=== PATIENT | female | born 1980 | race Asian ===

== ENCOUNTER 2016-10-21 16:37 | Inpatient (IN) | payer OTHER ==
[~2016-10-21] VITALS: Ht 162.6 cm; Wt 50.0 kg
[2016-10-21] MEDS ORDERED: SOD CHLORIDE 0.9% 1,000 ML IV STA (17:06)
[2016-10-21] MEDS ORDERED: ONDANSETRON 4 MG INJ IV STA (17:06)
[2016-10-21] MEDS ORDERED: PIPER-TAZO 3.375 GM IV (PMX) 100 ML IVPB STA (17:06)
[2016-10-21] MEDS ORDERED: morphine 4 MG/ML VIAL IV STA (17:06)
--- NOTE | 2016-10-21 17:39 | RADRPT ---
PROCEDURE: XR Chest 1 View. CLINICAL INDICATION: Shortness of breath. TECHNIQUE: AP view of the chest was obtained. COMPARISON: None. FINDINGS: The cardiomediastinal silhouette is within normal limits. The lungs are hypoinflated. Minimal atele ctasis is seen at the left lung base. No consolidations are identified. No pneumothorax is seen. O sseous structures are intact. IMPRESSION: Minimal atelectasis at the left lung base. Hypoinflated lungs. RPTAT: AA .Frederic Jung MD, MD Date Time Electronically viewed and signed by .Frederic Jung MD, on 10/21/2016 17:39 .P/
[2016-10-21 17:54] LABS: ADD SCAN DIFF NO
[2016-10-21 17:56] LABS: BASOPHIL # 0.1 10^3/ul (0.0-0.1); BASOPHILS % 0.5 % (0.0-2.0); EOSINOPHILS % 0.2 % (0.0-7.0); HEMATOCRIT 44.8 % (37.0-47.0); HEMOGLOBIN 14.6 g/dl (12.0-16.0); LYMPHOCYTES # 1.5 10^3/ul (0.8-2.9); LYMPHOCYTES % 13.8 % (15.0-51.0); MEAN CORPUSCULAR HEMOGLOBIN 28.9 pg (29.0-33.0); MEAN CORPUSCULAR HGB CONC 32.6 g/dl (32.0-37.0); MEAN CORPUSCULAR VOLUME 88.7 fl (82.0-101.0); MEAN PLATELET VOLUME 12.2 fl (7.4-10.4); MONOCYTE # 0.6 10^3/ul (0.3-0.9); MONOCYTES % 5.6 % (0.0-11.0); NEUTROPHIL # 8.4 10^3/ul (1.6-7.5); NEUTROPHILS % 78.8 % (39.0-77.0); PLATELET COUNT 238 10^3/UL (140-415); RED BLOOD COUNT 5.05 10^6/ul (4.20-5.40); RED CELL DISTRIBUTION WIDTH 12.5 % (11.5-14.5); WHITE BLOOD COUNT 10.7 10^3/ul (4.8-10.8)
[2016-10-21 18:17] LABS: ALBUMIN 4.6 g/dl (3.3-4.9); CHLORIDE 101 mmol/L (97-110)
[2016-10-21 18:18] LABS: POTASSIUM 4.1 mmol/L (3.5-5.1); SODIUM 144 mmol/L (135-144)
[2016-10-21 18:20] LABS: ALBUMIN/GLOBULIN RATIO 0.95; ALKALINE PHOSPHATASE 128 IU/L (42-121); ANION GAP 19 (8-16); ASPARTATE AMINO TRANSFERASE 27 IU/L (15-46); BILIRUBIN,INDIRECT 0.2 mg/dl (0-1.1); BILIRUBIN,TOTAL 0.2 mg/dl (0.2-1.3); CARBON DIOXIDE 28 mmol/L (21-31); CREATININE 0.49 mg/dl (0.44-1.00); TOTAL PROTEIN 9.4 g/dl (6.1-8.1)
[2016-10-21 18:21] LABS: ALANINE AMINOTRANSFERASE 35 IU/L (13-69); BLOOD UREA NITROGEN 16 mg/dl (7-20); CALCIUM 10.1 mg/dl (8.4-10.2); GLUCOSE 111 mg/dl (70-220)
[2016-10-21 18:21] LABS: ADD UMIC YES; URINE BILIRUBIN (Dip) NEGATIVE (NEGATIVE); URINE BLOOD (Dip) TRACE (NEGATIVE); URINE COLOR LT. YELLOW (YELLOW); URINE GLUCOSE (Dip) NEGATIVE (NEGATIVE); URINE KETONES (Dip) NEGATIVE (NEGATIVE); URINE LEUKOCYTE ESTERASE (Dip) 3+ (NEGATIVE); URINE NITRITE (Dip) NEGATIVE (NEGATIVE); URINE TOTAL PROTEIN (Dip) NEGATIVE (NEGATIVE); URINE UROBILINOGEN (Dip) 0.2 E.U./dL (0.1-1.0)
[2016-10-21 18:34] LABS: BACTERIA,URINE MANY; SQUAMOUS EPITHELIAL CELL,UR MANY; URINE RBCS 0-2 /HPF (0)
[2016-10-21 18:34] LABS: TROPONIN-I < 0.012 ng/ml (0.00-0.12)
--- NOTE | 2016-10-21 19:54 | ERA ---
ER Documentation Chief Complaint Date/Time DATE: 10/21/16 TIME: 19:43 Chief Complaint SENT BY PMD FOR BACK NECROTIC PRESSURE ULCER,FOR SURGICAL EVAL. HPI 36-year-old woman with a history of hereditary spastic paraplegia presents with 1 month of increasing weakness and sacral decubitus ulcer which has become infected. Mother states prior to a month ago she never had skin ulcers or breakdown. She was referred here for surgical consultation and possible debridement. She has had intermittent tactile fevers at home, no weight loss, no vomiting or diarrhea, no complaints of chest pain or shortness of breath. ROS All systems reviewed and are negative except as per history of present illness. 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 No submandibular induration, and no pharyngeal erythema NEURO: Eyes open, pupils equal round reactive to light, patient is able to smile and react nonverbally she has bilateral upper extremity paraplegia and bilateral lower extremity spastic paralysis with diffuse muscular wasting, no facial asymmetry CARDIAC: Tachycardic and regular, no murmurs rubs or gallops LUNGS: Clear bilaterally no wheezing crackles or stridor ABDOMEN: Soft nontender, no guarding, no rigidity, no rebound, no psoas sign no obturator sign. Normoactive bowel sounds SKIN: Warm and dry to touch, positive deep boarding sacral decubitus ulceration with visible musculature and mild surrounding skin necrosis no active drainage EXTREMITIES: No clubbing cyanosis or edema, calves are bilaterally symmetrical, diffuse spastic musculature and muscular wasting, distal pulses equal bilateral PSYCH: Normal affect without agitation or irritability Result Diagram: 10/21/16 1740 10/21/16 1740 Results 24 hrs Laboratory Tests Test 10/21/16 17:40 10/21/16 18:04 White Blood Count 10.710^3/ul Red Blood Count 5.0510^6/ul Hemoglobin 14.6g/dl Hematocrit 44.8% Mean Corpuscular Volume 88.7fl Mean Corpuscular Hemoglobin 28.9pg Mean Corpuscular Hemoglobin Concent 32.6g/dl Red Cell Distribution Width 12.5% Platelet Count 22034^3/UL Mean Platelet Volume 12.2fl Neutrophils % 78.8% Lymphocytes % 13.8% Monocytes % 5.6% Eosinophils % 0.2% Basophils % 0.5% Nucleated Red Blood Cells % 0.0/100WBC Neutrophils # 8.410^3/ul Lymphocytes # 1.510^3/ul Monocytes # 0.610^3/ul Eosinophils # 0.010^3/ul Basophils # 0.110^3/ul Nucleated Red Blood Cells # 0.010^3/ul Sodium Level 144mmol/L Potassium Level 4.1mmol/L Chloride Level 101mmol/L Carbon Dioxide Level 28mmol/L Anion Gap 19 Blood Urea Nitrogen 16mg/dl Creatinine 0.49mg/dl Glucose Level 111mg/dl Calcium Level 10.1mg/dl Total Bilirubin 0.2mg/dl Direct Bilirubin 0.00mg/dl Indirect Bilirubin 0.2mg/dl Aspartate Amino Transf (AST/SGOT) 27IU/L Alanine Aminotransferase (ALT/SGPT) 35IU/L Alkaline Phosphatase 128IU/L Troponin I < 0.012ng/ml Total Protein 9.4g/dl Albumin 4.6g/dl Globulin 4.80g/dl Albumin/Globulin Ratio 0.95 Lipase 117U/L Urine Color LT. YELLOW Urine Clarity SLIGHTLY CLOUDY Urine pH 6.0 Urine Specific [place] 1.025 Urine Ketones NEGATIVE Urine Nitrite NEGATIVE Urine Bilirubin NEGATIVE Urine Urobilinogen 0.2 E.U./dL Urine Leukocyte Esterase 3+ Urine Microscopic RBC 0-2/HPF Urine Microscopic WBC >50/HPF Urine Squamous Epithelial Cells MANY Urine Bacteria MANY Urine Hemoglobin TRACE Urine Glucose NEGATIVE% Urine Total Protein NEGATIVE Current Medications Medications (Trade) Dose Ordered Sig/Satish Route PRN Reason Start Time Stop Time Status Last Admin Dose Admin Sodium Chloride (NS) 1,000 ml @ 1,000 mls/hr Q1H STAT IV 10/21/16 17:06 10/21/16 18:05 DC 10/21/16 17:48 Morphine Sulfate (morphine) 4 mg ONCE STAT IV 10/21/16 17:06 10/21/16 17:13 DC 10/21/16 17:49 Ondansetron HCl 4 mg 4 mg ONCE STAT IV 10/21/16 17:06 10/21/16 17:13 DC 10/21/16 17:48 Piperacillin Sod/ Tazobactam Sod (Zosyn 3.375gm/ 100 ml (Pmx)) 100 ml @ 200 mls/hr ONCE STAT IVPB 10/21/16 17:06 10/21/16 17:35 DC 10/21/16 17:48 Procedures/MDM IV line was established patient was placed on hoistman rhythm strip revealed a sinus tachycardia at 140 bpm with upright P and T waves. Patient was afebrile. Blood and urine cultures have been ordered results are pending I will follow-up. Wound cultures have also been ordered. I administered 2 L normal saline intravenously for dehydration and tachycardia. Patient also received Zosyn 3.375 g IV. Patient also received morphine 4 mg IV and Zofran 4 mg IV with good effect. CBC and electrolytes were within normal limits, liver function tests were normal , troponin was negative. Urine analysis was positive for infection. Chest X-ray 1V Interpreted by me: Soft Tissue: No acute abnormalities Bones: No acute abnormalities Mediastinum/Cardiac Silhouette/Lungs: No acute abnormalities Patient presented dehydrated with a new infected sacral decubitus ulceration and a urinary tract infection. She will be admitted to [facility] for continued medical management and possible surgical debridement. I do not suspect sepsis. Patient admitted to Dr. Gibbs Departure Diagnosis: Primary Impression: Hereditary spastic paraplegia Additional Impressions: Dehydration Sacral decubitus ulcer, stage IV UTI (urinary tract infection) Qualified Code: N30.00 - Acute cystitis without hematuria Condition: SAYRA Mitchell MD October 21, 2016 19:53
[2016-10-21] MEDS ORDERED: BACL10TA PO (20:29)
[2016-10-21] MEDS ORDERED: PROPRANOLOL 10 MG TAB PO STA (20:56)
[2016-10-21] MEDS ORDERED: SOD CHLORIDE 0.9% 1,000 ML IV ONE (21:00)
[2016-10-21 21:21] VITALS: TEMP 98.8
[2016-10-21] MEDS ORDERED: VANCOMYCIN IV PER PHARMACY XX SCH (22:00)
[2016-10-21] MEDS ORDERED: ACETAMINOPHEN 500 MG TAB PO PRN (22:00)
[2016-10-21 22:27] VITALS: PULSE 110
[2016-10-21 22:45] VITALS: Ht 162.6 cm; Wt 50.0 kg
[2016-10-21] MEDS: VANCOMYCIN 1 GM in NS 250 ML IVPB SCH (23:17)
[2016-10-21] MEDS: SOD CHLORIDE 0.9% 1,000 ML IV SCH (23:17)
[2016-10-22] VITALS (11 sets, daily range): BP systolic 115–152; BP diastolic 71–78; PULSE 101–120; RESP 16–19
[2016-10-22] MEDS ORDERED: PENDING SANTYL ORDER FOR WOUND CARE XX PRN (01:30)
--- NOTE | 2016-10-22 02:13 | HP ---
DATE OF ADMISSION: 10/21/2016 CHIEF COMPLAINT AND HISTORY OF PRESENT ILLNESS: The patient is a 36-year-old female with history of hereditary spastic paraplegia and has been bedridden for several years. The patient has had multiple neurological evaluations in the past including at [facility], Dr. Bartolo Gamez and Dr. Delores Mays , also had evaluation at at [facility] and with Dr. Avani Glaser at [facility]. The patient was sent from her [facility] due to large necrotic sacral pressure ulcer. The patient was seen in ER and was found to be afebrile. However, she had sinus tachycardia. Other labs are still pending. The patient did not have any fever upon initial evaluation in ER. The patient is awake, alert and has some difficulty in speaking, although she is able to communicate. The patient denies any pain. The patient has contractures in all extremities. The patient is being admitted for further evaluation and management. The patient denied any chest pain or shortness of breath. There is no abdominal pain, no reported vomiting, no reported bleeding from any site. Eaton catheter is in place and draining clear urine. There is no leg edema. No acute skin rash. The patient is quadriplegic with contractures. REVIEW OF SYSTEMS: The patient denied any cough or headache. The patient's symptom of weakness in all extremities started around age of 30. Prior to that , she used to go to school and got and had a child. PAST MEDICAL HISTORY: Depression. ALLERGIES: NONE. MEDICATION PRIOR TO ADMISSION: Unknown. SOCIAL HISTORY: No smoking, no alcohol. The patient is with 1 daughter and is currently residing with her adopted mother Lissy and is originally from [place]. FAMILY HISTORY: The patient has 4 siblings which include 3 brothers and 1 sister, of which 2 of brothers also have similar symptoms. PHYSICAL EXAMINATION: GENERAL: The patient is conscious, awake, alert, fairly oriented. VITAL SIGNS: Temperature 98.1, pulse 130, respirations 20, blood pressure 133/ 83, . HEENT: Atraumatic, normocephalic. Conjunctivae and lids normal. Oropharynx grossly negative. NECK: No mass. CHEST: Fairly clear. CARDIOVASCULAR: S1, S2 normal. Sinus tachycardia. ABDOMEN: Soft, nontender. EXTREMITIES: No edema. Contractures present. NEUROLOGIC: The patient is awake, alert, fairly oriented with weakness and contractures in all extremities. SKIN: Without acute rash. The patient does have sacral wound. Please see nursing note for further detail about the wound. The patient does have slight focal redness on the left foot, probably from a previous blister. IMPRESSION: 1. Sacral decubitus. 2. Hereditary spastic paraplegia. PLAN: The patient will be admitted on medical floor. The patient will have urine culture, blood culture and wound culture and has received a dose of Zosyn in ER which will be continued. The patient will have wound care consult. Will give IV fluid due to possible sesis as evident by sinus tachcardia. The patient's chemistry & lactic acid is still pending. I spoke with ER physician that patient may be okay for medical floor if there is no significant abnormality in her chemistry report. Wound care consult from Dr. Murphy & ID consult from Dr. Hampton group will be obtained. Further recommendations will depend upon patient's hospital course and recommendation from consultants. The patient's family is currently not with the patient. Will discuss with the family whenever they are available. Dictated By: ROBERTO CARLOS LORA/CHRISTIAN Conf#: [id number] DID#: [id number] MTDJesus
[2016-10-22] MEDS: PIPER-TAZO 3.375 GM IV (PMX) 100 ML IVPB SCH ×3 (02:28→18:07)
[2016-10-22 06:49] LABS: ADD SCAN DIFF NO
[2016-10-22 06:54] LABS: BASOPHIL # 0.1 10^3/ul (0.0-0.1); BASOPHILS % 0.5 % (0.0-2.0); EOSINOPHILS # 0.1 10^3/ul (0.0-0.5); EOSINOPHILS % 0.5 % (0.0-7.0); HEMATOCRIT 37.5 % (37.0-47.0); HEMOGLOBIN 12.2 g/dl (12.0-16.0); LYMPHOCYTES # 1.6 10^3/ul (0.8-2.9); LYMPHOCYTES % 14.5 % (15.0-51.0); MEAN CORPUSCULAR HEMOGLOBIN 29.2 pg (29.0-33.0); MEAN CORPUSCULAR HGB CONC 32.5 g/dl (32.0-37.0); MEAN CORPUSCULAR VOLUME 89.7 fl (82.0-101.0); MEAN PLATELET VOLUME 11.5 fl (7.4-10.4); MONOCYTE # 0.7 10^3/ul (0.3-0.9); MONOCYTES % 6.6 % (0.0-11.0); NEUTROPHIL # 8.4 10^3/ul (1.6-7.5); NEUTROPHILS % 76.8 % (39.0-77.0); PLATELET COUNT 253 10^3/UL (140-415); RED BLOOD COUNT 4.18 10^6/ul (4.20-5.40); RED CELL DISTRIBUTION WIDTH 12.6 % (11.5-14.5); WHITE BLOOD COUNT 10.9 10^3/ul (4.8-10.8)
[2016-10-22 07:28] LABS: POTASSIUM 3.8 mmol/L (3.5-5.1)
[2016-10-22 07:31] LABS: CALCIUM 8.4 mg/dl (8.4-10.2); CREATININE 0.45 mg/dl (0.44-1.00)
[2016-10-22] MEDS: SOD CHLORIDE 0.9% 1,000 ML IV SCH ×2 (08:00→14:03)
[2016-10-22] MEDS: ENOXAPARIN 30 MG/0.3 ML SYG SC SCH (09:00)
[2016-10-22] MEDS: VANCOMYCIN 1 GM in NS 250 ML IVPB SCH ×2 (10:30→21:32)
[2016-10-22] MEDS ORDERED: TRAZ150T65 PO (14:00)
[2016-10-22] MEDS ORDERED: SERT-165 PO (14:00)
[2016-10-22] MEDS: SODIUM HYPOCHLORITE 0.125% 473 ML BTL IRR SCH ×2 (14:03→21:45)
--- NOTE | 2016-10-22 16:15 | PN ---
Date/Time of Note Date/Time of Note DATE: 10/22/16 TIME: 16:08 Assessment/Plan VTE Prophylaxis VTE Prophylaxis Intervention: SCD's Lines/Catheters IV Catheter Type (from Nrsg): Peripheral IV Urinary Cath still in place: Yes Reason Cath still needed: urinary retention Assessment/Plan Assessment/Plan Assessment and plan: - Sacral decubitus. Dr. Ware is asked to see patient in general surgery consultation. - Hereditary spastic paraplegia. - UTI per UA, continue broad-spectrum antibiotics, follow up on cultures. Dr. Memo garcía is asked to see patient in infection disease consultation. - Bilateral lateral foot blisters, will obtain wound care consult. - Depression, continue Zoloft Further recommendations based on clinical course. Plan of care discussed with Dr. Gibbs. Subjective 24 Hr Interval Summary Free Text/Dictation Patient is awake alert, denies any pain. Exam/Review of Systems Vital Signs Vitals Vital Signs Date Time Temp Pulse Resp B/P Pulse Ox O2 Delivery O2 Flow Rate FiO2 10/22/16 15:23 98.5 68 18 115/78 98 10/21/16 20:40 Room Air Intake and Output 10/21/16 10/21/16 10/22/16 15:00 23:00 07:00 Intake Total 750 ml Output Total 700 ml Balance 50 ml Exam Constitutional: alert, oriented Psych: no complaints Head: atraumatic, normocephalic Eyes: nl conjunctiva ENMT: nl external ears & nose Neck: non-tender, supple Respiratory: clear to auscultation, normal air movement Cardiovascular: nl pulses, regular rate and rhythm Gastrointestinal: non-tender, soft Genitourinary - Female: other (Eaton catheter) Musculoskeletal: muscle weakness, other (Contracted) Extremities: normal pulses Neurological: nl mental status Skin: other (Sacral decubitus, bilateral lateral foot blisters) Results Result Diagram: 10/22/16 0606 10/22/16 0606 Results 24 hrs Laboratory Tests Test 10/21/16 17:40 10/21/16 18:04 10/22/16 06:06 White Blood Count 10.7 10.9 H Red Blood Count 5.05 4.18 L Hemoglobin 14.6 12.2 Hematocrit 44.8 37.5 Mean Corpuscular Volume 88.7 89.7 Mean Corpuscular Hemoglobin 28.9 L 29.2 Mean Corpuscular Hemoglobin Concent 32.6 32.5 Red Cell Distribution Width 12.5 12.6 Platelet Count 238 253 Mean Platelet Volume 12.2 H 11.5 H Neutrophils % 78.8 H 76.8 Lymphocytes % 13.8 L 14.5 L Monocytes % 5.6 6.6 Eosinophils % 0.2 0.5 Basophils % 0.5 0.5 Nucleated Red Blood Cells % 0.0 0.0 Neutrophils # 8.4 H 8.4 H Lymphocytes # 1.5 1.6 Monocytes # 0.6 0.7 Eosinophils # 0.0 0.1 Basophils # 0.1 0.1 Nucleated Red Blood Cells # 0.0 0.0 Sodium Level 144 141 Potassium Level 4.1 3.8 Chloride Level 101 109 Carbon Dioxide Level 28 21 Anion Gap 19 H 15 Blood Urea Nitrogen 16 9 Creatinine 0.49 0.45 Glucose Level 111 98 Calcium Level 10.1 8.4 Total Bilirubin 0.2 Direct Bilirubin 0.00 Indirect Bilirubin 0.2 Aspartate Amino Transf (AST/SGOT) 27 Alanine Aminotransferase (ALT/SGPT) 35 Alkaline Phosphatase 128 H Troponin I < 0.012 Total Protein 9.4 H Albumin 4.6 Globulin 4.80 H Albumin/Globulin Ratio 0.95 Lipase 117 Urine Color LT. YELLOW Urine Clarity SLIGHTLY CLOUDY Urine pH 6.0 Urine Specific [place] 1.025 Urine Ketones NEGATIVE Urine Nitrite NEGATIVE Urine Bilirubin NEGATIVE Urine Urobilinogen 0.2 E.U./dL Urine Leukocyte Esterase 3+ H Urine Microscopic RBC 0-2 Urine Microscopic WBC >50 Urine Squamous Epithelial Cells MANY Urine Bacteria MANY Urine Hemoglobin TRACE Urine Glucose NEGATIVE Urine Total Protein NEGATIVE Lactic Acid Level 1.0 Thyroid Stimulating Hormone (TSH) 1.070 Medications Medications Current Medications Sodium Chloride 1,000 ml @ 100 mls/hr Q10H IV Last administered on 10/22/16 14:03; Admin Dose 100 MLS/HR; Start 10/21/16 at 22:00 Piperacillin Sod/ Tazobactam Sod (Zosyn 3.375gm/ 100 ml (Pmx)) 100 ml @ 25 mls/ hr TID@02,10,18 IVPB Last administered on 10/22/16 11:37; Admin Dose 25 MLS/HR ; Start 10/22/16 at 02:00 Acetaminophen (Tylenol Tab) 500 mg Q4H PRN PO PAIN AND OR ELEVATED TEMP; Start 10/21/16 at 22:00 Morphine Sulfate (morphine) 2 mg Q4H PRN IV PAIN LEVEL 4-7; Start 10/21/16 at 22:00 Enoxaparin Sodium (Lovenox) 30 mg DAILY SC Last administered on 10/22/16 09:00 ; Admin Dose 30 MG; Start 10/22/16 at 09:00 Ondansetron HCl 4 mg 4 mg Q4H PRN IV NAUSEA AND/OR VOMITING; Start 10/21/16 at 22:00 Vancomycin HCl (Vancocin) 250 ml @ 125 mls/hr Q12H IVPB Last administered on 10:30; Admin Dose 125 MLS/HR; Start 10/21/16 at 22:00 Miscellaneous Information (Pending Santyl Order For Wound Care) This patient webb... PRN PRN XX WOUND CARE; Start 10/22/16 at 01:30 Miscellaneous Information (*Rx Drug Level Order Reminder*) 1 ONCE ONCE XX ; Start 10/23/16 at 09:00; Stop 10/23/16 at 09:01 Sodium Hypochlorite (Dakin'S (1/4 Strength)) 1 applic BID IRR Last administered on 10/22/16 14:03; Admin Dose 1 APPLIC; Start 10/22/16 at 13:00 LEI YEBOAH October 22, 2016 16:15
[2016-10-22] MEDS ORDERED: BACLOFEN 10 MG TAB PO PRN (16:30)
--- NOTE | 2016-10-22 16:38 | QN ---
Documentation Comment ID consult requested by Chiqui Jay NP. Dr. Hampton to see pt shortly. BUFFY JAIME NP October 22, 2016 16:38
[2016-10-22] MEDS: traZODone 50 MG TAB PO SCH (21:33)
--- NOTE | 2016-10-22 22:05 | CONS ---
DATE OF ADMISSION: 10/21/2016 DATE OF CONSULTATION: 10/22/2016 TYPE OF CONSULTATION: Surgical. REQUESTING PHYSICIAN: Dr. Gibbs REASON FOR CONSULTATION: Evaluation of the sacrococcygeal pressure ulcer. Thank you, Dr. Gibbs, for consultation. HISTORY OF PRESENT ILLNESS: As understood, this is a 36-year-old female who has a history of hereditary spastic paraplegia and has been almost bedridden for 5 years. The patient has had multiple neurological evaluations in different places including [facility] and [facility] for finding out definitely what is wrong. Eventually so far, the diagnosis is some kind of degenerative disease, most probably hereditary degenerative spastic paraplegia. In any case , the patient was found in the clinic to have a necrotic sacrococcygeal wound so was sent here. The patient was seen in the emergency room yesterday on 10/21 and evaluated. The patient has denied any pain but has admitted to some kind of weakness and in the emergency room was evaluated with chest x-ray which was slight atelectasis, left lung base. The urinalysis was abnormal. Urine culture was sent which has grown so far lactobacillus more than 100,000 colonies. Leukocyte count was normal, but shift to the left was 80% neutrophils. The patient has been almost afebrile. REVIEW OF SYSTEMS: Apparently, the symptoms of the neurologic problems started at the age of 30. Prior to that, the patient had gone to school, college and , has got 1 child. PAST MEDICAL HISTORY: Depression. ALLERGIES: NOT KNOWN. MEDICATIONS: Please refer to reconciliation. SOCIAL HISTORY: No smoking, no alcohol. The patient is with 1 daughter and is currently residing with her biological mother and adopted mother. FAMILY HISTORY: The patient has 4 siblings which apparently include 3 brothers and 1 sister, which 2 of the brothers have got almost the same problems. PHYSICAL EXAMINATION: GENERAL: The patient is lying down on the bed. She has a kind of smile on her face. She has hirsutism. VITAL SIGNS: Temperature today maximum 99; heart rate maximum 112, regular; respirations 16; blood pressure recorded 127/75, lying down position; pulse oximetry is 97% room air. LABORATORY: As was mentioned, urine revealed leukocyte esterase 3+. WBCs more than 50 per high-power field. Many bacteria. Glucose and protein in urine negative. Chemistry: Sodium and potassium normal, BUN and creatinine normal. Alkaline phosphatase 128, slightly elevated. Total protein 9.4, sign of good nutrition. Albumin 4.6. Globulin slightly elevated, 4.80. Hematology: As was mentioned, WBC 10,900 with 76% neutrophils, hemoglobin 12.2, hematocrit 37.5. PHYSICAL EXAMINATION: GENERAL: The patient is conscious, awake and alert and fairly oriented. Slight difficulty in speaking. HEENT: Atraumatic, normocephalic. Conjunctivae and lids are normal. NECK: No mass, no thyroid enlargement. CHEST: Symmetrical expansion. Probably decreased breathing sound in the left base. CARDIOVASCULAR: S1, S2 normal. Sinus tachycardia. ABDOMEN: Flat but on the left side, especially left lower quadrant, is firm, evidence of presence of hard stool in the sigmoid colon. EXTREMITIES: No pitting edema. The upper extremities, there is flexion contracture at the elbows and at the wrists. She doesn't move them or she cannot move them. Lower extremities, there is spasticity of all the lower extremities. There is no flexion contracture at the knees or hips, but there is flexion contracture and equinus deformity of the feet. SKIN: Left and right lateral malleolus, there is a blister in heels that is probably unstageable or deep tissue injury. Turning the patient around, there is 4.5 x 3.5 x 3 cm deep skin loss and sacrococcygeal wound which lower edge is about 3 to 4 cm from inferior border of the anal verge. The granulation tissue is clean. I do see that much of necrotic tissue over there. This can be staged as stage IV pressure ulcer. NEUROLOGIC: As was mentioned, the patient is awake, alert, fairly oriented with weakness and contractures in all extremities. IMPRESSION: 1. Sacral decubitus ulcer, stage IV. 2. Probably hereditary degenerative spastic paraplegia (actually quadriplegia). 3. Urinary tract infection with lactobacillus more than 100,000 colonies. PLAN: The patient has been admitted for evaluation of the decubitus ulcer and also cause of weakness. Apparently patient has urinary tract infection which they are starting treating the patient with Zosyn, and an infectious disease consultation was requested. As far as the bedsores are concerned, the following suggestions are made: 1. Offloading the sacrococcygeal area by moving and turning the patient side-to -side every 2 hours. 2. Application of the wet-to-dry [place]in solution of 1/40% concentration b.i.d. ( q.12 hours). I will continue to follow the patient along with other colleagues. Dictated By: SCOOBY DRUMMOND/CHRISTIAN Conf#: [id number] DID#: [id number] MTDD
[2016-10-23] VITALS (12 sets, daily range): BP systolic 116–130; BP diastolic 53–78; PULSE 66–115; RESP 16–18
[2016-10-23] MEDS: PIPER-TAZO 3.375 GM IV (PMX) 100 ML IVPB SCH ×3 (01:14→18:14)
[2016-10-23] MEDS: SOD CHLORIDE 0.9% 1,000 ML IV SCH ×2 (05:48→14:00)
[2016-10-23] MEDS: SODIUM HYPOCHLORITE 0.125% 473 ML BTL IRR SCH ×3 (09:00→20:22)
[2016-10-23 09:21] LABS: ADD SCAN DIFF NO
[2016-10-23 09:23] LABS: BASOPHILS % 0.4 % (0.0-2.0); EOSINOPHILS # 0.1 10^3/ul (0.0-0.5); EOSINOPHILS % 1.2 % (0.0-7.0); HEMATOCRIT 36.6 % (37.0-47.0); HEMOGLOBIN 11.9 g/dl (12.0-16.0); LYMPHOCYTES # 1.4 10^3/ul (0.8-2.9); LYMPHOCYTES % 16.2 % (15.0-51.0); MEAN CORPUSCULAR HEMOGLOBIN 28.7 pg (29.0-33.0); MEAN CORPUSCULAR HGB CONC 32.5 g/dl (32.0-37.0); MEAN CORPUSCULAR VOLUME 88.2 fl (82.0-101.0); MEAN PLATELET VOLUME 10.9 fl (7.4-10.4); MONOCYTE # 0.6 10^3/ul (0.3-0.9); MONOCYTES % 6.4 % (0.0-11.0); NEUTROPHIL # 6.4 10^3/ul (1.6-7.5); NEUTROPHILS % 75.2 % (39.0-77.0); PLATELET COUNT 221 10^3/UL (140-415); RED BLOOD COUNT 4.15 10^6/ul (4.20-5.40); WHITE BLOOD COUNT 8.5 10^3/ul (4.8-10.8)
[2016-10-23 09:45] LABS: CALCIUM 8.8 mg/dl (8.4-10.2); CREATININE 0.51 mg/dl (0.44-1.00); POTASSIUM 3.2 mmol/L (3.5-5.1)
[2016-10-23] MEDS: VANCOMYCIN 1 GM in NS 250 ML IVPB SCH ×2 (09:57→20:22)
[2016-10-23] MEDS: SERTRALINE 100 MG TAB PO SCH (09:57)
[2016-10-23] MEDS: ENOXAPARIN 30 MG/0.3 ML SYG SC SCH (09:59)
--- NOTE | 2016-10-23 14:33 | PN ---
DATE: 10/23/2016 SUBJECTIVE: The patient has been admitted because of the sacrococcygeal necrotic wound and also cardioplegia and urinary tract infection. No new complaints. OBJECTIVE: VITAL SIGNS: Temperature 98.3, heart rate 101 to 97, respirations 18, blood pressure 126/78, saturation 96% on room air. ABDOMEN: Flat, as was mentioned before, left lower quadrant and left side which are most probably dense stool in the sigmoid colon and left colon, slightly tender. LABORATORIES: WBC 8500, hemoglobin 11.9. Neutrophils 75% normalized. Chemistry: Potassium 3.2, BUN 6, creatinine 0.51, sodium 141. I saw the patient's adopted mother today, and told me that the patient has not been eating that well recently, she cannot chew and she always gives her a clear liquid or full liquid diet, and she has a bowel movement every 6 or 5 days , sometimes they give her prune juice to have a bowel movement. ASSESSMENT AND PLAN: A 36-year-old female with a diagnosis of _hereditary degenerative spastic quadriplegia and is admitted because of the infected necrotic sacral coccygeal wound, and later on was found to have urinary tract infection. The patient is paraplegic. I examined her yesterday and today. It appears that there is a lot of stool in the colon, especially on the left side. Rectal examination reveals that ampulla of the rectum about 5 to 6 cm above the anal verge is full of pretty dense hard stool. PLAN: Will start the patient on mineral oil 30 mL 3 times a day to lubricate it and maybe we can have a good bowel movement later. We are going to give mineral oil or Fleets enema b.i.d. to help her move bowels. Also the patient should have full liquid diet because the patient has difficulty swallowing per the mother. Maybe we need to get a GI consultation, maybe there is need for placement of a PEG to facilitate feeding the patient. Dictated By: SCOOBY DRUMMOND/CHRISTIAN Conf#: [id number] DID#: [id number] MTDD
--- NOTE | 2016-10-23 15:43 | CONS ---
Date/Time of Note Date/Time of Note DATE: 10/23/16 TIME: 15:39 Assessment/Plan Assessment/Plan Chief Complaint/Hosp Course 1. UTI 2. Sepsis 3. Sacral decub infection 4. hereditary spastic paraplegia R: cont. 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 Sadly she has presented with sepsis from uti and sacral wound infection. Bcxs have returned pos for Staph. She is on Vanco/Zosyn. patient cannot provide detailed ros. No other pert. pos per nursing. Constitutional: improved, no complaints Psychological: no complaints Past Medical History as per hpi Social History Smoking Status: Never smoker Exam/Review of Systems Vital Signs Vitals Vital Signs Date Time Temp Pulse Resp B/P Pulse Ox O2 Delivery O2 Flow Rate FiO2 10/23/16 15:36 98.8 113 18 130/78 96 10/21/16 20:40 Room Air Intake and Output 10/22/16 10/22/16 10/23/16 15:00 23:00 07:00 Intake Total 250 ml 820 ml 1350 ml Output Total 1850 ml Balance 250 ml -1030 ml 1350 ml Exam Constitutional: alert, non-verbal Psych: confusion Head: atraumatic, normocephalic Eyes: EOMI, nl conjunctiva ENMT: nl external ears & nose, nl lips & teeth, nl nasal mucosa & septum Respiratory: clear to auscultation Cardiovascular: regular rate and rhythm Gastrointestinal: non-tender, soft Neurological: FELT CEMENTER II-XII intact, nl mental status, nl speech, nl strength Results Result Diagram: 10/23/1690410/23/16904 Results 24 hrs Laboratory Tests Test 10/23/16 09:05 White Blood Count 8.5 # Red Blood Count 4.15 L Hemoglobin 11.9 L Hematocrit 36.6 L Mean Corpuscular Volume 88.2 Mean Corpuscular Hemoglobin 28.7 L Mean Corpuscular Hemoglobin Concent 32.5 Red Cell Distribution Width 13.0 Platelet Count 221 Mean Platelet Volume 10.9 H Neutrophils % 75.2 Lymphocytes % 16.2 Monocytes % 6.4 Eosinophils % 1.2 Basophils % 0.4 Nucleated Red Blood Cells % 0.0 Neutrophils # 6.4 Lymphocytes # 1.4 Monocytes # 0.6 Eosinophils # 0.1 Basophils # 0.0 Nucleated Red Blood Cells # 0.0 Sodium Level 141 Potassium Level 3.2 L Chloride Level 111 H Carbon Dioxide Level 23 Anion Gap 10 # Blood Urea Nitrogen 6 L Creatinine 0.51 Glucose Level 119 Calcium Level 8.8 Vancomycin Level Trough 11.5 Medications Medications Current Medications Sodium Chloride 1,000 ml @ 100 mls/hr Q10H IV Last administered on 10/23/16 05:48; Admin Dose 100 MLS/HR; Start 10/21/16 at 22:00 Piperacillin Sod/ Tazobactam Sod (Zosyn 3.375gm/ 100 ml (Pmx)) 100 ml @ 25 mls/ hr TID@02,10,18 IVPB Last administered on 10/23/16 10:21; Admin Dose 25 MLS/HR ; Start 10/22/16 at 02:00 Acetaminophen (Tylenol Tab) 500 mg Q4H PRN PO PAIN AND OR ELEVATED TEMP; Start 10/21/16 at 22:00 Morphine Sulfate (morphine) 2 mg Q4H PRN IV PAIN LEVEL 4-7; Start 10/21/16 at 22:00 Enoxaparin Sodium (Lovenox) 30 mg DAILY SC Last administered on 10/23/16 09:59 ; Admin Dose 30 MG; Start 10/22/16 at 09:00 Ondansetron HCl 4 mg 4 mg Q4H PRN IV NAUSEA AND/OR VOMITING; Start 10/21/16 at 22:00 Vancomycin HCl (Vancocin) 250 ml @ 125 mls/hr Q12H IVPB Last administered on 09:57; Admin Dose 125 MLS/HR; Start 10/21/16 at 22:00 Miscellaneous Information (Pending Santyl Order For Wound Care) This patient webb... PRN PRN XX WOUND CARE; Start 10/22/16 at 01:30 Sodium Hypochlorite (Dakin'S (1/4 Strength)) 1 applic BID IRR Last administered on 10/23/16 15:22; Admin Dose 1 APPLIC; Start 10/22/16 at 13:00 Sertraline HCl (Zoloft) 100 mg DAILY PO Last administered on 10/23/16 09:57; Admin Dose 100 MG; Start 10/23/16 at 09:00 Trazodone HCl (Desyrel) 75 mg QHS PO Last administered on 10/22/16 21:33; Admin Dose 75 MG; Start 10/22/16 at 21:00 Baclofen (Lioresal) 10 mg TID PRN PO SPASM; Start 10/22/16 at 16:30 Mineral Oil (Mineral Oil) 30 ml TID PO ; Start 10/23/16 at 21:00 ROHAN CHENG MD October 23, 2016 15:43
--- NOTE | 2016-10-23 16:19 | RADRPT ---
PROCEDURE: XR Abdomen. CLINICAL INDICATION: Abdomen pain. TECHNIQUE: AP supine abdomen x-ray. COMPARISON: None. FINDINGS: There is gas in nondilated small bowel and colon. There is no evidence of obstruction. There is a Eaton catheter in the bladder. There are no abnormal calcifications overlying the urinary tracts. There is lumbar scoliosis convex right. The osseus structures are otherwise unremarkable. IMPRESSION: 1. No evidence of obstruction. 2. Eaton catheter in the bladder. 3. Lumbar scoliosis convex right. 4. Otherwise unremarkable study. RPTAT: QQ .Chidi Smith MD, MD Date Time Electronically viewed and signed by .Chidi Smith MD, on 10/23/2016 16:19 .R/
--- NOTE | 2016-10-23 16:58 | PN ---
Date/Time of Note Date/Time of Note DATE: 10/23/16 TIME: 16:51 Assessment/Plan VTE Prophylaxis VTE Prophylaxis Intervention: SCD's Lines/Catheters IV Catheter Type (from Nrs): Peripheral IV Urinary Cath still in place: Yes Reason Cath still needed: urinary retention Assessment/Plan Chief Complaint/Hosp Course Assessment and plan: - Sacral decubitus. Dr. Murphy is following patient in general surgery consultation. - Hereditary spastic paraplegia. - Gram-negative rods urinary tract infection, continue broad-spectrum antibiotics, follow up on cultures. Dr. Hampton group is asked to see patient in infection disease consultation. - Bilateral malleolus wound, continue current wound care - Depression, continue Zoloft - Possible dysphasia, swallow evaluation -Dietary consult Further recommendations based on clinical course. Plan of care discussed with Dr. Gibbs. Problems: Subjective 24 Hr Interval Summary Free Text/Dictation Patient is awake alert remains afebrile, pending dietary evaluation. Exam/Review of Systems Vital Signs Vitals Vital Signs Date Time Temp Pulse Resp B/P Pulse Ox O2 Delivery O2 Flow Rate FiO2 10/23/16 16:16 110 10/23/16 15:36 98.8 18 130/78 96 10/21/16 20:40 Room Air Intake and Output 10/22/16 10/22/16 10/23/16 15:00 23:00 07:00 Intake Total 250 ml 820 ml 1350 ml Output Total 1850 ml Balance 250 ml -1030 ml 1350 ml Exam Constitutional: alert, oriented Psych: no complaints Head: atraumatic, normocephalic Eyes: nl conjunctiva ENMT: nl external ears & nose Neck: non-tender, supple Respiratory: clear to auscultation, normal air movement Cardiovascular: nl pulses, regular rate and rhythm Gastrointestinal: non-tender, soft Genitourinary - Female: other (Eaton catheter) Musculoskeletal: muscle weakness, other (Contracted) Extremities: normal pulses Neurological: nl mental status Skin: other (Sacral decubitus, bilateral lateral foot blisters) Results Result Diagram: 10/23/1690410/23/16904 Results 24 hrs Laboratory Tests Test 10/23/16 09:05 White Blood Count 8.5 # Red Blood Count 4.15 L Hemoglobin 11.9 L Hematocrit 36.6 L Mean Corpuscular Volume 88.2 Mean Corpuscular Hemoglobin 28.7 L Mean Corpuscular Hemoglobin Concent 32.5 Red Cell Distribution Width 13.0 Platelet Count 221 Mean Platelet Volume 10.9 H Neutrophils % 75.2 Lymphocytes % 16.2 Monocytes % 6.4 Eosinophils % 1.2 Basophils % 0.4 Nucleated Red Blood Cells % 0.0 Neutrophils # 6.4 Lymphocytes # 1.4 Monocytes # 0.6 Eosinophils # 0.1 Basophils # 0.0 Nucleated Red Blood Cells # 0.0 Sodium Level 141 Potassium Level 3.2 L Chloride Level 111 H Carbon Dioxide Level 23 Anion Gap 10 # Blood Urea Nitrogen 6 L Creatinine 0.51 Glucose Level 119 Calcium Level 8.8 Vancomycin Level Trough 11.5 Medications Medications Current Medications Sodium Chloride 1,000 ml @ 100 mls/hr Q10H IV Last administered on 10/23/16 05:48; Admin Dose 100 MLS/HR; Start 10/21/16 at 22:00 Piperacillin Sod/ Tazobactam Sod (Zosyn 3.375gm/ 100 ml (Pmx)) 100 ml @ 25 mls/ hr TID@02,10,18 IVPB Last administered on 10/23/16 10:21; Admin Dose 25 MLS/HR ; Start 10/22/16 at 02:00 Acetaminophen (Tylenol Tab) 500 mg Q4H PRN PO PAIN AND OR ELEVATED TEMP; Start 10/21/16 at 22:00 Morphine Sulfate (morphine) 2 mg Q4H PRN IV PAIN LEVEL 4-7; Start 10/21/16 at 22:00 Enoxaparin Sodium (Lovenox) 30 mg DAILY SC Last administered on 10/23/16 09:59 ; Admin Dose 30 MG; Start 10/22/16 at 09:00 Ondansetron HCl 4 mg 4 mg Q4H PRN IV NAUSEA AND/OR VOMITING; Start 10/21/16 at 22:00 Vancomycin HCl (Vancocin) 250 ml @ 125 mls/hr Q12H IVPB Last administered on 09:57; Admin Dose 125 MLS/HR; Start 10/21/16 at 22:00 Miscellaneous Information (Pending Santyl Order For Wound Care) This patient webb... PRN PRN XX WOUND CARE; Start 10/22/16 at 01:30 Sodium Hypochlorite (Dakin'S ( Strength)) 1 applic BID IRR Last administered on 10/23/16 15:22; Admin Dose 1 APPLIC; Start 10/22/16 at 13:00 Sertraline HCl (Zoloft) 100 mg DAILY PO Last administered on 10/23/16 09:57; Admin Dose 100 MG; Start 10/23/16 at 09:00 Trazodone HCl (Desyrel) 75 mg QHS PO Last administered on 10/22/16 21:33; Admin Dose 75 MG; Start 10/22/16 at 21:00 Baclofen (Lioresal) 10 mg TID PRN PO SPASM; Start 10/22/16 at 16:30 Mineral Oil (Mineral Oil) 30 ml TID PO ; Start 10/23/16 at 21:00 LEI YEBOAH October 23, 2016 16:58
[2016-10-23] MEDS ORDERED: POTASSIUM CHLORIDE 20 MEQ in SOD CHLORIDE 0.9% 100 ML IVPB ONE (18:00)
[2016-10-23] MEDS: D5W-0.45 NACL + KCL 20 MEQ 1,000 ML IV SCH (18:14)
[2016-10-23] MEDS: traZODone 50 MG TAB PO SCH (20:22)
[2016-10-23] MEDS: MINERAL OIL 30ML CUP PO SCH (20:22)
[2016-10-24] VITALS (9 sets, daily range): BP systolic 107–123; BP diastolic 76–80; PULSE 90–108; RESP 16–20
[2016-10-24] MEDS: PIPER-TAZO 3.375 GM IV (PMX) 100 ML IVPB SCH ×3 (02:22→18:06)
[2016-10-24 07:08] LABS: ADD SCAN DIFF NO
[2016-10-24 07:16] LABS: BASOPHILS % 0.5 % (0.0-2.0); EOSINOPHILS # 0.2 10^3/ul (0.0-0.5); HEMATOCRIT 35.1 % (37.0-47.0); HEMOGLOBIN 11.5 g/dl (12.0-16.0); LYMPHOCYTES # 1.4 10^3/ul (0.8-2.9); LYMPHOCYTES % 16.5 % (15.0-51.0); MEAN CORPUSCULAR HGB CONC 32.8 g/dl (32.0-37.0); MEAN CORPUSCULAR VOLUME 88.6 fl (82.0-101.0); MONOCYTE # 0.9 10^3/ul (0.3-0.9); MONOCYTES % 10.3 % (0.0-11.0); NEUTROPHILS % 69.8 % (39.0-77.0); PLATELET COUNT 224 10^3/UL (140-415); RED BLOOD COUNT 3.96 10^6/ul (4.20-5.40); RED CELL DISTRIBUTION WIDTH 13.2 % (11.5-14.5); WHITE BLOOD COUNT 8.6 10^3/ul (4.8-10.8)
[2016-10-24] MEDS: D5W-0.45 NACL + KCL 20 MEQ 1,000 ML IV SCH ×3 (07:18→20:43)
[2016-10-24 07:43] LABS: CALCIUM 8.7 mg/dl (8.4-10.2); CREATININE 0.58 mg/dl (0.44-1.00); POTASSIUM 3.3 mmol/L (3.5-5.1)
[2016-10-24] MEDS: ENOXAPARIN 30 MG/0.3 ML SYG SC SCH (09:00)
[2016-10-24] MEDS: SODIUM HYPOCHLORITE 0.125% 473 ML BTL IRR SCH ×2 (09:00→20:44)
--- NOTE | 2016-10-24 09:35 | RADRPT ---
PROCEDURE: XR sacrum and coccyx CLINICAL INDICATION: evaluate for osteomyelitis TECHNIQUE: AP and lateral views of the sacrum and coccyx were performed. COMPARISON: Abdomen radiograph from earlier the same date. FINDINGS: There is normal sacral and coccygeal mineralization and alignment. No fracture or subluxation is see n. The sacroiliac joints appear normal. There is a moderate amount of stool in the rectosigmoid whic h limits detailed evaluation of the sacrum and coccyx on the AP view. There is a Eaton catheter in the urinary bladder.. IMPRESSION: 1. Unremarkable sacrum and coccyx. If there is strong clinical suspicion for osteomyelitis, MRI in would be a more sensitive means of evaluation. RPTAT: [facility] Physician Corey Date Time Electronically viewed and signed by Physician Corey on 10/24/2016 09:34 /
[2016-10-24] MEDS: MINERAL OIL 30ML CUP PO SCH ×3 (10:42→20:43)
[2016-10-24] MEDS: SERTRALINE 100 MG TAB PO SCH (10:43)
[2016-10-24] MEDS: VANCOMYCIN 1 GM in NS 250 ML IVPB SCH ×2 (10:52→20:43)
[2016-10-24] MEDS: morphine 2 MG INJ IV PRN (10:54)
[2016-10-24] MEDS ORDERED: POTASSIUM CHLORIDE (SR) 10 MEQ TAB PO ONE (12:30)
--- NOTE | 2016-10-24 13:21 | PN ---
Date/Time of Note Date/Time of Note DATE: 10/24/16 TIME: 13:18 Assessment/Plan VTE Prophylaxis VTE Prophylaxis Intervention: SCD's Lines/Catheters IV Catheter Type (from Nrsg): Peripheral IV Urinary Cath still in place: Yes Reason Cath still needed: urinary retention Assessment/Plan Assessment/Plan - Hypokalemia- replet K, am BMP - Sacral decubitus. Dr. Murphy is following patient in general surgery consultation. - Hereditary spastic paraplegia. - Gram-negative rods urinary tract infection, continue broad-spectrum antibiotics, follow up on cultures. Dr. Hampton group is asked to see patient in infection disease consultation. - Bilateral malleolus wound, continue current wound care - Depression, continue Zoloft - Possible dysphasia, swallow evaluation -Dietary consult Further recommendations based on clinical course. Plan of care discussed with Dr. Gibbs. Subjective 24 Hr Interval Summary Free Text/Dictation lying in bed, afebrile, seems comfortable, mother at bed side- all Qs ANSWERED.dw staff- no new issues reported. Subjective hx not possible: pt non-verbal Constitutional: requiring IVF, requiring O2 Exam/Review of Systems Vital Signs Vitals Vital Signs Date Time Temp Pulse Resp B/P Pulse Ox O2 Delivery O2 Flow Rate FiO2 10/24/16 12:04 94 10/24/16 11:20 98.5 17 119/79 95 10/21/16 20:40 Room Air Intake and Output 10/23/16 10/23/16 10/24/16 15:00 23:00 07:00 Intake Total 350 ml 1550 ml 1250 ml Output Total 1700 ml 1400 ml Balance 350 ml -150 ml -150 ml Exam Constitutional: alert, well developed Psych: nl mood/affect Eyes: nl sclera ENMT: nl external ears & nose Neck: non-tender Respiratory: diminished breath sounds Cardiovascular: nl pulses Gastrointestinal: non-tender, other (GT intact), soft Musculoskeletal: muscle weakness Neurological: confused Skin: other Results Result Diagram: 10/24/1615 10/24/1615 Results 24 hrs Laboratory Tests Test 10/23/16 15:50 10/24/16 06:15 Erythrocyte Sedimentation Rate 30 H HIV (1&2) Antibody NEGATIVE White Blood Count 8.6 Red Blood Count 3.96 L Hemoglobin 11.5 L Hematocrit 35.1 L Mean Corpuscular Volume 88.6 Mean Corpuscular Hemoglobin 29.0 Mean Corpuscular Hemoglobin Concent 32.8 Red Cell Distribution Width 13.2 Platelet Count 224 Mean Platelet Volume 11.0 H Neutrophils % 69.8 Lymphocytes % 16.5 Monocytes % 10.3 Eosinophils % 2.0 Basophils % 0.5 Nucleated Red Blood Cells % 0.0 Neutrophils # 6.0 Lymphocytes # 1.4 Monocytes # 0.9 Eosinophils # 0.2 Basophils # 0.0 Nucleated Red Blood Cells # 0.0 Sodium Level 142 Potassium Level 3.3 L Chloride Level 111 H Carbon Dioxide Level 25 Anion Gap 9 Blood Urea Nitrogen 4 L Creatinine 0.58 Glucose Level 119 Calcium Level 8.7 Medications Medications Current Medications Piperacillin Sod/ Tazobactam Sod (Zosyn 3.375gm/ 100 ml (Pmx)) 100 ml @ 25 mls/ hr TID@02,10,18 IVPB Last administered on 10/24/16 10:52; Admin Dose 25 MLS/HR ; Start 10/22/16 at 02:00 Acetaminophen (Tylenol Tab) 500 mg Q4H PRN PO PAIN AND OR ELEVATED TEMP; Start 10/21/16 at 22:00 Morphine Sulfate (morphine) 2 mg Q4H PRN IV PAIN LEVEL 4-7 Last administered on 10/24/16 10:54; Admin Dose 2 MG; Start 10/21/16 at 22:00 Enoxaparin Sodium (Lovenox) 30 mg DAILY SC Last administered on 10/24/16 09:00 ; Admin Dose 30 MG; Start 10/22/16 at 09:00 Ondansetron HCl 4 mg 4 mg Q4H PRN IV NAUSEA AND/OR VOMITING; Start 10/21/16 at 22:00 Vancomycin HCl (Vancocin) 250 ml @ 125 mls/hr Q12H IVPB Last administered on 10:52; Admin Dose 125 MLS/HR; Start 10/21/16 at 22:00 [facility] This patient webb... PRN PRN XX WOUND CARE; Start 10/22/16 at 01:30 Sodium Hypochlorite (Dakin'S (1/4 Strength)) 1 applic BID IRR Last administered on 10/24/16 09:00; Admin Dose 1 APPLIC; Start 10/22/16 at 13:00 Sertraline HCl (Zoloft) 100 mg DAILY PO Last administered on 10/24/16 10:43; Admin Dose 100 MG; Start 10/23/16 at 09:00 Trazodone HCl (Desyrel) 75 mg QHS PO Last administered on 10/23/16 20:22; Admin Dose 75 MG; Start 10/22/16 at 21:00 Baclofen (Lioresal) 10 mg TID PRN PO SPASM; Start 10/22/16 at 16:30 Mineral Oil 30 ml 30 ml TID PO Last administered on 10/24/16 10:42; Admin Dose 30 ML; Start 10/23/16 at 21:00 Potassium Chloride/Dextrose/ Sod Cl (D5-1/2ns + KCl 20 Meq) 1,000 ml @ 70 mls/ hr [id number] IV Last administered on 10/23/16 18:14; Admin Dose 70 MLS/HR; Start 10/23/16 at 17:00 CATALINA MCCORD October 24, 2016 13:21
--- NOTE | 2016-10-24 18:17 | CONS ---
Date/Time of Note Date/Time of Note DATE: 10/24/16 TIME: 18:16 Assessment/Plan Assessment/Plan Chief Complaint/Hosp Course 1. UTI 2. Sepsis 3. Sacral decub infection 4. hereditary spastic paraplegia R: cont. vanco/zosyn xray sacrum f/u cxs repeat bcxs esr procalc probiotics hiv screen consider checking HTLV if previous w/u did not include it (however it appears she has had exhaustive w/u previously) Problems: Consultation Date/Type/Reason Admit Date/Time October 21, 2016 at 18:19 Initial Consult Date 10/23/16 Reason for Consultation abx recs Exam/Review of Systems Vital Signs Vitals Vital Signs Date Time Temp Pulse Resp B/P Pulse Ox O2 Delivery O2 Flow Rate FiO2 10/24/16 12:04 94 10/24/16 11:20 98.5 17 119/79 95 10/21/16 20:40 Room Air Intake and Output 10/23/16 10/23/16 10/24/16 15:00 23:00 07:00 Intake Total 350 ml 1550 ml 1250 ml Output Total 1700 ml 1400 ml Balance 350 ml -150 ml -150 ml Exam Constitutional: alert, oriented, well developed Psych: nl mood/affect, no complaints Head: atraumatic, normocephalic Neck: non-tender, supple Respiratory: clear to auscultation, normal air movement Cardiovascular: nl pulses, regular rate and rhythm Gastrointestinal: nl liver, spleen, non-tender, soft Results Result Diagram: 10/24/16 0615 10/24/16 0615 Results 24 hrs Laboratory Tests Test 10/24/16 06:15 White Blood Count 8.6 Red Blood Count 3.96 L Hemoglobin 11.5 L Hematocrit 35.1 L Mean Corpuscular Volume 88.6 Mean Corpuscular Hemoglobin 29.0 Mean Corpuscular Hemoglobin Concent 32.8 Red Cell Distribution Width 13.2 Platelet Count 224 Mean Platelet Volume 11.0 H Neutrophils % 69.8 Lymphocytes % 16.5 Monocytes % 10.3 Eosinophils % 2.0 Basophils % 0.5 Nucleated Red Blood Cells % 0.0 Neutrophils # 6.0 Lymphocytes # 1.4 Monocytes # 0.9 Eosinophils # 0.2 Basophils # 0.0 Nucleated Red Blood Cells # 0.0 Sodium Level 142 Potassium Level 3.3 L Chloride Level 111 H Carbon Dioxide Level 25 Anion Gap 9 Blood Urea Nitrogen 4 L Creatinine 0.58 Glucose Level 119 Calcium Level 8.7 Medications Medications Current Medications Piperacillin Sod/ Tazobactam Sod (Zosyn 3.375gm/ 100 ml (Pmx)) 100 ml @ 25 mls/ hr TID@02,,18 IVPB Last administered on 10/24/16 18:06; Admin Dose 25 MLS/HR ; Start 10/22/16 at 02:00 Acetaminophen (Tylenol Tab) 500 mg Q4H PRN PO PAIN AND OR ELEVATED TEMP; Start 10/21/16 at 22:00 Morphine Sulfate (morphine) 2 mg Q4H PRN IV PAIN LEVEL 4-7 Last administered on 10/24/16 10:54; Admin Dose 2 MG; Start 10/21/16 at 22:00 Enoxaparin Sodium (Lovenox) 30 mg DAILY SC Last administered on 10/24/16 09:00 ; Admin Dose 30 MG; Start 10/22/16 at 09:00 Ondansetron HCl 4 mg 4 mg Q4H PRN IV NAUSEA AND/OR VOMITING; Start 10/21/16 at 22:00 Vancomycin HCl (Vancocin) 250 ml @ 125 mls/hr Q12H IVPB Last administered on 10:52; Admin Dose 125 MLS/HR; Start 10/21/16 at 22:00 Miscellaneous Information ([facility] This patient webb... PRN PRN XX WOUND CARE; Start 10/22/16 at 01:30 Sodium Hypochlorite (Dakin'S (1/4 Strength)) 1 applic BID IRR Last administered on 10/24/16 09:00; Admin Dose 1 APPLIC; Start 10/22/16 at 13:00 Sertraline HCl (Zoloft) 100 mg DAILY PO Last administered on 10/24/16 10:43; Admin Dose 100 MG; Start 10/23/16 at 09:00 Trazodone HCl (Desyrel) 75 mg QHS PO Last administered on 10/23/16 20:22; Admin Dose 75 MG; Start 10/22/16 at 21:00 Baclofen (Lioresal) 10 mg TID PRN PO SPASM; Start 5/16/17 at 16:30 Mineral Oil 30 ml 30 ml TID PO Last administered on 10/24/16t 10:42; Admin Dose 30 ML; Start 10/23/16 at 21:00 Potassium Chloride/Dextrose/ Sod Cl (D5-1/2ns + KCl 20 Meq) 1,000 ml @ 70 mls/ hr [id number] IV Last administered on 10/24/16t 16:15; Admin Dose 70 MLS/HR; Start 10/23/16 at 17:00 ROHAN CHENG MD October 24, 2016 18:17
[2016-10-24] MEDS: traZODone 50 MG TAB PO SCH (20:43)
[2016-10-25] MEDS: PIPER-TAZO 3.375 GM IV (PMX) 100 ML IVPB SCH ×3 (02:59→18:38)
--- NOTE | 2016-10-25 06:46 | PN ---
DATE: 10/24/2016 SUBJECTIVE: No new complaints. OBJECTIVE: VITAL SIGNS: Temperature 98.5, heart rate 97, respirations 17, blood pressure 119/79, saturation 95% on room air. ABDOMEN: Not distended, but firm on l.l.q., I believe this is stool accumulation over there. LABORATORY DATA: WBC 8600 with 69% neutrophils, hemoglobin 11.5, hematocrit 35.1. ESR is 36, slightly elevated. Chemistry: Sodium normal, potassium 3.2, slightly low. BUN and creatinine normal. KUB: No evidence of obstruction. Eaton catheter is in bladder. Lumbar scoliosis, convex right. Otherwise, unremarkable KUB. I see the patient myself right now. Unfortunately, the radiologist has not mentioned anything about the impacted stool in the whole pelvis, but I can see it right now here in the picture. The patient has not had any bowel movement yet. The nurse reported that the wound is clean red beefy and no necrotic tissue. ASSESSMENT AND PLAN: The patient with possible diagnosis of spastic hereditary paraplegia, has been admitted because of infected necrotic sacrococcygeal wound and was found to have urinary tract infection. She has severe constipation, one of the problems that should be resolved in this hospital while the patient is admitted. I am trying to solve it by giving the patient mineral oil, after 2 to 3 days then start giving her mineral oil enemas frequently. Also, the patient' per her mom does have difficulty swallowing solid food, so we have to evaluate this one, and if really the patient cannot eat enough to maintain good health and nutrition, the patient may benefit from placement of a G-tube for feeding purposes. I will ask the primary care physician to request a GI consultation in this regard. Dictated By: SCOOBY DRUMMOND/CHRISTIAN Conf#: [id number] DID#: [id number] LITTLE
[2016-10-25 06:54] VITALS: BP 116/70; RESP 18
[2016-10-25 07:12] LABS: ADD SCAN DIFF NO
[2016-10-25 07:19] LABS: BASOPHILS % 0.5 % (0.0-2.0); EOSINOPHILS # 0.3 10^3/ul (0.0-0.5); EOSINOPHILS % 3.4 % (0.0-7.0); HEMATOCRIT 35.7 % (37.0-47.0); HEMOGLOBIN 11.7 g/dl (12.0-16.0); LYMPHOCYTES # 1.5 10^3/ul (0.8-2.9); LYMPHOCYTES % 18.4 % (15.0-51.0); MEAN CORPUSCULAR HEMOGLOBIN 29.5 pg (29.0-33.0); MEAN CORPUSCULAR HGB CONC 32.8 g/dl (32.0-37.0); MEAN CORPUSCULAR VOLUME 89.9 fl (82.0-101.0); MEAN PLATELET VOLUME 11.4 fl (7.4-10.4); MONOCYTES % 12.4 % (0.0-11.0); NEUTROPHIL # 5.2 10^3/ul (1.6-7.5); NEUTROPHILS % 64.3 % (39.0-77.0); PLATELET COUNT 220 10^3/UL (140-415); RED BLOOD COUNT 3.97 10^6/ul (4.20-5.40); RED CELL DISTRIBUTION WIDTH 13.3 % (11.5-14.5)
[2016-10-25 07:37] VITALS: BP 116/70; RESP 18
[2016-10-25 07:44] LABS: CREATININE 0.61 mg/dl (0.44-1.00)
[2016-10-25 07:45] LABS: CALCIUM 8.9 mg/dl (8.4-10.2); POTASSIUM 3.4 mmol/L (3.5-5.1)
[2016-10-25] MEDS: VANCOMYCIN 1 GM in NS 250 ML IVPB SCH ×2 (09:10→22:34)
[2016-10-25] MEDS: SERTRALINE 100 MG TAB PO SCH (09:14)
[2016-10-25] MEDS: ASCORBIC ACID 500 MG TAB PO SCH (09:14)
[2016-10-25] MEDS: MINERAL OIL 30ML CUP PO SCH ×3 (09:15→21:37)
[2016-10-25] MEDS: ZINC SULFATE 220 MG CAP PO SCH (09:15)
[2016-10-25] MEDS: MULTIVITAMINS/MINERALS TAB PO SCH (09:15)
[2016-10-25] MEDS: ENOXAPARIN 30 MG/0.3 ML SYG SC SCH (09:18)
[2016-10-25] MEDS: SODIUM HYPOCHLORITE 0.125% 473 ML BTL IRR SCH ×2 (10:29→21:37)
[2016-10-25] MEDS ORDERED: MINERAL OIL 133 ML ENEMA PR ONE ×2 (11:30→20:00)
[2016-10-25] MEDS: D5W-0.45 NACL + KCL 20 MEQ 1,000 ML IV SCH (11:48)
--- NOTE | 2016-10-25 12:27 | PN ---
DATE: 10/25/2016 SUBJECTIVE: No new complaints. OBJECTIVE: VITAL SIGNS: Temperature 98, heart rate 80 and regular, respirations 18, blood pressure 106/70, sat uration 97% on room air. ABDOMEN: Soft, not distended but still hard stool is there. The patient has had actually a very sm all piece of stool today. SKIN: The sacrococcygeal wound is clean and granulating slowly. LABORATORY DATA: WBC 8000 with 64% neutrophils, differential is normal. Hemoglobin 11.7, hematocri t 35.7. Chemistry: Sodium normal, potassium 3.4, slightly low. BUN 5, creatinine 0.61. PLAN: 1. Continue care for the sacrococcygeal wound. 2. Continue antibiotic for urinary tract infection. 3. Give the patient Fleet mineral oil enema today, one today now and the other one at 8:00 p.m. Co ntinue mineral oil p.o. Dictated By: SCOOBY LAL MD PS/CHRISTIAN Conf#: [id number] DID#: [id number]
--- NOTE | 2016-10-25 17:20 | PN ---
Date/Time of Note Date/Time of Note DATE: 10/25/16 TIME: 17:15 Assessment/Plan VTE Prophylaxis VTE Prophylaxis Intervention: SCD's Lines/Catheters IV Catheter Type (from [facility]): Peripheral IV Urinary Cath still in place: Yes Reason Cath still needed: urinary retention Assessment/Plan Chief Complaint/Hosp Course Assessment and plan: - Sacral decubitus. Continue current wound care. Dr. Murphy is following patient in general surgery consultation. - Hereditary spastic paraplegia. Continue to assist patient with activities of daily living. - urinary tract infection, continue broad-spectrum antibiotics, follow up on cultures. Dr. Memo garcía is asked to see patient in infection disease consultation. - Bilateral malleolus wound, continue current wound care - Depression, continue Zoloft -Dysphagia continue dysphagia diet, nutritional supplements and vitamins. -Constipation, status post Fleet enema. -Continue qualified textured diet Further recommendations based on clinical course. Plan of care discussed with Dr. Gibbs. Problems: Subjective 24 Hr Interval Summary Free Text/Dictation Patient remains afebrile, tolerates current diet well. Exam/Review of Systems Vital Signs Vitals Vital Signs Date Time Temp Pulse Resp B/P Pulse Ox O2 Delivery O2 Flow Rate FiO2 10/25/16 07:37 98.0 80 18 116/70 97 10/21/16 20:40 Room Air Intake and Output 10/24/16 10/24/16 10/25/16 15:00 23:00 07:00 Intake Total 350 ml 1350 ml 1490 ml Output Total 1000 ml 1500 ml Balance 350 ml 350 ml -10 ml Exam Constitutional: alert, oriented Psych: no complaints Head: atraumatic, normocephalic Eyes: nl conjunctiva ENMT: nl external ears & nose Neck: non-tender, supple Respiratory: clear to auscultation, normal air movement Cardiovascular: nl pulses, regular rate and rhythm Gastrointestinal: non-tender, soft Genitourinary - Female: other (Eaton catheter) Musculoskeletal: muscle weakness, other (Contracted) Extremities: normal pulses Neurological: nl mental status Skin: other (Sacral decubitus, bilateral lateral foot blisters) Results Result Diagram: 10/25/16 0605 10/25/16 0605 Results 24 hrs Laboratory Tests Test 10/25/16 06:05 White Blood Count 8.0 Red Blood Count 3.97 L Hemoglobin 11.7 L Hematocrit 35.7 L Mean Corpuscular Volume 89.9 Mean Corpuscular Hemoglobin 29.5 Mean Corpuscular Hemoglobin Concent 32.8 Red Cell Distribution Width 13.3 Platelet Count 220 Mean Platelet Volume 11.4 H Neutrophils % 64.3 Lymphocytes % 18.4 Monocytes % 12.4 H Eosinophils % 3.4 Basophils % 0.5 Nucleated Red Blood Cells % 0.0 Neutrophils # 5.2 Lymphocytes # 1.5 Monocytes # 1.0 H Eosinophils # 0.3 Basophils # 0.0 Nucleated Red Blood Cells # 0.0 Sodium Level 143 Potassium Level 3.4 L Chloride Level 106 Carbon Dioxide Level 25 Anion Gap 15 Blood Urea Nitrogen 5 L Creatinine 0.61 Glucose Level 106 Calcium Level 8.9 Medications Medications Current Medications Piperacillin Sod/ Tazobactam Sod (Zosyn 3.375gm/ 100 ml (Pmx)) 100 ml @ 25 mls/ hr TID@02,10,18 IVPB Last administered on 10/25/16 11:42; Admin Dose 25 MLS/HR ; Start 10/22/16 at 02:00 Acetaminophen (Tylenol Tab) 500 mg Q4H PRN PO PAIN AND OR ELEVATED TEMP; Start 10/21/16 at 22:00 Morphine Sulfate (morphine) 2 mg Q4H PRN IV PAIN LEVEL 4-7 Last administered on 10/24/16 10:54; Admin Dose 2 MG; Start 10/21/16 at 22:00 Enoxaparin Sodium (Lovenox) 30 mg DAILY SC Last administered on 10/25/16 09:18 ; Admin Dose 30 MG; Start 10/22/16 at 09:00 Ondansetron HCl 4 mg 4 mg Q4H PRN IV NAUSEA AND/OR VOMITING; Start 10/21/16 at 22:00 Vancomycin HCl (Vancocin) 250 ml @ 125 mls/hr Q12H IVPB Last administered on 09:10; Admin Dose 125 MLS/HR; Start 10/21/16 at 22:00 Miscellaneous Information (Pending Santyl Order For Wound Care) This patient webb... PRN PRN XX WOUND CARE; Start 10/22/16 at 01:30 Sodium Hypochlorite (Dakin'S (1/4 Strength)) 1 applic BID IRR Last administered on 10/25/16 10:29; Admin Dose 1 APPLIC; Start 10/22/16 at 13:00 Sertraline HCl (Zoloft) 100 mg DAILY PO Last administered on 10/25/16 09:14; Admin Dose 100 MG; Start 10/23/16 at 09:00 Trazodone HCl (Desyrel) 75 mg QHS PO Last administered on 10/24/16 20:43; Admin Dose 75 MG; Start 10/22/16 at 21:00 Baclofen (Lioresal) 10 mg TID PRN PO SPASM; Start 10/22/16 at 16:30 Mineral Oil 30 ml 30 ml TID PO Last administered on 10/25/16 13:49; Admin Dose 30 ML; Start 10/23/16 at 21:00 Potassium Chloride/Dextrose/ Sod Cl (D5-1/2ns + KCl 20 Meq) 1,000 ml @ 70 mls/ hr [id number] IV Last administered on 10/25/16 11:48; Admin Dose 70 MLS/HR; Start 10/23/16 at 17:00 Multivitamins/ Minerals (Theragran-M) 1 tab DAILY PO Last administered on 09:15; Admin Dose 1 TAB; Start 10/25/16 at 09:00 Zinc Sulfate (Zinc Sulfate) 220 mg DAILY PO Last administered on 10/25/16 09: 15; Admin Dose 220 MG; Start 10/25/16 at 09:00 Ascorbic Acid (Vitamin C) 500 mg DAILY PO Last administered on 10/25/16 09:14 ; Admin Dose 500 MG; Start 10/25/16 at 09:00 Mineral Oil (Fleet Mineral Oil Enema) 133 ml ONCE ONCE [place] ; Start 10/25/16 at 20:00; Stop 10/25/16 at 20:01 Miscellaneous Information (*Rx Drug Level Order Reminder*) VANCO TROUGH @ 0, 900 ON... ONCE ONCE XX ; Start 10/26/16 at 09:00; Stop 10/26/16 at 09:01 LEI YEBOAH October 25, 2016 17:20
--- NOTE | 2016-10-25 18:32 | CONS ---
Date/Time of Note Date/Time of Note DATE: 10/25/16 TIME: 18:26 Assessment/Plan Assessment/Plan Chief Complaint/Hosp Course - Early sepsis due to sacral decub infection - mild leukocytosis and tachycardia resolving - Sacral decubitus ulcer with polymicrobial infection; wound cx grew E. Coli, Proteus, CoNS, and Leuconostoc; ESR 30 - UTI due to lactobacillus - Bacteremia due to CoNS - Hereditary spastic paraplegia - Depression - Constipation - Normocytic anemia - Hypokalemia Recommendations: - Continue vancomycin and pip/tazo (09/21/2016-) - x-ray sacrum reviewed with no e/o OM - probiotics (ordered) - consider checking HTLV if previous w/u did not include it (however it appears she has had exhaustive w/u previously) management d/w BRENDA Huerta and Dr. Hampton Problems: Consultation Date/Type/Reason Admit Date/Time October 21, 2016 at 18:19 Initial Consult Date 10/23/16 Type of Consultation: Infectious Disease 24 HR Interval Summary Free Text/Dictation Mineral oil enema given with small BM and repeat enema ordered by Dr. Murphy for tonight for impaction per nursing staff. Unable to perform ROS due to pt being nonverbal. ?nods no to pain. Subjective hx not possible: pt non-verbal Exam/Review of Systems Vital Signs Vitals Vital Signs Date Time Temp Pulse Resp B/P Pulse Ox O2 Delivery O2 Flow Rate FiO2 10/25/16 07:37 98.0 80 18 116/70 97 10/21/16 20:40 Room Air Intake and Output 10/24/16 10/24/16 10/25/16 15:00 23:00 07:00 Intake Total 350 ml 1350 ml 1490 ml Output Total 1000 ml 1500 ml Balance 350 ml 350 ml -10 ml Exam Constitutional: alert, frail Head: atraumatic, normocephalic Eyes: nl sclera Neck: other (unable to assess) Respiratory: clear to auscultation (anteriorly) Cardiovascular: nl pulses, regular rate and rhythm Gastrointestinal: bowel sounds (present), non-tender, soft Musculoskeletal: muscle weakness Extremities: other (contracted) Neurological: other (+ tracking, no commands) Skin: other (Wounds including sacral decub- see nurse notes and photos in chart for details) Results Result Diagram: 5/19/17 0605 5/19/17 0605 Results 24 hrs Laboratory Tests Test 10/25/16 06:05 White Blood Count 8.0 Red Blood Count 3.97 L Hemoglobin 11.7 L Hematocrit 35.7 L Mean Corpuscular Volume 89.9 Mean Corpuscular Hemoglobin 29.5 Mean Corpuscular Hemoglobin Concent 32.8 Red Cell Distribution Width 13.3 Platelet Count 220 Mean Platelet Volume 11.4 H Neutrophils % 64.3 Lymphocytes % 18.4 Monocytes % 12.4 H Eosinophils % 3.4 Basophils % 0.5 Nucleated Red Blood Cells % 0.0 Neutrophils # 5.2 Lymphocytes # 1.5 Monocytes # 1.0 H Eosinophils # 0.3 Basophils # 0.0 Nucleated Red Blood Cells # 0.0 Sodium Level 143 Potassium Level 3.4 L Chloride Level 106 Carbon Dioxide Level 25 Anion Gap 15 Blood Urea Nitrogen 5 L Creatinine 0.61 Glucose Level 106 Calcium Level 8.9 Medications Medications Current Medications Piperacillin Sod/ Tazobactam Sod (Zosyn 3.375gm/ 100 ml (Pmx)) 100 ml @ 25 mls/ hr TID@,18 IVPB Last administered on 10/25/16 11:42; Admin Dose 25 MLS/HR ; Start 10/22/16 at 02:00 Acetaminophen (Tylenol Tab) 500 mg Q4H PRN PO PAIN AND OR ELEVATED TEMP; Start 10/21/16 at 22:00 Morphine Sulfate (morphine) 2 mg Q4H PRN IV PAIN LEVEL 4-7 Last administered on 10/24/16 10:54; Admin Dose 2 MG; Start 10/21/16 at 22:00 Enoxaparin Sodium (Lovenox) 30 mg DAILY SC Last administered on 10/25/16 09:18 ; Admin Dose 30 MG; Start 10/22/16 at 09:00 Ondansetron HCl 4 mg 4 mg Q4H PRN IV NAUSEA AND/OR VOMITING; Start 10/21/16 at 22:00 Vancomycin HCl (Vancocin) 250 ml @ 125 mls/hr Q12H IVPB Last administered on 09:10; Admin Dose 125 MLS/HR; Start 10/21/16 at 22:00 Miscellaneous Information (Pending Santyl Order For Wound Care) This patient webb... PRN PRN XX WOUND CARE; Start 10/22/16 at 01:30 Sodium Hypochlorite (Dakin'S (1/4 Strength)) 1 applic BID IRR Last administered on 10/25/16 10:29; Admin Dose 1 APPLIC; Start 10/22/16 at 13:00 Sertraline HCl (Zoloft) 100 mg DAILY PO Last administered on 10/25/16 09:14; Admin Dose 100 MG; Start 10/23/16 at 09:00 Trazodone HCl (Desyrel) 75 mg QHS PO Last administered on 10/24/16 20:43; Admin Dose 75 MG; Start 10/22/16 at 21:00 Baclofen (Lioresal) 10 mg TID PRN PO SPASM; Start 10/22/16 at 16:30 Mineral Oil 30 ml 30 ml TID PO Last administered on 10/25/16 13:49; Admin Dose 30 ML; Start 10/23/16 at 21:00 Potassium Chloride/Dextrose/ Sod Cl (D5-1/2ns + KCl 20 Meq) 1,000 ml @ 70 mls/ hr [id number] IV Last administered on 10/25/16 11:48; Admin Dose 70 MLS/HR; Start 10/23/16 at 17:00 Multivitamins/ Minerals (Theragran-M) 1 tab DAILY PO Last administered on 09:15; Admin Dose 1 TAB; Start 10/25/16 at 09:00 Zinc Sulfate (Zinc Sulfate) 220 mg DAILY PO Last administered on 10/25/16 09: 15; Admin Dose 220 MG; Start 10/25/16 at 09:00 Ascorbic Acid (Vitamin C) 500 mg DAILY PO Last administered on 10/25/16 09:14 ; Admin Dose 500 MG; Start 10/25/16 at 09:00 Mineral Oil (Fleet Mineral Oil Enema) 133 ml ONCE ONCE [place] ; Start 10/25/16 at 20:00; Stop 10/25/16 at 20:01 Miscellaneous Information (*Rx Drug Level Order Reminder*) VANCO TROUGH @ 0, 900 ON... ONCE ONCE XX ; Start 10/26/16 at 09:00; Stop 10/26/16 at 09:01 Procedures Procedures X-ray sacrum/coccyx 10/23/16: Unremarkable sacrum and coccyx. If there is strong clinical suspicion for osteomyelitis, MRI in would be a more sensitive means of evaluation. BUFFY JAIME NP October 25, 2016 18:32
[2016-10-25 20:00] VITALS: BP 121/69; RESP 20
[2016-10-25] MEDS: traZODone 50 MG TAB PO SCH (21:37)
[2016-10-26] MEDS: D5W-0.45 NACL + KCL 20 MEQ 1,000 ML IV SCH ×2 (02:12→13:03)
[2016-10-26] MEDS: PIPER-TAZO 3.375 GM IV (PMX) 100 ML IVPB SCH ×3 (02:30→18:20)
[2016-10-26 07:54] VITALS: BP 109/71; RESP 18
[2016-10-26] MEDS: MULTIVITAMINS/MINERALS TAB PO SCH ×2 (09:00→11:24)
[2016-10-26] MEDS: ASCORBIC ACID 500 MG TAB PO SCH (09:36)
[2016-10-26] MEDS: ENOXAPARIN 30 MG/0.3 ML SYG SC SCH (09:37)
[2016-10-26] MEDS: SODIUM HYPOCHLORITE 0.125% 473 ML BTL IRR SCH ×2 (09:37→20:57)
[2016-10-26] MEDS: MINERAL OIL 30ML CUP PO SCH ×3 (09:37→20:55)
[2016-10-26] MEDS: LACTOBACILLUS RHAMNOSUS CAP PO SCH ×2 (09:37→20:57)
[2016-10-26] MEDS: ZINC SULFATE 220 MG CAP PO SCH (09:37)
[2016-10-26] MEDS: SERTRALINE 100 MG TAB PO SCH (09:37)
[2016-10-26 09:52] LABS: ADD SCAN DIFF NO
[2016-10-26 09:58] LABS: BASOPHILS % 0.4 % (0.0-2.0); EOSINOPHILS # 0.4 10^3/ul (0.0-0.5); EOSINOPHILS % 3.9 % (0.0-7.0); HEMATOCRIT 38.2 % (37.0-47.0); HEMOGLOBIN 12.2 g/dl (12.0-16.0); LYMPHOCYTES # 1.5 10^3/ul (0.8-2.9); LYMPHOCYTES % 15.3 % (15.0-51.0); MEAN CORPUSCULAR HEMOGLOBIN 28.9 pg (29.0-33.0); MEAN CORPUSCULAR HGB CONC 31.9 g/dl (32.0-37.0); MEAN CORPUSCULAR VOLUME 90.5 fl (82.0-101.0); MEAN PLATELET VOLUME 10.7 fl (7.4-10.4); NEUTROPHIL # 6.8 10^3/ul (1.6-7.5); NEUTROPHILS % 69.8 % (39.0-77.0); PLATELET COUNT 232 10^3/UL (140-415); RED BLOOD COUNT 4.22 10^6/ul (4.20-5.40); RED CELL DISTRIBUTION WIDTH 13.7 % (11.5-14.5); WHITE BLOOD COUNT 9.7 10^3/ul (4.8-10.8)
[2016-10-26 10:15] LABS: CALCIUM 9.2 mg/dl (8.4-10.2); CREATININE 0.67 mg/dl (0.44-1.00); POTASSIUM 3.8 mmol/L (3.5-5.1)
[2016-10-26] MEDS ORDERED: MINERAL OIL 133 ML ENEMA PR ONE ×2 (11:00→20:00)
--- NOTE | 2016-10-26 12:05 | PN ---
Date/Time of Note Date/Time of Note DATE: 10/26/16 TIME: 12:03 Assessment/Plan VTE Prophylaxis VTE Prophylaxis Intervention: other Lines/Catheters [facility] Peripheral IV Urinary Cath still in place: Yes Assessment/Plan Assessment/Plan - Sacral decubitus. Continue current wound care. Dr. Murphy is following patient in general surgery consultation. - Hereditary spastic paraplegia. Continue to assist patient with activities of daily living. - urinary tract infection, continue broad-spectrum antibiotics, follow up on cultures. Dr. Memo garcía is asked to see patient in infection disease consultation. - Bilateral malleolus wound, continue current wound care - Depression, continue Zoloft -Dysphagia continue dysphagia diet, nutritional supplements and vitamins. -Constipation, status post Fleet enema. -Continue qualified textured diet Further recommendations based on clinical course. Plan of care discussed with Dr. Gibbs. Subjective 24 Hr Interval Summary Free Text/Dictation Alert, awake, answers questions in yes and no, afebrile, tolerates G-tube feeding, dw staff no new issues reported overnight Constitutional: requiring IVF, requiring O2 Exam/Review of Systems Vital Signs Vitals Vital Signs Date Time Temp Pulse Resp B/P Pulse Ox O2 Delivery O2 Flow Rate FiO2 10/26/16 07:54 97.7 77 18 109/71 99 Intake and Output 10/25/16 10/25/16 10/26/16 15:00 23:00 07:00 Intake Total 390 ml 810 ml 850 ml Output Total 1450 ml 850 ml Balance 390 ml -640 ml 0 ml Exam Constitutional: alert Eyes: nl sclera ENMT: nl external ears & nose Respiratory: diminished breath sounds Cardiovascular: nl pulses Gastrointestinal: non-tender, soft Musculoskeletal: muscle weakness Extremities: normal pulses Neurological: confused Skin: other Results Result Diagram: 10/26/16 0940 10/26/16 0940 Results 24 hrs Laboratory Tests Test 10/26/16 09:40 White Blood Count 9.7 # Red Blood Count 4.22 Hemoglobin 12.2 Hematocrit 38.2 Mean Corpuscular Volume 90.5 Mean Corpuscular Hemoglobin 28.9 L Mean Corpuscular Hemoglobin Concent 31.9 L Red Cell Distribution Width 13.7 Platelet Count 232 Mean Platelet Volume 10.7 H Neutrophils % 69.8 Lymphocytes % 15.3 Monocytes % 10.0 Eosinophils % 3.9 Basophils % 0.4 Nucleated Red Blood Cells % 0.0 Neutrophils # 6.8 Lymphocytes # 1.5 Monocytes # 1.0 H Eosinophils # 0.4 Basophils # 0.0 Nucleated Red Blood Cells # 0.0 Sodium Level 143 Potassium Level 3.8 Chloride Level 109 Carbon Dioxide Level 28 Anion Gap 10 # Blood Urea Nitrogen 6 L Creatinine 0.67 Glucose Level 105 Calcium Level 9.2 Vancomycin Level Trough 18.5 Medications Medications Current Medications Piperacillin Sod/ Tazobactam Sod (Zosyn 3.375gm/ 100 ml (Pmx)) 100 ml @ 25 mls/ hr TID@02,,18 IVPB Last administered on 10/26/16 11:26; Admin Dose 25 MLS/HR ; Start 10/22/16 at 02:00 Acetaminophen (Tylenol Tab) 500 mg Q4H PRN PO PAIN AND OR ELEVATED TEMP; Start 10/21/16 at 22:00 Morphine Sulfate (morphine) 2 mg Q4H PRN IV PAIN LEVEL 4-7 Last administered on 10/24/16 10:54; Admin Dose 2 MG; Start 10/21/16 at 22:00 Enoxaparin Sodium (Lovenox) 30 mg DAILY SC Last administered on 10/26/16 09:37 ; Admin Dose 30 MG; Start 10/22/16 at 09:00 Ondansetron HCl (Zofran Inj) 4 mg Q4H PRN IV NAUSEA AND/OR VOMITING; Start at 22:00 [facility] This patient webb... PRN PRN XX WOUND CARE; Start 10/22/16 at 01:30 Sodium Hypochlorite (Dakin'S (1/4 Strength)) 1 applic BID IRR Last administered on 10/26/16 09:37; Admin Dose 1 APPLIC; Start 10/22/16 at 13:00 Sertraline HCl (Zoloft) 100 mg DAILY PO Last administered on 10/26/16 09:37; Admin Dose 100 MG; Start 10/23/16 at 09:00 Trazodone HCl (Desyrel) 75 mg QHS PO Last administered on 10/25/16 21:37; Admin Dose 75 MG; Start 10/22/16 at 21:00 Baclofen (Lioresal) 10 mg TID PRN PO SPASM; Start 10/22/16 at 16:30 Mineral Oil 30 ml 30 ml TID PO Last administered on 10/26/16 09:37; Admin Dose 30 ML; Start 10/23/16 at 21:00 Potassium Chloride/Dextrose/ Sod Cl (D5-1/2ns + KCl 20 Meq) 1,000 ml @ 70 mls/ hr [id number] IV Last administered on 10/25/16 11:48; Admin Dose 70 MLS/HR; Start 10/23/16 at 17:00 Multivitamins/ Minerals (Theragran-M) 1 tab DAILY PO Last administered on 11:24; Admin Dose 1 TAB; Start 10/25/16 at 09:00 Zinc Sulfate (Zinc Sulfate) 220 mg DAILY PO Last administered on 10/26/16 09: 37; Admin Dose 220 MG; Start 10/25/16 at 09:00 Ascorbic Acid (Vitamin C) 500 mg DAILY PO Last administered on 10/26/16 09:36 ; Admin Dose 500 MG; Start 10/25/16 at 09:00 Lactobacillus Acidophilus/ Rhamnosus 1 cap 1 cap BID PO Last administered on 09:37; Admin Dose 1 CAP; Start 10/26/16 at 09:00 Vancomycin HCl/ Sodium Chloride (Vancocin/NS) 150 ml @ 75 mls/hr Q12H IVPB ; Start 10/26/16 at 16:00 Mineral Oil (Fleet Mineral Oil Enema) 133 ml ONCE ONCE [place] ; Start 10/26/16 at 20:00; Stop 10/26/16 at 20:01 CATALINA MCCORD October 26, 2016 12:05
--- NOTE | 2016-10-26 12:19 | PN ---
DATE: 10/26/2016 SUBJECTIVE: Patient is here, admitted for care of the risks sacrococcygeal wound and also was found to have urinary tract infection. The patient is quadriplegic. The exact diagnosis is not clear at this time probably, but it has been mentioned to be hereditary spastic paraplegia. No new complain t, barely talks. OBJECTIVE: VITAL SIGNS: Temperature 97.7, heart rate is down to 77 and regular, respirations 18, blood pressur e 109/71, saturation 99% on room air. HEENT: WBC 9700, hemoglobin 12.2, hematocrit 38.2. Differential is 69.8% neutrophils. Chemistry: Sodium, potassium, BUN, creatinine within normal limits. ABDOMEN: Not distended, is softer. The patient has had 3 relatively big bowel movements, per nurse s. Sacrococcygeal wound is clean. PLAN: Continue use of mineral oil and mineral oil Fleet enemas to evacuate impacted stool from the rectosigmoid area. Continue monitoring nutrition. Continue antibiotic for urinary tract infection. Considering possibility of placement of diverting colostomy in this patient. Dictated By: SCOOBY DRUMMOND/CHRISTIAN Conf#: [id number] DID#: [id number]
[2016-10-26] MEDS: VANCOMYCIN 750 MG in SOD CHLORIDE 0.9% 150 ML IVPB SCH (16:46)
--- NOTE | 2016-10-26 17:27 | CONS ---
Date/Time of Note Date/Time of Note DATE: 10/26/16 TIME: 17:26 Assessment/Plan Assessment/Plan Chief Complaint/Hosp Course - Early sepsis due to sacral decub infection - mild leukocytosis and tachycardia resolving - Sacral decubitus ulcer with polymicrobial infection; wound cx grew E. Coli, Proteus, CoNS, and Leuconostoc; ESR 30 - UTI due to lactobacillus - Bacteremia due to CoNS - Hereditary spastic paraplegia - Depression - Constipation - Normocytic anemia - Hypokalemia Recommendations: - Continue vancomycin and pip/tazo (09/21/2016-)- to finish 14 days total - x-ray sacrum reviewed with no e/o OM - probiotics (ordered) - consider checking HTLV if previous w/u did not include it (however it appears she has had exhaustive w/u previously) Problems: Consultation Date/Type/Reason Admit Date/Time October 21, 2016 at 18:19 Initial Consult Date 10/23/16 Type of Consultation: Infectious Disease Exam/Review of Systems Vital Signs Vitals Vital Signs Date Time Temp Pulse Resp B/P Pulse Ox O2 Delivery O2 Flow Rate FiO2 10/26/16 07:54 97.7 77 18 109/71 99 Intake and Output 10/25/16 10/25/16 10/26/16 15:00 23:00 07:00 Intake Total 390 ml 810 ml 850 ml Output Total 1450 ml 850 ml Balance 390 ml -640 ml 0 ml Exam Constitutional: alert, oriented, well developed Psych: nl mood/affect, no complaints Head: atraumatic, normocephalic Eyes: EOMI, PERRL, nl conjunctiva, nl lids, nl sclera ENMT: nl external ears & nose, nl lips & teeth, nl nasal mucosa & septum Cardiovascular: nl pulses, regular rate and rhythm Additional Comments bandaged Results Result Diagram: 10/26/16 0940 10/26/16 0940 Results 24 hrs Laboratory Tests Test 10/26/16 09:40 White Blood Count 9.7 # Red Blood Count 4.22 Hemoglobin 12.2 Hematocrit 38.2 Mean Corpuscular Volume 90.5 Mean Corpuscular Hemoglobin 28.9 L Mean Corpuscular Hemoglobin Concent 31.9 L Red Cell Distribution Width 13.7 Platelet Count 232 Mean Platelet Volume 10.7 H Neutrophils % 69.8 Lymphocytes % 15.3 Monocytes % 10.0 Eosinophils % 3.9 Basophils % 0.4 Nucleated Red Blood Cells % 0.0 Neutrophils # 6.8 Lymphocytes # 1.5 Monocytes # 1.0 H Eosinophils # 0.4 Basophils # 0.0 Nucleated Red Blood Cells # 0.0 Sodium Level 143 Potassium Level 3.8 Chloride Level 109 Carbon Dioxide Level 28 Anion Gap 10 # Blood Urea Nitrogen 6 L Creatinine 0.67 Glucose Level 105 Calcium Level 9.2 Vancomycin Level Trough 18.5 Medications Medications Current Medications Piperacillin Sod/ Tazobactam Sod (Zosyn 3.375gm/ 100 ml (Pmx)) 100 ml @ 25 mls/ hr TID@02,10,18 IVPB Last administered on 10/26/16 11:26; Admin Dose 25 MLS/HR ; Start 10/22/16 at 02:00 Acetaminophen (Tylenol Tab) 500 mg Q4H PRN PO PAIN AND OR ELEVATED TEMP; Start 10/21/16 at 22:00 Morphine Sulfate (morphine) 2 mg Q4H PRN IV PAIN LEVEL 4-7 Last administered on 10/24/16 10:54; Admin Dose 2 MG; Start 10/21/16 at 22:00 Enoxaparin Sodium (Lovenox) 30 mg DAILY SC Last administered on 10/26/16 09:37 ; Admin Dose 30 MG; Start 10/22/16 at 09:00 Ondansetron HCl (Zofran Inj) 4 mg Q4H PRN IV NAUSEA AND/OR VOMITING; Start at 22:00 Miscellaneous Information (Pending [facility] Order For Wound Care) This patient webb... PRN PRN XX WOUND CARE; Start 10/22/16 at 01:30 Sodium Hypochlorite (Dakin'S (1/4 Strength)) 1 applic BID IRR Last administered on 10/26/16 09:37; Admin Dose 1 APPLIC; Start 10/22/16 at 13:00 Sertraline HCl (Zoloft) 100 mg DAILY PO Last administered on 10/26/16 09:37; Admin Dose 100 MG; Start 10/23/16 at 09:00 Trazodone HCl (Desyrel) 75 mg QHS PO Last administered on 10/25/16 21:37; Admin Dose 75 MG; Start 10/22/16 at 21:00 Baclofen (Lioresal) 10 mg TID PRN PO SPASM; Start 10/22/16 at 16:30 Mineral Oil 30 ml 30 ml TID PO Last administered on 10/26/16 13:07; Admin Dose 30 ML; Start 10/23/16 at 21:00 Potassium Chloride/Dextrose/ Sod Cl (D5-1/2ns + KCl 20 Meq) 1,000 ml @ 70 mls/ hr [id number] IV Last administered on 10/26/16 13:03; Admin Dose 70 MLS/HR; Start 10/23/16 at 17:00 Multivitamins/ Minerals (Theragran-M) 1 tab DAILY PO Last administered on 11:24; Admin Dose 1 TAB; Start 10/25/16 at 09:00 Zinc Sulfate (Zinc Sulfate) 220 mg DAILY PO Last administered on 10/26/16 09: 37; Admin Dose 220 MG; Start 10/25/16 at 09:00 Ascorbic Acid (Vitamin C) 500 mg DAILY PO Last administered on 10/26/16 09:36 ; Admin Dose 500 MG; Start 10/25/16 at 09:00 Lactobacillus Acidophilus/ Rhamnosus 1 cap 1 cap BID PO Last administered on 09:37; Admin Dose 1 CAP; Start 10/26/16 at 09:00 Vancomycin HCl/ Sodium Chloride (Vancocin/NS) 150 ml @ 75 mls/hr Q12H IVPB Last administered on 10/26/16 16:46; Admin Dose 75 MLS/HR; Start 10/26/16 at 16 :00 Mineral Oil (Fleet Mineral Oil Enema) 133 ml ONCE ONCE [place] ; Start 10/26/16 at 20:00; Stop 10/26/16 at 20:01 ROAHN CHENG MD October 26, 2016 17:27
[2016-10-26 20:00] VITALS: BP 127/64; RESP 16
[2016-10-26] MEDS: traZODone 50 MG TAB PO SCH (20:58)
[2016-10-27] MEDS: PIPER-TAZO 3.375 GM IV (PMX) 100 ML IVPB SCH ×3 (02:15→19:20)
[2016-10-27] MEDS: VANCOMYCIN 750 MG in SOD CHLORIDE 0.9% 150 ML IVPB SCH ×2 (04:40→16:56)
[2016-10-27 06:28] LABS: ADD SCAN DIFF NO
[2016-10-27 06:34] LABS: BASOPHIL # 0.1 10^3/ul (0.0-0.1); BASOPHILS % 0.6 % (0.0-2.0); EOSINOPHILS # 0.3 10^3/ul (0.0-0.5); EOSINOPHILS % 3.8 % (0.0-7.0); HEMATOCRIT 35.4 % (37.0-47.0); HEMOGLOBIN 11.4 g/dl (12.0-16.0); LYMPHOCYTES # 1.3 10^3/ul (0.8-2.9); LYMPHOCYTES % 14.2 % (15.0-51.0); MEAN CORPUSCULAR HEMOGLOBIN 29.4 pg (29.0-33.0); MEAN CORPUSCULAR HGB CONC 32.2 g/dl (32.0-37.0); MEAN CORPUSCULAR VOLUME 91.2 fl (82.0-101.0); MEAN PLATELET VOLUME 11.4 fl (7.4-10.4); MONOCYTES % 10.9 % (0.0-11.0); NEUTROPHIL # 6.2 10^3/ul (1.6-7.5); NEUTROPHILS % 69.7 % (39.0-77.0); PLATELET COUNT 220 10^3/UL (140-415); RED BLOOD COUNT 3.88 10^6/ul (4.20-5.40); RED CELL DISTRIBUTION WIDTH 13.7 % (11.5-14.5); WHITE BLOOD COUNT 8.9 10^3/ul (4.8-10.8)
[2016-10-27 06:46] LABS: CREATININE 0.65 mg/dl (0.44-1.00); POTASSIUM 3.8 mmol/L (3.5-5.1)
[2016-10-27] MEDS: D5W-0.45 NACL + KCL 20 MEQ 1,000 ML IV SCH ×2 (06:48→09:51)
[2016-10-27 06:49] LABS: CREATININE 0.7 mg/dl (0.44-1.00)
[2016-10-27 06:50] LABS: CALCIUM 8.9 mg/dl (8.4-10.2)
[2016-10-27 07:52] VITALS: BP_SYST 110; RESP 18
[2016-10-27] MEDS: LACTOBACILLUS RHAMNOSUS CAP PO SCH ×2 (09:51→21:45)
[2016-10-27] MEDS: ASCORBIC ACID 500 MG TAB PO SCH (09:51)
[2016-10-27] MEDS: MULTIVITAMINS/MINERALS TAB PO SCH (09:51)
[2016-10-27] MEDS: SERTRALINE 100 MG TAB PO SCH (09:51)
[2016-10-27] MEDS: ZINC SULFATE 220 MG CAP PO SCH (09:51)
[2016-10-27] MEDS: MINERAL OIL 30ML CUP PO SCH ×3 (09:51→21:46)
[2016-10-27] MEDS: ENOXAPARIN 30 MG/0.3 ML SYG SC SCH (11:06)
--- NOTE | 2016-10-27 13:22 | PN ---
Date/Time of Note Date/Time of Note DATE: 10/27/16 TIME: 13:04 Assessment/Plan VTE Prophylaxis VTE Prophylaxis Intervention: SCD's Lines/Catheters IV [facility]ter [facility] (from [facility]): Peripheral IV Urinary Cath still in place: Yes Assessment/Plan Assessment/Plan - Sacral decubitus. Continue current wound care. Dr. Murphy is following patient in general surgery consultation. - Hereditary spastic paraplegia. Continue to assist patient with activities of daily living. - urinary tract infection, continue broad-spectrum antibiotics, follow up on cultures. Dr. Memo garcía is asked to see patient in infection disease consultation. - Bilateral malleolus wound, continue current wound care - Depression, continue Zoloft -Dysphagia continue dysphagia diet, nutritional supplements and vitamins. -Constipation, status post Fleet enema. -Continue qualified textured diet Further recommendations based on clinical course. Plan of care discussed with Dr. Gibbs. Subjective 24 Hr Interval Summary Free Text/Dictation Alert, awake, afebrile, tolerates G-tube feeding, dw staff no new issues reported overnight Constitutional: requiring O2 Exam/Review of Systems Vital Signs Vitals Vital Signs Date Time Temp Pulse Resp B/P Pulse Ox O2 Delivery O2 Flow Rate FiO2 10/27/16 07:52 97.6 88 18 110/ 98 Intake and Output 10/26/16 10/26/16 10/27/16 15:00 23:00 07:00 Intake Total 1260 ml 1270 ml Output Total 1200 ml 1000 ml Balance 60 ml 270 ml Exam Constitutional: alert Eyes: nl sclera ENMT: nl external ears & nose Respiratory: diminished breath sounds Cardiovascular: nl pulses Gastrointestinal: non-tender, other, soft Extremities: normal pulses Neurological: confused Results Result Diagram: 10/27/16 0510/27/16518 Results 24 hrs Laboratory Tests Test 10/27/16 05:19 White Blood Count 8.9 Red Blood Count 3.88 L Hemoglobin 11.4 L Hematocrit 35.4 L Mean Corpuscular Volume 91.2 Mean Corpuscular Hemoglobin 29.4 Mean Corpuscular Hemoglobin Concent 32.2 Red Cell Distribution Width 13.7 Platelet Count 220 Mean Platelet Volume 11.4 H Neutrophils % 69.7 Lymphocytes % 14.2 L Monocytes % 10.9 Eosinophils % 3.8 Basophils % 0.6 Nucleated Red Blood Cells % 0.0 Neutrophils # 6.2 Lymphocytes # 1.3 Monocytes # 1.0 H Eosinophils # 0.3 Basophils # 0.1 Nucleated Red Blood Cells # 0.0 Sodium Level 144 Potassium Level 3.8 Chloride Level 105 Carbon Dioxide Level 26 Anion Gap 17 #H Blood Urea Nitrogen 7 Creatinine 0.70 Glucose Level 105 Calcium Level 8.9 Medications Medications Current Medications Piperacillin Sod/ Tazobactam Sod (Zosyn 3.375gm/ 100 ml (Pmx)) 100 ml @ 25 mls/ hr TID@18 IVPB Last administered on 10/27/16 09:53; Admin Dose 25 MLS/HR ; Start 10/22/16 at 02:00 Acetaminophen (Tylenol Tab) 500 mg Q4H PRN PO PAIN AND OR ELEVATED TEMP; Start 10/21/16 at 22:00 Morphine Sulfate (morphine) 2 mg Q4H PRN IV PAIN LEVEL 4-7 Last administered on 10/24/16 10:54; Admin Dose 2 MG; Start 10/21/16 at 22:00 Enoxaparin Sodium (Lovenox) 30 mg DAILY SC Last administered on 10/27/16 11:06 ; Admin Dose 30 MG; Start 10/22/16 at 09:00 Ondansetron HCl (Zofran Inj) 4 mg Q4H PRN IV NAUSEA AND/OR VOMITING; Start at 22:00 [facility] This patient webb... PRN PRN XX WOUND CARE; Start 10/22/16 at 01:30 Sodium Hypochlorite (Dakin'S (1/4 Strength)) 1 applic BID IRR Last administered on 10/26/16 20:57; Admin Dose 1 APPLIC; Start 10/22/16 at 13:00 Sertraline HCl (Zoloft) 100 mg DAILY PO Last administered on 10/27/16 09:51; Admin Dose 100 MG; Start 10/23/16 at 09:00 Trazodone HCl (Desyrel) 75 mg QHS PO Last administered on 10/26/16 20:58; Admin Dose 75 MG; Start 10/22/16 at 21:00 Baclofen (Lioresal) 10 mg TID PRN PO SPASM; Start 10/22/16 at 16:30 Mineral Oil 30 ml 30 ml TID PO Last administered on 10/27/16 09:51; Admin Dose 30 ML; Start 10/23/16 at 21:00 Potassium Chloride/Dextrose/ Sod Cl (D5-1/2ns + KCl 20 Meq) 1,000 ml @ 70 mls/ hr [id number] IV Last administered on 10/27/16 09:51; Admin Dose 70 MLS/HR; Start 10/23/16 at 17:00 Multivitamins/ Minerals (Theragran-M) 1 tab DAILY PO Last administered on 09:51; Admin Dose 1 TAB; Start 10/25/16 at 09:00 Zinc Sulfate (Zinc Sulfate) 220 mg DAILY PO Last administered on 10/27/16 09: 51; Admin Dose 220 MG; Start 10/25/16 at 09:00 Ascorbic Acid (Vitamin C) 500 mg DAILY PO Last administered on 10/27/16 09:51 ; Admin Dose 500 MG; Start 10/25/16 at 09:00 Lactobacillus Acidophilus/ Rhamnosus 1 cap 1 cap BID PO Last administered on 09:51; Admin Dose 1 CAP; Start 10/26/16 at 09:00 Vancomycin HCl/ Sodium Chloride (Vancocin/NS) 150 ml @ 75 mls/hr Q12H IVPB Last administered on 10/27/16 04:40; Admin Dose 75 MLS/HR; Start 10/26/16 at 16 :00 CATALINA MCCODR October 27, 2016 13:20
--- NOTE | 2016-10-27 13:50 | CONS ---
Date/Time of Note Date/Time of Note DATE: 10/27/16 TIME: 13:24 Consult Date/Type/Reason Admit Date/Time October 21, 2016 at 18:19 Initial Consult Date 10/23/16 Type of Consultation: Infectious Disease Subjective patient unable to make needs known but mother requesting physical & speech therapy - RN notified Objective Vital Signs Date Time Temp Pulse Resp B/P Pulse Ox O2 Delivery O2 Flow Rate FiO2 10/27/16 07:52 97.6 88 18 110/ 98 Intake and Output 10/26/16 10/26/16 10/27/16 15:00 23:00 07:00 Intake Total 1260 ml 1270 ml Output Total 1200 ml 1000 ml Balance 60 ml 270 ml Exam Constitutional: alert, frail, bedridden Head: atraumatic, normocephalic Eyes: nl sclera Respiratory: anterior clear to auscultation Cardiovascular: palpable pulses, regular rate and rhythm Gastrointestinal: soft, nontender, nondistended, audible bowel sounds Genitourinary: santa catheter in place Musculoskeletal: muscle weakness/paraplegic Extremities: contracted Skin: Wounds - see nurse notes and photos in chart for details Neurological: able to track, unable to follow commands Results/Medications Result Diagram: 10/27/1619 10/27/16 0519 Results 24 hrs Laboratory Tests Test 10/27/16 05:19 White Blood Count 8.9 Red Blood Count 3.88 L Hemoglobin 11.4 L Hematocrit 35.4 L Mean Corpuscular Volume 91.2 Mean Corpuscular Hemoglobin 29.4 Mean Corpuscular Hemoglobin Concent 32.2 Red Cell Distribution Width 13.7 Platelet Count 220 Mean Platelet Volume 11.4 H Neutrophils % 69.7 Lymphocytes % 14.2 L Monocytes % 10.9 Eosinophils % 3.8 Basophils % 0.6 Nucleated Red Blood Cells % 0.0 Neutrophils # 6.2 Lymphocytes # 1.3 Monocytes # 1.0 H Eosinophils # 0.3 Basophils # 0.1 Nucleated Red Blood Cells # 0.0 Sodium Level 144 Potassium Level 3.8 Chloride Level 105 Carbon Dioxide Level 26 Anion Gap 17 #H Blood Urea Nitrogen 7 Creatinine 0.70 Glucose Level 105 Calcium Level 8.9 Medications Current Medications Piperacillin Sod/ Tazobactam Sod (Zosyn 3.375gm/ 100 ml (Pmx)) 100 ml @ 25 mls/ hr TID@02,10,18 IVPB Last administered on 10/27/16 09:53; Admin Dose 25 MLS/HR ; Start 10/22/16 at 02:00 Acetaminophen (Tylenol Tab) 500 mg Q4H PRN PO PAIN AND OR ELEVATED TEMP; Start 10/21/16 at 22:00 Morphine Sulfate (morphine) 2 mg Q4H PRN IV PAIN LEVEL 4-7 Last administered on 10/24/16 10:54; Admin Dose 2 MG; Start 10/21/16 at 22:00 Enoxaparin Sodium (Lovenox) 30 mg DAILY SC Last administered on 10/27/16 11:06 ; Admin Dose 30 MG; Start 10/22/16 at 09:00 Ondansetron HCl (Zofran Inj) 4 mg Q4H PRN IV NAUSEA AND/OR VOMITING; Start at 22:00 [facility] This patient webb... PRN PRN XX WOUND CARE; Start 10/22/16 at 01:30 Sodium Hypochlorite (Dakin'S (1/4 Strength)) 1 applic BID IRR Last administered on 10/26/16 20:57; Admin Dose 1 APPLIC; Start 10/22/16 at 13:00 Sertraline HCl (Zoloft) 100 mg DAILY PO Last administered on 10/27/16 09:51; Admin Dose 100 MG; Start 10/23/16 at 09:00 Trazodone HCl (Desyrel) 75 mg QHS PO Last administered on 10/26/16 20:58; Admin Dose 75 MG; Start 10/22/16 at 21:00 Baclofen (Lioresal) 10 mg TID PRN PO SPASM; Start 10/22/16 at 16:30 Mineral Oil 30 ml 30 ml TID PO Last administered on 10/27/16 09:51; Admin Dose 30 ML; Start 10/23/16 at 21:00 Potassium Chloride/Dextrose/ Sod Cl (D5-1/2ns + KCl 20 Meq) 1,000 ml @ 70 mls/ hr [id number] IV Last administered on 10/27/16 09:51; Admin Dose 70 MLS/HR; Start 10/23/16 at 17:00 Multivitamins/ Minerals (Theragran-M) 1 tab DAILY PO Last administered on 09:51; Admin Dose 1 TAB; Start 10/25/16 at 09:00 Zinc Sulfate (Zinc Sulfate) 220 mg DAILY PO Last administered on 10/27/16 09: 51; Admin Dose 220 MG; Start 10/25/16 at 09:00 Ascorbic Acid (Vitamin C) 500 mg DAILY PO Last administered on 10/27/16 09:51 ; Admin Dose 500 MG; Start 10/25/16 at 09:00 Lactobacillus Acidophilus/ Rhamnosus 1 cap 1 cap BID PO Last administered on 09:51; Admin Dose 1 CAP; Start 10/26/16 at 09:00 Vancomycin HCl/ Sodium Chloride (Vancocin/NS) 150 ml @ 75 mls/hr Q12H IVPB Last administered on 10/27/16 04:40; Admin Dose 75 MLS/HR; Start 10/26/16 at 16 :00 Assessment/Plan Chief Complaint/Hosp Course Assessment/impression - Early sepsis due to sacral decub infection - mild leukocytosis and tachycardia resolving - Sacral decubitus ulcer with polymicrobial infection; wound cx grew E. Coli, Proteus, CoNS, and Leuconostoc; ESR 30 - UTI due to lactobacillus - Bacteremia due to CoNS - Hereditary spastic paraplegia - Depression - Sacral x-ray no e/o OM Recommendations: - Continue vancomycin and pip/tazo (09/21/2016-)- to finish 14 days total - Continue probiotics - consider checking HTLV if previous w/u did not include it (however it appears she has had exhaustive w/u previously) Case and management discussed with mother and DR. Hampton Problems: JOMAR GARNICA October 27, 2016 13:34
[2016-10-27] MEDS: SODIUM HYPOCHLORITE 0.125% 473 ML BTL IRR SCH ×2 (14:45→21:46)
--- NOTE | 2016-10-27 16:42 | PN ---
DATE: SUBJECTIVE: No complaint, actually there is not much communication. The patient speaks very little and very slowly. OBJECTIVE GENERAL: Patient is awake and alert. VITAL SIGNS: Temperature 97.6, heart rate 88, respirations 18, blood pressure 110/64, saturation 98 % on room air. LABORATORY DATA: Today, WBC 8900 with 69% segmented. Hemoglobin 11.4, hematocrit 35.4, platelet 22 0. Chemistry: Sodium, potassium, BUN, creatinine within normal limits. The patient has had 3 rosetta l movements yesterday. The amount has not been mentioned, only documented the numbers. ABDOMEN: Flat. It is softer than before, but still I can feel fullness in the left lower quadrant which is indicative of remaining stool in the rectosigmoid and descending colon. ASSESSMENT: A 36-year-old female with hereditary spastic paraplegia was admitted because of the sac rococcygeal infected necrotic decubitus ulcers and here was found to have also urinary tract infecti on and we found that she has severely impacted stool in the rectosigmoid and also in the descending colon. The patient was started on antibiotics for the urinary tract infection and also covering the sacroco ccygeal wound, and also local care of the sacrococcygeal wound with Dakin solution wet to dry q.12h. , and also mineral oil p.o. and mineral oil enemas to evacuate the colon from the impacted stool. W e have been partially successful so far for the stool, but there is a lot of stool that has to be ev acuated. PLAN: Since the patient's nutrition is not very good, she is not eating, she has swallowing problem s with solid food, we have to get a swallow evaluation and if indicated, patient should get a GI con sult for placement of the feeding tube and start tube feeding. Will continue antibiotics and contin ue treatment for the constipation. Dictated By: SCOOBY DRUMMOND/CHRISTIAN Conf#: [id number] DID#: [id number]
[2016-10-27 19:54] VITALS: BP 111/67; RESP 18
[2016-10-27] MEDS: traZODone 50 MG TAB PO SCH (21:46)
[2016-10-28] MEDS: PIPER-TAZO 3.375 GM IV (PMX) 100 ML IVPB SCH ×3 (01:46→17:32)
[2016-10-28] MEDS: D5W-0.45 NACL + KCL 20 MEQ 1,000 ML IV SCH ×2 (01:46→21:43)
[2016-10-28] MEDS: VANCOMYCIN 750 MG in SOD CHLORIDE 0.9% 150 ML IVPB SCH ×2 (04:02→15:15)
[2016-10-28 07:33] VITALS: BP 116/85; RESP 18
[2016-10-28] MEDS: LACTOBACILLUS RHAMNOSUS CAP PO SCH ×2 (08:59→21:00)
[2016-10-28] MEDS: MINERAL OIL 30ML CUP PO SCH ×3 (08:59→21:00)
[2016-10-28] MEDS: ASCORBIC ACID 500 MG TAB PO SCH (09:00)
[2016-10-28] MEDS: MULTIVITAMINS/MINERALS TAB PO SCH (09:00)
[2016-10-28] MEDS: SODIUM HYPOCHLORITE 0.125% 473 ML BTL IRR SCH ×2 (09:00→21:01)
[2016-10-28] MEDS: ZINC SULFATE 220 MG CAP PO SCH (09:00)
[2016-10-28] MEDS: SERTRALINE 100 MG TAB PO SCH (09:00)
[2016-10-28] MEDS: ENOXAPARIN 30 MG/0.3 ML SYG SC SCH (09:57)
[2016-10-28] MEDS ORDERED: MINERAL OIL 133 ML ENEMA PR ONE ×2 (14:00→21:00)
--- NOTE | 2016-10-28 14:47 | RADRPT ---
PROCEDURE: XR Abdomen. CLINICAL INDICATION: Abdominal pain. Assess for obstruction. TECHNIQUE: AP abdomen x-ray. COMPARISON: Report from [facility] 10/23/2016. FINDINGS: There is a large amount of fecal material in the rectal ampulla. There is a tubing artifact project ing across the pubic symphysis and super ramus of the right side of the pubis. Air is noted through out the colon and small bowel. IMPRESSION: 1. Reflex ileus. 2. Fecal impaction in the rectal ampulla with small amounts of fecal material in the distal sigmoid colon. No mechanical small-bowel obstruction is identified. RPTAT:AAJJ Physician Jose Date Time Electronically viewed and signed by David Beckham Physician on 10/28/2016 14:47 NEO/
--- NOTE | 2016-10-28 16:03 | CONS ---
Date/Time of Note Date/Time of Note DATE: 10/28/16 TIME: 16:03 Assessment/Plan Assessment/Plan Chief Complaint/Hosp Course - Early sepsis due to sacral decub infection - mild leukocytosis and tachycardia resolving - Sacral decubitus ulcer with polymicrobial infection; wound cx grew E. Coli, Proteus, CoNS, and Leuconostoc; ESR 30 - UTI due to lactobacillus - Bacteremia due to CoNS - Hereditary spastic paraplegia - Depression - Sacral x-ray no e/o OM Recommendations: - Continue vancomycin and pip/tazo (10/21/2016-)- to finish 14 days total - Continue probiotics Problems: Consultation Date/Type/Reason Admit Date/Time October 21, 2016 at 18:19 Initial Consult Date 10/23/16 Type of Consultation: Infectious Disease Exam/Review of Systems Vital Signs Vitals Vital Signs Date Time Temp Pulse Resp B/P Pulse Ox O2 Delivery O2 Flow Rate FiO2 10/28/16 07:33 98.9 76 18 116/85 98 Intake and Output 10/27/16 10/27/16 10/28/16 15:00 23:00 07:00 Intake Total 100 ml 1360 ml 1630 ml Output Total 1900 ml Balance 100 ml -540 ml 1630 ml Results Result Diagram: 10/27/16 0519 10/27/16 0519 Medications Medications Current Medications Piperacillin Sod/ Tazobactam Sod (Zosyn 3.375gm/ 100 ml (Pmx)) 100 ml @ 25 mls/ hr TID@02,10,18 IVPB Last administered on 10/28/16 08:59; Admin Dose 25 MLS/HR ; Start 10/22/16 at 02:00 Acetaminophen (Tylenol Tab) 500 mg Q4H PRN PO PAIN AND OR ELEVATED TEMP; Start 10/21/16 at 22:00 Morphine Sulfate (morphine) 2 mg Q4H PRN IV PAIN LEVEL 4-7 Last administered on 10/24/16 10:54; Admin Dose 2 MG; Start 10/21/16 at 22:00 Enoxaparin Sodium (Lovenox) 30 mg DAILY SC Last administered on 10/28/16 09:57 ; Admin Dose 30 MG; Start 10/22/16 at 09:00 Ondansetron HCl (Zofran Inj) 4 mg Q4H PRN IV NAUSEA AND/OR VOMITING; Start at 22:00 Miscellaneous Information (Pending [facility] Order For Wound Care) This patient webb... PRN PRN XX WOUND CARE; Start 10/22/16 at 01:30 Sodium Hypochlorite (Dakin'S (1/4 Strength)) 1 applic BID IRR Last administered on 10/28/16 09:00; Admin Dose 1 APPLIC; Start 10/22/16 at 13:00 Sertraline HCl (Zoloft) 100 mg DAILY PO Last administered on 10/28/16 09:00; Admin Dose 100 MG; Start 10/23/16 at 09:00 Trazodone HCl (Desyrel) 75 mg QHS PO Last administered on 10/27/16 21:46; Admin Dose 75 MG; Start 10/22/16 at 21:00 Baclofen (Lioresal) 10 mg TID PRN PO SPASM; Start 10/22/16 at 16:30 Mineral Oil 30 ml 30 ml TID PO Last administered on 10/28/16 12:58; Admin Dose 30 ML; Start 10/23/16 at 21:00 Potassium Chloride/Dextrose/ Sod Cl (D5-1/2ns + KCl 20 Meq) 1,000 ml @ 70 mls/ hr [id number] IV Last administered on 10/28/16 01:46; Admin Dose 70 MLS/HR; Start 10/23/16 at 17:00 Multivitamins/ Minerals (Theragran-M) 1 tab DAILY PO Last administered on 09:00; Admin Dose 1 TAB; Start 10/25/16 at 09:00 Zinc Sulfate (Zinc Sulfate) 220 mg DAILY PO Last administered on 10/28/16 09: 00; Admin Dose 220 MG; Start 10/25/16 at 09:00 Ascorbic Acid (Vitamin C) 500 mg DAILY PO Last administered on 10/28/16 09:00 ; Admin Dose 500 MG; Start 10/25/16 at 09:00 Lactobacillus Acidophilus/ Rhamnosus 1 cap 1 cap BID PO Last administered on 08:59; Admin Dose 1 CAP; Start 10/26/16 at 09:00 Vancomycin HCl/ Sodium Chloride (Vancocin/NS) 150 ml @ 75 mls/hr Q12H IVPB Last administered on 5/22/17at 15:15; Admin Dose 75 MLS/HR; Start 10/26/16 at 16 :00 Miscellaneous Information (*Rx Drug Level Order Reminder*) VANCOMYCIN TROUGH AT 0300 ONCE ONCE XX ; Start 10/29/16 at 03:00; Stop 10/29/16 at 03:01 ROHAN CHENG MD October 28, 2016 16:03
--- NOTE | 2016-10-28 16:38 | PN ---
DATE: 10/28/2016 SUBJECTIVE: No new complaints. OBJECTIVE: VITAL SIGNS: Temperature 98.9, pulse rate 76, respirations 18, blood pressure 106/85, saturation 98 % on room air. WBC was not done today. The patient had 2 bowel movements today around noon. Awaiting the dietitia n evaluation to see if the patient is taking enough calories per day. ABDOMEN: Soft. Sacrococcygeal wound is granulating gradually and slowly but is clean. ASSESSMENT AND PLAN: A 36 years old with a history spastic hemiplegia with sacrococcygeal necrotic wound which has been cleaned now and there much granulating. The patient also has severe constipa tion has been taking milk of magnesia and has passed several bowel movements. The movement is soft at this time. The patient is on IV antibiotics. PLAN: Continue current care as was discussed with the family, considering possibility of dilating c olostomy in this situation to help healing of the sacrococcygeal wound. Dictated By: SCOOBY DRUMMOND/CHRISTIAN Conf#: [id number] DID#: [id number]
[2016-10-28 19:34] VITALS: BP 115/70; RESP 20
--- NOTE | 2016-10-28 19:54 | PN ---
Date/Time of Note Date/Time of Note DATE: 10/28/16 TIME: 19:51 Assessment/Plan VTE Prophylaxis VTE Prophylaxis Intervention: SCD's Lines/Catheters IV Catheter Type (from Nrs): Peripheral IV Urinary Cath still in place: Yes Reason Cath still needed: urinary retention Assessment/Plan Chief Complaint/Hosp Course Assessment and plan: - Sacral decubitus. Continue current wound care. Dr. Murphy is following patient in general surgery consultation. - Hereditary spastic paraplegia. Continue to assist patient with activities of daily living. - Urinary tract infection. Dr. Memo garcía is following in infection disease consultation. Continue antibiotics per ID. - Bilateral malleolus wound, continue current wound care - Depression, continue Zoloft -Dysphagia continue dysphagia diet, nutritional supplements and vitamins. calorie count Further recommendations based on clinical course. Plan of care discussed with Dr. Gibbs. Problems: Subjective 24 Hr Interval Summary Free Text/Dictation Patient's remained afebrile, tolerates diet well, will order calorie count. Exam/Review of Systems Vital Signs Vitals Vital Signs Date Time Temp Pulse Resp B/P Pulse Ox O2 Delivery O2 Flow Rate FiO2 10/28/16 19:34 98.9 103 20 115/70 97 Intake and Output 10/27/16 10/27/16 10/28/16 15:00 23:00 07:00 Intake Total 100 ml 1360 ml 1630 ml Output Total 1900 ml Balance 100 ml -540 ml 1630 ml Exam Constitutional: alert, oriented Psych: no complaints Head: atraumatic, normocephalic Eyes: nl conjunctiva ENMT: nl external ears & nose Neck: non-tender, supple Respiratory: clear to auscultation, normal air movement Cardiovascular: nl pulses, regular rate and rhythm Gastrointestinal: non-tender, soft Genitourinary - Female: other (Eaton catheter) Musculoskeletal: muscle weakness, other (Contracted) Extremities: normal pulses Neurological: nl mental status Skin: other (Sacral decubitus, bilateral lateral foot blisters) Results Result Diagram: 10/27/1651810/27/16518 Medications Medications Current Medications Piperacillin Sod/ Tazobactam Sod (Zosyn 3.375gm/ 100 ml (Pmx)) 100 ml @ 25 mls/ hr TID@02,10,18 IVPB Last administered on 10/28/16t 17:32; Admin Dose 25 MLS/HR ; Start 10/22/16 at 02:00 Acetaminophen (Tylenol Tab) 500 mg Q4H PRN PO PAIN AND OR ELEVATED TEMP; Start 10/21/16 at 22:00 Morphine Sulfate (morphine) 2 mg Q4H PRN IV PAIN LEVEL 4-7 Last administered on 10/24/16 10:54; Admin Dose 2 MG; Start 10/21/16 at 22:00 Enoxaparin Sodium (Lovenox) 30 mg DAILY SC Last administered on 10/28/16 09:57 ; Admin Dose 30 MG; Start 10/22/16 at 09:00 Ondansetron HCl (Zofran Inj) 4 mg Q4H PRN IV NAUSEA AND/OR VOMITING; Start at 22:00 [facility]isc[facility] This patient webb... PRN PRN XX WOUND CARE; Start 10/22/16 at 01:30 Sodium Hypochlorite (Dakin'S (1/4 Strength)) 1 applic BID IRR Last administered on 10/28/16 09:00; Admin Dose 1 APPLIC; Start 10/22/16 at 13:00 Sertraline HCl (Zoloft) 100 mg DAILY PO Last administered on 10/28/16 09:00; Admin Dose 100 MG; Start 10/23/16 at 09:00 Trazodone HCl (Desyrel) 75 mg QHS PO Last administered on 10/27/16 21:46; Admin Dose 75 MG; Start 10/22/16 at 21:00 Baclofen (Lioresal) 10 mg TID PRN PO SPASM; Start 10/22/16 at 16:30 Mineral Oil 30 ml 30 ml TID PO Last administered on 10/28/16 12:58; Admin Dose 30 ML; Start 10/23/16 at 21:00 Potassium Chloride/Dextrose/ Sod Cl (D5-1/2ns + KCl 20 Meq) 1,000 ml @ 70 mls/ hr [id number] IV Last administered on 10/28/16 01:46; Admin Dose 70 MLS/HR; Start 10/23/16 at 17:00 Multivitamins/ Minerals (Theragran-M) 1 tab DAILY PO Last administered on 09:00; Admin Dose 1 TAB; Start 10/25/16 at 09:00 Zinc Sulfate (Zinc Sulfate) 220 mg DAILY PO Last administered on 10/28/16 09: 00; Admin Dose 220 MG; Start 10/25/16 at 09:00 Ascorbic Acid (Vitamin C) 500 mg DAILY PO Last administered on 10/28/16 09:00 ; Admin Dose 500 MG; Start 10/25/16 at 09:00 Lactobacillus Acidophilus/ Rhamnosus 1 cap 1 cap BID PO Last administered on 08:59; Admin Dose 1 CAP; Start 10/26/16 at 09:00 Vancomycin HCl/ Sodium Chloride (Vancocin/NS) 150 ml @ 75 mls/hr Q12H IVPB Last administered on 10/28/16 15:15; Admin Dose 75 MLS/HR; Start 10/26/16 at 16 :00 Miscellaneous Information (*Rx Drug Level Order Reminder*) VANCOMYCIN TROUGH AT 0300 ONCE ONCE XX ; Start 10/29/16 at 03:00; Stop 10/29/16 at 03:01 LEI YEBOAH October 28, 2016 19:54
[2016-10-28] MEDS: traZODone 50 MG TAB PO SCH (21:00)
[2016-10-29] MEDS: D5W-0.45 NACL + KCL 20 MEQ 1,000 ML IV SCH ×2 (01:42→16:23)
[2016-10-29] MEDS: PIPER-TAZO 3.375 GM IV (PMX) 100 ML IVPB SCH ×3 (02:32→18:27)
[2016-10-29 03:27] LABS: ADD SCAN DIFF NO
[2016-10-29 03:38] LABS: BASOPHIL # 0.1 10^3/ul (0.0-0.1); BASOPHILS % 0.7 % (0.0-2.0); EOSINOPHILS # 0.4 10^3/ul (0.0-0.5); EOSINOPHILS % 4.2 % (0.0-7.0); HEMATOCRIT 33.8 % (37.0-47.0); HEMOGLOBIN 10.9 g/dl (12.0-16.0); LYMPHOCYTES # 1.7 10^3/ul (0.8-2.9); LYMPHOCYTES % 18.7 % (15.0-51.0); MEAN CORPUSCULAR HEMOGLOBIN 29.2 pg (29.0-33.0); MEAN CORPUSCULAR HGB CONC 32.2 g/dl (32.0-37.0); MEAN CORPUSCULAR VOLUME 90.6 fl (82.0-101.0); MEAN PLATELET VOLUME 11.9 fl (7.4-10.4); MONOCYTES % 11.5 % (0.0-11.0); NEUTROPHIL # 5.8 10^3/ul (1.6-7.5); NEUTROPHILS % 63.8 % (39.0-77.0); PLATELET COUNT 176 10^3/UL (140-415); RED BLOOD COUNT 3.73 10^6/ul (4.20-5.40); RED CELL DISTRIBUTION WIDTH 13.3 % (11.5-14.5); WHITE BLOOD COUNT 9.1 10^3/ul (4.8-10.8)
[2016-10-29 03:57] LABS: POTASSIUM 4.1 mmol/L (3.5-5.1)
[2016-10-29 04:00] LABS: CREATININE 0.68 mg/dl (0.44-1.00); CREATININE 0.69 mg/dl (0.44-1.00)
[2016-10-29 04:01] LABS: CALCIUM 8.8 mg/dl (8.4-10.2)
[2016-10-29] MEDS: VANCOMYCIN 750 MG in SOD CHLORIDE 0.9% 150 ML IVPB SCH ×2 (04:41→16:25)
[2016-10-29 07:14] VITALS: BP 119/70; RESP 17
[2016-10-29] MEDS: ZINC SULFATE 220 MG CAP PO SCH (08:49)
[2016-10-29] MEDS: MULTIVITAMINS/MINERALS TAB PO SCH (08:49)
[2016-10-29] MEDS: LACTOBACILLUS RHAMNOSUS CAP PO SCH ×2 (08:50→20:51)
[2016-10-29] MEDS: SERTRALINE 100 MG TAB PO SCH (08:50)
[2016-10-29] MEDS: MINERAL OIL 30ML CUP PO SCH ×3 (08:50→20:51)
[2016-10-29] MEDS: ASCORBIC ACID 500 MG TAB PO SCH (08:50)
[2016-10-29] MEDS: ENOXAPARIN 30 MG/0.3 ML SYG SC SCH (08:53)
[2016-10-29] MEDS: SODIUM HYPOCHLORITE 0.125% 473 ML BTL IRR SCH ×2 (08:56→20:52)
--- NOTE | 2016-10-29 14:36 | CONS ---
Date/Time of Note Date/Time of Note DATE: 10/29/16 TIME: 14:34 Assessment/Plan Assessment/Plan Chief Complaint/Hosp Course - Early sepsis due to sacral decub infection - mild leukocytosis and tachycardia resolving - Sacral decubitus ulcer with polymicrobial infection; wound cx grew E. Coli, Proteus, CoNS, and Leuconostoc; ESR 30; Sacral x-ray no e/o OM - UTI due to lactobacillus - Bacteremia due to CoNS - Hereditary spastic paraplegia - Depression - Normocytic anemia Recommendations: - Continue vancomycin and pip/tazo (09/21/2016-10/05/2016) for 14 days total - Continue probiotics management d/w Pt's parents, RN Belen and Dr. Hampton Problems: Consultation Date/Type/Reason Admit Date/Time October 21, 2016 at 18:19 Initial Consult Date 10/23/16 Type of Consultation: Infectious Disease 24 HR Interval Summary Free Text/Dictation No new issues per d/w nursing staff and pt's parents at bedside. Unable to perform ROS due to pt's condition. Subjective hx not possible: pt non-verbal Exam/Review of Systems Vital Signs Vitals Vital Signs Date Time Temp Pulse Resp B/P Pulse Ox O2 Delivery O2 Flow Rate FiO2 10/29/16 07:14 98.4 85 17 119/70 97 Intake and Output 10/28/16 10/28/16 10/29/16 15:00 23:00 07:00 Intake Total 240 ml 1550 ml 1290 ml Output Total 1100 ml 1375 ml 1200 ml Balance -860 ml 175 ml 90 ml Exam Constitutional: alert, frail Head: atraumatic, normocephalic Eyes: nl sclera Neck: other (unable to assess) Respiratory: clear to auscultation (anteriorly) Cardiovascular: nl pulses, regular rate and rhythm Gastrointestinal: bowel sounds (present), non-tender, soft Musculoskeletal: muscle weakness Extremities: other (contracted) Neurological: other (+ tracking, occ fine tremors noted to LUE) Skin: other (Wounds including sacral decub- see nurse notes and photos in chart for details) Results Result Diagram: 10/29/16 0310 10/29/16 0310 Results 24 hrs Laboratory Tests Test 10/29/16 03:10 White Blood Count 9.1 Red Blood Count 3.73 L Hemoglobin 10.9 L Hematocrit 33.8 L Mean Corpuscular Volume 90.6 Mean Corpuscular Hemoglobin 29.2 Mean Corpuscular Hemoglobin Concent 32.2 Red Cell Distribution Width 13.3 Platelet Count 176 Mean Platelet Volume 11.9 H Neutrophils % 63.8 Lymphocytes % 18.7 Monocytes % 11.5 H Eosinophils % 4.2 Basophils % 0.7 Nucleated Red Blood Cells % 0.0 Neutrophils # 5.8 Lymphocytes # 1.7 Monocytes # 1.0 H Eosinophils # 0.4 Basophils # 0.1 Nucleated Red Blood Cells # 0.0 Sodium Level 141 Potassium Level 4.1 Chloride Level 105 Carbon Dioxide Level 27 Anion Gap 13 Blood Urea Nitrogen 8 Creatinine 0.68 Glucose Level 107 Calcium Level 8.8 Vancomycin Level Trough 16.3 Medications Medications Current Medications Piperacillin Sod/ Tazobactam Sod (Zosyn 3.375gm/ 100 ml (Pmx)) 100 ml @ 25 mls/ hr TID@02,10,18 IVPB Last administered on 10/29/16 11:38; Admin Dose 25 MLS/HR ; Start 10/22/16 at 02:00 Acetaminophen (Tylenol Tab) 500 mg Q4H PRN PO PAIN AND OR ELEVATED TEMP; Start 10/21/16 at 22:00 Morphine Sulfate (morphine) 2 mg Q4H PRN IV PAIN LEVEL 4-7 Last administered on 10/24/16 10:54; Admin Dose 2 MG; Start 10/21/16 at 22:00 Enoxaparin Sodium (Lovenox) 30 mg DAILY SC Last administered on 10/29/16 08:53 ; Admin Dose 30 MG; Start 10/22/16 at 09:00 Ondansetron HCl (Zofran Inj) 4 mg Q4H PRN IV NAUSEA AND/OR VOMITING; Start at 22:00 Miscellaneous Information (Pending Santyl Order For Wound Care) This patient webb... PRN PRN XX WOUND CARE; Start 10/22/16 at 01:30 Sodium Hypochlorite (Dakin'S (1/4 Strength)) 1 applic BID IRR Last administered on 10/29/16 08:56; Admin Dose 1 APPLIC; Start 10/22/16 at 13:00 Sertraline HCl (Zoloft) 100 mg DAILY PO Last administered on 10/29/16 08:50; Admin Dose 100 MG; Start 10/23/16 at 09:00 Trazodone HCl (Desyrel) 75 mg QHS PO Last administered on 10/28/16 21:00; Admin Dose 75 MG; Start 10/22/16 at 21:00 Baclofen (Lioresal) 10 mg TID PRN PO SPASM; Start 10/22/16 at 16:30 Mineral Oil 30 ml 30 ml TID PO Last administered on 10/29/16 13:00; Admin Dose 30 ML; Start 10/23/16 at 21:00 Potassium Chloride/Dextrose/ Sod Cl (D5-1/2ns + KCl 20 Meq) 1,000 ml @ 70 mls/ hr [id number] IV Last administered on 10/28/16 21:43; Admin Dose 70 MLS/HR; Start 10/23/16 at 17:00 Multivitamins/ Minerals (Theragran-M) 1 tab DAILY PO Last administered on 08:49; Admin Dose 1 TAB; Start 10/25/16 at 09:00 Zinc Sulfate (Zinc Sulfate) 220 mg DAILY PO Last administered on 10/29/16 08: 49; Admin Dose 220 MG; Start 10/25/16 at 09:00 Ascorbic Acid (Vitamin C) 500 mg DAILY PO Last administered on 10/29/16 08:50 ; Admin Dose 500 MG; Start 10/25/16 at 09:00 Lactobacillus Acidophilus/ Rhamnosus 1 cap 1 cap BID PO Last administered on 08:50; Admin Dose 1 CAP; Start 10/26/16 at 09:00 Vancomycin HCl/ Sodium Chloride (Vancocin/NS) 150 ml @ 75 mls/hr Q12H IVPB Last administered on 10/29/16 04:41; Admin Dose 75 MLS/HR; Start 10/26/16 at 16 :00 BUFFY JAIME NP October 29, 2016 14:36
[2016-10-29 19:19] VITALS: BP 117/73; RESP 20
--- NOTE | 2016-10-29 20:27 | PN ---
DATE: 10/29/2016 SUBJECTIVE: No new complaint. Nurses have reported the patient had a moderate amount of bowel movement today. OBJECTIVE: GENERAL: Alert, awake. VITAL SIGNS: Temperature 98.4, heart rate 85, respirations 17, blood pressure 119/72, saturation 97% on room air. LABORATORY: WBC 9100 with 63% segmented, hemoglobin 10.9, hematocrit 33.8. Chemistry: BUN, creatinine, sodium, potassium within normal limits. ABDOMEN: Soft. SKIN: Sacrococcygeal wound clean. Minimal necrotic tissues. ASSESSMENT AND PLAN: The patient with urinary tract infection and spastic paraplegia, has developed sacrococcygeal pressure ulcer as well and has developed severe fecal impaction. It was all around the colon. Now after 4 or 5 days of treatment and mineral oil and enemas, now it is only confined to the rectal ampulla, and the rest of the colon is clear from the stool. PLAN: Continue current care. The patient has had speech therapy evaluation for swallowing. They have recommended more liquid than pureed diet, and also nutritional assessment is in progress. Already they have said she is taking 40 % of the tray amount, but they have not mentioned how much calorie and protein she is taking and how much is in need. Will talk to them again. Dictated By: SCOOBY DRUMMOND/CHRISTIAN Conf#: [id number] DID#: [id number] MTDD
[2016-10-29] MEDS: FERROUS SULFATE (EC) 325 MG TAB PO SCH (20:51)
[2016-10-29] MEDS: traZODone 50 MG TAB PO SCH (20:51)
[2016-10-29] MEDS: MINERAL OIL 133 ML ENEMA PR SCH (20:51)
[2016-10-30] MEDS: PIPER-TAZO 3.375 GM IV (PMX) 100 ML IVPB SCH ×3 (01:32→18:50)
[2016-10-30] MEDS: VANCOMYCIN 750 MG in SOD CHLORIDE 0.9% 150 ML IVPB SCH ×2 (03:40→16:35)
[2016-10-30] MEDS: D5W-0.45 NACL + KCL 20 MEQ 1,000 ML IV SCH ×2 (05:23→15:25)
[2016-10-30] MEDS: SERTRALINE 100 MG TAB PO SCH (08:25)
[2016-10-30] MEDS: MULTIVITAMINS/MINERALS TAB PO SCH (08:25)
[2016-10-30] MEDS: LACTOBACILLUS RHAMNOSUS CAP PO SCH ×2 (08:25→20:18)
[2016-10-30] MEDS: FERROUS SULFATE (EC) 325 MG TAB PO SCH ×2 (08:25→20:18)
[2016-10-30] MEDS: ZINC SULFATE 220 MG CAP PO SCH (08:25)
[2016-10-30] MEDS: MINERAL OIL 30ML CUP PO SCH ×3 (08:25→20:17)
[2016-10-30] MEDS: ASCORBIC ACID 500 MG TAB PO SCH (08:25)
[2016-10-30] MEDS: ENOXAPARIN 30 MG/0.3 ML SYG SC SCH (08:30)
[2016-10-30 08:35] VITALS: BP 106/73; RESP 16
[2016-10-30] MEDS: MINERAL OIL 133 ML ENEMA PR SCH ×2 (09:28→20:17)
[2016-10-30] MEDS: SODIUM HYPOCHLORITE 0.125% 473 ML BTL IRR SCH ×2 (09:28→20:17)
--- NOTE | 2016-10-30 16:27 | PN ---
Date/Time of Note Date/Time of Note DATE: 10/30/16 TIME: 16:18 Assessment/Plan VTE Prophylaxis VTE Prophylaxis Intervention: SCD's Lines/Catheters IV [facility] (from [facility]): Peripheral IV Urinary Cath still in place: Yes Reason Cath still needed: urinary retention Assessment/Plan Chief Complaint/Hosp Course Patient remains hemodynamically stable, tolerates current diet well, however has poor intake per nursing staff, calorie count is in progress. I spoke to patient's mother regarding G-tube placement, she is refusing G-tube placement at this time. Assessment and plan: - Sacral decubitus. Continue current wound care. Dr. Murphy is following patient in general surgery consultation. - Hereditary spastic paraplegia. Continue to assist patient with activities of daily living. - Urinary tract infection. Dr. Memo garcía is following in infection disease consultation. Continue antibiotics per ID. - Bilateral malleolus wound, continue current wound care. - Depression, continue Zoloft - Dysphagia, continue dysphagia diet, nutritional supplements and vitamins, continue calorie count. Further recommendations based on clinical course. Plan of care discussed with Dr. Gibbs. Problems: Exam/Review of Systems Vital Signs Vitals Vital Signs Date Time Temp Pulse Resp B/P Pulse Ox O2 Delivery O2 Flow Rate FiO2 10/30/16 08:35 98.8 82 16 106/73 98 Intake and Output 10/29/16 10/29/16 10/30/16 15:00 23:00 07:00 Intake Total 1190 ml 120 ml Output Total 1700 ml 1600 ml Balance -510 ml -1480 ml Exam Constitutional: alert, oriented Psych: no complaints Head: atraumatic, normocephalic Eyes: nl conjunctiva ENMT: nl external ears & nose Neck: non-tender, supple Respiratory: clear to auscultation, normal air movement Cardiovascular: nl pulses, regular rate and rhythm Gastrointestinal: non-tender, soft Genitourinary - Female: other (Eaton catheter) Musculoskeletal: muscle weakness, other (Contracted) Extremities: normal pulses Neurological: nl mental status Skin: other (Sacral decubitus, bilateral lateral foot wounds) Results Result Diagram: 10/29/16 0310 10/29/16 0310 Medications Medications Current Medications Piperacillin Sod/ Tazobactam Sod (Zosyn 3.375gm/ 100 ml (Pmx)) 100 ml @ 25 mls/ hr TID@02,18 IVPB Last administered on 10/30/16 09:28; Admin Dose 25 MLS/HR ; Start 10/22/16 at 02:00 Acetaminophen (Tylenol Tab) 500 mg Q4H PRN PO PAIN AND OR ELEVATED TEMP; Start 10/21/16 at 22:00 Morphine Sulfate (morphine) 2 mg Q4H PRN IV PAIN LEVEL 4-7 Last administered on 10/24/16 10:54; Admin Dose 2 MG; Start 10/21/16 at 22:00 Enoxaparin Sodium (Lovenox) 30 mg DAILY SC Last administered on 10/30/16 08:30 ; Admin Dose 30 MG; Start 10/22/16 at 09:00 Ondansetron HCl (Zofran Inj) 4 mg Q4H PRN IV NAUSEA AND/OR VOMITING; Start at 22:00 [facility] This patient webb... PRN PRN XX WOUND CARE; Start 10/22/16 at 01:30 Sodium Hypochlorite (Dakin'S (1/4 Strength)) 1 applic BID IRR Last administered on 10/30/16 09:28; Admin Dose 1 APPLIC; Start 10/22/16 at 13:00 Sertraline HCl (Zoloft) 100 mg DAILY PO Last administered on 10/30/16 08:25; Admin Dose 100 MG; Start 10/23/16 at 09:00 Trazodone HCl (Desyrel) 75 mg QHS PO Last administered on 10/29/16 20:51; Admin Dose 75 MG; Start 10/22/16 at 21:00 Baclofen (Lioresal) 10 mg TID PRN PO SPASM; Start 10/22/16 at 16:30 Mineral Oil 30 ml 30 ml TID PO Last administered on 10/30/16 14:50; Admin Dose 30 ML; Start 10/23/16 at 21:00 Potassium Chloride/Dextrose/ Sod Cl (D5-1/2ns + KCl 20 Meq) 1,000 ml @ 70 mls/ hr [id number] IV Last administered on 10/30/16 15:25; Admin Dose 70 MLS/HR; Start 10/23/16 at 17:00 Multivitamins/ Minerals (Theragran-M) 1 tab DAILY PO Last administered on 08:25; Admin Dose 1 TAB; Start 10/25/16 at 09:00 Zinc Sulfate (Zinc Sulfate) 220 mg DAILY PO Last administered on 10/30/16 08: 25; Admin Dose 220 MG; Start 10/25/16 at 09:00 Ascorbic Acid (Vitamin C) 500 mg DAILY PO Last administered on 10/30/16 08:25 ; Admin Dose 500 MG; Start 10/25/16 at 09:00 Lactobacillus Acidophilus/ Rhamnosus 1 cap 1 cap BID PO Last administered on 08:25; Admin Dose 1 CAP; Start 10/26/16 at 09:00 Vancomycin HCl/ Sodium Chloride (Vancocin/NS) 150 ml @ 75 mls/hr Q12H IVPB Last administered on 10/30/16 03:40; Admin Dose 75 MLS/HR; Start 10/26/16 at 16 :00 Mineral Oil (Fleet Mineral Oil Enema) 133 ml BID [place] Last administered on 09:28; Admin Dose 133 ML; Start 10/29/16 at 21:00 Ferrous Sulfate (Ferrous Sulfate (Ec)) 325 mg BID PO Last administered on 08:25; Admin Dose 325 MG; Start 10/29/16 at 21:00 Miscellaneous Information (*Rx Drug Level Order Reminder*) VANCOMYCIN TROUGH AT 1500 ONCE ONCE XX ; Start 10/31/16 at 15:00; Stop 10/31/16 at 15:01 LEI YEBOAH October 30, 2016 16:27
--- NOTE | 2016-10-30 16:48 | CONS ---
Date/Time of Note Date/Time of Note DATE: 10/30/16 TIME: 16:47 Assessment/Plan Assessment/Plan Chief Complaint/Hosp Course - Early sepsis due to sacral decub infection - mild leukocytosis and tachycardia resolving - Sacral decubitus ulcer with polymicrobial infection; wound cx grew E. Coli, Proteus, CoNS, and Leuconostoc; ESR 30; Sacral x-ray no e/o OM - UTI due to lactobacillus - Bacteremia due to CoNS - Hereditary spastic paraplegia - Depression - Normocytic anemia Recommendations: - Continue vancomycin and pip/tazo (09/21/2016-10/05/2016) for 14 days total - Continue probiotics Problems: Consultation Date/Type/Reason Admit Date/Time October 21, 2016 at 18:19 Initial Consult Date 10/23/16 Type of Consultation: Infectious Disease Exam/Review of Systems Vital Signs Vitals Vital Signs Date Time Temp Pulse Resp B/P Pulse Ox O2 Delivery O2 Flow Rate FiO2 10/30/16 08:35 98.8 82 16 106/73 98 Intake and Output 10/29/16 10/29/16 10/30/16 15:00 23:00 07:00 Intake Total 1190 ml 120 ml Output Total 1700 ml 1600 ml Balance -510 ml -1480 ml Results Result Diagram: 10/29/16 0310 10/29/16 0310 Medications Medications Current Medications Piperacillin Sod/ Tazobactam Sod (Zosyn 3.375gm/ 100 ml (Pmx)) 100 ml @ 25 mls/ hr TID@02,10,18 IVPB Last administered on 10/30/16 09:28; Admin Dose 25 MLS/HR ; Start 10/22/16 at 02:00 Acetaminophen (Tylenol Tab) 500 mg Q4H PRN PO PAIN AND OR ELEVATED TEMP; Start 10/21/16 at 22:00 Morphine Sulfate (morphine) 2 mg Q4H PRN IV PAIN LEVEL 4-7 Last administered on 10/24/16 10:54; Admin Dose 2 MG; Start 10/21/16 at 22:00 Enoxaparin Sodium (Lovenox) 30 mg DAILY SC Last administered on 10/30/16 08:30 ; Admin Dose 30 MG; Start 10/22/16 at 09:00 Ondansetron HCl (Zofran Inj) 4 mg Q4H PRN IV NAUSEA AND/OR VOMITING; Start at 22:00 Miscellaneous Information (Pending [facility] Order For Wound Care) This patient webb... PRN PRN XX WOUND CARE; Start 10/22/16 at 01:30 Sodium Hypochlorite (Dakin'S (1/4 Strength)) 1 applic BID IRR Last administered on 10/30/16 09:28; Admin Dose 1 APPLIC; Start 10/22/16 at 13:00 Sertraline HCl (Zoloft) 100 mg DAILY PO Last administered on 10/30/16 08:25; Admin Dose 100 MG; Start 10/23/16 at 09:00 Trazodone HCl (Desyrel) 75 mg QHS PO Last administered on 10/29/16 20:51; Admin Dose 75 MG; Start 10/22/16 at 21:00 Baclofen (Lioresal) 10 mg TID PRN PO SPASM; Start 10/22/16 at 16:30 Mineral Oil 30 ml 30 ml TID PO Last administered on 10/30/16 14:50; Admin Dose 30 ML; Start 10/23/16 at 21:00 Potassium Chloride/Dextrose/ Sod Cl (D5-1/2ns + KCl 20 Meq) 1,000 ml @ 70 mls/ hr [id number] IV Last administered on 10/30/16 15:25; Admin Dose 70 MLS/HR; Start 10/23/16 at 17:00 Multivitamins/ Minerals (Theragran-M) 1 tab DAILY PO Last administered on 08:25; Admin Dose 1 TAB; Start 10/25/16 at 09:00 Zinc Sulfate (Zinc Sulfate) 220 mg DAILY PO Last administered on 10/30/16 08: 25; Admin Dose 220 MG; Start 10/25/16 at 09:00 Ascorbic Acid (Vitamin C) 500 mg DAILY PO Last administered on 10/30/16 08:25 ; Admin Dose 500 MG; Start 10/25/16 at 09:00 Lactobacillus Acidophilus/ Rhamnosus 1 cap 1 cap BID PO Last administered on 08:25; Admin Dose 1 CAP; Start 10/26/16 at 09:00 Vancomycin HCl/ Sodium Chloride (Vancocin/NS) 150 ml @ 75 mls/hr Q12H IVPB Last administered on 10/30/16 16:35; Admin Dose 75 MLS/HR; Start 10/26/16 at 16 :00 Mineral Oil (Fleet Mineral Oil Enema) 133 ml BID [place] Last administered on 09:28; Admin Dose 133 ML; Start 10/29/16 at 21:00 Ferrous Sulfate (Ferrous Sulfate (Ec)) 325 mg BID PO Last administered on 08:25; Admin Dose 325 MG; Start 10/29/16 at 21:00 Miscellaneous Information (*Rx Drug Level Order Reminder*) VANCOMYCIN TROUGH AT 1500 ONCE ONCE XX ; Start 10/31/16 at 15:00; Stop 10/31/16 at 15:01 ROHAN CHENG MD October 30, 2016 16:48
[2016-10-30 19:25] VITALS: BP 121/72; RESP 18
[2016-10-30] MEDS: traZODone 50 MG TAB PO SCH (20:18)
[2016-10-31] MEDS: PIPER-TAZO 3.375 GM IV (PMX) 100 ML IVPB SCH ×3 (01:46→18:46)
[2016-10-31] MEDS: VANCOMYCIN 750 MG in SOD CHLORIDE 0.9% 150 ML IVPB SCH ×2 (04:32→16:11)
[2016-10-31 07:00] LABS: CALCIUM 9.4 mg/dl (8.4-10.2); CREATININE 0.72 mg/dl (0.44-1.00); POTASSIUM 3.8 mmol/L (3.5-5.1)
[2016-10-31 07:32] VITALS: BP 116/73; RESP 22
--- NOTE | 2016-10-31 07:44 | PN ---
DATE: 10/30/2016 SUBJECTIVE: No new events or complaints. OBJECTIVE: VITAL SIGNS: Temperature 98.8, pulse rate 82 regular, respirations 16, blood pressure ok_, saturation 98% on room air. LABORATORIES: No labs done today. The patient has had 3 bowel movements in the past 24 hours. PHYSICAL EXAMINATION: GENERAL: Alert,answers questions, but very low voice, answers questions. ABDOMEN: Slightly distended , otherwise is soft. EXTREMITIES: No edema. ASSESSMENT: This is a 36-year-old female who was admitted for management of sacrococcygeal wound as well as urinary tract infection. The patient has been seen by dietry and speech therapy._ RECOMMENDATIONS: To give a liquid diet. Patient is tolerating diet well. She is being fed with a spoon. It appears that the infected necrotic pressure ulcer is under control being managed with wet to dry Dakin's solution b.i.d. PLAN: Continue current care. Dictated By: SCOOBY DRUMMOND/CHRISTIAN Conf#: [id number] DID#: [id number] MTDJesus
[2016-10-31] MEDS: SERTRALINE 100 MG TAB PO SCH (09:58)
[2016-10-31] MEDS: FERROUS SULFATE (EC) 325 MG TAB PO SCH ×2 (09:58→22:03)
[2016-10-31] MEDS: LACTOBACILLUS RHAMNOSUS CAP PO SCH ×2 (09:58→22:03)
[2016-10-31] MEDS: ASCORBIC ACID 500 MG TAB PO SCH (09:58)
[2016-10-31] MEDS: MULTIVITAMINS/MINERALS TAB PO SCH (09:58)
[2016-10-31] MEDS: ZINC SULFATE 220 MG CAP PO SCH (09:58)
[2016-10-31] MEDS: SODIUM HYPOCHLORITE 0.125% 473 ML BTL IRR SCH (09:59)
[2016-10-31] MEDS: MINERAL OIL 30ML CUP PO SCH ×3 (09:59→22:04)
[2016-10-31] MEDS: ENOXAPARIN 30 MG/0.3 ML SYG SC SCH (10:48)
[2016-10-31] MEDS: D5W-0.45 NACL + KCL 20 MEQ 1,000 ML IV SCH ×2 (10:54→22:08)
[2016-10-31] MEDS: MINERAL OIL 133 ML ENEMA PR SCH (11:05)
--- NOTE | 2016-10-31 12:07 | PN ---
Date/Time of Note Date/Time of Note DATE: 10/31/16 TIME: 12:00 Assessment/Plan VTE Prophylaxis VTE Prophylaxis Intervention: SCD's Lines/Catheters IV Catheter Type (from [facility]): Peripheral IV Urinary Cath still in place: Yes Assessment/Plan Assessment/Plan - Sacral decubitus. Continue current wound care. Dr. Murphy is following patient in general surgery consultation. - Hereditary spastic paraplegia. Continue to assist patient with activities of daily living. - Urinary tract infection. Dr. Memo garcía is following in infection disease consultation. Continue antibiotics per ID. - Bilateral malleolus wound, continue current wound care. - Depression, continue Zoloft - Dysphagia, continue dysphagia diet, nutritional supplements and vitamins, continue calorie count. - aspiration precautions Further recommendations based on clinical course. Plan of care discussed with Dr. Gibbs. Subjective 24 Hr Interval Summary Free Text/Dictation nad, no s/s/ of aspiration noted, awake, smiles, responds to name , VSS, tolerates current diet well,, slow feeder- poor intake per nursing staff, calorie count is in progress. per staff- family is refusing G-tube placement at this time. Exam/Review of Systems Vital Signs Vitals Vital Signs Date Time Temp Pulse Resp B/P Pulse Ox O2 Delivery O2 Flow Rate FiO2 10/31/16 07:32 98.0 81 22 116/73 99 Intake and Output 10/30/16 10/30/16 10/31/16 14:59 22:59 06:59 Intake Total 100 ml 1570 ml 650 ml Output Total 1700 ml Balance 100 ml -130 ml 650 ml Exam Constitutional: alert Eyes: nl sclera Respiratory: diminished breath sounds, normal air movement Cardiovascular: nl pulses Gastrointestinal: non-tender, soft Musculoskeletal: muscle weakness Extremities: normal pulses Neurological: confused Skin: other Lymph: nontender Results Result Diagram: 10/29/16 0310 10/31/16 0545 Results 24 hrs Laboratory Tests Test 10/31/16 05:45 Sodium Level 142 Potassium Level 3.8 Chloride Level 108 Carbon Dioxide Level 28 Anion Gap 10 Blood Urea Nitrogen 7 Creatinine 0.72 Glucose Level 91 Calcium Level 9.4 Medications Medications Current Medications Piperacillin Sod/ Tazobactam Sod (Zosyn 3.375gm/ 100 ml (Pmx)) 100 ml @ 25 mls/ hr TID@02,10,18 IVPB Last administered on 10/31/16 11:05; Admin Dose 25 MLS/HR ; Start 10/22/16 at 02:00 Acetaminophen (Tylenol Tab) 500 mg Q4H PRN PO PAIN AND OR ELEVATED TEMP; Start 10/21/16 at 22:00 Morphine Sulfate (morphine) 2 mg Q4H PRN IV PAIN LEVEL 4-7 Last administered on 10/24/16 10:54; Admin Dose 2 MG; Start 10/21/16 at 22:00 Enoxaparin Sodium (Lovenox) 30 mg DAILY SC Last administered on 10/31/16 10:48 ; Admin Dose 30 MG; Start 10/22/16 at 09:00 Ondansetron HCl (Zofran Inj) 4 mg Q4H PRN IV NAUSEA AND/OR VOMITING; Start at 22:00 Miscellaneous Information (Pending [facility]yl Order For Wound Care) This patient webb... PRN PRN XX WOUND CARE; Start 10/22/16 at 01:30 Sodium Hypochlorite (Dakin'S (1/4 Strength)) 1 applic BID IRR Last administered on 10/31/16 09:59; Admin Dose 1 APPLIC; Start 10/22/16 at 13:00 Sertraline HCl (Zoloft) 100 mg DAILY PO Last administered on 10/31/16 09:58; Admin Dose 100 MG; Start 10/23/16 at 09:00 Trazodone HCl (Desyrel) 75 mg QHS PO Last administered on 10/30/16 20:18; Admin Dose 75 MG; Start 10/22/16 at 21:00 Baclofen (Lioresal) 10 mg TID PRN PO SPASM; Start 10/22/16 at 16:30 Mineral Oil 30 ml 30 ml TID PO Last administered on 10/31/16 09:59; Admin Dose 30 ML; Start 10/23/16 at 21:00 Potassium Chloride/Dextrose/ Sod Cl (D5-1/2ns + KCl 20 Meq) 1,000 ml @ 70 mls/ hr [id number] IV Last administered on 10/30/16 15:25; Admin Dose 70 MLS/HR; Start 10/23/16 at 17:00 Multivitamins/ Minerals (Theragran-M) 1 tab DAILY PO Last administered on 09:58; Admin Dose 1 TAB; Start 10/25/16 at 09:00 Zinc Sulfate (Zinc Sulfate) 220 mg DAILY PO Last administered on 10/31/16 09: 58; Admin Dose 220 MG; Start 10/25/16 at 09:00 Ascorbic Acid (Vitamin C) 500 mg DAILY PO Last administered on 10/31/16 09:58 ; Admin Dose 500 MG; Start 10/25/16 at 09:00 Lactobacillus Acidophilus/ Rhamnosus 1 cap 1 cap BID PO Last administered on 09:58; Admin Dose 1 CAP; Start 10/26/16 at 09:00 Vancomycin HCl/ Sodium Chloride (Vancocin/NS) 150 ml @ 75 mls/hr Q12H IVPB Last administered on 10/31/16 04:32; Admin Dose 75 MLS/HR; Start 10/26/16 at 16 :00 Mineral Oil (Fleet Mineral Oil Enema) 133 ml BID [place] Last administered on 11:05; Admin Dose 133 ML; Start 10/29/16 at 21:00 Ferrous Sulfate (Ferrous Sulfate (Ec)) 325 mg BID PO Last administered on 09:58; Admin Dose 325 MG; Start 10/29/16 at 21:00 Miscellaneous Information (*Rx Drug Level Order Reminder*) VANCOMYCIN TROUGH AT 1500 ONCE ONCE XX ; Start 10/31/16 at 15:00; Stop 10/31/16 at 15:01 CATALINA MCCORD October 31, 2016 12:07
--- NOTE | 2016-10-31 12:13 | CONS ---
Date/Time of Note Date/Time of Note DATE: 10/31/16 TIME: 12:12 Assessment/Plan Assessment/Plan Chief Complaint/Hosp Course - Early sepsis due to sacral decub infection - mild leukocytosis and tachycardia resolving - Sacral decubitus ulcer with polymicrobial infection; wound cx grew E. Coli, Proteus, CoNS, and Leuconostoc; ESR 30; Sacral x-ray no e/o OM - UTI due to lactobacillus - Bacteremia due to CoNS - Hereditary spastic paraplegia - Depression - Normocytic anemia - Dysphagia - Feeder with decreased appetite; calorie count in progress Recommendations: - Continue vancomycin and pip/tazo (09/21/2016-10/05/2016) for 14 days total - Continue probiotics Management d/w Pt's parents, BRENDA Huerta and Dr. Hampton Problems: Consultation Date/Type/Reason Admit Date/Time October 21, 2016 at 18:19 Initial Consult Date 10/23/16 Type of Consultation: Infectious Disease 24 HR Interval Summary Free Text/Dictation Pt with poor to fair appetite, feeder and needs a lot of encouragement to eat; Calorie count in progress; Family considering G-tube and SNF placement per d/w nursing staff. Unable to perform ROS due to pt's condition. Subjective hx not possible: pt non-verbal Exam/Review of Systems Vital Signs Vitals Vital Signs Date Time Temp Pulse Resp B/P Pulse Ox O2 Delivery O2 Flow Rate FiO2 10/31/16 07:32 98.0 81 22 116/73 99 Intake and Output 10/30/16 10/30/16 10/31/16 15:00 23:00 07:00 Intake Total 100 ml 1570 ml 650 ml Output Total 1700 ml Balance 100 ml -130 ml 650 ml Exam Constitutional: alert, frail, Mother is brushing pt's teeth. Head: atraumatic, normocephalic Eyes: nl sclera Neck: other (unable to assess) Respiratory: clear to auscultation (anteriorly) Cardiovascular: nl pulses, regular rate and rhythm Gastrointestinal: bowel sounds (present), non-tender, soft Musculoskeletal: muscle weakness Extremities: other (contracted) Neurological: other (+ tracking, occ fine tremors noted to LUE) Skin: other (Wounds including sacral decub- see nurse notes and photos in chart for details) Results Result Diagram: 10/29/16 0310 10/31/16 0545 Results 24 hrs Laboratory Tests Test 10/31/16 05:45 Sodium Level 142 Potassium Level 3.8 Chloride Level 108 Carbon Dioxide Level 28 Anion Gap 10 Blood Urea Nitrogen 7 Creatinine 0.72 Glucose Level 91 Calcium Level 9.4 Medications Medications Current Medications Piperacillin Sod/ Tazobactam Sod (Zosyn 3.375gm/ 100 ml (Pmx)) 100 ml @ 25 mls/ hr TID@02,10,18 IVPB Last administered on 10/31/16 11:05; Admin Dose 25 MLS/HR ; Start 10/22/16 at 02:00 Acetaminophen (Tylenol Tab) 500 mg Q4H PRN PO PAIN AND OR ELEVATED TEMP; Start 10/21/16 at 22:00 Morphine Sulfate (morphine) 2 mg Q4H PRN IV PAIN LEVEL 4-7 Last administered on 10/24/16 10:54; Admin Dose 2 MG; Start 10/21/16 at 22:00 Enoxaparin Sodium (Lovenox) 30 mg DAILY SC Last administered on 10/31/16 10:48 ; Admin Dose 30 MG; Start 10/22/16 at 09:00 Ondansetron HCl (Zofran Inj) 4 mg Q4H PRN IV NAUSEA AND/OR VOMITING; Start at 22:00 Miscellaneous Information [facility] This patient webb... PRN PRN XX WOUND CARE; Start 10/22/16 at 01:30 Sodium Hypochlorite (Dakin'S (1/4 Strength)) 1 applic BID IRR Last administered on 10/31/16 09:59; Admin Dose 1 APPLIC; Start 10/22/16 at 13:00 Sertraline HCl (Zoloft) 100 mg DAILY PO Last administered on 10/31/16 09:58; Admin Dose 100 MG; Start 10/23/16 at 09:00 Trazodone HCl (Desyrel) 75 mg QHS PO Last administered on 10/30/16 20:18; Admin Dose 75 MG; Start 10/22/16 at 21:00 Baclofen (Lioresal) 10 mg TID PRN PO SPASM; Start 10/22/16 at 16:30 Mineral Oil 30 ml 30 ml TID PO Last administered on 10/31/16 09:59; Admin Dose 30 ML; Start 10/23/16 at 21:00 Potassium Chloride/Dextrose/ Sod Cl (D5-1/2ns + KCl 20 Meq) 1,000 ml @ 70 mls/ hr [id number] IV Last administered on 10/30/16 15:25; Admin Dose 70 MLS/HR; Start 10/23/16 at 17:00 Multivitamins/ Minerals (Theragran-M) 1 tab DAILY PO Last administered on 09:58; Admin Dose 1 TAB; Start 10/25/16 at 09:00 Zinc Sulfate (Zinc Sulfate) 220 mg DAILY PO Last administered on 10/31/16 09: 58; Admin Dose 220 MG; Start 10/25/16 at 09:00 Ascorbic Acid (Vitamin C) 500 mg DAILY PO Last administered on 10/31/16 09:58 ; Admin Dose 500 MG; Start 10/25/16 at 09:00 Lactobacillus Acidophilus/ Rhamnosus 1 cap 1 cap BID PO Last administered on 09:58; Admin Dose 1 CAP; Start 10/26/16 at 09:00 Vancomycin HCl/ Sodium Chloride (Vancocin/NS) 150 ml @ 75 mls/hr Q12H IVPB Last administered on 10/31/16 04:32; Admin Dose 75 MLS/HR; Start 10/26/16 at 16 :00 Mineral Oil (Fleet Mineral Oil Enema) 133 ml BID [place] Last administered on 11:05; Admin Dose 133 ML; Start 10/29/16 at 21:00 Ferrous Sulfate (Ferrous Sulfate (Ec)) 325 mg BID PO Last administered on 09:58; Admin Dose 325 MG; Start 10/29/16 at 21:00 Miscellaneous Information (*Rx Drug Level Order Reminder*) VANCOMYCIN TROUGH AT 1500 ONCE ONCE XX ; Start 10/31/16 at 15:00; Stop 10/31/16 at 15:01 BUFFY JAIME NP October 31, 2016 12:13
--- NOTE | 2016-10-31 16:36 | PN ---
DATE: 10/31/2016 SUBJECTIVE: Apparently no complaint, though patient really does not talk, only smiles and appears t hat she understands our words. She tries to talk, but not comprehensive words. The eyes are open. OBJECTIVE: GENERAL: Awake and alert. VITAL SIGNS: Temperature 98, heart rate 81, respirations 22, blood pressure 116/73, saturation 99% on room air. HEART: Regular. ABDOMEN: Soft, bowel sounds present. Has had bowel movement. SKIN: The sacrococcygeal wound inspected. On the right side, it is very clean, beefy granulation t issue filling up. On the left side also most of the part it is beefy granulation tissue. A smaller rounder area which appears to be a little bit of necrotic tissue left, maybe 1 cm or 1.5 cm x 5 mm area. So decided that we will change the technique of managing the wound, in that sense every 12 ho urs, the first 12 hours we will put Santyl ointment and pack it and second 12 hours we will put Hydr ogel plus Dakin's solution wet-to-day. This was discussed with the nurse in full. LABORATORY DATA: No labs today except BUN, creatinine, sodium and potassium are normal. PLAN: Continue antibiotics for urinary tract infection per infectious disease. Continue wound lenny ssing changes b.i.d. as was mentioned above. Also remember that the family has rejected the idea of placing a G-tube or placing a colostomy for diversion of fecal stream at least at this time. Dictated By: SCOOBY DRUMMOND/CHRISTIAN Conf#: [id number] DID#: [id number]
[2016-10-31 20:16] VITALS: BP 120/73; RESP 16
[2016-10-31] MEDS: COLLAGENASE 30 GM TUBE TOP SCH (22:04)
[2016-10-31] MEDS: traZODone 50 MG TAB PO SCH (22:04)
[2016-11-01] MEDS: MINERAL OIL 133 ML ENEMA PR SCH ×3 (01:39→23:55)
[2016-11-01] MEDS: PIPER-TAZO 3.375 GM IV (PMX) 100 ML IVPB SCH ×3 (01:49→18:16)
[2016-11-01] MEDS: VANCOMYCIN 750 MG in SOD CHLORIDE 0.9% 150 ML IVPB SCH ×2 (04:39→15:48)
[2016-11-01 06:07] LABS: ADD SCAN DIFF NO
[2016-11-01 06:13] LABS: BASOPHIL # 0.1 10^3/ul (0.0-0.1); BASOPHILS % 0.9 % (0.0-2.0); EOSINOPHILS # 0.3 10^3/ul (0.0-0.5); EOSINOPHILS % 4.5 % (0.0-7.0); HEMOGLOBIN 11.2 g/dl (12.0-16.0); LYMPHOCYTES # 1.9 10^3/ul (0.8-2.9); LYMPHOCYTES % 26.2 % (15.0-51.0); MEAN CORPUSCULAR HEMOGLOBIN 29.1 pg (29.0-33.0); MEAN CORPUSCULAR VOLUME 90.9 fl (82.0-101.0); MEAN PLATELET VOLUME 11.5 fl (7.4-10.4); MONOCYTE # 0.9 10^3/ul (0.3-0.9); MONOCYTES % 11.5 % (0.0-11.0); NEUTROPHIL # 4.2 10^3/ul (1.6-7.5); PLATELET COUNT 236 10^3/UL (140-415); RED BLOOD COUNT 3.85 10^6/ul (4.20-5.40); RED CELL DISTRIBUTION WIDTH 13.1 % (11.5-14.5); WHITE BLOOD COUNT 7.4 10^3/ul (4.8-10.8)
[2016-11-01 06:31] LABS: CALCIUM 9.2 mg/dl (8.4-10.2); CREATININE 0.75 mg/dl (0.44-1.00); POTASSIUM 3.9 mmol/L (3.5-5.1)
[2016-11-01 07:25] VITALS: BP 105/67; RESP 16
[2016-11-01] MEDS: MULTIVITAMINS/MINERALS TAB PO SCH (09:45)
[2016-11-01] MEDS: FERROUS SULFATE (EC) 325 MG TAB PO SCH ×2 (09:45→21:49)
[2016-11-01] MEDS: ASCORBIC ACID 500 MG TAB PO SCH (09:45)
[2016-11-01] MEDS: ZINC SULFATE 220 MG CAP PO SCH (09:45)
[2016-11-01] MEDS: MINERAL OIL 30ML CUP PO SCH (09:45)
[2016-11-01] MEDS: SODIUM HYPOCHLORITE 0.125% 473 ML BTL IRR SCH (09:46)
[2016-11-01] MEDS: LACTOBACILLUS RHAMNOSUS CAP PO SCH ×2 (09:46→21:49)
[2016-11-01] MEDS: SERTRALINE 100 MG TAB PO SCH (09:46)
[2016-11-01] MEDS: COLLAGENASE 30 GM TUBE TOP SCH (09:48)
[2016-11-01] MEDS: ENOXAPARIN 30 MG/0.3 ML SYG SC SCH (10:05)
--- NOTE | 2016-11-01 13:19 | RADRPT ---
PROCEDURE: XR Abdomen. CLINICAL INDICATION: Fecal impaction, follow-up TECHNIQUE: Two AP views of the abdomen were obtained COMPARISON: X-ray abdomen dated 10/28/2016 FINDINGS: There is a nonobstructive bowel gas pattern. Large volume stool is again noted within the rectum wit h a diameter approximately 11 cm. Moderate volume stool is seen within the distal transverse and de scending colon. No abnormal soft tissue calcifications are seen. The visualized portions of the shannon ng bases are clear. The osseous structures are unremarkable. IMPRESSION: 1. Persistent large volume stool within the rectum with a diameter of approximate 11 cm. Overall, no significant interval change. 2. Moderate volume stool in the distal transverse and descending colon, increased when compared to the prior examination. RPTAT: HH .Bibi Hanna MD, Date Time Electronically viewed and signed by .Bibi Hanna MD, on 11/01/2016 13:19 .G/
--- NOTE | 2016-11-01 15:30 | PN ---
Date/Time of Note Date/Time of Note DATE: 11/01/16 TIME: 15:29 Assessment/Plan VTE Prophylaxis VTE Prophylaxis Intervention: SCD's Lines/Catheters [facility] Peripheral IV Urinary Cath still in place: Yes Reason Cath still needed: urinary retention Assessment/Plan Chief Complaint/Hosp Course Patient remains hemodynamically stable, no fevers. Assessment and plan: - Sacral decubitus. Continue current wound care. Dr. Murphy is following patient in general surgery consultation. - Hereditary spastic paraplegia. Continue to assist patient with activities of daily living. - Urinary tract infection. Dr. Memo garcía is following in infection disease consultation. Continue antibiotics per ID. - Bilateral malleolus wound, continue current wound care. - Depression, continue Zoloft - Dysphagia, continue dysphagia diet, nutritional supplements and vitamins, continue calorie count. Further recommendations based on clinical course. Plan of care discussed with Dr. Gibbs. Problems: Exam/Review of Systems Vital Signs Vitals Vital Signs Date Time Temp Pulse Resp B/P Pulse Ox O2 Delivery O2 Flow Rate FiO2 11/01/16 07:25 98.2 76 16 105/67 99 Intake and Output 10/31/16 10/31/16 11/01/16 14:59 22:59 06:59 Intake Total 650 ml 250 ml Output Total 1500 ml Balance 650 ml -1250 ml Exam Constitutional: alert, oriented Psych: no complaints Head: atraumatic, normocephalic Eyes: nl conjunctiva ENMT: nl external ears & nose Neck: non-tender, supple Respiratory: clear to auscultation, normal air movement Cardiovascular: nl pulses, regular rate and rhythm Gastrointestinal: non-tender, soft Genitourinary - Female: other (Eaton catheter) Musculoskeletal: muscle weakness, other (Contracted) Extremities: normal pulses Neurological: nl mental status Skin: other (Sacral decubitus, bilateral lateral foot wounds) Results Result Diagram: 11/01/16 0540 11/01/16 0540 Results 24 hrs Laboratory Tests Test 11/01/16 05:40 White Blood Count 7.4 Red Blood Count 3.85 L Hemoglobin 11.2 L Hematocrit 35.0 L Mean Corpuscular Volume 90.9 Mean Corpuscular Hemoglobin 29.1 Mean Corpuscular Hemoglobin Concent 32.0 Red Cell Distribution Width 13.1 Platelet Count 236 # Mean Platelet Volume 11.5 H Neutrophils % 56.0 Lymphocytes % 26.2 Monocytes % 11.5 H Eosinophils % 4.5 Basophils % 0.9 Nucleated Red Blood Cells % 0.0 Neutrophils # 4.2 Lymphocytes # 1.9 Monocytes # 0.9 Eosinophils # 0.3 Basophils # 0.1 Nucleated Red Blood Cells # 0.0 Sodium Level 141 Potassium Level 3.9 Chloride Level 109 Carbon Dioxide Level 25 Anion Gap 11 Blood Urea Nitrogen 8 Creatinine 0.75 Glucose Level 88 Calcium Level 9.2 Medications Medications Current Medications Piperacillin Sod/ Tazobactam Sod (Zosyn 3.375gm/ 100 ml (Pmx)) 100 ml @ 25 mls/ hr TID@,,18 IVPB Last administered on 11/01/16 09:55; Admin Dose 25 MLS/HR ; Start 10/22/16 at 02:00 Acetaminophen (Tylenol Tab) 500 mg Q4H PRN PO PAIN AND OR ELEVATED TEMP; Start 10/21/16 at 22:00 Morphine Sulfate (morphine) 2 mg Q4H PRN IV PAIN LEVEL 4-7 Last administered on 10/24/16 10:54; Admin Dose 2 MG; Start 10/21/16 at 22:00 Enoxaparin Sodium (Lovenox) 30 mg DAILY SC Last administered on 11/01/16 10:05 ; Admin Dose 30 MG; Start 10/22/16 at 09:00 Ondansetron HCl (Zofran Inj) 4 mg Q4H PRN IV NAUSEA AND/OR VOMITING; Start at 22:00 Miscellaneous Information (Pending [facility] Order For Wound Care) This patient webb... PRN PRN XX WOUND CARE; Start 10/22/16 at 01:30 Sertraline HCl (Zoloft) 100 mg DAILY PO Last administered on 11/01/16 09:46; Admin Dose 100 MG; Start 10/23/16 at 09:00 Trazodone HCl (Desyrel) 75 mg QHS PO Last administered on 10/31/16 22:04; Admin Dose 75 MG; Start 10/22/16 at 21:00 Baclofen 10 mg 10 mg TID PRN PO SPASM; Start 10/22/16 at 16:30 Potassium Chloride/Dextrose/ Sod Cl (D5-1/2ns + KCl 20 Meq) 1,000 ml @ 70 mls/ hr [id number] IV Last administered on 10/31/16 22:08; Admin Dose 70 MLS/HR; Start 10/23/16 at 17:00 Multivitamins/ Minerals (Theragran-M) 1 tab DAILY PO Last administered on 09:45; Admin Dose 1 TAB; Start 10/25/16 at 09:00 Zinc Sulfate (Zinc Sulfate) 220 mg DAILY PO Last administered on 11/01/16 09: 45; Admin Dose 220 MG; Start 10/25/16 at 09:00 Ascorbic Acid (Vitamin C) 500 mg DAILY PO Last administered on 11/01/16 09:45 ; Admin Dose 500 MG; Start 10/25/16 at 09:00 Lactobacillus Acidophilus/ Rhamnosus 1 cap 1 cap BID PO Last administered on 09:46; Admin Dose 1 CAP; Start 10/26/16 at 09:00 Vancomycin HCl/ Sodium Chloride (Vancocin/NS) 150 ml @ 75 mls/hr Q12H IVPB Last administered on 11/01/16 04:39; Admin Dose 75 MLS/HR; Start 10/26/16 at 16 :00 Mineral Oil (Fleet Mineral Oil Enema) 133 ml BID [place] Last administered on 11:05; Admin Dose 133 ML; Start 10/29/16 at 21:00 Ferrous Sulfate (Ferrous Sulfate (Ec)) 325 mg BID PO Last administered on 09:45; Admin Dose 325 MG; Start 10/29/16 at 21:00 Sodium Hypochlorite (Dakin'S (1/4 Strength)) 1 applic AM IRR Last administered on 11/01/16 09:46; Admin Dose 1 APPLIC; Start 11/01/16 at 09:00 Collagenase (Santyl) 1 applic DAILY TOP Last administered on 11/01/16 09:48; Admin Dose 1 APPLIC; Start 10/31/16 at 21:00 Mineral Oil (Mineral Oil) 30 ml DAILY PO ; Start 11/02/16 at 09:00 LEI YEBOAH November 01, 2016 15:30
[2016-11-01] MEDS: D5W-0.45 NACL + KCL 20 MEQ 1,000 ML IV SCH (15:49)
[2016-11-01 20:26] VITALS: BP 130/78; RESP 17
[2016-11-01] MEDS: traZODone 50 MG TAB PO SCH (21:49)
[2016-11-02] MEDS: PIPER-TAZO 3.375 GM IV (PMX) 100 ML IVPB SCH ×3 (02:39→18:21)
[2016-11-02] MEDS: SODIUM HYPOCHLORITE 0.125% 473 ML BTL IRR SCH ×2 (05:08→08:40)
[2016-11-02] MEDS: VANCOMYCIN 750 MG in SOD CHLORIDE 0.9% 150 ML IVPB SCH ×2 (05:12→15:54)
[2016-11-02] MEDS: D5W-0.45 NACL + KCL 20 MEQ 1,000 ML IV SCH ×2 (05:48→11:51)
[2016-11-02 06:35] LABS: ADD SCAN DIFF NO
[2016-11-02 06:44] LABS: BASOPHIL # 0.1 10^3/ul (0.0-0.1); BASOPHILS % 0.8 % (0.0-2.0); EOSINOPHILS # 0.3 10^3/ul (0.0-0.5); HEMATOCRIT 33.9 % (37.0-47.0); HEMOGLOBIN 10.7 g/dl (12.0-16.0); LYMPHOCYTES % 22.8 % (15.0-51.0); MEAN CORPUSCULAR HEMOGLOBIN 28.8 pg (29.0-33.0); MEAN CORPUSCULAR HGB CONC 31.6 g/dl (32.0-37.0); MEAN CORPUSCULAR VOLUME 91.4 fl (82.0-101.0); MEAN PLATELET VOLUME 11.6 fl (7.4-10.4); MONOCYTE # 0.9 10^3/ul (0.3-0.9); MONOCYTES % 10.2 % (0.0-11.0); NEUTROPHIL # 5.3 10^3/ul (1.6-7.5); NEUTROPHILS % 61.5 % (39.0-77.0); PLATELET COUNT 242 10^3/UL (140-415); RED BLOOD COUNT 3.71 10^6/ul (4.20-5.40); RED CELL DISTRIBUTION WIDTH 13.2 % (11.5-14.5); WHITE BLOOD COUNT 8.6 10^3/ul (4.8-10.8)
--- NOTE | 2016-11-02 07:01 | PN ---
DATE: 11/01/2016 SUBJECTIVE: No new events, no complaint, not real verbal communication. OBJECTIVE: GENERAL: The patient is lying down in the flat supine position. Eyes open, very difficult to establish meaningful communication. VITAL SIGNS: Temperature 98.2, heart rate 76 and maximum 105, respirations 17, blood pressure 130/78, saturation 97% on room air. ABDOMEN: Slightly distended. Bowel sounds present, no tenderness, no guarding. SKIN: Sacrococcygeal wound as yesterday, mostly is clean and beefy red granulation. LABORATORY DATA: WBC 7400, neutrophils 56%, hemoglobin 11.2, hematocrit 35. Chemistry: BUN, creatinine, sodium and potassium within normal limits. The KUB was repeated today to make sure of the clearance of the stool and the report states that impression: 1. Persistent large volume stool within the rectum diameter approximately 11 cm. Overall, no significant interval change. 2. Moderate volume stool in the distal transverse and descending colon, increased when compared to the prior examination. This was read today by Dr. Hanna. ASSESSMENT: The patient with sacrococcygeal wound, urinary tract infection, and paraplegia. Evidence of chronic constipation, severely, with a large amount of stool in the rectum, sigmoid and descending colon. PLAN: 1. The patient is receiving antibiotic per infectious disease for the control of the urinary tract infection. Sacrococcygeal wound is managed conservatively with application of wet-to-dry Dakin's solution every one 12 hours, and the other 12 hours with application of Santyl debridement cream. 2. I am trying to clean the colon, especially rectum from the large amount of stool by giving patient mineral oil p.o. and then giving a lot of enemas per rectum, but its effect is not that much. We will try more. Dictated By: SCOOBY LAL MD PS/CHRISTIAN Conf#: [id number] DID#: [id number] MTDD
[2016-11-02 07:12] LABS: POTASSIUM 4.1 mmol/L (3.5-5.1)
[2016-11-02 07:14] LABS: CREATININE 0.73 mg/dl (0.44-1.00)
[2016-11-02 07:15] LABS: CALCIUM 9.1 mg/dl (8.4-10.2)
[2016-11-02 07:19] VITALS: BP 111/75; RESP 18
[2016-11-02] MEDS: FERROUS SULFATE (EC) 325 MG TAB PO SCH ×2 (08:40→22:06)
[2016-11-02] MEDS: LACTOBACILLUS RHAMNOSUS CAP PO SCH ×2 (08:40→22:06)
[2016-11-02] MEDS: ASCORBIC ACID 500 MG TAB PO SCH (08:40)
[2016-11-02] MEDS: ZINC SULFATE 220 MG CAP PO SCH (08:40)
[2016-11-02] MEDS: MULTIVITAMINS/MINERALS TAB PO SCH (08:40)
[2016-11-02] MEDS: SERTRALINE 100 MG TAB PO SCH (08:40)
[2016-11-02] MEDS: MINERAL OIL 30ML CUP PO SCH (08:41)
[2016-11-02] MEDS: ENOXAPARIN 30 MG/0.3 ML SYG SC SCH (08:42)
[2016-11-02] MEDS: MINERAL OIL 133 ML ENEMA PR SCH ×3 (09:00→22:05)
[2016-11-02] MEDS: COLLAGENASE 30 GM TUBE TOP SCH (09:00)
--- NOTE | 2016-11-02 11:34 | CONS ---
Date/Time of Note Date/Time of Note DATE: 11/01/16 TIME: 11:33 Assessment/Plan Assessment/Plan Chief Complaint/Hosp Course - Early sepsis due to sacral decub infection - mild leukocytosis and tachycardia resolving - Sacral decubitus ulcer with polymicrobial infection; wound cx grew E. Coli, Proteus, CoNS, and Leuconostoc; ESR 30; Sacral x-ray no e/o OM - UTI due to lactobacillus - Bacteremia due to CoNS - Hereditary spastic paraplegia - Depression - Normocytic anemia Recommendations: - Continue vancomycin and pip/tazo (10/21/2016-) for 14 days total - Continue probiotics Problems: Consultation Date/Type/Reason Admit Date/Time October 21, 2016 at 18:19 Initial Consult Date 10/23/16 Type of Consultation: Infectious Disease Exam/Review of Systems Vital Signs Vitals Vital Signs Date Time Temp Pulse Resp B/P Pulse Ox O2 Delivery O2 Flow Rate FiO2 11/02/16 07:19 98.4 79 18 111/75 98 11/01/16 20:00 Room Air Intake and Output 11/01/16 11/01/16 11/02/16 15:00 23:00 07:00 Intake Total 730 ml 1530 ml 940 ml Output Total 1700 ml 1050 ml Balance 730 ml -170 ml -110 ml Exam Constitutional: alert, oriented, well developed Eyes: EOMI ENMT: nl external ears & nose, nl lips & teeth, nl nasal mucosa & septum Respiratory: clear to auscultation, normal air movement Cardiovascular: regular rate and rhythm Results Result Diagram: 11/02/16 0530 11/02/16 0530 Results 24 hrs Laboratory Tests Test 11/02/16 05:30 White Blood Count 8.6 Red Blood Count 3.71 L Hemoglobin 10.7 L Hematocrit 33.9 L Mean Corpuscular Volume 91.4 Mean Corpuscular Hemoglobin 28.8 L Mean Corpuscular Hemoglobin Concent 31.6 L Red Cell Distribution Width 13.2 Platelet Count 242 Mean Platelet Volume 11.6 H Neutrophils % 61.5 Lymphocytes % 22.8 Monocytes % 10.2 Eosinophils % 4.0 Basophils % 0.8 Nucleated Red Blood Cells % 0.0 Neutrophils # 5.3 Lymphocytes # 2.0 Monocytes # 0.9 Eosinophils # 0.3 Basophils # 0.1 Nucleated Red Blood Cells # 0.0 Sodium Level 143 Potassium Level 4.1 Chloride Level 105 Carbon Dioxide Level 27 Anion Gap 15 Blood Urea Nitrogen 7 Creatinine 0.73 Glucose Level 93 Calcium Level 9.1 Medications Medications Current Medications Piperacillin Sod/ Tazobactam Sod (Zosyn 3.375gm/ 100 ml (Pmx)) 100 ml @ 25 mls/ hr TID@02,10,18 IVPB Last administered on 11/02/16 09:06; Admin Dose 25 MLS/HR ; Start 10/22/16 at 02:00 Acetaminophen (Tylenol Tab) 500 mg Q4H PRN PO PAIN AND OR ELEVATED TEMP; Start 10/21/16 at 22:00 Morphine Sulfate (morphine) 2 mg Q4H PRN IV PAIN LEVEL 4-7 Last administered on 10/24/16 10:54; Admin Dose 2 MG; Start 10/21/16 at 22:00 Enoxaparin Sodium (Lovenox) 30 mg DAILY SC Last administered on 11/02/16 08:42 ; Admin Dose 30 MG; Start 10/22/16 at 09:00 Ondansetron HCl (Zofran Inj) 4 mg Q4H PRN IV NAUSEA AND/OR VOMITING; Start at 22:00 Miscellaneous Information (Pending [facility] Order For Wound Care) This patient webb... PRN PRN XX WOUND CARE; Start 10/22/16 at 01:30 Sertraline HCl (Zoloft) 100 mg DAILY PO Last administered on 11/02/16 08:40; Admin Dose 100 MG; Start 10/23/16 at 09:00 Trazodone HCl (Desyrel) 75 mg QHS PO Last administered on 11/01/16 21:49; Admin Dose 75 MG; Start 10/22/16 at 21:00 Baclofen 10 mg 10 mg TID PRN PO SPASM; Start 10/22/16 at 16:30 Potassium Chloride/Dextrose/ Sod Cl (D5-1/2ns + KCl 20 Meq) 1,000 ml @ 70 mls/ hr [id number] IV Last administered on 11/01/16 15:49; Admin Dose 70 MLS/HR; Start 10/23/16 at 17:00 Multivitamins/ Minerals (Theragran-M) 1 tab DAILY PO Last administered on 08:40; Admin Dose 1 TAB; Start 10/25/16 at 09:00 Zinc Sulfate (Zinc Sulfate) 220 mg DAILY PO Last administered on 11/02/16 08: 40; Admin Dose 220 MG; Start 10/25/16 at 09:00 Ascorbic Acid (Vitamin C) 500 mg DAILY PO Last administered on 11/02/16 08:40 ; Admin Dose 500 MG; Start 10/25/16 at 09:00 Lactobacillus Acidophilus/ Rhamnosus 1 cap 1 cap BID PO Last administered on 08:40; Admin Dose 1 CAP; Start 10/26/16 at 09:00 Vancomycin HCl/ Sodium Chloride (Vancocin/NS) 150 ml @ 75 mls/hr Q12H IVPB Last administered on 11/02/16 05:12; Admin Dose 75 MLS/HR; Start 10/26/16 at 16 :00 Mineral Oil (Fleet Mineral Oil Enema) 133 ml BID [place] Last administered on 23:55; Admin Dose 133 ML; Start 10/29/16 at 21:00 Ferrous Sulfate (Ferrous Sulfate (Ec)) 325 mg BID PO Last administered on 08:40; Admin Dose 325 MG; Start 10/29/16 at 21:00 Sodium Hypochlorite (Dakin'S (1/4 Strength)) 1 applic AM IRR Last administered on 11/02/16 08:40; Admin Dose 1 APPLIC; Start 11/01/16 at 09:00 Collagenase (Santyl) 1 applic DAILY TOP Last administered on 11/01/16 09:48; Admin Dose 1 APPLIC; Start 10/31/16 at 21:00 Mineral Oil (Mineral Oil) 30 ml DAILY PO Last administered on 11/02/16 08:41; Admin Dose 30 ML; Start 11/02/16 at 09:00 ROHAN CHENG MD November 02, 2016 11:34
--- NOTE | 2016-11-02 12:04 | PN ---
Date/Time of Note Date/Time of Note DATE: 11/02/16 TIME: 12:04 Assessment/Plan VTE Prophylaxis VTE Prophylaxis Intervention: other Lines/Catheters IV Catheter Type (from Nrs): Peripheral IV Urinary Cath still in place: Yes Reason Cath still needed: skin wounds contaminated by urine Assessment/Plan Chief Complaint/Hosp Course - Sacral decubitus. Continue current wound care. Dr. Murphy is following patient in general surgery consultation. - Hereditary spastic paraplegia. Continue to assist patient with activities of daily living. - Urinary tract infection. Dr. Memo garcía is following in infection disease consultation. Continue antibiotics per ID. - Bilateral malleolus wound, continue current wound care. - Depression, continue Zoloft - Dysphagia, continue dysphagia diet, nutritional supplements and vitamins, continue calorie count. Problems: Subjective 24 Hr Interval Summary Free Text/Dictation Patient is stable, has no complaints Exam/Review of Systems Vital Signs Vitals Vital Signs Date Time Temp Pulse Resp B/P Pulse Ox O2 Delivery O2 Flow Rate FiO2 11/02/16 07:19 98.4 79 18 111/75 98 11/01/16 20:00 Room Air Intake and Output 11/01/16 11/01/16 11/02/16 15:00 23:00 07:00 Intake Total 730 ml 1530 ml 940 ml Output Total 1700 ml 1050 ml Balance 730 ml -170 ml -110 ml Exam Constitutional: well developed Head: atraumatic, normocephalic Neck: supple Respiratory: clear to auscultation Cardiovascular: regular rate and rhythm Gastrointestinal: non-tender, soft Extremities: normal pulses Results Result Diagram: 11/02/16 0530 11/02/16 0530 Results 24 hrs Laboratory Tests Test 11/02/16 05:30 White Blood Count 8.6 Red Blood Count 3.71 L Hemoglobin 10.7 L Hematocrit 33.9 L Mean Corpuscular Volume 91.4 Mean Corpuscular Hemoglobin 28.8 L Mean Corpuscular Hemoglobin Concent 31.6 L Red Cell Distribution Width 13.2 Platelet Count 242 Mean Platelet Volume 11.6 H Neutrophils % 61.5 Lymphocytes % 22.8 Monocytes % 10.2 Eosinophils % 4.0 Basophils % 0.8 Nucleated Red Blood Cells % 0.0 Neutrophils # 5.3 Lymphocytes # 2.0 Monocytes # 0.9 Eosinophils # 0.3 Basophils # 0.1 Nucleated Red Blood Cells # 0.0 Sodium Level 143 Potassium Level 4.1 Chloride Level 105 Carbon Dioxide Level 27 Anion Gap 15 Blood Urea Nitrogen 7 Creatinine 0.73 Glucose Level 93 Calcium Level 9.1 Medications Medications Current Medications Piperacillin Sod/ Tazobactam Sod (Zosyn 3.375gm/ 100 ml (Pmx)) 100 ml @ 25 mls/ hr TID@02,10,18 IVPB Last administered on 11/02/16 09:06; Admin Dose 25 MLS/HR ; Start 10/22/16 at 02:00 Acetaminophen (Tylenol Tab) 500 mg Q4H PRN PO PAIN AND OR ELEVATED TEMP; Start 10/21/16 at 22:00 Morphine Sulfate (morphine) 2 mg Q4H PRN IV PAIN LEVEL 4-7 Last administered on 10/24/16 10:54; Admin Dose 2 MG; Start 10/21/16 at 22:00 Enoxaparin Sodium (Lovenox) 30 mg DAILY SC Last administered on 11/02/16 08:42 ; Admin Dose 30 MG; Start 10/22/16 at 09:00 Ondansetron HCl (Zofran Inj) 4 mg Q4H PRN IV NAUSEA AND/OR VOMITING; Start at 22:00 Miscellaneous Information (Pending [facility] Order For Wound Care) This patient webb... PRN PRN XX WOUND CARE; Start 10/22/16 at 01:30 Sertraline HCl (Zoloft) 100 mg DAILY PO Last administered on 11/02/16 08:40; Admin Dose 100 MG; Start 10/23/16 at 09:00 Trazodone HCl (Desyrel) 75 mg QHS PO Last administered on 11/01/16 21:49; Admin Dose 75 MG; Start 10/22/16 at 21:00 Baclofen 10 mg 10 mg TID PRN PO SPASM; Start 10/22/16 at 16:30 Potassium Chloride/Dextrose/ Sod Cl (D5-1/2ns + KCl 20 Meq) 1,000 ml @ 70 mls/ hr [id number] IV Last administered on 11/02/16 11:51; Admin Dose 70 MLS/HR; Start 10/23/16 at 17:00 Multivitamins/ Minerals (Theragran-M) 1 tab DAILY PO Last administered on 08:40; Admin Dose 1 TAB; Start 10/25/16 at 09:00 Zinc Sulfate (Zinc Sulfate) 220 mg DAILY PO Last administered on 11/02/16 08: 40; Admin Dose 220 MG; Start 10/25/16 at 09:00 Ascorbic Acid (Vitamin C) 500 mg DAILY PO Last administered on 11/02/16 08:40 ; Admin Dose 500 MG; Start 10/25/16 at 09:00 Lactobacillus Acidophilus/ Rhamnosus 1 cap 1 cap BID PO Last administered on 08:40; Admin Dose 1 CAP; Start 10/26/16 at 09:00 Vancomycin HCl/ Sodium Chloride (Vancocin/NS) 150 ml @ 75 mls/hr Q12H IVPB Last administered on 11/02/16 05:12; Admin Dose 75 MLS/HR; Start 10/26/16 at 16 :00 Mineral Oil (Fleet Mineral Oil Enema) 133 ml BID [place] Last administered on 23:55; Admin Dose 133 ML; Start 10/29/16 at 21:00 Ferrous Sulfate (Ferrous Sulfate (Ec)) 325 mg BID PO Last administered on 08:40; Admin Dose 325 MG; Start 10/29/16 at 21:00 Sodium Hypochlorite (Dakin'S (1/4 Strength)) 1 applic AM IRR Last administered on 11/02/16 08:40; Admin Dose 1 APPLIC; Start 11/01/16 at 09:00 Collagenase (Santyl) 1 applic DAILY TOP Last administered on 11/01/16 09:48; Admin Dose 1 APPLIC; Start 10/31/16 at 21:00 Mineral Oil (Mineral Oil) 30 ml DAILY PO Last administered on 11/02/16 08:41; Admin Dose 30 ML; Start 11/02/16 at 09:00 ALYSSA CENTENO November 02, 2016 12:04
--- NOTE | 2016-11-02 13:57 | CONS ---
Date/Time of Note Date/Time of Note DATE: 11/02/16 TIME: 13:49 Assessment/Plan Assessment/Plan Chief Complaint/Hosp Course - Early sepsis due to sacral decub infection - mild leukocytosis and tachycardia resolving - Sacral decubitus ulcer with polymicrobial infection; wound cx grew E. Coli, Proteus, CoNS, and Leuconostoc; ESR 30; Sacral x-ray no e/o OM - UTI due to lactobacillus - Bacteremia due to CoNS - Hereditary spastic paraplegia - Depression - Normocytic anemia - Dysphagia - Feeder with decreased appetite; calorie count completed with avg 961 kcal/day and 26g protein/day - family declines G tube - Impaction - on laxatives Recommendations: - Continue vancomycin and pip/tazo (09/21/2016-10/05/2016) for 14 days total - Continue probiotics Management d/w Pt's parents, BRENDA Mancia, and Dr. Hampton Problems: Consultation Date/Type/Reason Admit Date/Time October 21, 2016 at 18:19 Initial Consult Date 10/23/16 Type of Consultation: Infectious Disease 24 HR Interval Summary Free Text/Dictation Tolerating IV abx. Calorie count completed and G tube was offered but family declining. Pt is a slow eater and eats more when family is present. Pt on laxatives for impaction - Dr. Murphy following. Awaiting SNF placement per d/w nursing staff. Subjective hx not possible: pt non-verbal Exam/Review of Systems Vital Signs Vitals Vital Signs Date Time Temp Pulse Resp B/P Pulse Ox O2 Delivery O2 Flow Rate FiO2 11/02/16 07:19 98.4 79 18 111/75 98 11/01/16 20:00 Room Air Intake and Output 11/01/16 11/01/16 11/02/16 15:00 23:00 07:00 Intake Total 730 ml 1530 ml 940 ml Output Total 1700 ml 1050 ml Balance 730 ml -170 ml -110 ml Exam Constitutional: alert, frail, thin, in NAD, smiling Head: atraumatic, normocephalic Eyes: nl sclera Neck: other (unable to assess) Respiratory: clear to auscultation (anteriorly) Cardiovascular: nl pulses, regular rate and rhythm Gastrointestinal: bowel sounds (present), non-tender, soft Musculoskeletal: muscle weakness Extremities: other (contracted with fine tremors noted on fingers) Neurological: other (+ tracking); quadriplegic Skin: other (Wounds including sacral decub- see nurse notes and photos in chart for details) Results Result Diagram: 11/02/16 0530 11/02/16 0530 Results 24 hrs Laboratory Tests Test 11/02/16 05:30 White Blood Count 8.6 Red Blood Count 3.71 L Hemoglobin 10.7 L Hematocrit 33.9 L Mean Corpuscular Volume 91.4 Mean Corpuscular Hemoglobin 28.8 L Mean Corpuscular Hemoglobin Concent 31.6 L Red Cell Distribution Width 13.2 Platelet Count 242 Mean Platelet Volume 11.6 H Neutrophils % 61.5 Lymphocytes % 22.8 Monocytes % 10.2 Eosinophils % 4.0 Basophils % 0.8 Nucleated Red Blood Cells % 0.0 Neutrophils # 5.3 Lymphocytes # 2.0 Monocytes # 0.9 Eosinophils # 0.3 Basophils # 0.1 Nucleated Red Blood Cells # 0.0 Sodium Level 143 Potassium Level 4.1 Chloride Level 105 Carbon Dioxide Level 27 Anion Gap 15 Blood Urea Nitrogen 7 Creatinine 0.73 Glucose Level 93 Calcium Level 9.1 Medications Medications Current Medications Piperacillin Sod/ Tazobactam Sod (Zosyn 3.375gm/ 100 ml (Pmx)) 100 ml @ 25 mls/ hr TID@02,,18 IVPB Last administered on 11/02/16 09:06; Admin Dose 25 MLS/HR ; Start 10/22/16 at 02:00 Acetaminophen (Tylenol Tab) 500 mg Q4H PRN PO PAIN AND OR ELEVATED TEMP; Start 10/21/16 at 22:00 Morphine Sulfate (morphine) 2 mg Q4H PRN IV PAIN LEVEL 4-7 Last administered on 10/24/16 10:54; Admin Dose 2 MG; Start 10/21/16 at 22:00 Enoxaparin Sodium (Lovenox) 30 mg DAILY SC Last administered on 11/02/16 08:42 ; Admin Dose 30 MG; Start 10/22/16 at 09:00 Ondansetron HCl (Zofran Inj) 4 mg Q4H PRN IV NAUSEA AND/OR VOMITING; Start at 22:00 Miscellaneous Information (Pending Santyl Order For Wound Care) This patient webb... PRN PRN XX WOUND CARE; Start 10/22/16 at 01:30 Sertraline HCl (Zoloft) 100 mg DAILY PO Last administered on 11/02/16 08:40; Admin Dose 100 MG; Start 10/23/16 at 09:00 Trazodone HCl (Desyrel) 75 mg QHS PO Last administered on 11/01/16 21:49; Admin Dose 75 MG; Start 10/22/16 at 21:00 Baclofen 10 mg 10 mg TID PRN PO SPASM; Start 10/22/16 at 16:30 Potassium Chloride/Dextrose/ Sod Cl (D5-1/2ns + KCl 20 Meq) 1,000 ml @ 70 mls/ hr [id number] IV Last administered on 11/02/16 11:51; Admin Dose 70 MLS/HR; Start 10/23/16 at 17:00 Multivitamins/ Minerals (Theragran-M) 1 tab DAILY PO Last administered on 08:40; Admin Dose 1 TAB; Start 10/25/16 at 09:00 Zinc Sulfate (Zinc Sulfate) 220 mg DAILY PO Last administered on 11/02/16 08: 40; Admin Dose 220 MG; Start 10/25/16 at 09:00 Ascorbic Acid (Vitamin C) 500 mg DAILY PO Last administered on 11/02/16 08:40 ; Admin Dose 500 MG; Start 10/25/16 at 09:00 Lactobacillus Acidophilus/ Rhamnosus 1 cap 1 cap BID PO Last administered on 08:40; Admin Dose 1 CAP; Start 10/26/16 at 09:00 Vancomycin HCl/ Sodium Chloride (Vancocin/NS) 150 ml @ 75 mls/hr Q12H IVPB Last administered on 11/02/16 05:12; Admin Dose 75 MLS/HR; Start 10/26/16 at 16 :00 Mineral Oil (Fleet Mineral Oil Enema) 133 ml BID [place] Last administered on 23:55; Admin Dose 133 ML; Start 10/29/16 at 21:00 Ferrous Sulfate (Ferrous Sulfate (Ec)) 325 mg BID PO Last administered on 08:40; Admin Dose 325 MG; Start 10/29/16 at 21:00 Sodium Hypochlorite (Dakin'S (1/4 Strength)) 1 applic AM IRR Last administered on 11/02/16 08:40; Admin Dose 1 APPLIC; Start 11/01/16 at 09:00 Collagenase (Santyl) 1 applic DAILY TOP Last administered on 11/01/16 09:48; Admin Dose 1 APPLIC; Start 10/31/16 at 21:00 Mineral Oil (Mineral Oil) 30 ml DAILY PO Last administered on 11/02/16 08:41; Admin Dose 30 ML; Start 11/02/16 at 09:00 Polyethylene Glycol (Miralax) 17 gm DAILY PO ; Start 11/02/16 at 14:00; Stop 11/10/16 at 13:59 Docusate Sodium (Colace Liquid Cup) 300 mg DAILY PO ; Start 11/02/16 at 14:00 BUFFY JAIME NP November 02, 2016 13:57
--- NOTE | 2016-11-02 14:34 | PN ---
DATE: 11/02/2016 SUBJECTIVE: No new complaints. OBJECTIVE: GENERAL: Patient is lying down on the bed, , alert and awake, but difficult to communicate. VITAL SIGNS: Temperature 98.4, heart rate 79, respirations 18, blood pressure 111/75, saturation 98% on room air. LABORATORIES:: WBC 8600 with 61% segmented, hemoglobin 10.7, hematocrit 33.9. Chemistry: BUN, creatinine, sodium, potassium within normal limits. ABDOMEN: Mildly distended but soft. slightly firm down in the pelvis, probably retained stool per abdominal KUB. The KUB shows a lot of stool in the rectum. ASSESSMENT AND PLAN: A 36-year-old female with urinary tract infection and necrotic sacrococcygeal pressure ulcer was admitted for treatment of a pressure ulcer and also diagnosis is hereditary degenerative spastic paraplegia was found to on KUB to have severe fecal impaction. Patient is getting antibiotics for a urinary tract infection. The pressure ulcer has been taken care of and is healing gradually with good granulation tissue. The fecal impaction, has been trying to clear it with enemas, mineral oil and other laxatives, with some success. PLAN: 1. Continue with mineral oil p.o., continue mineral oil enema. Add MiraLax 17 grams p.o. in 120 mL of water every day for 7 days. Add Colace 300 mg per day and we will see how we can start cleaning the distal sigmoid colon and rectum from impacted stool. Dictated By: SCOOBY DRUMMOND/CHRISTIAN Conf#: [id number] DID#: [id number] MTDD
[2016-11-02] MEDS: DOCUSATE SODIUM 10 MG/ML (10ML CUP) PO SCH (15:54)
[2016-11-02] MEDS: POLYETHYLENE GLYCOL 17 GM PACKET PO SCH (15:54)
[2016-11-02 20:03] VITALS: BP 115/73; RESP 18
[2016-11-02] MEDS: traZODone 50 MG TAB PO SCH (22:06)
[2016-11-03] MEDS: PIPER-TAZO 3.375 GM IV (PMX) 100 ML IVPB SCH ×3 (02:37→18:09)
[2016-11-03] MEDS: D5W-0.45 NACL + KCL 20 MEQ 1,000 ML IV SCH ×4 (04:09→23:59)
[2016-11-03] MEDS: VANCOMYCIN 750 MG in SOD CHLORIDE 0.9% 150 ML IVPB SCH ×2 (04:09→15:56)
[2016-11-03] MEDS: COLLAGENASE 30 GM TUBE TOP SCH ×2 (05:15→09:00)
[2016-11-03] MEDS: SODIUM HYPOCHLORITE 0.125% 473 ML BTL IRR SCH ×2 (05:15→08:54)
[2016-11-03 07:25] VITALS: BP 101/60; RESP 18
[2016-11-03] MEDS: MINERAL OIL 133 ML ENEMA PR SCH ×2 (08:54→22:39)
[2016-11-03] MEDS: DOCUSATE SODIUM 10 MG/ML (10ML CUP) PO SCH (08:57)
[2016-11-03] MEDS: MINERAL OIL 30ML CUP PO SCH ×2 (08:57→21:57)
[2016-11-03] MEDS: FERROUS SULFATE (EC) 325 MG TAB PO SCH ×2 (08:58→21:56)
[2016-11-03] MEDS: ZINC SULFATE 220 MG CAP PO SCH (08:58)
[2016-11-03] MEDS: ASCORBIC ACID 500 MG TAB PO SCH (08:58)
[2016-11-03] MEDS: LACTOBACILLUS RHAMNOSUS CAP PO SCH ×2 (08:58→21:56)
[2016-11-03] MEDS: SERTRALINE 100 MG TAB PO SCH (08:58)
[2016-11-03] MEDS: POLYETHYLENE GLYCOL 17 GM PACKET PO SCH (08:58)
[2016-11-03] MEDS: MULTIVITAMINS/MINERALS TAB PO SCH (08:58)
[2016-11-03] MEDS: ENOXAPARIN 30 MG/0.3 ML SYG SC SCH (09:30)
--- NOTE | 2016-11-03 12:18 | PN ---
Date/Time of Note Date/Time of Note DATE: 11/03/16 TIME: 12:17 Assessment/Plan VTE Prophylaxis VTE Prophylaxis Intervention: other Lines/Catheters IV Catheter Type (from Nrsg): Peripheral IV Urinary Cath still in place: Yes Reason Cath still needed: skin wounds contaminated by urine Assessment/Plan Chief Complaint/Hosp Course - Sacral decubitus. Continue current wound care. Dr. Murphy is following patient in general surgery consultation. - Hereditary spastic paraplegia. Continue to assist patient with activities of daily living. - Urinary tract infection. Dr. Memo garcía is following in infection disease consultation. Continue antibiotics per ID. - Bilateral malleolus wound, continue current wound care. - Depression, continue Zoloft - Dysphagia, continue dysphagia diet, nutritional supplements and vitamins, continue calorie count. Problems: Subjective 24 Hr Interval Summary Free Text/Dictation Patient has no complaints Exam/Review of Systems Vital Signs Vitals Vital Signs Date Time Temp Pulse Resp B/P Pulse Ox O2 Delivery O2 Flow Rate FiO2 11/03/16 07:25 97.9 90 18 101/60 97 11/02/16 20:00 Room Air Intake and Output 11/02/16 11/02/16 11/03/16 15:00 23:00 07:00 Intake Total 250 ml 1490 ml 317 ml Output Total 2700 ml 800 ml Balance 250 ml -1210 ml -483 ml Exam Constitutional: well developed Head: atraumatic, normocephalic Neck: supple Respiratory: clear to auscultation Cardiovascular: regular rate and rhythm Gastrointestinal: non-tender, soft Extremities: normal pulses Results Result Diagram: 11/02/1630 11/02/16 0530 Medications Medications Current Medications Piperacillin Sod/ Tazobactam Sod (Zosyn 3.375gm/ 100 ml (Pmx)) 100 ml @ 25 mls/ hr TID@02,10,18 IVPB Last administered on 11/03/16 09:04; Admin Dose 25 MLS/HR ; Start 10/22/16 at 02:00 Acetaminophen (Tylenol Tab) 500 mg Q4H PRN PO PAIN AND OR ELEVATED TEMP; Start 10/21/16 at 22:00 Morphine Sulfate (morphine) 2 mg Q4H PRN IV PAIN LEVEL 4-7 Last administered on 10/24/16 10:54; Admin Dose 2 MG; Start 10/21/16 at 22:00 Enoxaparin Sodium (Lovenox) 30 mg DAILY SC Last administered on 11/03/16 09:30 ; Admin Dose 30 MG; Start 10/22/16 at 09:00 Ondansetron HCl (Zofran Inj) 4 mg Q4H PRN IV NAUSEA AND/OR VOMITING; Start at 22:00 Miscellaneous Information (Pending Santyl Order For Wound Care) This patient webb... PRN PRN XX WOUND CARE; Start 10/22/16 at 01:30 Sertraline HCl (Zoloft) 100 mg DAILY PO Last administered on 11/03/16 08:58; Admin Dose 100 MG; Start 10/23/16 at 09:00 Trazodone HCl (Desyrel) 75 mg QHS PO Last administered on 11/02/16 22:06; Admin Dose 75 MG; Start 10/22/16 at 21:00 Baclofen 10 mg 10 mg TID PRN PO SPASM; Start 10/22/16 at 16:30 Potassium Chloride/Dextrose/ Sod Cl (D5-1/2ns + KCl 20 Meq) 1,000 ml @ 70 mls/ hr [id number] IV Last administered on 11/03/16 04:09; Admin Dose 70 MLS/HR; Start 10/23/16 at 17:00 Multivitamins/ Minerals (Theragran-M) 1 tab DAILY PO Last administered on 08:58; Admin Dose 1 TAB; Start 10/25/16 at 09:00 Zinc Sulfate (Zinc Sulfate) 220 mg DAILY PO Last administered on 11/03/16 08: 58; Admin Dose 220 MG; Start 10/25/16 at 09:00 Ascorbic Acid (Vitamin C) 500 mg DAILY PO Last administered on 11/03/16 08:58 ; Admin Dose 500 MG; Start 10/25/16 at 09:00 Lactobacillus Acidophilus/ Rhamnosus 1 cap 1 cap BID PO Last administered on 08:58; Admin Dose 1 CAP; Start 10/26/16 at 09:00 Vancomycin HCl/ Sodium Chloride (Vancocin/NS) 150 ml @ 75 mls/hr Q12H IVPB Last administered on 11/03/16 04:09; Admin Dose 75 MLS/HR; Start 10/26/16 at 16 :00 Mineral Oil (Fleet Mineral Oil Enema) 133 ml BID [place] Last administered on 08:54; Admin Dose 133 ML; Start 10/29/16 at 21:00 Ferrous Sulfate (Ferrous Sulfate (Ec)) 325 mg BID PO Last administered on 08:58; Admin Dose 325 MG; Start 10/29/16 at 21:00 Sodium Hypochlorite (Dakin'S (1/4 Strength)) 1 applic AM IRR Last administered on 11/03/16 08:54; Admin Dose 1 APPLIC; Start 11/01/16 at 09:00 Collagenase (Santyl) 1 applic DAILY TOP Last administered on 11/03/16 05:15; Admin Dose 1 APPLIC; Start 10/31/16 at 21:00 Mineral Oil (Mineral Oil) 30 ml DAILY PO Last administered on 11/03/16 08:57; Admin Dose 30 ML; Start 11/02/16 at 09:00 Polyethylene Glycol (Miralax) 17 gm DAILY PO Last administered on 11/03/16 08: 58; Admin Dose 17 GM; Start 11/02/16 at 14:00; Stop 11/10/16 at 13:59 Docusate Sodium (Colace Liquid Cup) 300 mg DAILY PO Last administered on 08:57; Admin Dose 300 MG; Start 11/02/16 at 14:00 ALYSSA CENTENO November 03, 2016 12:18
--- NOTE | 2016-11-03 14:27 | PN ---
DATE: 11/03/2016 SUBJECTIVE: No new complaints. OBJECTIVE: VITAL SIGNS: Temperature 97.9, heart rate 90, respirations 18, blood pressure is 101/60, saturation 97% room air. LABORATORY DATA: No new lab data today. GENERAL: The patient has had 2 bowel movements, but per nurse it is liquidish, brown color, is not solid stool. IMAGING: On the KUB, we can see a lot of solid stool impacted inside the rectum which is per report. ABDOMEN: Abdomen is soft. Lower part below the umbilicus is firm possibly indicative of presence of the stool in colon or sigmoid colon. Sacrococcygeal wound is clean. Note area of slough which hopefully is going to be taken care of by chemical debridement with Santyl ointment. ASSESSMENT AND PLAN: 1. As far as the sacrococcygeal wound is concerned, continue treatment with Santyl and also with Dakin's solution. 2. In regards to the urinary tract infection, the patient is to continue to be on antibiotics per ID. 3. In regard to the fecal impaction and retained stool in the rectum and sigmoid colon, we are trying to use different modalities like mineral oil p.o., MiraLax p.o., stool softeners, capsule docusate sodium p.o., and also receiving enemas b.i.d., hoping that this can dislodge the stool from being impacted inside the rectum and can clear the colon and bowel from the stool. The patient also being moved from [id number] and to be repositioned every 2 hours to facilitate an enhancing wound healing. Dictated By: SCOOBY DRUMMOND/CHRISTIAN Conf#: [id number] DID#: [id number] MTDD
[2016-11-03 19:30] VITALS: BP 114/68; RESP 20
[2016-11-03] MEDS: traZODone 50 MG TAB PO SCH (21:56)
[2016-11-03] MEDS: METOCLOPRAMIDE 10 MG INJ IV SCH (21:56)
[2016-11-04] MEDS: PIPER-TAZO 3.375 GM IV (PMX) 100 ML IVPB SCH ×3 (01:47→19:00)
[2016-11-04] MEDS: morphine 2 MG INJ IV PRN (04:41)
[2016-11-04] MEDS: VANCOMYCIN 750 MG in SOD CHLORIDE 0.9% 150 ML IVPB SCH ×2 (04:46→16:33)
[2016-11-04] MEDS: COLLAGENASE 30 GM TUBE TOP SCH ×2 (05:13→09:00)
[2016-11-04] MEDS: SODIUM HYPOCHLORITE 0.125% 473 ML BTL IRR SCH ×2 (05:13→09:57)
[2016-11-04 05:54] LABS: ADD SCAN DIFF NO
[2016-11-04 06:06] LABS: BASOPHIL # 0.1 10^3/ul (0.0-0.1); BASOPHILS % 0.9 % (0.0-2.0); EOSINOPHILS # 0.3 10^3/ul (0.0-0.5); HEMATOCRIT 34.9 % (37.0-47.0); HEMOGLOBIN 11.1 g/dl (12.0-16.0); LYMPHOCYTES # 1.7 10^3/ul (0.8-2.9); LYMPHOCYTES % 22.2 % (15.0-51.0); MEAN CORPUSCULAR HEMOGLOBIN 28.8 pg (29.0-33.0); MEAN CORPUSCULAR HGB CONC 31.8 g/dl (32.0-37.0); MEAN CORPUSCULAR VOLUME 90.4 fl (82.0-101.0); MEAN PLATELET VOLUME 12.7 fl (7.4-10.4); MONOCYTE # 0.9 10^3/ul (0.3-0.9); MONOCYTES % 11.5 % (0.0-11.0); NEUTROPHIL # 4.6 10^3/ul (1.6-7.5); NEUTROPHILS % 60.6 % (39.0-77.0); RED BLOOD COUNT 3.86 10^6/ul (4.20-5.40); RED CELL DISTRIBUTION WIDTH 13.2 % (11.5-14.5); WHITE BLOOD COUNT 7.5 10^3/ul (4.8-10.8)
[2016-11-04 06:11] LABS: PLATELET COUNT 138 10^3/UL (140-415)
[2016-11-04 06:25] LABS: POTASSIUM 4.2 mmol/L (3.5-5.1)
[2016-11-04 06:28] LABS: CREATININE 0.77 mg/dl (0.44-1.00)
[2016-11-04 06:29] LABS: CALCIUM 9.2 mg/dl (8.4-10.2)
[2016-11-04 08:19] VITALS: BP 107/69; RESP 16
[2016-11-04] MEDS: LACTOBACILLUS RHAMNOSUS CAP PO SCH ×3 (09:00→21:02)
[2016-11-04] MEDS: DOCUSATE SODIUM 10 MG/ML (10ML CUP) PO SCH ×2 (09:00→09:55)
[2016-11-04] MEDS: METOCLOPRAMIDE 10 MG INJ IV SCH ×2 (09:55→21:02)
[2016-11-04] MEDS: POLYETHYLENE GLYCOL 17 GM PACKET PO SCH ×2 (09:55→09:59)
[2016-11-04] MEDS: ZINC SULFATE 220 MG CAP PO SCH ×2 (09:55→09:59)
[2016-11-04] MEDS: SERTRALINE 100 MG TAB PO SCH ×2 (09:55→09:59)
[2016-11-04] MEDS: MULTIVITAMINS/MINERALS TAB PO SCH ×2 (09:55→09:59)
[2016-11-04] MEDS: MINERAL OIL 30ML CUP PO SCH ×3 (09:55→21:02)
[2016-11-04] MEDS: FERROUS SULFATE (EC) 325 MG TAB PO SCH ×3 (09:55→21:02)
[2016-11-04] MEDS: ASCORBIC ACID 500 MG TAB PO SCH ×2 (09:55→09:59)
--- NOTE | 2016-11-04 10:00 | PN ---
Date/Time of Note Date/Time of Note DATE: 11/04/16 TIME: 09:59 Assessment/Plan VTE Prophylaxis VTE Prophylaxis Intervention: other Lines/Catheters IV Catheter Type (from Nrs): Peripheral IV Urinary Cath still in place: Yes Reason Cath still needed: skin wounds contaminated by urine Assessment/Plan Chief Complaint/Hosp Course - Sacral decubitus. Continue current wound care. Dr. Murphy is following patient in general surgery consultation. - Hereditary spastic paraplegia. Continue to assist patient with activities of daily living. - Urinary tract infection. Dr. Memo garcía is following in infection disease consultation. Continue antibiotics per ID. - Bilateral malleolus wound, continue current wound care. - Depression, continue Zoloft - Dysphagia, continue dysphagia diet, nutritional supplements and vitamins, continue calorie count. Problems: Subjective 24 Hr Interval Summary Free Text/Dictation Patient has no complaints Exam/Review of Systems Vital Signs Vitals Vital Signs Date Time Temp Pulse Resp B/P Pulse Ox O2 Delivery O2 Flow Rate FiO2 11/04/16 08:19 98.2 81 16 107/69 100 11/03/16 20:00 Room Air Intake and Output 11/03/16 11/03/16 11/04/16 15:00 23:00 07:00 Intake Total 235 ml 1908 ml 720 ml Output Total 3100 ml Balance 235 ml -1192 ml 720 ml Exam Constitutional: well developed Head: atraumatic, normocephalic Neck: supple Cardiovascular: regular rate and rhythm Gastrointestinal: non-tender, soft Extremities: normal pulses Results Result Diagram: 11/04/16 0540 11/04/16 0540 Results 24 hrs Laboratory Tests Test 11/04/16 05:40 White Blood Count 7.5 Red Blood Count 3.86 L Hemoglobin 11.1 L Hematocrit 34.9 L Mean Corpuscular Volume 90.4 Mean Corpuscular Hemoglobin 28.8 L Mean Corpuscular Hemoglobin Concent 31.8 L Red Cell Distribution Width 13.2 Platelet Count 138 #L Mean Platelet Volume 12.7 H Neutrophils % 60.6 Lymphocytes % 22.2 Monocytes % 11.5 H Eosinophils % 4.0 Basophils % 0.9 Nucleated Red Blood Cells % 0.0 Neutrophils # 4.6 Lymphocytes # 1.7 Monocytes # 0.9 Eosinophils # 0.3 Basophils # 0.1 Nucleated Red Blood Cells # 0.0 Sodium Level 143 Potassium Level 4.2 Chloride Level 111 H Carbon Dioxide Level 28 Anion Gap 8 Blood Urea Nitrogen 9 Creatinine 0.77 Glucose Level 93 Calcium Level 9.2 Medications Medications Current Medications Piperacillin Sod/ Tazobactam Sod (Zosyn 3.375gm/ 100 ml (Pmx)) 100 ml @ 25 mls/ hr TID@02,10,18 IVPB Last administered on 11/04/16 01:47; Admin Dose 25 MLS/HR ; Start 10/22/16 at 02:00 Acetaminophen (Tylenol Tab) 500 mg Q4H PRN PO PAIN AND OR ELEVATED TEMP; Start 10/21/16 at 22:00 Morphine Sulfate (morphine) 2 mg Q4H PRN IV PAIN LEVEL 4-7 Last administered on 11/04/16 04:41; Admin Dose 2 MG; Start 10/21/16 at 22:00 Enoxaparin Sodium (Lovenox) 30 mg DAILY SC Last administered on 11/03/16 09:30 ; Admin Dose 30 MG; Start 10/22/16 at 09:00 Ondansetron HCl (Zofran Inj) 4 mg Q4H PRN IV NAUSEA AND/OR VOMITING; Start at 22:00 Miscellaneous Information (Pending [facility] Order For Wound Care) This patient webb... PRN PRN XX WOUND CARE; Start 10/22/16 at 01:30 Sertraline HCl (Zoloft) 100 mg DAILY PO Last administered on 11/03/16 08:58; Admin Dose 100 MG; Start 10/23/16 at 09:00 Trazodone HCl (Desyrel) 75 mg QHS PO Last administered on 11/03/16 21:56; Admin Dose 75 MG; Start 10/22/16 at 21:00 Baclofen 10 mg 10 mg TID PRN PO SPASM; Start 10/22/16 at 16:30 Potassium Chloride/Dextrose/ Sod Cl (D5-1/2ns + KCl 20 Meq) 1,000 ml @ 70 mls/ hr [id number] IV Last administered on 11/03/16 22:39; Admin Dose 70 MLS/HR; Start 10/23/16 at 17:00 Multivitamins/ Minerals (Theragran-M) 1 tab DAILY PO Last administered on 08:58; Admin Dose 1 TAB; Start 10/25/16 at 09:00 Zinc Sulfate (Zinc Sulfate) 220 mg DAILY PO Last administered on 11/03/16 08: 58; Admin Dose 220 MG; Start 10/25/16 at 09:00 Ascorbic Acid (Vitamin C) 500 mg DAILY PO Last administered on 11/03/16 08:58 ; Admin Dose 500 MG; Start 10/25/16 at 09:00 Lactobacillus Acidophilus/ Rhamnosus 1 cap 1 cap BID PO Last administered on 21:56; Admin Dose 1 CAP; Start 10/26/16 at 09:00 Vancomycin HCl/ Sodium Chloride (Vancocin/NS) 150 ml @ 75 mls/hr Q12H IVPB Last administered on 11/04/16 04:46; Admin Dose 75 MLS/HR; Start 10/26/16 at 16 :00 Mineral Oil (Fleet Mineral Oil Enema) 133 ml BID [place] Last administered on 22:39; Admin Dose 133 ML; Start 10/29/16 at 21:00 Ferrous Sulfate (Ferrous Sulfate (Ec)) 325 mg BID PO Last administered on 21:56; Admin Dose 325 MG; Start 10/29/16 at 21:00 Sodium Hypochlorite (Dakin'S (1/4 Strength)) 1 applic AM IRR Last administered on 11/04/16 05:13; Admin Dose 1 APPLIC; Start 11/01/16 at 09:00 Collagenase (Santyl) 1 applic DAILY TOP Last administered on 11/04/16 05:13; Admin Dose 1 APPLIC; Start 10/31/16 at 21:00 Polyethylene Glycol (Miralax) 17 gm DAILY PO Last administered on 11/03/16 08: 58; Admin Dose 17 GM; Start 11/02/16 at 14:00; Stop 11/10/16 at 13:59 Docusate Sodium (Colace Liquid Cup) 300 mg DAILY PO Last administered on 08:57; Admin Dose 300 MG; Start 11/02/16 at 14:00 Mineral Oil (Mineral Oil) 30 ml BID PO Last administered on 11/03/16 21:57; Admin Dose 30 ML; Start 11/03/16 at 21:00 Metoclopramide HCl (Reglan) 10 mg BID IV Last administered on 11/03/16t 21:56; Admin Dose 10 MG; Start 11/03/16 at 21:00 ALYSSA CENTENO November 04, 2016 10:00
[2016-11-04] MEDS: ENOXAPARIN 30 MG/0.3 ML SYG SC SCH (10:35)
--- NOTE | 2016-11-04 11:08 | CONS ---
Date/Time of Note Date/Time of Note DATE: 11/03/16 TIME: 11:08 Assessment/Plan Assessment/Plan Chief Complaint/Hosp Course - Early sepsis due to sacral decub infection - mild leukocytosis and tachycardia resolving - Sacral decubitus ulcer with polymicrobial infection; wound cx grew E. Coli, Proteus, CoNS, and Leuconostoc; ESR 30; Sacral x-ray no e/o OM - UTI due to lactobacillus - Bacteremia due to CoNS - Hereditary spastic paraplegia - Depression - Normocytic anemia Recommendations: - Continue vancomycin and pip/tazo (10/21/2016-) for 14 days total - Continue probiotics Problems: Consultation Date/Type/Reason Admit Date/Time October 21, 2016 at 18:19 Initial Consult Date 10/23/16 Type of Consultation: Infectious Disease Exam/Review of Systems Vital Signs Vitals Vital Signs Date Time Temp Pulse Resp B/P Pulse Ox O2 Delivery O2 Flow Rate FiO2 11/04/16 08:19 98.2 81 16 107/69 100 11/03/16 20:00 Room Air Intake and Output 11/03/16 11/03/16 11/04/16 15:00 23:00 07:00 Intake Total 235 ml 1908 ml 720 ml Output Total 3100 ml Balance 235 ml -1192 ml 720 ml Exam Constitutional: alert, oriented, well developed Psych: nl mood/affect, no complaints Eyes: EOMI, PERRL, nl conjunctiva, nl lids, nl sclera Respiratory: clear to auscultation, normal air movement Cardiovascular: nl pulses, regular rate and rhythm Gastrointestinal: nl liver, spleen, non-tender, soft Results Result Diagram: 11/04/16 0540 11/04/16 0540 Results 24 hrs Laboratory Tests Test 11/04/16 05:40 White Blood Count 7.5 Red Blood Count 3.86 L Hemoglobin 11.1 L Hematocrit 34.9 L Mean Corpuscular Volume 90.4 Mean Corpuscular Hemoglobin 28.8 L Mean Corpuscular Hemoglobin Concent 31.8 L Red Cell Distribution Width 13.2 Platelet Count 138 #L Mean Platelet Volume 12.7 H Neutrophils % 60.6 Lymphocytes % 22.2 Monocytes % 11.5 H Eosinophils % 4.0 Basophils % 0.9 Nucleated Red Blood Cells % 0.0 Neutrophils # 4.6 Lymphocytes # 1.7 Monocytes # 0.9 Eosinophils # 0.3 Basophils # 0.1 Nucleated Red Blood Cells # 0.0 Sodium Level 143 Potassium Level 4.2 Chloride Level 111 H Carbon Dioxide Level 28 Anion Gap 8 Blood Urea Nitrogen 9 Creatinine 0.77 Glucose Level 93 Calcium Level 9.2 Medications Medications Current Medications Piperacillin Sod/ Tazobactam Sod (Zosyn 3.375gm/ 100 ml (Pmx)) 100 ml @ 25 mls/ hr TID@02,10,18 IVPB Last administered on 11/04/16 10:09; Admin Dose 25 MLS/HR ; Start 10/22/16 at 02:00 Acetaminophen (Tylenol Tab) 500 mg Q4H PRN PO PAIN AND OR ELEVATED TEMP; Start 10/21/16 at 22:00 Morphine Sulfate (morphine) 2 mg Q4H PRN IV PAIN LEVEL 4-7 Last administered on 11/04/16 04:41; Admin Dose 2 MG; Start 10/21/16 at 22:00 Enoxaparin Sodium (Lovenox) 30 mg DAILY SC Last administered on 11/04/16 10:35 ; Admin Dose 30 MG; Start 10/22/16 at 09:00 Ondansetron HCl (Zofran Inj) 4 mg Q4H PRN IV NAUSEA AND/OR VOMITING; Start at 22:00 Miscellaneous Information ([facility]) This patient webb... PRN PRN XX WOUND CARE; Start 10/22/16 at 01:30 Sertraline HCl (Zoloft) 100 mg DAILY PO Last administered on 11/03/16 08:58; Admin Dose 100 MG; Start 10/23/16 at 09:00 Trazodone HCl (Desyrel) 75 mg QHS PO Last administered on 11/03/16 21:56; Admin Dose 75 MG; Start 10/22/16 at 21:00 Baclofen 10 mg 10 mg TID PRN PO SPASM; Start 10/22/16 at 16:30 Potassium Chloride/Dextrose/ Sod Cl (D5-1/2ns + KCl 20 Meq) 1,000 ml @ 70 mls/ hr [id number] IV Last administered on 11/03/16 22:39; Admin Dose 70 MLS/HR; Start 10/23/16 at 17:00 Multivitamins/ Minerals (Theragran-M) 1 tab DAILY PO Last administered on 08:58; Admin Dose 1 TAB; Start 10/25/16 at 09:00 Zinc Sulfate (Zinc Sulfate) 220 mg DAILY PO Last administered on 11/03/16 08: 58; Admin Dose 220 MG; Start 10/25/16 at 09:00 Ascorbic Acid (Vitamin C) 500 mg DAILY PO Last administered on 11/03/16 08:58 ; Admin Dose 500 MG; Start 10/25/16 at 09:00 Lactobacillus Acidophilus/ Rhamnosus 1 cap 1 cap BID PO Last administered on 21:56; Admin Dose 1 CAP; Start 10/26/16 at 09:00 Vancomycin HCl/ Sodium Chloride (Vancocin/NS) 150 ml @ 75 mls/hr Q12H IVPB Last administered on 11/04/16 04:46; Admin Dose 75 MLS/HR; Start 10/26/16 at 16 :00 Mineral Oil (Fleet Mineral Oil Enema) 133 ml BID [place] Last administered on 22:39; Admin Dose 133 ML; Start 10/29/16 at 21:00 Ferrous Sulfate (Ferrous Sulfate (Ec)) 325 mg BID PO Last administered on 21:56; Admin Dose 325 MG; Start 10/29/16 at 21:00 Sodium Hypochlorite (Dakin'S (1/4 Strength)) 1 applic AM IRR Last administered on 11/04/16 09:57; Admin Dose 1 APPLIC; Start 11/01/16 at 09:00 Collagenase (Santyl) 1 applic DAILY TOP Last administered on 11/04/16 05:13; Admin Dose 1 APPLIC; Start 10/31/16 at 21:00 Polyethylene Glycol (Miralax) 17 gm DAILY PO Last administered on 11/03/16 08: 58; Admin Dose 17 GM; Start 11/02/16 at 14:00; Stop 11/10/16 at 13:59 Docusate Sodium (Colace Liquid Cup) 300 mg DAILY PO Last administered on 08:57; Admin Dose 300 MG; Start 11/02/16 at 14:00 Mineral Oil (Mineral Oil) 30 ml BID PO Last administered on 11/03/16 21:57; Admin Dose 30 ML; Start 11/03/16 at 21:00 Metoclopramide HCl (Reglan) 10 mg BID IV Last administered on 11/04/16 09:55; Admin Dose 10 MG; Start 11/03/16 at 21:00 ROHAN CHENG MD November 04, 2016 11:08
[2016-11-04] MEDS: D5W-0.45 NACL + KCL 20 MEQ 1,000 ML IV SCH (15:00)
--- NOTE | 2016-11-04 15:49 | CONS ---
Date/Time of Note Date/Time of Note DATE: 11/04/16 TIME: 15:29 Assessment/Plan Assessment/Plan Additional Assessment/Plan - Early sepsis due to sacral decub infection - mild leukocytosis and tachycardia resolving - Sacral decubitus ulcer with polymicrobial infection; wound cx grew E. Coli, Proteus, CoNS, and Leuconostoc; ESR 30; Sacral x-ray no e/o OM - UTI due to lactobacillus - Bacteremia due to CoNS - Hereditary spastic paraplegia - Depression - Normocytic anemia - Dysphagia - Feeder with decreased appetite; calorie count completed with avg 961 kcal/day and 26g protein/day - family declines G tube - Impaction - on laxatives Recommendations: - Continue vancomycin and pip/tazo (09/21/2016-10/05/2016) for 14 days total - Continue probiotics Management d/w RN, and Dr. Hampton Consultation Date/Type/Reason Admit Date/Time October 21, 2016 at 18:19 Initial Consult Date 10/23/16 Type of Consultation: Infectious Disease 24 HR Interval Summary Free Text/Dictation alert, eyes open, seems comfortable, afebrile, refuses neds at times. dw staff Tolerating IV abx. Calorie count completed and G tube was offered but family declining. Pt is a slow eater and eats more when family is present. Pt on laxatives for impaction - Dr. Murphy following. PENDING KUB today Awaiting SNF placement per d/w nursing staff. Exam/Review of Systems Vital Signs Vitals Vital Signs Date Time Temp Pulse Resp B/P Pulse Ox O2 Delivery O2 Flow Rate FiO2 11/04/16 08:19 98.2 81 16 107/69 100 11/03/16 20:00 Room Air Intake and Output 11/03/16 11/03/16 11/04/16 15:00 23:00 07:00 Intake Total 235 ml 1908 ml 720 ml Output Total 3100 ml Balance 235 ml -1192 ml 720 ml Exam Constitutional: alert, well developed Psych: no complaints Eyes: EOMI, nl sclera Respiratory: clear to auscultation, normal air movement Cardiovascular: nl pulses, regular rate and rhythm Gastrointestinal: non-tender, soft Musculoskeletal: muscle weakness Neurological: other Skin: other Lymph: nontender Results Result Diagram: 11/04/16 0540 11/04/16 0540 Results 24 hrs Laboratory Tests Test 11/04/16 05:40 White Blood Count 7.5 Red Blood Count 3.86 L Hemoglobin 11.1 L Hematocrit 34.9 L Mean Corpuscular Volume 90.4 Mean Corpuscular Hemoglobin 28.8 L Mean Corpuscular Hemoglobin Concent 31.8 L Red Cell Distribution Width 13.2 Platelet Count 138 #L Mean Platelet Volume 12.7 H Neutrophils % 60.6 Lymphocytes % 22.2 Monocytes % 11.5 H Eosinophils % 4.0 Basophils % 0.9 Nucleated Red Blood Cells % 0.0 Neutrophils # 4.6 Lymphocytes # 1.7 Monocytes # 0.9 Eosinophils # 0.3 Basophils # 0.1 Nucleated Red Blood Cells # 0.0 Sodium Level 143 Potassium Level 4.2 Chloride Level 111 H Carbon Dioxide Level 28 Anion Gap 8 Blood Urea Nitrogen 9 Creatinine 0.77 Glucose Level 93 Calcium Level 9.2 Medications Medications Current Medications Piperacillin Sod/ Tazobactam Sod (Zosyn 3.375gm/ 100 ml (Pmx)) 100 ml @ 25 mls/ hr TID@02,10,18 IVPB Last administered on 11/04/16 10:09; Admin Dose 25 MLS/HR ; Start 10/22/16 at 02:00; Stop 11/04/16 at 23:59 Acetaminophen (Tylenol Tab) 500 mg Q4H PRN PO PAIN AND OR ELEVATED TEMP; Start 10/21/16 at 22:00 Morphine Sulfate (morphine) 2 mg Q4H PRN IV PAIN LEVEL 4-7 Last administered on 11/04/16 04:41; Admin Dose 2 MG; Start 10/21/16 at 22:00 Enoxaparin Sodium (Lovenox) 30 mg DAILY SC Last administered on 11/04/16 10:35 ; Admin Dose 30 MG; Start 10/22/16 at 09:00 Ondansetron HCl (Zofran Inj) 4 mg Q4H PRN IV NAUSEA AND/OR VOMITING; Start at 22:00 Miscellaneous Information (Pending [facility] Order For Wound Care) This patient webb... PRN PRN XX WOUND CARE; Start 10/22/16 at 01:30 Sertraline HCl (Zoloft) 100 mg DAILY PO Last administered on 11/03/16 08:58; Admin Dose 100 MG; Start 10/23/16 at 09:00 Trazodone HCl (Desyrel) 75 mg QHS PO Last administered on 11/03/16 21:56; Admin Dose 75 MG; Start 10/22/16 at 21:00 Baclofen 10 mg 10 mg TID PRN PO SPASM; Start 10/22/16 at 16:30 Potassium Chloride/Dextrose/ Sod Cl (D5-1/2ns + KCl 20 Meq) 1,000 ml @ 70 mls/ hr [id number] IV Last administered on 11/03/16 22:39; Admin Dose 70 MLS/HR; Start 10/23/16 at 17:00 Multivitamins/ Minerals (Theragran-M) 1 tab DAILY PO Last administered on 08:58; Admin Dose 1 TAB; Start 10/25/16 at 09:00 Zinc Sulfate (Zinc Sulfate) 220 mg DAILY PO Last administered on 11/03/16 08: 58; Admin Dose 220 MG; Start 10/25/16 at 09:00 Ascorbic Acid (Vitamin C) 500 mg DAILY PO Last administered on 11/03/16 08:58 ; Admin Dose 500 MG; Start 10/25/16 at 09:00 Lactobacillus Acidophilus/ Rhamnosus 1 cap 1 cap BID PO Last administered on 21:56; Admin Dose 1 CAP; Start 10/26/16 at 09:00 Vancomycin HCl/ Sodium Chloride (Vancocin/NS) 150 ml @ 75 mls/hr Q12H IVPB Last administered on 11/04/16 04:46; Admin Dose 75 MLS/HR; Start 10/26/16 at 16 :00; Stop 11/04/16 at 23:00 Mineral Oil (Fleet Mineral Oil Enema) 133 ml BID OR Last administered on 22:39; Admin Dose 133 ML; Start 10/29/16 at 21:00 Ferrous Sulfate (Ferrous Sulfate (Ec)) 325 mg BID PO Last administered on 21:56; Admin Dose 325 MG; Start 10/29/16 at 21:00 Sodium Hypochlorite (Dakin'S (1/4 Strength)) 1 applic AM IRR Last administered on 11/04/16 09:57; Admin Dose 1 APPLIC; Start 11/01/16 at 09:00 Collagenase (Santyl) 1 applic DAILY TOP Last administered on 11/04/16 05:13; Admin Dose 1 APPLIC; Start 10/31/16 at 21:00 Polyethylene Glycol (Miralax) 17 gm DAILY PO Last administered on 11/03/16 08: 58; Admin Dose 17 GM; Start 11/02/16 at 14:00; Stop 11/10/16 at 13:59 Docusate Sodium (Colace Liquid Cup) 300 mg DAILY PO Last administered on 08:57; Admin Dose 300 MG; Start 11/02/16 at 14:00 Mineral Oil (Mineral Oil) 30 ml BID PO Last administered on 11/03/16 21:57; Admin Dose 30 ML; Start 11/03/16 at 21:00 Metoclopramide HCl (Reglan) 10 mg BID IV Last administered on 11/04/16 09:55; Admin Dose 10 MG; Start 11/03/16 at 21:00 CATALINA MCCORD November 04, 2016 15:39
[2016-11-04] MEDS: MINERAL OIL 133 ML ENEMA PR SCH ×2 (16:23→21:08)
--- NOTE | 2016-11-04 17:51 | PN ---
DATE: 11/04/2016 SUBJECTIVE: No new complaint. Minimal communications. The patient is awake and alert, but minimal response to questions and says simple answers. OBJECTIVE: VITAL SIGNS: 98.2, 81, 16, blood pressure 107/69, saturation 100% on room air. LABS: WBC with 60% neutrophils, hemoglobin 11.1, hematocrit 34.9 and stable, platelet count 1 38. Chemistry: Sodium, potassium normal. BUN and creatinine normal. According to the RN, the patient has had a big bowel movement today, but she is refusing taking the oral laxatives. Patient still is on vancomycin and Zosyn. PLAN: 1. Continue current care for urinary tract infection. 2. Continue local care of the sacrococcygeal wound. 3. Try to give oral laxatives and also Fleet enemas to clean and cleanse the whole colon and rectum from the impacted stool. Dictated By: SCOOBY DRUMMOND/CHRISTIAN Conf#: [id number] DID#: [id number]
[2016-11-04 20:51] VITALS: BP 119/72; RESP 16
[2016-11-04] MEDS: traZODone 50 MG TAB PO SCH (21:02)
[2016-11-05] MEDS: D5W-0.45 NACL + KCL 20 MEQ 1,000 ML IV SCH ×2 (05:17→14:27)
[2016-11-05 05:31] LABS: ADD SCAN DIFF NO
[2016-11-05 05:40] LABS: BASOPHIL # 0.1 10^3/ul (0.0-0.1); BASOPHILS % 1.1 % (0.0-2.0); EOSINOPHILS # 0.3 10^3/ul (0.0-0.5); EOSINOPHILS % 3.9 % (0.0-7.0); HEMATOCRIT 35.4 % (37.0-47.0); HEMOGLOBIN 11.3 g/dl (12.0-16.0); LYMPHOCYTES # 1.8 10^3/ul (0.8-2.9); LYMPHOCYTES % 22.4 % (15.0-51.0); MEAN CORPUSCULAR HEMOGLOBIN 29.2 pg (29.0-33.0); MEAN CORPUSCULAR HGB CONC 31.9 g/dl (32.0-37.0); MEAN CORPUSCULAR VOLUME 91.5 fl (82.0-101.0); MEAN PLATELET VOLUME 11.5 fl (7.4-10.4); MONOCYTE # 0.9 10^3/ul (0.3-0.9); MONOCYTES % 10.9 % (0.0-11.0); NEUTROPHILS % 60.6 % (39.0-77.0); PLATELET COUNT 252 10^3/UL (140-415); RED BLOOD COUNT 3.87 10^6/ul (4.20-5.40); RED CELL DISTRIBUTION WIDTH 13.2 % (11.5-14.5); WHITE BLOOD COUNT 8.2 10^3/ul (4.8-10.8)
[2016-11-05 05:54] LABS: POTASSIUM 3.9 mmol/L (3.5-5.1)
[2016-11-05 05:57] LABS: CREATININE 0.71 mg/dl (0.44-1.00)
[2016-11-05 05:58] LABS: CALCIUM 9.3 mg/dl (8.4-10.2)
[2016-11-05 07:50] VITALS: BP 104/63; RESP 16
--- NOTE | 2016-11-05 08:01 | RADRPT ---
PROCEDURE: XR Abdomen. CLINICAL INDICATION: fecal impaction TECHNIQUE: AP abdomen x-ray. COMPARISON: None. FINDINGS: There is a nonobstructive bowel gas pattern. Air is noted in the ascending, transverse, and descendi ng colon. There is a large amount of stool in the rectosigmoid colon which may be impacted. A catheter is noted overlying the low pelvic midline, possibly a Eaton catheter or rectal catheter. There are no abnormal calcifications overlying the urinary tracts. Osseous and soft tissue structures are unremarkable. IMPRESSION: Large amount of stool in the rectosigmoid colon which may be impacted. RPTAT: EE Physician Valdo Date Time Electronically viewed and signed by Physician Valdo on 11/05/2016 08:00 /
[2016-11-05] MEDS: SERTRALINE 100 MG TAB PO SCH (09:00)
[2016-11-05] MEDS: POLYETHYLENE GLYCOL 17 GM PACKET PO SCH (09:00)
[2016-11-05] MEDS: COLLAGENASE 30 GM TUBE TOP SCH ×2 (09:00→23:30)
[2016-11-05] MEDS: DOCUSATE SODIUM 10 MG/ML (10ML CUP) PO SCH (09:00)
[2016-11-05] MEDS: ASCORBIC ACID 500 MG TAB PO SCH (09:00)
[2016-11-05] MEDS: MINERAL OIL 30ML CUP PO SCH ×2 (09:00→20:27)
[2016-11-05] MEDS: ZINC SULFATE 220 MG CAP PO SCH (09:00)
[2016-11-05] MEDS: MULTIVITAMINS/MINERALS TAB PO SCH (09:00)
[2016-11-05] MEDS: FERROUS SULFATE (EC) 325 MG TAB PO SCH ×2 (09:00→20:27)
[2016-11-05] MEDS: LACTOBACILLUS RHAMNOSUS CAP PO SCH ×2 (09:00→20:27)
[2016-11-05] MEDS: METOCLOPRAMIDE 10 MG INJ IV SCH ×2 (09:39→20:26)
[2016-11-05] MEDS: ENOXAPARIN 30 MG/0.3 ML SYG SC SCH (09:46)
[2016-11-05] MEDS: SODIUM HYPOCHLORITE 0.125% 473 ML BTL IRR SCH (09:48)
[2016-11-05] MEDS: MINERAL OIL 133 ML ENEMA PR SCH ×3 (11:17→23:29)
--- NOTE | 2016-11-05 15:02 | CONS ---
Date/Time of Note Date/Time of Note DATE: 11/05/16 TIME: 15:00 Assessment/Plan Assessment/Plan Chief Complaint/Hosp Course - s/p early sepsis due to sacral decub infection - mild leukocytosis and tachycardia resolved - Sacral decubitus ulcer with polymicrobial infection; wound Cx grew E. Coli, Proteus, CoNS, and Leuconostoc; ESR 30; Sacral x-ray no e/o OM. Pt completed an empiric 2 week course of IV vanc and pip/tazo - UTI due to lactobacillus - Bacteremia due to CoNS - Hereditary spastic paraplegia - Depression - Normocytic anemia - Dysphagia - Feeder with decreased appetite; calorie count completed with avg 961 kcal/day and 26g protein/day - family declines G tube - stool impaction - on laxatives recommendations: - repeat pancultures if temp >100.4F - monitor Pt off systemic antibiotics (Pt completed 2 week course of vancomycin and pip/tazo on 11/04/2016) Problems: Consultation Date/Type/Reason Admit Date/Time October 21, 2016 at 18:19 Initial Consult Date 10/23/16 Type of Consultation: Infectious Disease 24 HR Interval Summary Subjective hx not possible: pt non-verbal Exam/Review of Systems Vital Signs Vitals Vital Signs Date Time Temp Pulse Resp B/P Pulse Ox O2 Delivery O2 Flow Rate FiO2 11/05/16 07:50 99.2 93 16 104/63 99 11/03/16 20:00 Room Air Intake and Output 11/04/16 11/04/16 11/05/16 15:00 23:00 07:00 Intake Total 100 ml 1180 ml 1010 ml Output Total 3600 ml 1200 ml Balance 100 ml -2420 ml -190 ml Exam Constitutional: non-verbal Psych: confusion Head: normocephalic Eyes: nl conjunctiva, nl lids ENMT: other (cannot open her mouth) Neck: other (cannot flex her neck due to her chronic condition) Respiratory: clear to auscultation, normal air movement Cardiovascular: nl pulses, regular rate and rhythm Gastrointestinal: non-tender, soft Genitourinary - Female: other (FC) Musculoskeletal: other (contractured, rigid) Neurological: other (cannot communicate even though she is awake) Skin: nl turgor, No rash or lesions Results Result Diagram: 11/05/16 0500 11/05/16 0500 Results 24 hrs Laboratory Tests Test 11/05/16 05:00 White Blood Count 8.2 Red Blood Count 3.87 L Hemoglobin 11.3 L Hematocrit 35.4 L Mean Corpuscular Volume 91.5 Mean Corpuscular Hemoglobin 29.2 Mean Corpuscular Hemoglobin Concent 31.9 L Red Cell Distribution Width 13.2 Platelet Count 252 # Mean Platelet Volume 11.5 H Neutrophils % 60.6 Lymphocytes % 22.4 Monocytes % 10.9 Eosinophils % 3.9 Basophils % 1.1 Nucleated Red Blood Cells % 0.0 Neutrophils # 5.0 Lymphocytes # 1.8 Monocytes # 0.9 Eosinophils # 0.3 Basophils # 0.1 Nucleated Red Blood Cells # 0.0 Sodium Level 144 Potassium Level 3.9 Chloride Level 109 Carbon Dioxide Level 26 Anion Gap 13 Blood Urea Nitrogen 11 Creatinine 0.71 Glucose Level 98 Calcium Level 9.3 Medications Medications Current Medications Acetaminophen (Tylenol Tab) 500 mg Q4H PRN PO PAIN AND OR ELEVATED TEMP; Start 10/21/16 at 22:00 Morphine Sulfate (morphine) 2 mg Q4H PRN IV PAIN LEVEL 4-7 Last administered on 11/04/16 04:41; Admin Dose 2 MG; Start 10/21/16 at 22:00 Enoxaparin Sodium (Lovenox) 30 mg DAILY SC Last administered on 11/05/16 09:46 ; Admin Dose 30 MG; Start 10/22/16 at 09:00 Ondansetron HCl (Zofran Inj) 4 mg Q4H PRN IV NAUSEA AND/OR VOMITING; Start at 22:00 Miscellaneous Information (Pending [facility] Order For Wound Care) This patient webb... PRN PRN XX WOUND CARE; Start 10/22/16 at 01:30 Sertraline HCl (Zoloft) 100 mg DAILY PO Last administered on 11/03/16 08:58; Admin Dose 100 MG; Start 10/23/16 at 09:00 Trazodone HCl (Desyrel) 75 mg QHS PO Last administered on 11/04/16 21:02; Admin Dose 75 MG; Start 10/22/16 at 21:00 Baclofen 10 mg 10 mg TID PRN PO SPASM; Start 10/22/16 at 16:30 Potassium Chloride/Dextrose/ Sod Cl (D5-1/2ns + KCl 20 Meq) 1,000 ml @ 70 mls/ hr [id number] IV Last administered on 11/05/16 14:27; Admin Dose 70 MLS/HR; Start 10/23/16 at 17:00 Multivitamins/ Minerals (Theragran-M) 1 tab DAILY PO Last administered on 08:58; Admin Dose 1 TAB; Start 10/25/16 at 09:00 Zinc Sulfate (Zinc Sulfate) 220 mg DAILY PO Last administered on 11/03/16 08: 58; Admin Dose 220 MG; Start 10/25/16 at 09:00 Ascorbic Acid (Vitamin C) 500 mg DAILY PO Last administered on 11/03/16 08:58 ; Admin Dose 500 MG; Start 10/25/16 at 09:00 Lactobacillus Acidophilus/ Rhamnosus (Culturelle) 1 cap BID PO Last administered on 11/04/16 21:02; Admin Dose 1 CAP; Start 10/26/16 at 09:00 Mineral Oil (Fleet Mineral Oil Enema) 133 ml BID [place] Last administered on 11:17; Admin Dose 133 ML; Start 10/29/16 at 21:00 Ferrous Sulfate (Ferrous Sulfate (Ec)) 325 mg BID PO Last administered on 21:02; Admin Dose 325 MG; Start 10/29/16 at 21:00 Sodium Hypochlorite (Dakin'S (1/4 Strength)) 1 applic AM IRR Last administered on 11/05/16 09:48; Admin Dose 1 APPLIC; Start 11/01/16 at 09:00 Collagenase (Santyl) 1 applic DAILY TOP Last administered on 11/04/16 05:13; Admin Dose 1 APPLIC; Start 10/31/16 at 21:00 Polyethylene Glycol (Miralax) 17 gm DAILY PO Last administered on 11/03/16 08: 58; Admin Dose 17 GM; Start 11/02/16 at 14:00; Stop 11/10/16 at 13:59 Docusate Sodium (Colace Liquid Cup) 300 mg DAILY PO Last administered on 08:57; Admin Dose 300 MG; Start 11/02/16 at 14:00 Mineral Oil (Mineral Oil) 30 ml BID PO Last administered on 11/04/16 21:02; Admin Dose 30 ML; Start 11/03/16 at 21:00 Metoclopramide HCl (Reglan) 10 mg BID IV Last administered on 11/05/16 09:39; Admin Dose 10 MG; Start 11/03/16 at 21:00 ELYSIA LAGUNAS M.D. November 05, 2016 15:02
--- NOTE | 2016-11-05 17:52 | PN ---
DATE: 11/05/2016 SUBJECTIVE: No complaint; actually is not verbal communication with the patient, although the patie nt's eyes are open and she tries to talk, but is not successful. OBJECTIVE: VITAL SIGNS: Temperature 99.2, heart rate 93 regular, respirations 16, blood pressure 104/63, satur ation 99% on room air. LABORATORIES: WBC 8200, hemoglobin 11.3, hematocrit 35.4. BUN, creatinine, sodium and potassium no rmal. On the computer chart, it has been charted that the patient has had 4 bowel movements in the past 24 hours. The consistency of the bowel movement is not clear, but the KUB taken today morning shows a little bit of improvement of the density of the impacted stool in the rectum and descending colon. The nurse, Ruth, states that the patient does not take mineral oil and a lot of liquids. She prev ented keeps her lips tight when they want to feed her. I have discussed with the family in [facility] that the patient may benefit as far as the secretion is concerned from placement of a PEG tube for purposes of feeding, that means feeding gastrostomy, but it appears that they are reluctant for that they have refused it so far. Antibiotic has been stopped by infectious disease because the pat ient has received it for almost 2 weeks. PLAN: Continue current care. Try to clean and clear the rectum from the impacted with stool by way of enemas and by giving p.o. laxatives. Dictated By: SCOOBY DRUMMOND/CHRISTIAN Conf#: [id number] DID#: [id number]
--- NOTE | 2016-11-05 19:45 | PN ---
Date/Time of Note Date/Time of Note DATE: 11/05/16 TIME: 19:43 Assessment/Plan VTE Prophylaxis VTE Prophylaxis Intervention: SCD's Lines/Catheters IV Catheter Type (from Nrs): Peripheral IV Central line still needed: Yes Urinary Cath still in place: Yes Reason Cath still needed: urinary retention Assessment/Plan Chief Complaint/Hosp Course Patient remains hemodynamically stable, no fevers. No BM. Assessment and plan: - Constipation, continue on bowel regimen. - Sacral decubitus. Continue current wound care. Dr. Murphy is following patient in general surgery consultation. - Hereditary spastic paraplegia. Continue to assist patient with activities of daily living. - Urinary tract infection. Dr. Memo garcía is following in infection disease consultation. Completed the course of antibiotics for UTI and wound infection. - Bilateral malleolus wound, continue current wound care. - Depression, continue Zoloft - Dysphagia, continue dysphagia diet, nutritional supplements and vitamins. Further recommendations based on clinical course. Plan of care discussed with Dr. Gibbs. Problems: Exam/Review of Systems Vital Signs Vitals Vital Signs Date Time Temp Pulse Resp B/P Pulse Ox O2 Delivery O2 Flow Rate FiO2 11/05/16 07:50 99.2 93 16 104/63 99 11/03/16 20:00 Room Air Intake and Output 11/04/16 11/04/16 11/05/16 15:00 23:00 07:00 Intake Total 100 ml 1180 ml 1010 ml Output Total 3600 ml 1200 ml Balance 100 ml -2420 ml -190 ml Exam Constitutional: alert, oriented Psych: no complaints Head: atraumatic, normocephalic Eyes: nl conjunctiva ENMT: nl external ears & nose Neck: non-tender, supple Respiratory: clear to auscultation, normal air movement Cardiovascular: nl pulses, regular rate and rhythm Gastrointestinal: non-tender, soft Genitourinary - Female: other (Eaton catheter) Musculoskeletal: muscle weakness, other (Contracted) Extremities: normal pulses Neurological: nl mental status Skin: other (Sacral decubitus, bilateral lateral foot wounds) Results Result Diagram: 11/05/16 0500 11/05/16 0500 Results 24 hrs Laboratory Tests Test 11/05/16 05:00 White Blood Count 8.2 Red Blood Count 3.87 L Hemoglobin 11.3 L Hematocrit 35.4 L Mean Corpuscular Volume 91.5 Mean Corpuscular Hemoglobin 29.2 Mean Corpuscular Hemoglobin Concent 31.9 L Red Cell Distribution Width 13.2 Platelet Count 252 # Mean Platelet Volume 11.5 H Neutrophils % 60.6 Lymphocytes % 22.4 Monocytes % 10.9 Eosinophils % 3.9 Basophils % 1.1 Nucleated Red Blood Cells % 0.0 Neutrophils # 5.0 Lymphocytes # 1.8 Monocytes # 0.9 Eosinophils # 0.3 Basophils # 0.1 Nucleated Red Blood Cells # 0.0 Sodium Level 144 Potassium Level 3.9 Chloride Level 109 Carbon Dioxide Level 26 Anion Gap 13 Blood Urea Nitrogen 11 Creatinine 0.71 Glucose Level 98 Calcium Level 9.3 Medications Medications Current Medications Acetaminophen (Tylenol Tab) 500 mg Q4H PRN PO PAIN AND OR ELEVATED TEMP; Start 10/21/16 at 22:00 Morphine Sulfate (morphine) 2 mg Q4H PRN IV PAIN LEVEL 4-7 Last administered on 11/04/16 04:41; Admin Dose 2 MG; Start 10/21/16 at 22:00 Enoxaparin Sodium (Lovenox) 30 mg DAILY SC Last administered on 11/05/16 09:46 ; Admin Dose 30 MG; Start 10/22/16 at 09:00 Ondansetron HCl (Zofran Inj) 4 mg Q4H PRN IV NAUSEA AND/OR VOMITING; Start at 22:00 Miscellaneous [facility] This patient webb... PRN PRN XX WOUND CARE; Start 10/22/16 at 01:30 Sertraline HCl (Zoloft) 100 mg DAILY PO Last administered on 11/03/16 08:58; Admin Dose 100 MG; Start 10/23/16 at 09:00 Trazodone HCl (Desyrel) 75 mg QHS PO Last administered on 11/04/16 21:02; Admin Dose 75 MG; Start 10/22/16 at 21:00 Baclofen 10 mg 10 mg TID PRN PO SPASM; Start 10/22/16 at 16:30 Potassium Chloride/Dextrose/ Sod Cl (D5-1/2ns + KCl 20 Meq) 1,000 ml @ 70 mls/ hr [id number] IV Last administered on 11/05/16 14:27; Admin Dose 70 MLS/HR; Start 10/23/16 at 17:00 Multivitamins/ Minerals (Theragran-M) 1 tab DAILY PO Last administered on 08:58; Admin Dose 1 TAB; Start 10/25/16 at 09:00 Zinc Sulfate (Zinc Sulfate) 220 mg DAILY PO Last administered on 11/03/16 08: 58; Admin Dose 220 MG; Start 10/25/16 at 09:00 Ascorbic Acid (Vitamin C) 500 mg DAILY PO Last administered on 11/03/16 08:58 ; Admin Dose 500 MG; Start 10/25/16 at 09:00 Lactobacillus Acidophilus/ Rhamnosus (Culturelle) 1 cap BID PO Last administered on 11/04/16 21:02; Admin Dose 1 CAP; Start 10/26/16 at 09:00 Mineral Oil (Fleet Mineral Oil Enema) 133 ml BID [place] Last administered on 11:17; Admin Dose 133 ML; Start 10/29/16 at 21:00 Ferrous Sulfate (Ferrous Sulfate (Ec)) 325 mg BID PO Last administered on 21:02; Admin Dose 325 MG; Start 10/29/16 at 21:00 Sodium Hypochlorite (Dakin'S (1/4 Strength)) 1 applic AM IRR Last administered on 11/05/16 09:48; Admin Dose 1 APPLIC; Start 11/01/16 at 09:00 Collagenase (Santyl) 1 applic DAILY TOP Last administered on 11/04/16 05:13; Admin Dose 1 APPLIC; Start 10/31/16 at 21:00 Polyethylene Glycol (Miralax) 17 gm DAILY PO Last administered on 11/03/16 08: 58; Admin Dose 17 GM; Start 11/02/16 at 14:00; Stop 11/10/16 at 13:59 Docusate Sodium (Colace Liquid Cup) 300 mg DAILY PO Last administered on 08:57; Admin Dose 300 MG; Start 11/02/16 at 14:00 Mineral Oil (Mineral Oil) 30 ml BID PO Last administered on 11/04/16 21:02; Admin Dose 30 ML; Start 11/03/16 at 21:00 Metoclopramide HCl (Reglan) 10 mg BID IV Last administered on 11/05/16 09:39; Admin Dose 10 MG; Start 11/03/16 at 21:00 LEI YEBOAH November 05, 2016 19:45
[2016-11-05 20:07] VITALS: BP 113/75; RESP 18
[2016-11-05] MEDS: traZODone 50 MG TAB PO SCH (20:27)
[2016-11-06] MEDS: COLLAGENASE 30 GM TUBE TOP SCH ×2 (02:38→08:47)
[2016-11-06] MEDS: SODIUM HYPOCHLORITE 0.125% 473 ML BTL IRR SCH ×2 (02:38→08:47)
[2016-11-06] MEDS: D5W-0.45 NACL + KCL 20 MEQ 1,000 ML IV SCH ×3 (04:36→18:21)
[2016-11-06 06:41] LABS: ADD SCAN DIFF NO
[2016-11-06 07:07] LABS: CALCIUM 9.8 mg/dl (8.4-10.2); CREATININE 0.7 mg/dl (0.44-1.00); POTASSIUM 4.3 mmol/L (3.5-5.1)
[2016-11-06 07:54] VITALS: BP 96/58; RESP 18
[2016-11-06] MEDS: ZINC SULFATE 220 MG CAP PO SCH (08:46)
[2016-11-06] MEDS: POLYETHYLENE GLYCOL 17 GM PACKET PO SCH (08:46)
[2016-11-06] MEDS: MINERAL OIL 30ML CUP PO SCH ×2 (08:46→22:12)
[2016-11-06] MEDS: METOCLOPRAMIDE 10 MG INJ IV SCH ×2 (08:46→22:12)
[2016-11-06] MEDS: DOCUSATE SODIUM 10 MG/ML (10ML CUP) PO SCH (08:46)
[2016-11-06] MEDS: SERTRALINE 100 MG TAB PO SCH (08:46)
[2016-11-06] MEDS: MULTIVITAMINS/MINERALS TAB PO SCH (08:46)
[2016-11-06] MEDS: LACTOBACILLUS RHAMNOSUS CAP PO SCH ×2 (08:46→22:12)
[2016-11-06] MEDS: FERROUS SULFATE (EC) 325 MG TAB PO SCH ×2 (08:46→22:12)
[2016-11-06] MEDS: ASCORBIC ACID 500 MG TAB PO SCH (08:46)
[2016-11-06] MEDS: traZODone 50 MG TAB PO SCH ×2 (08:47→22:12)
[2016-11-06] MEDS: ENOXAPARIN 30 MG/0.3 ML SYG SC SCH (09:00)
[2016-11-06] MEDS: MINERAL OIL 133 ML ENEMA PR SCH ×2 (09:54→22:17)
[2016-11-06 10:36] LABS: BASOPHIL # 0.1 10^3/ul (0.0-0.1); BASOPHILS % 1.1 % (0.0-2.0); EOSINOPHILS # 0.4 10^3/ul (0.0-0.5); EOSINOPHILS % 4.3 % (0.0-7.0); HEMATOCRIT 36.3 % (37.0-47.0); HEMOGLOBIN 11.5 g/dl (12.0-16.0); LYMPHOCYTES # 2.1 10^3/ul (0.8-2.9); LYMPHOCYTES % 22.3 % (15.0-51.0); MEAN CORPUSCULAR HEMOGLOBIN 29.3 pg (29.0-33.0); MEAN CORPUSCULAR HGB CONC 31.7 g/dl (32.0-37.0); MEAN CORPUSCULAR VOLUME 92.6 fl (82.0-101.0); MEAN PLATELET VOLUME 11.9 fl (7.4-10.4); MONOCYTES % 10.9 % (0.0-11.0); NEUTROPHIL # 5.6 10^3/ul (1.6-7.5); NEUTROPHILS % 60.1 % (39.0-77.0); PLATELET COUNT 283 10^3/UL (140-415); RED BLOOD COUNT 3.92 10^6/ul (4.20-5.40); RED CELL DISTRIBUTION WIDTH 13.2 % (11.5-14.5); WHITE BLOOD COUNT 9.3 10^3/ul (4.8-10.8)
--- NOTE | 2016-11-06 13:30 | PN ---
DATE: 11/06/2016 SUBJECTIVE: No new events. OBJECTIVE: VITAL SIGNS: Temperature 98, heart rate 74, respirations 18, blood pressure 96/ 58, saturation 97% on room air. ABDOMEN: Softer. Slightly distended. SKIN: Sacro coccygeal wound slightly better Still there is some slough. The wound is being treated with daily wet-to-dry Dakin's solution, and also Santyl ointment and offloading q.2-3 hours from [id number]. LABORATORY DATA: WBC 9300 with 60% segmented . BUN, creatinine, sodium, potassium within normal limits. The patient has not had any bowel movement today. PLAN: Continue current care. We are trying also to help the patient to have a bowel movement by po MiraLax, hope she may have a bowel movement by tonight or tomorrow. Dictated By: SCOOBY LAL MD PS/CHRISTIAN Conf#: [id number] DID#: [id number] MTDD
--- NOTE | 2016-11-06 16:17 | PN ---
Date/Time of Note Date/Time of Note DATE: 11/06/16 TIME: 16:14 Assessment/Plan VTE Prophylaxis VTE Prophylaxis Intervention: SCD's Lines/Catheters IV Catheter Type (from [facility]): Peripheral IV Urinary Cath still in place: Yes Reason Cath still needed: urinary retention Assessment/Plan Chief Complaint/Hosp Course No bowel movement yet, patient took all the PO laxatives according to RN. Pending family conference regarding plan of care. Assessment and plan: - Constipation, continue on bowel regimen. - Sacral decubitus. Continue current wound care. Dr. Murphy is following patient in general surgery consultation. - Hereditary spastic paraplegia. Continue to assist patient with activities of daily living. - Urinary tract infection. Dr. eMmo garcía is following in infection disease consultation. Completed the course of antibiotics for UTI and wound infection. - Bilateral malleolus wound, continue current wound care. - Depression, continue Zoloft - Dysphagia, continue dysphagia diet, nutritional supplements and vitamins. Further recommendations based on clinical course. Plan of care discussed with Dr. Gibbs. Problems: Exam/Review of Systems Vital Signs Vitals Vital Signs Date Time Temp Pulse Resp B/P Pulse Ox O2 Delivery O2 Flow Rate FiO2 11/06/16 07:54 98.1 74 18 96/58 97 11/03/16 20:00 Room Air Intake and Output 11/05/16 11/05/16 11/06/16 15:00 23:00 07:00 Intake Total 530 ml 450 ml 1100 ml Output Total 1500 ml Balance 530 ml -1050 ml 1100 ml Exam Constitutional: alert, oriented Head: atraumatic, normocephalic Neck: non-tender, supple Respiratory: clear to auscultation, normal air movement Cardiovascular: nl pulses Gastrointestinal: non-tender, soft Genitourinary - Female: other (Eaton catheter) Musculoskeletal: muscle weakness, other (Contracted) Extremities: normal pulses Neurological: nl mental status Skin: other (Sacral decubitus, bilateral lateral foot wounds) Results Result Diagram: 11/06/16 0530 11/06/16 0530 Results 24 hrs Laboratory Tests Test 11/06/16 05:30 White Blood Count 9.3 Red Blood Count 3.92 L Hemoglobin 11.5 L Hematocrit 36.3 L Mean Corpuscular Volume 92.6 Mean Corpuscular Hemoglobin 29.3 Mean Corpuscular Hemoglobin Concent 31.7 L Red Cell Distribution Width 13.2 Platelet Count 283 Mean Platelet Volume 11.9 H Neutrophils % 60.1 Lymphocytes % 22.3 Monocytes % 10.9 Eosinophils % 4.3 Basophils % 1.1 Nucleated Red Blood Cells % 0.0 Neutrophils # 5.6 Lymphocytes # 2.1 Monocytes # 1.0 H Eosinophils # 0.4 Basophils # 0.1 Nucleated Red Blood Cells # 0.0 Sodium Level 139 Potassium Level 4.3 Chloride Level 104 Carbon Dioxide Level 27 Anion Gap 12 Blood Urea Nitrogen 10 Creatinine 0.70 Glucose Level 91 Calcium Level 9.8 Medications Medications Current Medications Acetaminophen (Tylenol Tab) 500 mg Q4H PRN PO PAIN AND OR ELEVATED TEMP; Start 10/21/16 at 22:00 Morphine Sulfate (morphine) 2 mg Q4H PRN IV PAIN LEVEL 4-7 Last administered on 11/04/16 04:41; Admin Dose 2 MG; Start 10/21/16 at 22:00 Enoxaparin Sodium (Lovenox) 30 mg DAILY SC Last administered on 11/06/16 09:00 ; Admin Dose 30 MG; Start 10/22/16 at 09:00 Ondansetron HCl (Zofran Inj) 4 mg Q4H PRN IV NAUSEA AND/OR VOMITING; Start at 22:00 Miscellaneous Information (Pending [facility] Order For Wound Care) This patient webb... PRN PRN XX WOUND CARE; Start 10/22/16 at 01:30 Sertraline HCl (Zoloft) 100 mg DAILY PO Last administered on 11/06/16 08:46; Admin Dose 100 MG; Start 10/23/16 at 09:00 Trazodone HCl (Desyrel) 75 mg QHS PO Last administered on 11/06/16 08:47; Admin Dose 75 MG; Start 10/22/16 at 21:00 Baclofen 10 mg 10 mg TID PRN PO SPASM; Start 10/22/16 at 16:30 Potassium Chloride/Dextrose/ Sod Cl (D5-1/2ns + KCl 20 Meq) 1,000 ml @ 70 mls/ hr [id number] IV Last administered on 11/06/16 04:36; Admin Dose 70 MLS/HR; Start 10/23/16 at 17:00 Multivitamins/ Minerals (Theragran-M) 1 tab DAILY PO Last administered on 08:46; Admin Dose 1 TAB; Start 10/25/16 at 09:00 Zinc Sulfate (Zinc Sulfate) 220 mg DAILY PO Last administered on 11/06/16 08: 46; Admin Dose 220 MG; Start 10/25/16 at 09:00 Ascorbic Acid (Vitamin C) 500 mg DAILY PO Last administered on 11/06/16 08:46 ; Admin Dose 500 MG; Start 10/25/16 at 09:00 Lactobacillus Acidophilus/ Rhamnosus (Culturelle) 1 cap BID PO Last administered on 11/06/16 08:46; Admin Dose 1 CAP; Start 10/26/16 at 09:00 Mineral Oil (Fleet Mineral Oil Enema) 133 ml BID [place] Last administered on 09:54; Admin Dose 133 ML; Start 10/29/16 at 21:00 Ferrous Sulfate (Ferrous Sulfate (Ec)) 325 mg BID PO Last administered on 08:46; Admin Dose 325 MG; Start 10/29/16 at 21:00 Sodium Hypochlorite (Dakin'S (1/4 Strength)) 1 applic AM IRR Last administered on 11/06/16 08:47; Admin Dose 1 APPLIC; Start 11/01/16 at 09:00 Collagenase (Santyl) 1 applic DAILY TOP Last administered on 11/06/16 08:47; Admin Dose 1 APPLIC; Start 10/31/16 at 21:00 Polyethylene Glycol (Miralax) 17 gm DAILY PO Last administered on 11/06/16 08: 46; Admin Dose 17 GM; Start 11/02/16 at 14:00; Stop 11/10/16 at 13:59 Docusate Sodium (Colace Liquid Cup) 300 mg DAILY PO Last administered on 08:46; Admin Dose 300 MG; Start 11/02/16 at 14:00 Mineral Oil (Mineral Oil) 30 ml BID PO Last administered on 11/06/16 08:46; Admin Dose 30 ML; Start 11/03/16 at 21:00 Metoclopramide HCl (Reglan) 10 mg BID IV Last administered on 11/06/16 08:46; Admin Dose 10 MG; Start 11/03/16 at 21:00 LEI YEBOAH November 06, 2016 16:17
[2016-11-06 19:32] VITALS: BP 118/68; RESP 16
[2016-11-07] MEDS: D5W-0.45 NACL + KCL 20 MEQ 1,000 ML IV SCH ×3 (00:12→23:39)
[2016-11-07 05:39] LABS: ADD SCAN DIFF NO
[2016-11-07 05:47] LABS: BASOPHIL # 0.1 10^3/ul (0.0-0.1); BASOPHILS % 0.9 % (0.0-2.0); EOSINOPHILS # 0.3 10^3/ul (0.0-0.5); EOSINOPHILS % 3.9 % (0.0-7.0); HEMATOCRIT 33.8 % (37.0-47.0); HEMOGLOBIN 10.8 g/dl (12.0-16.0); LYMPHOCYTES # 1.9 10^3/ul (0.8-2.9); LYMPHOCYTES % 22.3 % (15.0-51.0); MEAN CORPUSCULAR VOLUME 90.6 fl (82.0-101.0); MEAN PLATELET VOLUME 11.3 fl (7.4-10.4); MONOCYTE # 0.9 10^3/ul (0.3-0.9); MONOCYTES % 10.1 % (0.0-11.0); NEUTROPHIL # 5.1 10^3/ul (1.6-7.5); PLATELET COUNT 270 10^3/UL (140-415); RED BLOOD COUNT 3.73 10^6/ul (4.20-5.40); RED CELL DISTRIBUTION WIDTH 13.1 % (11.5-14.5); WHITE BLOOD COUNT 8.4 10^3/ul (4.8-10.8)
[2016-11-07 06:08] LABS: CALCIUM 9.5 mg/dl (8.4-10.2); CREATININE 0.71 mg/dl (0.44-1.00); POTASSIUM 4.1 mmol/L (3.5-5.1)
[2016-11-07] MEDS: SODIUM HYPOCHLORITE 0.125% 473 ML BTL IRR SCH ×2 (06:11→08:55)
[2016-11-07 07:23] VITALS: BP 95/51; RESP 20
[2016-11-07] MEDS: DOCUSATE SODIUM 10 MG/ML (10ML CUP) PO SCH (08:54)
[2016-11-07] MEDS: LACTOBACILLUS RHAMNOSUS CAP PO SCH ×2 (08:54→20:59)
[2016-11-07] MEDS: MINERAL OIL 30ML CUP PO SCH ×2 (08:54→20:59)
[2016-11-07] MEDS: ZINC SULFATE 220 MG CAP PO SCH (08:54)
[2016-11-07] MEDS: POLYETHYLENE GLYCOL 17 GM PACKET PO SCH (08:54)
[2016-11-07] MEDS: ASCORBIC ACID 500 MG TAB PO SCH (08:55)
[2016-11-07] MEDS: FERROUS SULFATE (EC) 325 MG TAB PO SCH ×2 (08:55→20:59)
[2016-11-07] MEDS: METOCLOPRAMIDE 10 MG INJ IV SCH ×2 (08:55→20:59)
[2016-11-07] MEDS: MULTIVITAMINS/MINERALS TAB PO SCH (08:57)
[2016-11-07] MEDS: ENOXAPARIN 30 MG/0.3 ML SYG SC SCH (09:00)
[2016-11-07] MEDS: SERTRALINE 100 MG TAB PO SCH (10:10)
[2016-11-07] MEDS: COLLAGENASE 30 GM TUBE TOP SCH ×2 (10:10→21:01)
--- NOTE | 2016-11-07 12:10 | PN ---
Date/Time of Note Date/Time of Note DATE: 11/07/16 TIME: 12:07 Assessment/Plan Lines/Catheters IV [facility]ter Type (from [facility]): Peripheral IV Urinary Cath still in place: Yes Assessment/Plan Assessment/Plan - Constipation, continue on bowel regimen. - Dr Sai hernandez family- agreed for colostomy. will notify surgery - Sacral decubitus. Continue current wound care. Dr. Murphy is following patient in general surgery consultation. - Hereditary spastic paraplegia. Continue to assist patient with activities of daily living. - Urinary tract infection. Dr. Memo garcía is following in infection disease consultation. Completed the course of antibiotics for UTI and wound infection. - Bilateral malleolus wound, continue current wound care. - Depression, continue Zoloft - Dysphagia, continue dysphagia diet, nutritional supplements and vitamins. - Dr Sai hernandez family- agreed for GT placement- Dr Gomez was notified. Further recommendations based on clinical course. Plan of care discussed with Dr. Gibbs. Subjective 24 Hr Interval Summary Free Text/Dictation alert, awake, responsive to name, afebrile, was getting PT- able to sit up with PT. Dr Sai hernandez family- agreed for GT placement/colostomy. dw staff. no new issues reported overnight . Exam/Review of Systems Vital Signs Vitals Vital Signs Date Time Temp Pulse Resp B/P Pulse Ox O2 Delivery O2 Flow Rate FiO2 11/07/16 07:23 98.2 83 20 95/51 97 11/03/16 20:00 Room Air Intake and Output 11/06/16 11/06/16 11/07/16 15:00 23:00 07:00 Intake Total 120 ml 340 ml 870 ml Output Total 800 ml 1000 ml 1000 ml Balance -680 ml -660 ml -130 ml Exam Constitutional: alert, well developed Eyes: EOMI, nl sclera Respiratory: clear to auscultation, normal air movement Cardiovascular: nl pulses, regular rate and rhythm Gastrointestinal: distended, soft Musculoskeletal: muscle weakness Extremities: normal pulses Neurological: other Skin: other Lymph: nontender Results Result Diagram: 11/07/1652011/07/16520 Results 24 hrs Laboratory Tests Test 11/07/16 05:21 White Blood Count 8.4 Red Blood Count 3.73 L Hemoglobin 10.8 L Hematocrit 33.8 L Mean Corpuscular Volume 90.6 Mean Corpuscular Hemoglobin 29.0 Mean Corpuscular Hemoglobin Concent 32.0 Red Cell Distribution Width 13.1 Platelet Count 270 Mean Platelet Volume 11.3 H Neutrophils % 61.0 Lymphocytes % 22.3 Monocytes % 10.1 Eosinophils % 3.9 Basophils % 0.9 Nucleated Red Blood Cells % 0.0 Neutrophils # 5.1 Lymphocytes # 1.9 Monocytes # 0.9 Eosinophils # 0.3 Basophils # 0.1 Nucleated Red Blood Cells # 0.0 Sodium Level 143 Potassium Level 4.1 Chloride Level 110 Carbon Dioxide Level 27 Anion Gap 10 Blood Urea Nitrogen 10 Creatinine 0.71 Glucose Level 99 Calcium Level 9.5 Prealbumin 13.4 L Medications Medications Current Medications Acetaminophen (Tylenol Tab) 500 mg Q4H PRN PO PAIN AND OR ELEVATED TEMP; Start 10/21/16 at 22:00 Morphine Sulfate (morphine) 2 mg Q4H PRN IV PAIN LEVEL 4-7 Last administered on 11/04/16 04:41; Admin Dose 2 MG; Start 10/21/16 at 22:00 Enoxaparin Sodium (Lovenox) 30 mg DAILY SC Last administered on 11/07/16 09:00 ; Admin Dose 30 MG; Start 10/22/16 at 09:00 Ondansetron HCl (Zofran Inj) 4 mg Q4H PRN IV NAUSEA AND/OR VOMITING; Start at 22:00 Miscellaneous Information (Pending [facility] Order For Wound Care) This patient webb... PRN PRN XX WOUND CARE; Start 10/22/16 at 01:30 Sertraline HCl (Zoloft) 100 mg DAILY PO Last administered on 11/07/16 10:10; Admin Dose 100 MG; Start 10/23/16 at 09:00 Trazodone HCl (Desyrel) 75 mg QHS PO Last administered on 11/06/16 22:12; Admin Dose 75 MG; Start 10/22/16 at 21:00 Baclofen 10 mg 10 mg TID PRN PO SPASM; Start 10/22/16 at 16:30 Potassium Chloride/Dextrose/ Sod Cl (D5-1/2ns + KCl 20 Meq) 1,000 ml @ 70 mls/ hr [id number] IV Last administered on 11/07/16 08:54; Admin Dose 70 MLS/HR; Start 10/23/16 at 17:00 Multivitamins/ Minerals (Theragran-M) 1 tab DAILY PO Last administered on 08:57; Admin Dose 1 TAB; Start 10/25/16 at 09:00 Zinc Sulfate (Zinc Sulfate) 220 mg DAILY PO Last administered on 11/07/16 08:54 ; Admin Dose 220 MG; Start 10/25/16 at 09:00 Ascorbic Acid (Vitamin C) 500 mg DAILY PO Last administered on 11/07/16 08:55; Admin Dose 500 MG; Start 10/25/16 at 09:00 Lactobacillus Acidophilus/ Rhamnosus (Culturelle) 1 cap BID PO Last administered on 11/07/16 08:54; Admin Dose 1 CAP; Start 10/26/16 at 09:00 Mineral Oil (Fleet Mineral Oil Enema) 133 ml BID [place] Last administered on 22:17; Admin Dose 133 ML; Start 10/29/16 at 21:00 Ferrous Sulfate (Ferrous Sulfate (Ec)) 325 mg BID PO Last administered on 08:55; Admin Dose 325 MG; Start 10/29/16 at 21:00 Sodium Hypochlorite (Dakin'S (1/4 Strength)) 1 applic AM IRR Last administered on 11/07/16 08:55; Admin Dose 1 APPLIC; Start 11/01/16 at 09:00 Collagenase (Santyl) 1 applic DAILY TOP Last administered on 11/07/16 10:10; Admin Dose 1 APPLIC; Start 10/31/16 at 21:00 Polyethylene Glycol (Miralax) 17 gm DAILY PO Last administered on 11/07/16 08: 54; Admin Dose 17 GM; Start 11/02/16 at 14:00; Stop 11/10/16 at 13:59 Docusate Sodium (Colace Liquid Cup) 300 mg DAILY PO Last administered on 08:54; Admin Dose 300 MG; Start 11/02/16 at 14:00 Mineral Oil (Mineral Oil) 30 ml BID PO Last administered on 11/07/16 08:54; Admin Dose 30 ML; Start 11/03/16 at 21:00 Metoclopramide HCl (Reglan) 10 mg BID IV Last administered on 6/1/17at 08:55; Admin Dose 10 MG; Start 11/03/16 at 21:00 Nystatin (Nystatin Powder) 1 applic BID TOP ; Start 11/07/16 at 13:00 CATALINA MCCORD Nov 07, 2016 12:10
[2016-11-07] MEDS ORDERED: TIZA2TAB PO (12:31)
[2016-11-07] MEDS: NYSTATIN 30 GM POWDER BTL TOP SCH ×2 (13:13→21:00)
[2016-11-07] MEDS: MINERAL OIL 133 ML ENEMA PR SCH ×2 (13:13→21:00)
[2016-11-07] MEDS: ONDANSETRON 4 MG INJ IV PRN (14:05)
--- NOTE | 2016-11-07 17:27 | PN ---
DATE: 11/07/2016 SUBJECTIVE: No new complaints or any new event for the patient. OBJECTIVE: VITAL SIGNS: Temperature 98.2, heart rate is 83 regular, respirations 20, blood pressure 95/51, sat uration 97% on room air. HEENT: WBC 8400 with 61% neutrophils, hemoglobin 10.8, hematocrit 33.8. ABDOMEN: Nondistended. The wound is clean, granulating very slowly. The patient has had 1 bowel m ovement today, liquidish. The dressing had soaked through on the wound site incision, so they had to change the dressing. ASSESSMENT: A 36-year-old female who also the patient had a urinary tract infection in the past 2 w eeks. Wound is 98% clean, granulating gradually. Patient has also paraplegia. 1. Bowel movement. She has had severe impacted stool in the rectum and distal sigmoid and distal c olon. We have tried several different modalities to make sure that that we clean the bowel which webb s been successful to some extent. Continue to use mineral oil p.o., continue to give MiraLax p.o. a nd Dulcolax p.o. and Colace p.o. and Fleet enemas so that his colon is cleaned. There has been a lo t of discussion in this patient about the need for G-tube for placement of a percutaneous gastrostom y and also diverting colostomy to assist with healing of the wound in the incisional area. Eventual ly the family as I understand from the MD's note today as I read it have agreed for the placement of a PEG tube for feeding purposes and for placement of diverting colostomy. We will await Dr. Gomez 's placement of G tube and after that we will proceed with placement of colostomy. Meanwhile, we ar e trying to clean the bowel. Dictated By: SCOOBY LAL MD PS/CHRISTIAN Conf#: [id number] DID#: [id number]
[2016-11-07 19:16] LABS: URINE COLOR YELLOW (YELLOW)
[2016-11-07 19:17] LABS: URINE TOTAL PROTEIN (Dip) NEGATIVE (NEGATIVE)
[2016-11-07 19:18] LABS: URINE BILIRUBIN (Dip) NEGATIVE (NEGATIVE); URINE BLOOD (Dip) 2+ (NEGATIVE); URINE GLUCOSE (Dip) NEGATIVE (NEGATIVE); URINE KETONES (Dip) NEGATIVE (NEGATIVE); URINE NITRITE (Dip) NEGATIVE (NEGATIVE); URINE UROBILINOGEN (Dip) 0.2 E.U./dL (0.1-1.0)
[2016-11-07 19:19] LABS: ADD UMIC YES; BACTERIA,URINE FEW; SQUAMOUS EPITHELIAL CELL,UR FEW; URINE LEUKOCYTE ESTERASE (Dip) TRACE (NEGATIVE); URINE RBCS >50 /HPF (0)
[2016-11-07 19:31] VITALS: BP 112/69; RESP 16
[2016-11-07] MEDS: traZODone 50 MG TAB PO SCH (21:06)
[2016-11-08] MEDS: D5W-0.45 NACL + KCL 20 MEQ 1,000 ML IV SCH ×2 (04:48→14:09)
[2016-11-08 06:02] LABS: ADD SCAN DIFF NO
[2016-11-08 06:05] LABS: BASOPHIL # 0.1 10^3/ul (0.0-0.1); BASOPHILS % 0.6 % (0.0-2.0); EOSINOPHILS # 0.3 10^3/ul (0.0-0.5); EOSINOPHILS % 4.1 % (0.0-7.0); HEMATOCRIT 33.8 % (37.0-47.0); HEMOGLOBIN 10.8 g/dl (12.0-16.0); LYMPHOCYTES # 2.2 10^3/ul (0.8-2.9); LYMPHOCYTES % 26.5 % (15.0-51.0); MEAN CORPUSCULAR HEMOGLOBIN 29.1 pg (29.0-33.0); MEAN CORPUSCULAR VOLUME 91.1 fl (82.0-101.0); MEAN PLATELET VOLUME 11.4 fl (7.4-10.4); MONOCYTE # 0.8 10^3/ul (0.3-0.9); MONOCYTES % 9.3 % (0.0-11.0); NEUTROPHIL # 4.7 10^3/ul (1.6-7.5); NEUTROPHILS % 57.8 % (39.0-77.0); PLATELET COUNT 274 10^3/UL (140-415); RED BLOOD COUNT 3.71 10^6/ul (4.20-5.40); RED CELL DISTRIBUTION WIDTH 13.2 % (11.5-14.5); WHITE BLOOD COUNT 8.1 10^3/ul (4.8-10.8)
[2016-11-08 06:28] LABS: INR 1.13; PROTIME 14.5 Sec (12.2-14.2); PT RATIO 1.1
[2016-11-08 06:51] LABS: CALCIUM 9.6 mg/dl (8.4-10.2); CREATININE 0.77 mg/dl (0.44-1.00); POTASSIUM 4.3 mmol/L (3.5-5.1)
[2016-11-08 07:33] VITALS: BP 92/54; RESP 16
[2016-11-08] MEDS: MINERAL OIL 133 ML ENEMA PR SCH ×3 (09:00→21:10)
[2016-11-08] MEDS: DOCUSATE SODIUM 10 MG/ML (10ML CUP) PO SCH (10:02)
[2016-11-08] MEDS: ASCORBIC ACID 500 MG TAB PO SCH (10:03)
[2016-11-08] MEDS: SERTRALINE 100 MG TAB PO SCH (10:03)
[2016-11-08] MEDS: LACTOBACILLUS RHAMNOSUS CAP PO SCH ×2 (10:03→21:10)
[2016-11-08] MEDS: POLYETHYLENE GLYCOL 17 GM PACKET PO SCH (10:03)
[2016-11-08] MEDS: MULTIVITAMINS/MINERALS TAB PO SCH (10:03)
[2016-11-08] MEDS: FERROUS SULFATE (EC) 325 MG TAB PO SCH ×2 (10:04→21:09)
[2016-11-08] MEDS: METOCLOPRAMIDE 10 MG INJ IV SCH ×2 (10:04→21:09)
[2016-11-08] MEDS: MINERAL OIL 30ML CUP PO SCH ×2 (10:04→21:09)
[2016-11-08] MEDS: NYSTATIN 30 GM POWDER BTL TOP SCH ×2 (10:05→21:11)
[2016-11-08] MEDS: SODIUM HYPOCHLORITE 0.125% 473 ML BTL IRR SCH (10:05)
[2016-11-08] MEDS: ENOXAPARIN 30 MG/0.3 ML SYG SC SCH (10:08)
[2016-11-08] MEDS: ZINC SULFATE 220 MG CAP PO SCH (10:09)
--- NOTE | 2016-11-08 10:44 | CONS ---
Date/Time of Note Date/Time of Note DATE: 11/08/16 TIME: 10:42 Assessment/Plan Assessment/Plan Chief Complaint/Hosp Course - s/p early sepsis due to sacral decub infection - mild leukocytosis and tachycardia resolved - Sacral decubitus ulcer with polymicrobial infection; wound Cx grew E. Coli, Proteus, CoNS, and Leuconostoc; ESR 30; Sacral x-ray no e/o OM. Pt completed an empiric 2 week course of IV vanc and pip/tazo - UTI due to lactobacillus - Bacteremia due to CoNS - Hereditary spastic paraplegia - Depression - Normocytic anemia - Dysphagia - Feeder with decreased appetite; calorie count completed with avg 961 kcal/day and 26g protein/day - family declines G tube - stool impaction - on laxatives recommendations: - repeat pancultures if temp >100.4F - monitor Pt off systemic antibiotics (Pt completed 2 week course of vancomycin and pip/tazo on 11/04/2016) - management explained to Pt Problems: Consultation Date/Type/Reason Admit Date/Time October 21, 2016 at 18:19 Initial Consult Date 10/23/16 Type of Consultation: Infectious Disease 24 HR Interval Summary Subjective hx not possible: pt non-verbal Exam/Review of Systems Vital Signs Vitals Vital Signs Date Time Temp Pulse Resp B/P Pulse Ox O2 Delivery O2 Flow Rate FiO2 11/08/16 07:33 97.9 76 16 92/54 97 Intake and Output 11/07/16 11/07/16 11/08/16 15:00 23:00 07:00 Intake Total 230 ml 220 ml 1420 ml Output Total 1100 ml 1150 ml Balance 230 ml -880 ml 270 ml Exam Constitutional: frail, non-verbal Psych: confusion Head: atraumatic, normocephalic Eyes: nl conjunctiva, nl lids ENMT: nl external ears & nose, nl nasal mucosa & septum, other (Pt cannot open her mouth) Respiratory: diminished breath sounds Cardiovascular: nl pulses, regular rate and rhythm Gastrointestinal: non-tender, soft Genitourinary - Female: other (FC) Extremities: No edema, No pitting pedal edema Neurological: lethargic, other (rigid extremities) Skin: nl turgor Results Result Diagram: 11/08/16 0526 11/08/16 0526 Results 24 hrs Laboratory Tests Test 11/07/16 18:30 11/08/16 05:26 Urine Color YELLOW Urine Clarity CLEAR Urine pH 6.5 Urine Specific [place] 1.010 Urine Ketones NEGATIVE Urine Nitrite NEGATIVE Urine Bilirubin NEGATIVE Urine Urobilinogen 0.2 E.U./dL Urine Leukocyte Esterase TRACE H Urine Microscopic RBC >50 Urine Microscopic WBC 0-2 Urine Squamous Epithelial Cells FEW Urine Bacteria FEW Urine Hemoglobin 2+ H Urine Glucose NEGATIVE Urine Total Protein NEGATIVE White Blood Count 8.1 Red Blood Count 3.71 L Hemoglobin 10.8 L Hematocrit 33.8 L Mean Corpuscular Volume 91.1 Mean Corpuscular Hemoglobin 29.1 Mean Corpuscular Hemoglobin Concent 32.0 Red Cell Distribution Width 13.2 Platelet Count 274 Mean Platelet Volume 11.4 H Neutrophils % 57.8 Lymphocytes % 26.5 Monocytes % 9.3 Eosinophils % 4.1 Basophils % 0.6 Nucleated Red Blood Cells % 0.0 Neutrophils # 4.7 Lymphocytes # 2.2 Monocytes # 0.8 Eosinophils # 0.3 Basophils # 0.1 Nucleated Red Blood Cells # 0.0 Prothrombin Time 14.5 H Prothrombin Time Ratio 1.1 INR International Normalized Ratio 1.13 Activated Partial Thromboplast Time 31.0 Sodium Level 145 H Potassium Level 4.3 Chloride Level 104 Carbon Dioxide Level 28 Anion Gap 17 #H Blood Urea Nitrogen 12 Creatinine 0.77 Glucose Level 89 Calcium Level 9.6 Medications Medications Current Medications Acetaminophen (Tylenol Tab) 500 mg Q4H PRN PO PAIN AND OR ELEVATED TEMP; Start 10/21/16 at 22:00 Morphine Sulfate (morphine) 2 mg Q4H PRN IV PAIN LEVEL 4-7 Last administered on 11/04/16 04:41; Admin Dose 2 MG; Start 10/21/16 at 22:00 Enoxaparin Sodium (Lovenox) 30 mg DAILY SC Last administered on 11/08/16 10:08 ; Admin Dose 30 MG; Start 10/22/16 at 09:00 Ondansetron HCl (Zofran Inj) 4 mg Q4H PRN IV NAUSEA AND/OR VOMITING Last administered on 11/07/16 14:05; Admin Dose 4 MG; Start 10/21/16 at 22:00 Miscellaneous Information ([facility]) This patient webb... PRN PRN XX WOUND CARE; Start 10/22/16 at 01:30 Sertraline HCl (Zoloft) 100 mg DAILY PO Last administered on 11/08/16 10:03; Admin Dose 100 MG; Start 10/23/16 at 09:00 Trazodone HCl (Desyrel) 75 mg QHS PO Last administered on 11/07/16 21:06; Admin Dose 75 MG; Start 10/22/16 at 21:00 Baclofen 10 mg 10 mg TID PRN PO SPASM; Start 10/22/16 at 16:30 Potassium Chloride/Dextrose/ Sod Cl (D5-1/2ns + KCl 20 Meq) 1,000 ml @ 70 mls/ hr [id number] IV Last administered on 11/07/16 23:39; Admin Dose 70 MLS/HR; Start 10/23/16 at 17:00 Multivitamins/ Minerals (Theragran-M) 1 tab DAILY PO Last administered on 10:03; Admin Dose 1 TAB; Start 10/25/16 at 09:00 Zinc Sulfate (Zinc Sulfate) 220 mg DAILY PO Last administered on 11/08/16 10:09 ; Admin Dose 220 MG; Start 10/25/16 at 09:00 Ascorbic Acid (Vitamin C) 500 mg DAILY PO Last administered on 11/08/16 10:03; Admin Dose 500 MG; Start 10/25/16 at 09:00 Lactobacillus Acidophilus/ Rhamnosus (Culturelle) 1 cap BID PO Last administered on 11/08/16 10:03; Admin Dose 1 CAP; Start 10/26/16 at 09:00 Mineral Oil (Fleet Mineral Oil Enema) 133 ml BID SC Last administered on 21:00; Admin Dose 133 ML; Start 10/29/16 at 21:00 Ferrous Sulfate (Ferrous Sulfate (Ec)) 325 mg BID PO Last administered on 10:04; Admin Dose 325 MG; Start 10/29/16 at 21:00 Sodium Hypochlorite (Dakin'S (1/4 Strength)) 1 applic AM IRR Last administered on 11/08/16 10:05; Admin Dose 1 APPLIC; Start 11/01/16 at 09:00 Polyethylene Glycol (Miralax) 17 gm DAILY PO Last administered on 11/08/16 10: 03; Admin Dose 17 GM; Start 11/02/16 at 14:00; Stop 11/10/16 at 13:59 Docusate Sodium (Colace Liquid Cup) 300 mg DAILY PO Last administered on 10:02; Admin Dose 300 MG; Start 11/02/16 at 14:00 Mineral Oil (Mineral Oil) 30 ml BID PO Last administered on 11/08/16 10:04; Admin Dose 30 ML; Start 11/03/16 at 21:00 Metoclopramide HCl (Reglan) 10 mg BID IV Last administered on 11/08/16 10:04; Admin Dose 10 MG; Start 11/03/16 at 21:00 Nystatin (Nystatin Powder) 1 applic BID TOP Last administered on 11/08/16 10:05 ; Admin Dose 1 APPLIC; Start 11/07/16 at 13:00 Collagenase (Santyl) 1 applic QHS TOP Last administered on 11/07/16 21:01; Admin Dose 1 APPLIC; Start 11/07/16 at 21:00 ELYSIA LAGUNAS M.D. Nov 08, 2016 10:44
--- NOTE | 2016-11-08 16:13 | PN ---
Date/Time of Note Date/Time of Note DATE: 11/08/16 TIME: 16:11 Assessment/Plan VTE Prophylaxis VTE Prophylaxis Intervention: SCD's Lines/Catheters IV [facility]ter Type (from [facility]): Peripheral IV Urinary Cath still in place: Yes Reason Cath still needed: urinary retention Assessment/Plan Chief Complaint/Hosp Course Patient remains hemodynamically stable, pending G-tube placement and colostomy. Assessment and plan: - Sacral decubitus. Continue current wound care. Dr. Murphy is following patient in general surgery consultation. Plan for diverting colostomy. - Hereditary spastic paraplegia. Continue to assist patient with activities of daily living. - Urinary tract infection. Dr. Memo garcía is following in infection disease consultation. Completed the course of antibiotics for UTI and wound infection. - Bilateral malleolus wound, continue current wound care. - Depression, continue Zoloft - Dysphagia, continue dysphagia diet, nutritional supplements and vitamins. Plan for G-tube placement. - Protein calorie malnutrition is evidence of prealbumin 13 Further recommendations based on clinical course. Plan of care discussed with Dr. Gibbs. Problems: Exam/Review of Systems Vital Signs Vitals Vital Signs Date Time Temp Pulse Resp B/P Pulse Ox O2 Delivery O2 Flow Rate FiO2 11/08/16 07:33 97.9 76 16 92/54 97 Intake and Output 11/07/16 11/07/16 11/08/16 15:00 23:00 07:00 Intake Total 230 ml 220 ml 1420 ml Output Total 1100 ml 1150 ml Balance 230 ml -880 ml 270 ml Exam Constitutional: alert, oriented Head: atraumatic, normocephalic Neck: non-tender, supple Respiratory: clear to auscultation, normal air movement Cardiovascular: nl pulses Gastrointestinal: non-tender, soft Genitourinary - Female: other ([place] catheter) Musculoskeletal: muscle weakness, other (Contracted) Extremities: normal pulses Neurological: nl mental status Skin: other (Sacral decubitus) Results Result Diagram: 11/08/1652511/08/16525 Results 24 hrs Laboratory Tests Test 11/07/16 18:30 11/08/16 05:26 Urine Color YELLOW Urine Clarity CLEAR Urine pH 6.5 Urine Specific [place] 1.010 Urine Ketones NEGATIVE Urine Nitrite NEGATIVE Urine Bilirubin NEGATIVE Urine Urobilinogen 0.2 E.U./dL Urine Leukocyte Esterase TRACE H Urine Microscopic RBC >50 Urine Microscopic WBC 0-2 Urine Squamous Epithelial Cells FEW Urine Bacteria FEW Urine Hemoglobin 2+ H Urine Glucose NEGATIVE Urine Total Protein NEGATIVE White Blood Count 8.1 Red Blood Count 3.71 L Hemoglobin 10.8 L Hematocrit 33.8 L Mean Corpuscular Volume 91.1 Mean Corpuscular Hemoglobin 29.1 Mean Corpuscular Hemoglobin Concent 32.0 Red Cell Distribution Width 13.2 Platelet Count 274 Mean Platelet Volume 11.4 H Neutrophils % 57.8 Lymphocytes % 26.5 Monocytes % 9.3 Eosinophils % 4.1 Basophils % 0.6 Nucleated Red Blood Cells % 0.0 Neutrophils # 4.7 Lymphocytes # 2.2 Monocytes # 0.8 Eosinophils # 0.3 Basophils # 0.1 Nucleated Red Blood Cells # 0.0 Prothrombin Time 14.5 H Prothrombin Time Ratio 1.1 INR International Normalized Ratio 1.13 Activated Partial Thromboplast Time 31.0 Sodium Level 145 H Potassium Level 4.3 Chloride Level 104 Carbon Dioxide Level 28 Anion Gap 17 #H Blood Urea Nitrogen 12 Creatinine 0.77 Glucose Level 89 Calcium Level 9.6 Medications Medications Current Medications Acetaminophen (Tylenol Tab) 500 mg Q4H PRN PO PAIN AND OR ELEVATED TEMP; Start 10/21/16 at 22:00 Morphine Sulfate (morphine) 2 mg Q4H PRN IV PAIN LEVEL 4-7 Last administered on 11/04/16 04:41; Admin Dose 2 MG; Start 10/21/16 at 22:00 Enoxaparin Sodium (Lovenox) 30 mg DAILY SC Last administered on 11/08/16 10:08 ; Admin Dose 30 MG; Start 10/22/16 at 09:00 Ondansetron HCl (Zofran Inj) 4 mg Q4H PRN IV NAUSEA AND/OR VOMITING Last administered on 11/07/16 14:05; Admin Dose 4 MG; Start 10/21/16 at 22:00 Miscellaneous Information (Pending [facility] Order For Wound Care) This patient webb... PRN PRN XX WOUND CARE; Start 10/22/16 at 01:30 Sertraline HCl (Zoloft) 100 mg DAILY PO Last administered on 11/08/16 10:03; Admin Dose 100 MG; Start 10/23/16 at 09:00 Trazodone HCl (Desyrel) 75 mg QHS PO Last administered on 11/07/16 21:06; Admin Dose 75 MG; Start 10/22/16 at 21:00 Baclofen 10 mg 10 mg TID PRN PO SPASM; Start 10/22/16 at 16:30 Potassium Chloride/Dextrose/ Sod Cl (D5-1/2ns + KCl 20 Meq) 1,000 ml @ 70 mls/ hr [id number] IV Last administered on 11/08/16 14:09; Admin Dose 70 MLS/HR; Start 10/23/16 at 17:00 Multivitamins/ Minerals (Theragran-M) 1 tab DAILY PO Last administered on 10:03; Admin Dose 1 TAB; Start 10/25/16 at 09:00 Zinc Sulfate (Zinc Sulfate) 220 mg DAILY PO Last administered on 11/08/16 10:09 ; Admin Dose 220 MG; Start 10/25/16 at 09:00 Ascorbic Acid (Vitamin C) 500 mg DAILY PO Last administered on 11/08/16 10:03; Admin Dose 500 MG; Start 10/25/16 at 09:00 Lactobacillus Acidophilus/ Rhamnosus (Culturelle) 1 cap BID PO Last administered on 11/08/16 10:03; Admin Dose 1 CAP; Start 10/26/16 at 09:00 Mineral Oil (Fleet Mineral Oil Enema) 133 ml BID MD Last administered on 15:41; Admin Dose 133 ML; Start 10/29/16 at 21:00 Ferrous Sulfate (Ferrous Sulfate (Ec)) 325 mg BID PO Last administered on 10:04; Admin Dose 325 MG; Start 10/29/16 at 21:00 Sodium Hypochlorite (Dakin'S (1/4 Strength)) 1 applic AM IRR Last administered on 11/08/16 10:05; Admin Dose 1 APPLIC; Start 11/01/16 at 09:00 Polyethylene Glycol (Miralax) 17 gm DAILY PO Last administered on 11/08/16 10: 03; Admin Dose 17 GM; Start 11/02/16 at 14:00; Stop 11/10/16 at 13:59 Docusate Sodium (Colace Liquid Cup) 300 mg DAILY PO Last administered on 10:02; Admin Dose 300 MG; Start 11/02/16 at 14:00 Mineral Oil (Mineral Oil) 30 ml BID PO Last administered on 11/08/16 10:04; Admin Dose 30 ML; Start 11/03/16 at 21:00 Metoclopramide HCl (Reglan) 10 mg BID IV Last administered on 11/08/16 10:04; Admin Dose 10 MG; Start 11/03/16 at 21:00 Nystatin (Nystatin Powder) 1 applic BID TOP Last administered on 11/08/16 10:05 ; Admin Dose 1 APPLIC; Start 11/07/16 at 13:00 Collagenase (Santyl) 1 applic QHS TOP Last administered on 11/07/16 21:01; Admin Dose 1 APPLIC; Start 11/07/16 at 21:00 LEI YEBOAH Nov 08, 2016 16:13
--- NOTE | 2016-11-08 17:54 | CONS ---
DATE OF ADMISSION: 10/21/2016 DATE OF CONSULTATION: REASON FOR CONSULTATION: Placement of G-tube. REFERRING PHYSICIAN: Dr. Gibbs. HISTORY OF PRESENT ILLNESS: Thank you for the referral of this 36-year-old female with a history of hereditary spastic paraplegia who has been bedridden for several years. The patient's p.o. intake had been extremely poor, so GI consult was called in for placement of G-tube. The patient also has necrotizing sacral ulcer. The patient was hospitalized from [facility] for a large s acral decubitus ulcer. There was no fever. No chest pain, no shortness of breath, no or BLOCK CLEANER pro blem. REVIEW OF SYSTEMS: Unable to do it. PAST MEDICAL HISTORY: Depression. SOCIAL HISTORY: No smoking, no alcohol. FAMILY HISTORY: The patient has a sibling, 3 brothers, 1 sister. PHYSICAL EXAMINATION GENERAL: She is conscious, awake, alert. VITAL SIGNS: Stable. ABDOMEN: Benign. CARDIOVASCULAR: No murmur, gallop, or click. LUNGS: Clear. EXTREMITIES: No edema. CENTRAL NERVOUS SYSTEM: The patient is alert, awake, with contracture of all the extremities. IMPRESSION: 1. Sacral decubitus. 2. Hereditary spastic paraplegia. 3. Depression. 4. Dysphagia. 5. Malnutrition. 6. Urinary tract infection. PLAN: If the family agrees, then we will proceed with placement of G-tube. In the interim, continu e present care. Dictated By: SAKINA GILL/CHRISTIAN Conf#: [id number] DID#: [id number]
[2016-11-08 19:40] VITALS: BP 102/62; RESP 18
[2016-11-08] MEDS: traZODone 50 MG TAB PO SCH (21:09)
[2016-11-08] MEDS: ACYCLOVIR 800 MG TAB PO SCH (21:09)
[2016-11-08] MEDS: COLLAGENASE 30 GM TUBE TOP SCH (21:10)
[2016-11-09] MEDS: D5W-0.45 NACL + KCL 20 MEQ 1,000 ML IV SCH ×4 (05:15→21:40)
[2016-11-09 05:55] LABS: ADD SCAN DIFF NO
[2016-11-09 05:58] LABS: BASOPHIL # 0.1 10^3/ul (0.0-0.1); EOSINOPHILS # 0.4 10^3/ul (0.0-0.5); EOSINOPHILS % 4.7 % (0.0-7.0); HEMOGLOBIN 10.8 g/dl (12.0-16.0); LYMPHOCYTES # 2.2 10^3/ul (0.8-2.9); LYMPHOCYTES % 25.4 % (15.0-51.0); MEAN CORPUSCULAR HEMOGLOBIN 28.8 pg (29.0-33.0); MEAN CORPUSCULAR HGB CONC 31.8 g/dl (32.0-37.0); MEAN CORPUSCULAR VOLUME 90.7 fl (82.0-101.0); MEAN PLATELET VOLUME 11.2 fl (7.4-10.4); MONOCYTE # 0.8 10^3/ul (0.3-0.9); MONOCYTES % 8.7 % (0.0-11.0); NEUTROPHIL # 5.1 10^3/ul (1.6-7.5); NEUTROPHILS % 58.6 % (39.0-77.0); PLATELET COUNT 291 10^3/UL (140-415); RED BLOOD COUNT 3.75 10^6/ul (4.20-5.40); RED CELL DISTRIBUTION WIDTH 12.9 % (11.5-14.5); WHITE BLOOD COUNT 8.8 10^3/ul (4.8-10.8)
[2016-11-09 06:10] LABS: CALCIUM 9.6 mg/dl (8.4-10.2); CREATININE 0.74 mg/dl (0.44-1.00); POTASSIUM 4.2 mmol/L (3.5-5.1)
[2016-11-09 08:11] VITALS: BP 105/57; RESP 16
[2016-11-09] MEDS: ASCORBIC ACID 500 MG TAB PO SCH (10:12)
[2016-11-09] MEDS: MULTIVITAMINS/MINERALS TAB PO SCH (10:12)
[2016-11-09] MEDS: FERROUS SULFATE (EC) 325 MG TAB PO SCH (10:12)
[2016-11-09] MEDS: MINERAL OIL 30ML CUP PO SCH ×2 (10:12→21:42)
[2016-11-09] MEDS: DOCUSATE SODIUM 10 MG/ML (10ML CUP) PO SCH (10:12)
[2016-11-09] MEDS: LACTOBACILLUS RHAMNOSUS CAP PO SCH ×2 (10:12→21:43)
[2016-11-09] MEDS: ZINC SULFATE 220 MG CAP PO SCH (10:12)
[2016-11-09] MEDS: SERTRALINE 100 MG TAB PO SCH (10:12)
[2016-11-09] MEDS: METOCLOPRAMIDE 10 MG INJ IV SCH ×2 (10:13→21:43)
[2016-11-09] MEDS: POLYETHYLENE GLYCOL 17 GM PACKET PO SCH (10:13)
[2016-11-09] MEDS: ENOXAPARIN 30 MG/0.3 ML SYG SC SCH (10:42)
[2016-11-09] MEDS: SODIUM HYPOCHLORITE 0.125% 473 ML BTL IRR SCH (10:48)
[2016-11-09] MEDS: ACYCLOVIR 800 MG TAB PO SCH ×3 (10:48→21:42)
[2016-11-09] MEDS: NYSTATIN 30 GM POWDER BTL TOP SCH ×2 (10:50→21:44)
[2016-11-09] MEDS: MINERAL OIL 133 ML ENEMA PR SCH ×2 (10:50→22:40)
--- NOTE | 2016-11-09 13:06 | PN ---
DATE: 11/09/2016 SUBJECTIVE: No complaints. No real verbal communication. The patient is being fed by her mother ve ry slowly at this time. OBJECTIVE: GENERAL: Awake, alert, sitting in a semi-sitting position in the bed. VITAL SIGNS: Temperature 98.8, heart rate 81 and regular, respirations 16, blood pressure 105/77, s aturation 97%. LABORATORY: WBC 8,800, hemoglobin 10.8, hematocrit 34. BUN, creatinine, sodium and potassium are wi thin normal limits. On the charting scheduled on the computer it shows that the patient has had 5 parminder wel movements during the past 24 hours, but the day nurses are not aware of that, so I am not sure h ow this has been charted. Most probably the mother does not know. Abdomen is softer than before, s o it is possible that she has had more bowel movements. Legs, no calf tenderness. PLAN: As was mentioned previously, the family eventually has agreed with placement of the PEG and a lso placement of diverting colostomy. Considering for placement of a diverting colostomy, we need a clean colon and sigmoid colon, a clean bowel, so I am waiting for Dr. Underwood to put a PEG and throu gh the PEG we can start cleaning the bowel with GoLYTELY and other cathartics and when the col on is clear will proceed with placement of a diverting colostomy. It should be mentioned that at thi s time we cannot do it because the patient does not take the GoLYTELY fluid and it is very difficult to feed her through the mouth 1 gallon of GoLYTELY. Dictated By: SCOOBY DRUMMOND/CHRISTIAN Conf#: [id number] DID#: [id number]
[2016-11-09] MEDS: ONDANSETRON 4 MG INJ IV PRN (13:49)
--- NOTE | 2016-11-09 14:04 | PN ---
Date/Time of Note Date/Time of Note DATE: 11/09/16 TIME: 14:00 Assessment/Plan Lines/Catheters IV Catheter Type (from [facility]): Peripheral IV Urinary Cath still in place: Yes Assessment/Plan Assessment/Plan - Sacral decubitus. Continue current wound care. Dr. Murphy is following patient in general surgery consultation. Plan for diverting colostomy. - Hereditary spastic paraplegia. Continue to assist patient with activities of daily living. - Urinary tract infection. Dr. Memo garcía is following in infection disease consultation. Completed the course of antibiotics for UTI and wound infection. - Bilateral malleolus wound, continue current wound care. - Depression, continue Zoloft - Dysphagia, continue dysphagia diet, nutritional supplements and vitamins. Plan for G-tube placement on Friday - aspiration precautions - Protein calorie malnutrition is evidence of prealbumin 13 Further recommendations based on clinical course. Plan of care discussed with Dr. Gibbs. Subjective 24 Hr Interval Summary Free Text/Dictation No acute distress, alert and awake, responsive to name ,afebrile, decreased p.o. intake, no signs of aspiration noted, family at the bedside, all questions answered. Plan for diverting colostomy by Dr. Murphy-waiting for having G-tube first, plan for G-tube on Friday by Dr. Underwood. Discussed with staff no new events reported overnight Exam/Review of Systems Vital Signs Vitals Vital Signs Date Time Temp Pulse Resp B/P Pulse Ox O2 Delivery O2 Flow Rate FiO2 11/09/16 08:11 98.8 81 16 105/57 97 Intake and Output 11/08/16 11/08/16 11/09/16 15:00 23:00 07:00 Intake Total 580 ml 1520 ml 850 ml Output Total 1600 ml 1000 ml Balance 580 ml -80 ml -150 ml Exam Constitutional: alert Neck: non-tender, supple Respiratory: clear to auscultation, normal air movement Cardiovascular: nl pulses, regular rate and rhythm Gastrointestinal: non-tender, soft Musculoskeletal: muscle weakness Extremities: normal pulses Neurological: other Skin: other Results Result Diagram: 11/09/16 0530 11/09/16 0530 Results 24 hrs Laboratory Tests Test 11/09/16 05:30 White Blood Count 8.8 Red Blood Count 3.75 L Hemoglobin 10.8 L Hematocrit 34.0 L Mean Corpuscular Volume 90.7 Mean Corpuscular Hemoglobin 28.8 L Mean Corpuscular Hemoglobin Concent 31.8 L Red Cell Distribution Width 12.9 Platelet Count 291 Mean Platelet Volume 11.2 H Neutrophils % 58.6 Lymphocytes % 25.4 Monocytes % 8.7 Eosinophils % 4.7 Basophils % 1.0 Nucleated Red Blood Cells % 0.0 Neutrophils # 5.1 Lymphocytes # 2.2 Monocytes # 0.8 Eosinophils # 0.4 Basophils # 0.1 Nucleated Red Blood Cells # 0.0 Sodium Level 144 Potassium Level 4.2 Chloride Level 106 Carbon Dioxide Level 27 Anion Gap 15 Blood Urea Nitrogen 13 Creatinine 0.74 Glucose Level 91 Calcium Level 9.6 Medications Medications Current Medications Acetaminophen (Tylenol Tab) 500 mg Q4H PRN PO PAIN AND OR ELEVATED TEMP; Start 10/21/16 at 22:00 Morphine Sulfate (morphine) 2 mg Q4H PRN IV PAIN LEVEL 4-7 Last administered on 11/04/16 04:41; Admin Dose 2 MG; Start 10/21/16 at 22:00 Enoxaparin Sodium (Lovenox) 30 mg DAILY SC Last administered on 11/09/16 10:42 ; Admin Dose 30 MG; Start 10/22/16 at 09:00 Ondansetron HCl (Zofran Inj) 4 mg Q4H PRN IV NAUSEA AND/OR VOMITING Last administered on 11/09/16 13:49; Admin Dose 4 MG; Start 10/21/16 at 22:00 Miscellaneous Information (Pending [facility] Order For Wound Care) This patient webb... PRN PRN XX WOUND CARE; Start 10/22/16 at 01:30 Sertraline HCl (Zoloft) 100 mg DAILY PO Last administered on 11/09/16 10:12; Admin Dose 100 MG; Start 10/23/16 at 09:00 Trazodone HCl (Desyrel) 75 mg QHS PO Last administered on 11/08/16 21:09; Admin Dose 75 MG; Start 10/22/16 at 21:00 Baclofen 10 mg 10 mg TID PRN PO SPASM; Start 10/22/16 at 16:30 Potassium Chloride/Dextrose/ Sod Cl (D5-1/2ns + KCl 20 Meq) 1,000 ml @ 70 mls/ hr [id number] IV Last administered on 11/09/16 05:15; Admin Dose 70 MLS/HR; Start 10/23/16 at 17:00 Multivitamins/ Minerals (Theragran-M) 1 tab DAILY PO Last administered on 10:12; Admin Dose 1 TAB; Start 10/25/16 at 09:00 Zinc Sulfate (Zinc Sulfate) 220 mg DAILY PO Last administered on 11/09/16 10:12 ; Admin Dose 220 MG; Start 10/25/16 at 09:00 Ascorbic Acid (Vitamin C) 500 mg DAILY PO Last administered on 11/09/16 10:12; Admin Dose 500 MG; Start 10/25/16 at 09:00 Lactobacillus Acidophilus/ Rhamnosus (Culturelle) 1 cap BID PO Last administered on 11/09/16 10:12; Admin Dose 1 CAP; Start 10/26/16 at 09:00 Mineral Oil (Fleet Mineral Oil Enema) 133 ml BID [place] Last administered on 10:50; Admin Dose 133 ML; Start 10/29/16 at 21:00 Ferrous Sulfate (Ferrous Sulfate (Ec)) 325 mg BID PO Last administered on 10:12; Admin Dose 325 MG; Start 10/29/16 at 21:00 Sodium Hypochlorite (Dakin'S (1/4 Strength)) 1 applic AM IRR Last administered on 11/09/16 10:48; Admin Dose 1 APPLIC; Start 11/01/16 at 09:00 Polyethylene Glycol (Miralax) 17 gm DAILY PO Last administered on 11/09/16 10: 13; Admin Dose 17 GM; Start 11/02/16 at 14:00; Stop 11/10/16 at 13:59 Docusate Sodium (Colace Liquid Cup) 300 mg DAILY PO Last administered on 10:12; Admin Dose 300 MG; Start 11/02/16 at 14:00 Mineral Oil (Mineral Oil) 30 ml BID PO Last administered on 11/09/16 10:12; Admin Dose 30 ML; Start 11/03/16 at 21:00 Metoclopramide HCl (Reglan) 10 mg BID IV Last administered on 11/09/16 10:13; Admin Dose 10 MG; Start 11/03/16 at 21:00 Nystatin (Nystatin Powder) 1 applic BID TOP Last administered on 11/09/16 10:50 ; Admin Dose 1 APPLIC; Start 11/07/16 at 13:00 Collagenase (Santyl) 1 applic QHS TOP Last administered on 11/08/16 21:10; Admin Dose 1 APPLIC; Start 11/07/16 at 21:00 Acyclovir (Zovirax) 800 mg TID PO Last administered on 11/09/16 13:49; Admin Dose 800 MG; Start 11/08/16 at 21:00; Stop 11/16/16 at 20:59 CATALINA MCCORD Nov 09, 2016 14:04
[2016-11-09 19:39] VITALS: BP 128/75; RESP 18
--- NOTE | 2016-11-09 19:43 | CONS ---
Date/Time of Note Date/Time of Note DATE: 11/09/16 TIME: 19:40 Assessment/Plan Assessment/Plan Additional Assessment/Plan IMPRESSION: 1. Sacral decubitus. 2. Hereditary spastic paraplegia. 3. Depression. 4. Dysphagia. 5. Malnutrition. 6. Urinary tract infection. Plan PEG on Friday,discussed with family agreed. Consultation Date/Type/Reason Admit Date/Time October 21, 2016 at 18:19 Initial Consult Date 10/23/16 Type of Consultation: Infectious Disease 24 HR Interval Summary Constitutional: improved Exam/Review of Systems Vital Signs Vitals Vital Signs Date Time Temp Pulse Resp B/P Pulse Ox O2 Delivery O2 Flow Rate FiO2 11/09/16 19:39 98.9 95 18 128/75 98 Intake and Output 11/08/16 11/08/16 11/09/16 14:59 22:59 06:59 Intake Total 580 ml 1520 ml 850 ml Output Total 1600 ml 1000 ml Balance 580 ml -80 ml -150 ml Results Result Diagram: 11/09/16 0530 11/09/16 0530 Results 24 hrs Laboratory Tests Test 11/09/16 05:30 White Blood Count 8.8 Red Blood Count 3.75 L Hemoglobin 10.8 L Hematocrit 34.0 L Mean Corpuscular Volume 90.7 Mean Corpuscular Hemoglobin 28.8 L Mean Corpuscular Hemoglobin Concent 31.8 L Red Cell Distribution Width 12.9 Platelet Count 291 Mean Platelet Volume 11.2 H Neutrophils % 58.6 Lymphocytes % 25.4 Monocytes % 8.7 Eosinophils % 4.7 Basophils % 1.0 Nucleated Red Blood Cells % 0.0 Neutrophils # 5.1 Lymphocytes # 2.2 Monocytes # 0.8 Eosinophils # 0.4 Basophils # 0.1 Nucleated Red Blood Cells # 0.0 Sodium Level 144 Potassium Level 4.2 Chloride Level 106 Carbon Dioxide Level 27 Anion Gap 15 Blood Urea Nitrogen 13 Creatinine 0.74 Glucose Level 91 Calcium Level 9.6 Medications Medications Current Medications Acetaminophen (Tylenol Tab) 500 mg Q4H PRN PO PAIN AND OR ELEVATED TEMP; Start 10/21/16 at 22:00 Morphine Sulfate (morphine) 2 mg Q4H PRN IV PAIN LEVEL 4-7 Last administered on 11/04/16t 04:41; Admin Dose 2 MG; Start 10/21/16 at 22:00 Enoxaparin Sodium (Lovenox) 30 mg DAILY SC Last administered on 11/09/16 10:42 ; Admin Dose 30 MG; Start 10/22/16 at 09:00 Ondansetron HCl (Zofran Inj) 4 mg Q4H PRN IV NAUSEA AND/OR VOMITING Last administered on 11/09/16 13:49; Admin Dose 4 MG; Start 10/21/16 at 22:00 Miscellaneous Information (Pending [facility] Order For Wound Care) This patient webb... PRN PRN XX WOUND CARE; Start 10/22/16 at 01:30 Sertraline HCl (Zoloft) 100 mg DAILY PO Last administered on 11/09/16 10:12; Admin Dose 100 MG; Start 10/23/16 at 09:00 Trazodone HCl (Desyrel) 75 mg QHS PO Last administered on 11/08/16 21:09; Admin Dose 75 MG; Start 10/22/16 at 21:00 Baclofen 10 mg 10 mg TID PRN PO SPASM; Start 10/22/16 at 16:30 Potassium Chloride/Dextrose/ Sod Cl (D5-1/2ns + KCl 20 Meq) 1,000 ml @ 70 mls/ hr [id number] IV Last administered on 11/09/16 05:15; Admin Dose 70 MLS/HR; Start 10/23/16 at 17:00 Zinc Sulfate (Zinc Sulfate) 220 mg DAILY PO Last administered on 11/09/16 10:12 ; Admin Dose 220 MG; Start 10/25/16 at 09:00 Ascorbic Acid (Vitamin C) 500 mg DAILY PO Last administered on 11/09/16 10:12; Admin Dose 500 MG; Start 10/25/16 at 09:00 Lactobacillus Acidophilus/ Rhamnosus (Culturelle) 1 cap BID PO Last administered on 11/09/16 10:12; Admin Dose 1 CAP; Start 10/26/16 at 09:00 Mineral Oil (Fleet Mineral Oil Enema) 133 ml BID ID Last administered on 10:50; Admin Dose 133 ML; Start 10/29/16 at 21:00 Sodium Hypochlorite (Dakin'S (1/4 Strength)) 1 applic AM IRR Last administered on 11/09/16 10:48; Admin Dose 1 APPLIC; Start 11/01/16 at 09:00 Polyethylene Glycol (Miralax) 17 gm DAILY PO Last administered on 11/09/16 10: 13; Admin Dose 17 GM; Start 11/02/16 at 14:00; Stop 11/10/16 at 13:59 Docusate Sodium (Colace Liquid Cup) 300 mg DAILY PO Last administered on 10:12; Admin Dose 300 MG; Start 11/02/16 at 14:00 Mineral Oil (Mineral Oil) 30 ml BID PO Last administered on 11/09/16 10:12; Admin Dose 30 ML; Start 11/03/16 at 21:00 Metoclopramide HCl (Reglan) 10 mg BID IV Last administered on 11/09/16 10:13; Admin Dose 10 MG; Start 11/03/16 at 21:00 Nystatin (Nystatin Powder) 1 applic BID TOP Last administered on 11/09/16 10:50 ; Admin Dose 1 APPLIC; Start 11/07/16 at 13:00 Collagenase (Santyl) 1 applic QHS TOP Last administered on 11/08/16 21:10; Admin Dose 1 APPLIC; Start 11/07/16 at 21:00 Acyclovir (Zovirax) 800 mg TID PO Last administered on 11/09/16 13:49; Admin Dose 800 MG; Start 11/08/16 at 21:00; Stop 11/16/16 at 20:59 Multivitamins (Thera-Plus) 5 ml DAILY GTB ; Start 11/10/16 at 09:00 Ferrous Sulfate (Feosol Liquid Cup) 300 mg BID PO ; Start 11/09/16 at 21:00 SAKINA BEACH MD Nov 09, 2016 19:43
[2016-11-09] MEDS: FERROUS SULFATE 60 MG/ML 5ML CUP PO SCH (21:42)
[2016-11-09] MEDS: traZODone 50 MG TAB PO SCH (21:42)
[2016-11-09] MEDS: COLLAGENASE 30 GM TUBE TOP SCH (21:46)
[2016-11-10 06:03] LABS: ADD SCAN DIFF NO
[2016-11-10 06:11] LABS: BASOPHIL # 0.1 10^3/ul (0.0-0.1); EOSINOPHILS # 0.5 10^3/ul (0.0-0.5); EOSINOPHILS % 5.6 % (0.0-7.0); HEMATOCRIT 32.3 % (37.0-47.0); HEMOGLOBIN 10.3 g/dl (12.0-16.0); LYMPHOCYTES # 2.1 10^3/ul (0.8-2.9); LYMPHOCYTES % 25.3 % (15.0-51.0); MEAN CORPUSCULAR HEMOGLOBIN 28.8 pg (29.0-33.0); MEAN CORPUSCULAR HGB CONC 31.9 g/dl (32.0-37.0); MEAN CORPUSCULAR VOLUME 90.2 fl (82.0-101.0); MEAN PLATELET VOLUME 11.8 fl (7.4-10.4); MONOCYTE # 0.8 10^3/ul (0.3-0.9); MONOCYTES % 9.1 % (0.0-11.0); NEUTROPHIL # 4.7 10^3/ul (1.6-7.5); NEUTROPHILS % 57.3 % (39.0-77.0); PLATELET COUNT 288 10^3/UL (140-415); RED BLOOD COUNT 3.58 10^6/ul (4.20-5.40); RED CELL DISTRIBUTION WIDTH 12.8 % (11.5-14.5); WHITE BLOOD COUNT 8.3 10^3/ul (4.8-10.8)
[2016-11-10 06:37] LABS: CALCIUM 9.4 mg/dl (8.4-10.2); CREATININE 0.65 mg/dl (0.44-1.00); POTASSIUM 4.2 mmol/L (3.5-5.1)
[2016-11-10 07:49] VITALS: BP 116/75; RESP 16
[2016-11-10] MEDS: DOCUSATE SODIUM 10 MG/ML (10ML CUP) PO SCH (10:16)
[2016-11-10] MEDS: MULTIVITAMINS 5 ML CUP GTB SCH (10:16)
[2016-11-10] MEDS: FERROUS SULFATE 60 MG/ML 5ML CUP PO SCH ×2 (10:16→21:40)
[2016-11-10] MEDS: MINERAL OIL 30ML CUP PO SCH ×2 (10:16→21:40)
[2016-11-10] MEDS: SERTRALINE 100 MG TAB PO SCH (10:17)
[2016-11-10] MEDS: ASCORBIC ACID 500 MG TAB PO SCH (10:17)
[2016-11-10] MEDS: ACYCLOVIR 800 MG TAB PO SCH ×3 (10:17→21:40)
[2016-11-10] MEDS: ZINC SULFATE 220 MG CAP PO SCH (10:17)
[2016-11-10] MEDS: METOCLOPRAMIDE 10 MG INJ IV SCH ×2 (10:17→21:41)
[2016-11-10] MEDS: NYSTATIN 30 GM POWDER BTL TOP SCH ×2 (10:18→21:41)
[2016-11-10] MEDS: SODIUM HYPOCHLORITE 0.125% 473 ML BTL IRR SCH (10:18)
[2016-11-10] MEDS: POLYETHYLENE GLYCOL 17 GM PACKET PO SCH (10:19)
--- NOTE | 2016-11-10 10:20 | RADRPT ---
PROCEDURE: XR Abdomen. CLINICAL INDICATION: Abdominal pain. TECHNIQUE: Single AP view of the abdomen COMPARISON: 11/05/2016 FINDINGS: Nonobstructive bowel gas pattern. There is diffuse distension of the colon. A moderate amount of stool is projected over the rectum. A Eaton catheter is in place. IMPRESSION: Moderate amount of stool projected over the rectum. Increased diffuse distension of the colon. RPTAT: EE .Gee Fry MD, MD Date Time Electronically viewed and signed by .Gee Fry MD, on 11/10/2016 10:24 .C/
[2016-11-10] MEDS: LACTOBACILLUS RHAMNOSUS CAP PO SCH ×2 (10:22→21:40)
[2016-11-10] MEDS: ENOXAPARIN 30 MG/0.3 ML SYG SC SCH (10:50)
[2016-11-10] MEDS: D5W-0.45 NACL + KCL 20 MEQ 1,000 ML IV SCH ×2 (11:56→14:00)
[2016-11-10] MEDS: MINERAL OIL 133 ML ENEMA PR SCH (11:56)
--- NOTE | 2016-11-10 13:22 | CONS ---
Date/Time of Note Date/Time of Note DATE: 11/10/16 TIME: 13:20 Assessment/Plan Assessment/Plan Chief Complaint/Hosp Course - s/p early sepsis due to sacral decub infection - mild leukocytosis and tachycardia resolved - Sacral decubitus ulcer with polymicrobial infection; wound Cx grew E. Coli, Proteus, CoNS, and Leuconostoc; ESR 30; Sacral x-ray no e/o OM. Pt completed an empiric 2 week course of IV vanc and pip/tazo - UTI due to lactobacillus - Bacteremia due to CoNS - Hereditary spastic paraplegia - Depression - Normocytic anemia - Dysphagia - Feeder with decreased appetite; calorie count completed with avg 961 kcal/day and 26g protein/day - family declines G tube - stool impaction - on laxatives recommendations: - repeat henriquez-cultures if temp >100.4F - monitor Pt off systemic antibiotics (Pt completed 2 week course of vancomycin and pip/tazo on 11/04/2016) - management explained to Pt's mother Problems: Consultation Date/Type/Reason Admit Date/Time October 21, 2016 at 18:19 Initial Consult Date 10/23/16 Type of Consultation: Infectious Disease 24 HR Interval Summary Subjective hx not possible: pt non-verbal Exam/Review of Systems Vital Signs Vitals Vital Signs Date Time Temp Pulse Resp B/P Pulse Ox O2 Delivery O2 Flow Rate FiO2 11/10/16 07:49 97.9 88 16 116/75 98 Intake and Output 11/09/16 11/09/16 11/10/16 15:00 23:00 07:00 Intake Total 2200 ml 100 ml Output Total 1100 ml 700 ml Balance 1100 ml -600 ml Exam Constitutional: frail, non-verbal Psych: confusion Head: atraumatic, normocephalic Eyes: nl conjunctiva ENMT: nl external ears & nose, other (could not open her mouth) Neck: other (could not flex) Respiratory: diminished breath sounds Cardiovascular: nl pulses, regular rate and rhythm Gastrointestinal: non-tender, soft Musculoskeletal: No swelling Extremities: edema Neurological: confused Results Result Diagram: 11/10/16 0500 11/10/16 0500 Results 24 hrs Laboratory Tests Test 11/10/16 05:00 White Blood Count 8.3 Red Blood Count 3.58 L Hemoglobin 10.3 L Hematocrit 32.3 L Mean Corpuscular Volume 90.2 Mean Corpuscular Hemoglobin 28.8 L Mean Corpuscular Hemoglobin Concent 31.9 L Red Cell Distribution Width 12.8 Platelet Count 288 Mean Platelet Volume 11.8 H Neutrophils % 57.3 Lymphocytes % 25.3 Monocytes % 9.1 Eosinophils % 5.6 Basophils % 1.0 Nucleated Red Blood Cells % 0.0 Neutrophils # 4.7 Lymphocytes # 2.1 Monocytes # 0.8 Eosinophils # 0.5 Basophils # 0.1 Nucleated Red Blood Cells # 0.0 Sodium Level 143 Potassium Level 4.2 Chloride Level 107 Carbon Dioxide Level 27 Anion Gap 13 Blood Urea Nitrogen 11 Creatinine 0.65 Glucose Level 94 Calcium Level 9.4 Medications Medications Current Medications Acetaminophen (Tylenol Tab) 500 mg Q4H PRN PO PAIN AND OR ELEVATED TEMP; Start 10/21/16 at 22:00 Morphine Sulfate (morphine) 2 mg Q4H PRN IV PAIN LEVEL 4-7 Last administered on 11/04/16 04:41; Admin Dose 2 MG; Start 10/21/16 at 22:00 Enoxaparin Sodium (Lovenox) 30 mg DAILY SC Last administered on 11/10/16 10:50 ; Admin Dose 30 MG; Start 10/22/16 at 09:00 Ondansetron HCl (Zofran Inj) 4 mg Q4H PRN IV NAUSEA AND/OR VOMITING Last administered on 11/09/16 13:49; Admin Dose 4 MG; Start 10/21/16 at 22:00 Miscellaneous Information (Pending [facility] Order For Wound Care) This patient webb... PRN PRN XX WOUND CARE; Start 10/22/16 at 01:30 Sertraline HCl (Zoloft) 100 mg DAILY PO Last administered on 11/10/16 10:17; Admin Dose 100 MG; Start 10/23/16 at 09:00 Trazodone HCl (Desyrel) 75 mg QHS PO Last administered on 11/09/16 21:42; Admin Dose 75 MG; Start 10/22/16 at 21:00 Baclofen 10 mg 10 mg TID PRN PO SPASM; Start 10/22/16 at 16:30 Potassium Chloride/Dextrose/ Sod Cl (D5-1/2ns + KCl 20 Meq) 1,000 ml @ 70 mls/ hr [id number] IV Last administered on 11/10/16 11:56; Admin Dose 70 MLS/HR; Start 10/23/16 at 17:00 Zinc Sulfate (Zinc Sulfate) 220 mg DAILY PO Last administered on 11/10/16 10:17 ; Admin Dose 220 MG; Start 10/25/16 at 09:00 Ascorbic Acid (Vitamin C) 500 mg DAILY PO Last administered on 11/10/16 10:17; Admin Dose 500 MG; Start 10/25/16 at 09:00 Lactobacillus Acidophilus/ Rhamnosus (Culturelle) 1 cap BID PO Last administered on 11/10/16 10:22; Admin Dose 1 CAP; Start 10/26/16 at 09:00 Mineral Oil (Fleet Mineral Oil Enema) 133 ml BID ID Last administered on 11:56; Admin Dose 133 ML; Start 10/29/16 at 21:00 Sodium Hypochlorite (Dakin'S (/4 Strength)) 1 applic AM IRR Last administered on 11/10/16 10:18; Admin Dose 1 APPLIC; Start 11/01/16 at 09:00 Polyethylene Glycol (Miralax) 17 gm DAILY PO Last administered on 11/10/16 10: 19; Admin Dose 17 GM; Start 11/02/16 at 14:00; Stop 11/10/16 at 13:59 Docusate Sodium (Colace Liquid Cup) 300 mg DAILY PO Last administered on 10:16; Admin Dose 300 MG; Start 11/02/16 at 14:00 Mineral Oil (Mineral Oil) 30 ml BID PO Last administered on 11/10/16 10:16; Admin Dose 30 ML; Start 11/03/16 at 21:00 Metoclopramide HCl (Reglan) 10 mg BID IV Last administered on 11/10/16 10:17; Admin Dose 10 MG; Start 11/03/16 at 21:00 Nystatin (Nystatin Powder) 1 applic BID TOP Last administered on 11/10/16 10:18 ; Admin Dose 1 APPLIC; Start 11/07/16 at 13:00 Collagenase (Santyl) 1 applic QHS TOP Last administered on 11/09/16 21:46; Admin Dose 1 APPLIC; Start 11/07/16 at 21:00 Acyclovir (Zovirax) 800 mg TID PO Last administered on 11/10/16 10:17; Admin Dose 800 MG; Start 11/08/16 at 21:00; Stop 11/16/16 at 20:59 Multivitamins (Thera-Plus) 5 ml DAILY GTB Last administered on 11/10/16 10:16; Admin Dose 5 ML; Start 11/10/16 at 09:00 Ferrous Sulfate (Feosol Liquid Cup) 300 mg BID PO Last administered on 10:16; Admin Dose 300 MG; Start 11/09/16 at 21:00 ELYSIA LAGUNAS M.D. Nov 10, 2016 13:22
--- NOTE | 2016-11-10 13:59 | PN ---
Date/Time of Note Date/Time of Note DATE: 11/10/16 TIME: 13:55 Assessment/Plan Lines/Catheters IV C[facility]ter Type (from [facility]): Peripheral IV Urinary Cath still in place: Yes Assessment/Plan Assessment/Plan - Sacral decubitus. Continue current wound care. Dr. Murphy is following patient in general surgery consultation. Plan for diverting colostomy. - Hereditary spastic paraplegia. Continue to assist patient with activities of daily living. - Urinary tract infection. Dr. Memo garcía is following in infection disease consultation. Completed the course of antibiotics for UTI and wound infection. - Bilateral malleolus wound, continue current wound care. - Depression, continue Zoloft - Dysphagia, continue dysphagia diet, nutritional supplements and vitamins. Plan for G-tube placement on Friday - aspiration precautions - Protein calorie malnutrition is evidence of prealbumin 13 Further recommendations based on clinical course. Plan of care discussed with Dr. Gibbs. Subjective 24 Hr Interval Summary Free Text/Dictation No acute distress, alert and awake, responsive to name ,afebrile, decreased p.o. intake, no signs of aspiration noted, family at the bedside, all questions answered. Plan for diverting colostomy by Dr. Murphy-waiting for having G-tube first, plan for G-tube on Friday by Dr. Underwood. Discussed with staff no new events reported overnight. Parents are at bed side-all Qs answered. dw staff.. Cardiovascular: no complaints Gastrointestinal: no complaints Exam/Review of Systems Vital Signs Vitals Vital Signs Date Time Temp Pulse Resp B/P Pulse Ox O2 Delivery O2 Flow Rate FiO2 11/10/16 07:49 97.9 88 16 116/75 98 Intake and Output 11/09/16 11/09/16 11/10/16 15:00 23:00 07:00 Intake Total 2200 ml 100 ml Output Total 1100 ml 700 ml Balance 1100 ml -600 ml Exam Constitutional: alert, well developed Respiratory: clear to auscultation, normal air movement Cardiovascular: nl pulses, regular rate and rhythm Gastrointestinal: non-tender, soft Extremities: normal pulses Neurological: confused Skin: other Lymph: nontender Results Result Diagram: 11/10/16 0500 11/10/16 0500 Results 24 hrs Laboratory Tests Test 11/10/16 05:00 White Blood Count 8.3 Red Blood Count 3.58 L Hemoglobin 10.3 L Hematocrit 32.3 L Mean Corpuscular Volume 90.2 Mean Corpuscular Hemoglobin 28.8 L Mean Corpuscular Hemoglobin Concent 31.9 L Red Cell Distribution Width 12.8 Platelet Count 288 Mean Platelet Volume 11.8 H Neutrophils % 57.3 Lymphocytes % 25.3 Monocytes % 9.1 Eosinophils % 5.6 Basophils % 1.0 Nucleated Red Blood Cells % 0.0 Neutrophils # 4.7 Lymphocytes # 2.1 Monocytes # 0.8 Eosinophils # 0.5 Basophils # 0.1 Nucleated Red Blood Cells # 0.0 Sodium Level 143 Potassium Level 4.2 Chloride Level 107 Carbon Dioxide Level 27 Anion Gap 13 Blood Urea Nitrogen 11 Creatinine 0.65 Glucose Level 94 Calcium Level 9.4 Medications Medications Current Medications Acetaminophen (Tylenol Tab) 500 mg Q4H PRN PO PAIN AND OR ELEVATED TEMP; Start 10/21/16 at 22:00 Morphine Sulfate (morphine) 2 mg Q4H PRN IV PAIN LEVEL 4-7 Last administered on 11/04/16 04:41; Admin Dose 2 MG; Start 10/21/16 at 22:00 Enoxaparin Sodium (Lovenox) 30 mg DAILY SC Last administered on 11/10/16 10:50 ; Admin Dose 30 MG; Start 10/22/16 at 09:00 Ondansetron HCl (Zofran Inj) 4 mg Q4H PRN IV NAUSEA AND/OR VOMITING Last administered on 11/09/16 13:49; Admin Dose 4 MG; Start 10/21/16 at 22:00 Miscellaneous Information (Pending [facility] Order For Wound Care) This patient webb... PRN PRN XX WOUND CARE; Start 10/22/16 at 01:30 Sertraline HCl (Zoloft) 100 mg DAILY PO Last administered on 11/10/16 10:17; Admin Dose 100 MG; Start 10/23/16 at 09:00 Trazodone HCl (Desyrel) 75 mg QHS PO Last administered on 11/09/16 21:42; Admin Dose 75 MG; Start 10/22/16 at 21:00 Baclofen 10 mg 10 mg TID PRN PO SPASM; Start 10/22/16 at 16:30 Potassium Chloride/Dextrose/ Sod Cl (D5-1/2ns + KCl 20 Meq) 1,000 ml @ 70 mls/ hr [id number] IV Last administered on 11/10/16 11:56; Admin Dose 70 MLS/HR; Start 10/23/16 at 17:00 Zinc Sulfate (Zinc Sulfate) 220 mg DAILY PO Last administered on 11/10/16 10:17 ; Admin Dose 220 MG; Start 10/25/16 at 09:00 Ascorbic Acid (Vitamin C) 500 mg DAILY PO Last administered on 11/10/16 10:17; Admin Dose 500 MG; Start 10/25/16 at 09:00 Lactobacillus Acidophilus/ Rhamnosus (Culturelle) 1 cap BID PO Last administered on 11/10/16 10:22; Admin Dose 1 CAP; Start 10/26/16 at 09:00 Mineral Oil (Fleet Mineral Oil Enema) 133 ml BID OR Last administered on 11:56; Admin Dose 133 ML; Start 10/29/16 at 21:00 Sodium Hypochlorite (Dakin'S (1/4 Strength)) 1 applic AM IRR Last administered on 11/10/16 10:18; Admin Dose 1 APPLIC; Start 11/01/16 at 09:00 Polyethylene Glycol (Miralax) 17 gm DAILY PO Last administered on 11/10/16 10: 19; Admin Dose 17 GM; Start 11/02/16 at 14:00; Stop 11/10/16 at 13:59 Docusate Sodium (Colace Liquid Cup) 300 mg DAILY PO Last administered on 10:16; Admin Dose 300 MG; Start 11/02/16 at 14:00 Mineral Oil (Mineral Oil) 30 ml BID PO Last administered on 11/10/16 10:16; Admin Dose 30 ML; Start 11/03/16 at 21:00 Metoclopramide HCl (Reglan) 10 mg BID IV Last administered on 11/10/16 10:17; Admin Dose 10 MG; Start 11/03/16 at 21:00 Nystatin (Nystatin Powder) 1 applic BID TOP Last administered on 11/10/16 10:18 ; Admin Dose 1 APPLIC; Start 11/07/16 at 13:00 Collagenase (Santyl) 1 applic QHS TOP Last administered on 11/09/16 21:46; Admin Dose 1 APPLIC; Start 11/07/16 at 21:00 Acyclovir (Zovirax) 800 mg TID PO Last administered on 11/10/16 13:43; Admin Dose 800 MG; Start 11/08/16 at 21:00; Stop 11/16/16 at 20:59 Multivitamins (Thera-Plus) 5 ml DAILY GTB Last administered on 11/10/16 10:16; Admin Dose 5 ML; Start 11/10/16 at 09:00 Ferrous Sulfate (Feosol Liquid Cup) 300 mg BID PO Last administered on 10:16; Admin Dose 300 MG; Start 11/09/16 at 21:00 CATALINA MCCORD Nov 10, 2016 13:59
[2016-11-10 19:59] VITALS: BP 105/69; RESP 18
--- NOTE | 2016-11-10 21:39 | CONS ---
Date/Time of Note Date/Time of Note DATE: 11/10/16 TIME: 21:39 Assessment/Plan Assessment/Plan Additional Assessment/Plan Additional Assessment/Plan IMPRESSION: 1. Sacral decubitus. 2. Hereditary spastic paraplegia. 3. Depression. 4. Dysphagia. 5. Malnutrition. 6. Urinary tract infection. Plan PEG on Friday,discussed with family agreed. Consultation Date/Type/Reason Admit Date/Time October 21, 2016 at 18:19 Initial Consult Date 10/23/16 Type of Consultation: Infectious Disease 24 HR Interval Summary Constitutional: improved Exam/Review of Systems Vital Signs Vitals Vital Signs Date Time Temp Pulse Resp B/P Pulse Ox O2 Delivery O2 Flow Rate FiO2 11/10/16 19:59 97.8 101 18 105/69 96 Intake and Output 11/09/16 11/09/16 11/10/16 15:00 23:00 07:00 Intake Total 2200 ml 100 ml Output Total 1100 ml 700 ml Balance 1100 ml -600 ml Exam Constitutional: alert, oriented, well developed Psych: nl mood/affect, no complaints Head: atraumatic, normocephalic Eyes: EOMI, PERRL, nl conjunctiva, nl lids, nl sclera ENMT: nl external ears & nose, nl lips & teeth, nl nasal mucosa & septum Neck: non-tender, supple Respiratory: clear to auscultation, normal air movement Cardiovascular: nl pulses, regular rate and rhythm Gastrointestinal: nl liver, spleen, non-tender, soft Musculoskeletal: nl extremities to inspection, nl gait and stance Extremities: normal pulses Neurological: [employer] II-XII intact, nl mental status, nl speech, nl strength Skin: nl turgor, No rash or lesions Lymph: nl lymph nodes Results Result Diagram: 11/10/16 0500 11/10/16 0500 Results 24 hrs Laboratory Tests Test 11/10/16 05:00 White Blood Count 8.3 Red Blood Count 3.58 L Hemoglobin 10.3 L Hematocrit 32.3 L Mean Corpuscular Volume 90.2 Mean Corpuscular Hemoglobin 28.8 L Mean Corpuscular Hemoglobin Concent 31.9 L Red Cell Distribution Width 12.8 Platelet Count 288 Mean Platelet Volume 11.8 H Neutrophils % 57.3 Lymphocytes % 25.3 Monocytes % 9.1 Eosinophils % 5.6 Basophils % 1.0 Nucleated Red Blood Cells % 0.0 Neutrophils # 4.7 Lymphocytes # 2.1 Monocytes # 0.8 Eosinophils # 0.5 Basophils # 0.1 Nucleated Red Blood Cells # 0.0 Sodium Level 143 Potassium Level 4.2 Chloride Level 107 Carbon Dioxide Level 27 Anion Gap 13 Blood Urea Nitrogen 11 Creatinine 0.65 Glucose Level 94 Calcium Level 9.4 Medications Medications Current Medications Acetaminophen (Tylenol Tab) 500 mg Q4H PRN PO PAIN AND OR ELEVATED TEMP; Start 10/21/16 at 22:00 Morphine Sulfate (morphine) 2 mg Q4H PRN IV PAIN LEVEL 4-7 Last administered on 11/04/16 04:41; Admin Dose 2 MG; Start 10/21/16 at 22:00 Enoxaparin Sodium (Lovenox) 30 mg DAILY SC Last administered on 11/10/16 10:50 ; Admin Dose 30 MG; Start 10/22/16 at 09:00 Ondansetron HCl (Zofran Inj) 4 mg Q4H PRN IV NAUSEA AND/OR VOMITING Last administered on 11/09/16 13:49; Admin Dose 4 MG; Start 10/21/16 at 22:00 [facility] This patient webb... PRN PRN XX WOUND CARE; Start 10/22/16 at 01:30 Sertraline HCl (Zoloft) 100 mg DAILY PO Last administered on 11/10/16 10:17; Admin Dose 100 MG; Start 10/23/16 at 09:00 Trazodone HCl (Desyrel) 75 mg QHS PO Last administered on 11/09/16 21:42; Admin Dose 75 MG; Start 10/22/16 at 21:00 Baclofen 10 mg 10 mg TID PRN PO SPASM; Start 10/22/16 at 16:30 Potassium Chloride/Dextrose/ Sod Cl (D5-1/2ns + KCl 20 Meq) 1,000 ml @ 70 mls/ hr [id number] IV Last administered on 11/10/16 11:56; Admin Dose 70 MLS/HR; Start 10/23/16 at 17:00 Zinc Sulfate (Zinc Sulfate) 220 mg DAILY PO Last administered on 11/10/16 10:17 ; Admin Dose 220 MG; Start 10/25/16 at 09:00 Ascorbic Acid (Vitamin C) 500 mg DAILY PO Last administered on 11/10/16 10:17; Admin Dose 500 MG; Start 10/25/16 at 09:00 Lactobacillus Acidophilus/ Rhamnosus (Culturelle) 1 cap BID PO Last administered on 11/10/16 10:22; Admin Dose 1 CAP; Start 10/26/16 at 09:00 Mineral Oil (Fleet Mineral Oil Enema) 133 ml BID DE Last administered on 11:56; Admin Dose 133 ML; Start 10/29/16 at 21:00 Sodium Hypochlorite (Dakin'S (06/12 Strength)) 1 applic AM IRR Last administered on 11/10/16 10:18; Admin Dose 1 APPLIC; Start 11/01/16 at 09:00 Docusate Sodium (Colace Liquid Cup) 300 mg DAILY PO Last administered on 10:16; Admin Dose 300 MG; Start 11/02/16 at 14:00 Mineral Oil (Mineral Oil) 30 ml BID PO Last administered on 11/10/16 10:16; Admin Dose 30 ML; Start 11/03/16 at 21:00 Metoclopramide HCl (Reglan) 10 mg BID IV Last administered on 11/10/16 10:17; Admin Dose 10 MG; Start 11/03/16 at 21:00 Nystatin (Nystatin Powder) 1 applic BID TOP Last administered on 11/10/16 10:18 ; Admin Dose 1 APPLIC; Start 11/07/16 at 13:00 Collagenase (Santyl) 1 applic QHS TOP Last administered on 11/09/16 21:46; Admin Dose 1 APPLIC; Start 11/07/16 at 21:00 Acyclovir (Zovirax) 800 mg TID PO Last administered on 11/10/16 13:43; Admin Dose 800 MG; Start 11/08/16 at 21:00; Stop 11/16/16 at 20:59 Multivitamins (Thera-Plus) 5 ml DAILY GTB Last administered on 11/10/16 10:16; Admin Dose 5 ML; Start 11/10/16 at 09:00 Ferrous Sulfate (Feosol Liquid Cup) 300 mg BID PO Last administered on 10:16; Admin Dose 300 MG; Start 11/09/16 at 21:00 SAKINA BEACH MD Nov 10, 2016 21:39
[2016-11-10] MEDS: traZODone 50 MG TAB PO SCH (21:41)
[2016-11-10] MEDS: COLLAGENASE 30 GM TUBE TOP SCH (21:42)
[2016-11-11] MEDS: MINERAL OIL 133 ML ENEMA PR SCH ×4 (00:14→23:01)
[2016-11-11] MEDS: D5W-0.45 NACL + KCL 20 MEQ 1,000 ML IV SCH ×3 (00:56→23:00)
[2016-11-11 05:40] LABS: ADD SCAN DIFF NO
[2016-11-11 05:48] LABS: BASOPHIL # 0.1 10^3/ul (0.0-0.1); BASOPHILS % 0.7 % (0.0-2.0); EOSINOPHILS # 0.4 10^3/ul (0.0-0.5); EOSINOPHILS % 5.1 % (0.0-7.0); HEMATOCRIT 33.3 % (37.0-47.0); HEMOGLOBIN 10.5 g/dl (12.0-16.0); LYMPHOCYTES # 2.2 10^3/ul (0.8-2.9); LYMPHOCYTES % 27.1 % (15.0-51.0); MEAN CORPUSCULAR HEMOGLOBIN 28.7 pg (29.0-33.0); MEAN CORPUSCULAR HGB CONC 31.5 g/dl (32.0-37.0); MONOCYTE # 0.8 10^3/ul (0.3-0.9); MONOCYTES % 9.8 % (0.0-11.0); NEUTROPHIL # 4.6 10^3/ul (1.6-7.5); NEUTROPHILS % 56.2 % (39.0-77.0); PLATELET COUNT 282 10^3/UL (140-415); RED BLOOD COUNT 3.66 10^6/ul (4.20-5.40); RED CELL DISTRIBUTION WIDTH 12.8 % (11.5-14.5); WHITE BLOOD COUNT 8.1 10^3/ul (4.8-10.8)
[2016-11-11 06:23] LABS: CALCIUM 9.6 mg/dl (8.4-10.2); CREATININE 0.66 mg/dl (0.44-1.00); POTASSIUM 4.1 mmol/L (3.5-5.1)
[2016-11-11 07:26] VITALS: BP 103/67; RESP 18
--- NOTE | 2016-11-11 08:15 | PN ---
DATE: 11/10/2016 SUBJECTIVE: No new complaint, no new events. OBJECTIVE GENERAL: Awake, alert, not oriented, semi sitting position. The eyes are open. VITAL SIGNS: Temperature 97.9, heart rate 88, respirations 16, blood pressure 116/75, saturation 98% on room air. ABDOMEN: Slightly distended, soft. LABORATORY DATA: WBC 8300 with 53% neutrophils, hemoglobin 10.3, hematocrit 32.3. No bowel movement in the past 24 hours. Patient is refusing to take MiraLax, mineral oil and all other medications. PLAN: Dr. Underwood has agreed to put the PEG for the patient. I am not sure when this is going to be done. Our plan would be after they put a PEG to start giving GoLYTELY through PEG so that we can shereen an and clear the whole colon from impacted stool and after that the patient is ready for placement o f a diverting colostomy. Dictated By: SCOOBY LAL MD PS/CHRISTIAN Conf#: [id number] DID#: [id number]
[2016-11-11] MEDS: MINERAL OIL 30ML CUP PO SCH ×2 (09:21→21:38)
[2016-11-11] MEDS: METOCLOPRAMIDE 10 MG INJ IV SCH ×2 (09:21→21:38)
[2016-11-11] MEDS: ACYCLOVIR 800 MG TAB PO SCH ×3 (09:22→21:38)
[2016-11-11] MEDS: ZINC SULFATE 220 MG CAP PO SCH (09:22)
[2016-11-11] MEDS: ASCORBIC ACID 500 MG TAB PO SCH (09:22)
[2016-11-11] MEDS: SERTRALINE 100 MG TAB PO SCH (09:22)
[2016-11-11] MEDS: FERROUS SULFATE 60 MG/ML 5ML CUP PO SCH ×2 (09:22→21:37)
[2016-11-11] MEDS: MULTIVITAMINS 5 ML CUP GTB SCH (09:22)
[2016-11-11] MEDS: LACTOBACILLUS RHAMNOSUS CAP PO SCH ×2 (09:22→21:38)
[2016-11-11] MEDS: NYSTATIN 30 GM POWDER BTL TOP SCH ×2 (09:23→21:40)
[2016-11-11] MEDS: DOCUSATE SODIUM 10 MG/ML (10ML CUP) PO SCH (09:26)
[2016-11-11] MEDS: SODIUM HYPOCHLORITE 0.125% 473 ML BTL IRR SCH (09:26)
[2016-11-11] MEDS: ENOXAPARIN 30 MG/0.3 ML SYG SC SCH (11:53)
--- NOTE | 2016-11-11 18:46 | CONS ---
Date/Time of Note Date/Time of Note DATE: 11/11/16 TIME: 18:45 Assessment/Plan Assessment/Plan Chief Complaint/Hosp Course - s/p early sepsis due to sacral decub infection - mild leukocytosis and tachycardia resolved - Sacral decubitus ulcer with polymicrobial infection; wound Cx grew E. Coli, Proteus, CoNS, and Leuconostoc; ESR 30; Sacral x-ray no e/o OM. Pt completed an empiric 2 week course of IV vanc and pip/tazo - UTI due to lactobacillus - Bacteremia due to CoNS - Hereditary spastic paraplegia - Depression - Normocytic anemia - Dysphagia - Feeder with decreased appetite; calorie count completed with avg 961 kcal/day and 26g protein/day - family declines G tube - stool impaction - on laxatives - zoster recommendations: - repeat henriquez-cultures if temp >100.4F - contact precautions for probable zoster - monitor Pt off systemic antibiotics (Pt completed 2 week course of vancomycin and pip/tazo on 11/04/2016) - management explained to Pt's mother Problems: Consultation Date/Type/Reason Admit Date/Time October 21, 2016 at 18:19 Initial Consult Date 10/23/16 Type of Consultation: Infectious Disease Exam/Review of Systems Vital Signs Vitals Vital Signs Date Time Temp Pulse Resp B/P Pulse Ox O2 Delivery O2 Flow Rate FiO2 11/11/16 07:26 98.3 82 18 103/67 96 Intake and Output 11/10/16 11/10/16 11/11/16 15:00 23:00 07:00 Intake Total 1000 ml 1720 ml 720 ml Output Total 2750 ml 1000 ml Balance 1000 ml -1030 ml -280 ml Exam Constitutional: alert, oriented, well developed Psych: nl mood/affect, no complaints Head: atraumatic, normocephalic ENMT: nl external ears & nose, nl lips & teeth, nl nasal mucosa & septum Neck: non-tender, supple Respiratory: clear to auscultation, normal air movement Cardiovascular: nl pulses, regular rate and rhythm Gastrointestinal: nl liver, spleen, non-tender, soft Results Result Diagram: 11/11/16 0505 11/11/16 0505 Results 24 hrs Laboratory Tests Test 11/11/16 05:05 White Blood Count 8.1 Red Blood Count 3.66 L Hemoglobin 10.5 L Hematocrit 33.3 L Mean Corpuscular Volume 91.0 Mean Corpuscular Hemoglobin 28.7 L Mean Corpuscular Hemoglobin Concent 31.5 L Red Cell Distribution Width 12.8 Platelet Count 282 Mean Platelet Volume 12.0 H Neutrophils % 56.2 Lymphocytes % 27.1 Monocytes % 9.8 Eosinophils % 5.1 Basophils % 0.7 Nucleated Red Blood Cells % 0.0 Neutrophils # 4.6 Lymphocytes # 2.2 Monocytes # 0.8 Eosinophils # 0.4 Basophils # 0.1 Nucleated Red Blood Cells # 0.0 Sodium Level 147 H Potassium Level 4.1 Chloride Level 108 Carbon Dioxide Level 26 Anion Gap 17 H Blood Urea Nitrogen 11 Creatinine 0.66 Glucose Level 84 Calcium Level 9.6 Medications Medications Current Medications Acetaminophen (Tylenol Tab) 500 mg Q4H PRN PO PAIN AND OR ELEVATED TEMP; Start 10/21/16 at 22:00 Morphine Sulfate (morphine) 2 mg Q4H PRN IV PAIN LEVEL 4-7 Last administered on 11/04/16 04:41; Admin Dose 2 MG; Start 10/21/16 at 22:00 Enoxaparin Sodium (Lovenox) 30 mg DAILY SC Last administered on 11/11/16 11:53 ; Admin Dose 30 MG; Start 10/22/16 at 09:00 Ondansetron HCl (Zofran Inj) 4 mg Q4H PRN IV NAUSEA AND/OR VOMITING Last administered on 11/09/16 13:49; Admin Dose 4 MG; Start 10/21/16 at 22:00 Miscellaneous Information (Pending [facility] Order For Wound Care) This patient webb... PRN PRN XX WOUND CARE; Start 10/22/16 at 01:30 Sertraline HCl (Zoloft) 100 mg DAILY PO Last administered on 11/11/16 09:22; Admin Dose 100 MG; Start 10/23/16 at 09:00 Trazodone HCl (Desyrel) 75 mg QHS PO Last administered on 11/10/16 21:41; Admin Dose 75 MG; Start 10/22/16 at 21:00 Baclofen 10 mg 10 mg TID PRN PO SPASM; Start 10/22/16 at 16:30 Potassium Chloride/Dextrose/ Sod Cl (D5-1/2ns + KCl 20 Meq) 1,000 ml @ 70 mls/ hr [id number] IV Last administered on 11/11/16 00:56; Admin Dose 70 MLS/HR; Start 10/23/16 at 17:00 Zinc Sulfate (Zinc Sulfate) 220 mg DAILY PO Last administered on 11/11/16 09:22 ; Admin Dose 220 MG; Start 10/25/16 at 09:00 Ascorbic Acid (Vitamin C) 500 mg DAILY PO Last administered on 11/11/16 09:22; Admin Dose 500 MG; Start 10/25/16 at 09:00 Lactobacillus Acidophilus/ Rhamnosus (Culturelle) 1 cap BID PO Last administered on 11/11/16 09:22; Admin Dose 1 CAP; Start 10/26/16 at 09:00 Mineral Oil (Fleet Mineral Oil Enema) 133 ml BID [place] Last administered on 09:00; Admin Dose 133 ML; Start 10/29/16 at 21:00 Sodium Hypochlorite (Dakin'S (06/12 Strength)) 1 applic AM IRR Last administered on 11/11/16 09:26; Admin Dose 1 APPLIC; Start 11/01/16 at 09:00 Docusate Sodium (Colace Liquid Cup) 300 mg DAILY PO Last administered on 09:26; Admin Dose 300 MG; Start 11/02/16 at 14:00 Mineral Oil (Mineral Oil) 30 ml BID PO Last administered on 11/11/16 09:21; Admin Dose 30 ML; Start 11/03/16 at 21:00 Metoclopramide HCl (Reglan) 10 mg BID IV Last administered on 11/11/16 09:21; Admin Dose 10 MG; Start 11/03/16 at 21:00 Nystatin (Nystatin Powder) 1 applic BID TOP Last administered on 11/11/16 09:23 ; Admin Dose 1 APPLIC; Start 11/07/16 at 13:00 Collagenase (Santyl) 1 applic QHS TOP Last administered on 11/10/16 21:42; Admin Dose 1 APPLIC; Start 11/07/16 at 21:00 Acyclovir (Zovirax) 800 mg TID PO Last administered on 11/11/16 09:22; Admin Dose 800 MG; Start 11/08/16 at 21:00; Stop 11/16/16 at 20:59 Multivitamins (Thera-Plus) 5 ml DAILY GTB Last administered on 11/11/16 09:22; Admin Dose 5 ML; Start 11/10/16 at 09:00 Ferrous Sulfate (Feosol Liquid Cup) 300 mg BID PO Last administered on 09:22; Admin Dose 300 MG; Start 11/09/16 at 21:00 ROHAN CHENG MD Nov 11, 2016 18:46
--- NOTE | 2016-11-11 19:42 | PN ---
Date/Time of Note Date/Time of Note DATE: 11/11/16 TIME: 19:40 Assessment/Plan VTE Prophylaxis VTE Prophylaxis Intervention: SCD's Lines/Catheters [facility] Peripheral IV Urinary Cath still in place: Yes Reason Cath still needed: urinary retention Assessment/Plan Chief Complaint/Hosp Course Patient looks comfortable, no acute events overnight, pending G-tube placement upon or availability. Assessment and plan: - Sacral decubitus. Continue current wound care. Dr. Murphy is following patient in general surgery consultation. Plan for diverting colostomy. - Hereditary spastic paraplegia. Continue to assist patient with activities of daily living. - Urinary tract infection. Dr. Memo garcía is following in infection disease consultation. Completed the course of antibiotics for UTI and wound infection. - Bilateral malleolus wound, continue current wound care. - Depression, continue Zoloft - Dysphagia, continue dysphagia diet, nutritional supplements and vitamins. Dr. Underwood is following in gastroenterology consultation. plan for G-tube placement upon or availability. - Protein calorie malnutrition is evidence of prealbumin 13 Further recommendations based on clinical course. Plan of care discussed with Dr. Gibbs. Problems: Exam/Review of Systems Vital Signs Vitals Vital Signs Date Time Temp Pulse Resp B/P Pulse Ox O2 Delivery O2 Flow Rate FiO2 11/11/16 07:26 98.3 82 18 103/67 96 Intake and Output 11/10/16 11/10/16 11/11/16 15:00 23:00 07:00 Intake Total 1000 ml 1720 ml 720 ml Output Total 2750 ml 1000 ml Balance 1000 ml -1030 ml -280 ml Exam Constitutional: alert, oriented Head: atraumatic, normocephalic Neck: non-tender, supple Respiratory: clear to auscultation, normal air movement Cardiovascular: nl pulses Gastrointestinal: non-tender, soft Genitourinary - Female: other (Eaton catheter) Musculoskeletal: muscle weakness, other (Contracted) Extremities: normal pulses Neurological: nl mental status Skin: other (Sacral decubitus) Results Result Diagram: 11/11/16 0505 11/11/16 0505 Results 24 hrs Laboratory Tests Test 11/11/16 05:05 White Blood Count 8.1 Red Blood Count 3.66 L Hemoglobin 10.5 L Hematocrit 33.3 L Mean Corpuscular Volume 91.0 Mean Corpuscular Hemoglobin 28.7 L Mean Corpuscular Hemoglobin Concent 31.5 L Red Cell Distribution Width 12.8 Platelet Count 282 Mean Platelet Volume 12.0 H Neutrophils % 56.2 Lymphocytes % 27.1 Monocytes % 9.8 Eosinophils % 5.1 Basophils % 0.7 Nucleated Red Blood Cells % 0.0 Neutrophils # 4.6 Lymphocytes # 2.2 Monocytes # 0.8 Eosinophils # 0.4 Basophils # 0.1 Nucleated Red Blood Cells # 0.0 Sodium Level 147 H Potassium Level 4.1 Chloride Level 108 Carbon Dioxide Level 26 Anion Gap 17 H Blood Urea Nitrogen 11 Creatinine 0.66 Glucose Level 84 Calcium Level 9.6 Medications Medications Current Medications Acetaminophen (Tylenol Tab) 500 mg Q4H PRN PO PAIN AND OR ELEVATED TEMP; Start 10/21/16 at 22:00 Morphine Sulfate (morphine) 2 mg Q4H PRN IV PAIN LEVEL 4-7 Last administered on 11/04/16 04:41; Admin Dose 2 MG; Start 10/21/16 at 22:00 Enoxaparin Sodium (Lovenox) 30 mg DAILY SC Last administered on 11/11/16 11:53 ; Admin Dose 30 MG; Start 10/22/16 at 09:00 Ondansetron HCl (Zofran Inj) 4 mg Q4H PRN IV NAUSEA AND/OR VOMITING Last administered on 11/09/16 13:49; Admin Dose 4 MG; Start 10/21/16 at 22:00 Miscellaneous Information (Pending [facility] Order For Wound Care) This patient webb... PRN PRN XX WOUND CARE; Start 10/22/16 at 01:30 Sertraline HCl (Zoloft) 100 mg DAILY PO Last administered on 11/11/16 09:22; Admin Dose 100 MG; Start 10/23/16 at 09:00 Trazodone HCl (Desyrel) 75 mg QHS PO Last administered on 11/10/16 21:41; Admin Dose 75 MG; Start 10/22/16 at 21:00 Baclofen 10 mg 10 mg TID PRN PO SPASM; Start 10/22/16 at 16:30 Potassium Chloride/Dextrose/ Sod Cl (D5-1/2ns + KCl 20 Meq) 1,000 ml @ 70 mls/ hr [id number] IV Last administered on 11/11/16 00:56; Admin Dose 70 MLS/HR; Start 10/23/16 at 17:00 Zinc Sulfate (Zinc Sulfate) 220 mg DAILY PO Last administered on 11/11/16 09:22 ; Admin Dose 220 MG; Start 10/25/16 at 09:00 Ascorbic Acid (Vitamin C) 500 mg DAILY PO Last administered on 11/11/16 09:22; Admin Dose 500 MG; Start 10/25/16 at 09:00 Lactobacillus Acidophilus/ Rhamnosus (Culturelle) 1 cap BID PO Last administered on 11/11/16 09:22; Admin Dose 1 CAP; Start 10/26/16 at 09:00 Mineral Oil (Fleet Mineral Oil Enema) 133 ml BID [place] Last administered on 09:00; Admin Dose 133 ML; Start 10/29/16 at 21:00 Sodium Hypochlorite (Dakin'S (1/4 Strength)) 1 applic AM IRR Last administered on 11/11/16 09:26; Admin Dose 1 APPLIC; Start 11/01/16 at 09:00 Docusate Sodium (Colace Liquid Cup) 300 mg DAILY PO Last administered on 09:26; Admin Dose 300 MG; Start 11/02/16 at 14:00 Mineral Oil (Mineral Oil) 30 ml BID PO Last administered on 11/11/16 09:21; Admin Dose 30 ML; Start 11/03/16 at 21:00 Metoclopramide HCl (Reglan) 10 mg BID IV Last administered on 11/11/16 09:21; Admin Dose 10 MG; Start 11/03/16 at 21:00 Nystatin (Nystatin Powder) 1 applic BID TOP Last administered on 11/11/16 09:23 ; Admin Dose 1 APPLIC; Start 11/07/16 at 13:00 Collagenase (Santyl) 1 applic QHS TOP Last administered on 11/10/16 21:42; Admin Dose 1 APPLIC; Start 11/07/16 at 21:00 Acyclovir (Zovirax) 800 mg TID PO Last administered on 11/11/16 09:22; Admin Dose 800 MG; Start 11/08/16 at 21:00; Stop 11/16/16 at 20:59 Multivitamins (Thera-Plus) 5 ml DAILY GTB Last administered on 11/11/16 09:22; Admin Dose 5 ML; Start 11/10/16 at 09:00 Ferrous Sulfate (Feosol Liquid Cup) 300 mg BID PO Last administered on 09:22; Admin Dose 300 MG; Start 11/09/16 at 21:00 LEI YEBOAH Nov 11, 2016 19:42
[2016-11-11 20:11] VITALS: BP 140/68; RESP 18
--- NOTE | 2016-11-11 20:31 | CONS ---
Date/Time of Note Date/Time of Note DATE: 11/11/16 TIME: 20:29 Assessment/Plan Assessment/Plan Additional Assessment/Plan IMPRESSION: 1. Sacral decubitus. 2. Hereditary spastic paraplegia. 3. Depression. 4. Dysphagia. 5. Malnutrition. 6. Urinary tract infection. Plan PEG on Friday,discussed with family and wants to defer PEG had face to face discussion with mother and family friend Consultation Date/Type/Reason Admit Date/Time October 21, 2016 at 18:19 Initial Consult Date 10/23/16 Type of Consultation: Infectious Disease 24 HR Interval Summary Constitutional: no complaints Exam/Review of Systems Vital Signs Vitals Vital Signs Date Time Temp Pulse Resp B/P Pulse Ox O2 Delivery O2 Flow Rate FiO2 11/11/16 20:11 98.0 114 18 140/68 96 Intake and Output 11/10/16 11/10/16 11/11/16 15:00 23:00 07:00 Intake Total 1000 ml 1720 ml 720 ml Output Total 2750 ml 1000 ml Balance 1000 ml -1030 ml -280 ml Exam Constitutional: alert, oriented, well developed Psych: nl mood/affect, no complaints Head: atraumatic, normocephalic Eyes: EOMI, PERRL, nl conjunctiva, nl lids, nl sclera ENMT: nl external ears & nose, nl lips & teeth, nl nasal mucosa & septum Neck: non-tender, supple Respiratory: clear to auscultation, normal air movement Cardiovascular: nl pulses, regular rate and rhythm Gastrointestinal: nl liver, spleen, non-tender, soft Musculoskeletal: nl extremities to inspection, nl gait and stance Extremities: normal pulses Neurological: CABLE [employer] TECH[employer]ICIAN II-XII intact, nl mental status, nl speech, nl strength Skin: nl turgor, No rash or lesions Lymph: nl lymph nodes Results Result Diagram: 11/11/16 0505 11/11/16 0505 Results 24 hrs Laboratory Tests Test 11/11/16 05:05 White Blood Count 8.1 Red Blood Count 3.66 L Hemoglobin 10.5 L Hematocrit 33.3 L Mean Corpuscular Volume 91.0 Mean Corpuscular Hemoglobin 28.7 L Mean Corpuscular Hemoglobin Concent 31.5 L Red Cell Distribution Width 12.8 Platelet Count 282 Mean Platelet Volume 12.0 H Neutrophils % 56.2 Lymphocytes % 27.1 Monocytes % 9.8 Eosinophils % 5.1 Basophils % 0.7 Nucleated Red Blood Cells % 0.0 Neutrophils # 4.6 Lymphocytes # 2.2 Monocytes # 0.8 Eosinophils # 0.4 Basophils # 0.1 Nucleated Red Blood Cells # 0.0 Sodium Level 147 H Potassium Level 4.1 Chloride Level 108 Carbon Dioxide Level 26 Anion Gap 17 H Blood Urea Nitrogen 11 Creatinine 0.66 Glucose Level 84 Calcium Level 9.6 Medications Medications Current Medications Acetaminophen (Tylenol Tab) 500 mg Q4H PRN PO PAIN AND OR ELEVATED TEMP; Start 10/21/16 at 22:00 Morphine Sulfate (morphine) 2 mg Q4H PRN IV PAIN LEVEL 4-7 Last administered on 11/04/16 04:41; Admin Dose 2 MG; Start 10/21/16 at 22:00 Enoxaparin Sodium (Lovenox) 30 mg DAILY SC Last administered on 11/11/16 11:53 ; Admin Dose 30 MG; Start 10/22/16 at 09:00 Ondansetron HCl (Zofran Inj) 4 mg Q4H PRN IV NAUSEA AND/OR VOMITING Last administered on 11/09/16 13:49; Admin Dose 4 MG; Start 10/21/16 at 22:00 Miscellaneous Information (Pending [facility] Order For Wound Care) This patient webb... PRN PRN XX WOUND CARE; Start 10/22/16 at 01:30 Sertraline HCl (Zoloft) 100 mg DAILY PO Last administered on 11/11/16 09:22; Admin Dose 100 MG; Start 10/23/16 at 09:00 Trazodone HCl (Desyrel) 75 mg QHS PO Last administered on 11/10/16 21:41; Admin Dose 75 MG; Start 10/22/16 at 21:00 Baclofen 10 mg 10 mg TID PRN PO SPASM; Start 10/22/16 at 16:30 Potassium Chloride/Dextrose/ Sod Cl (D5-1/2ns + KCl 20 Meq) 1,000 ml @ 70 mls/ hr [id number] IV Last administered on 11/11/16 00:56; Admin Dose 70 MLS/HR; Start 10/23/16 at 17:00 Zinc Sulfate (Zinc Sulfate) 220 mg DAILY PO Last administered on 11/11/16 09:22 ; Admin Dose 220 MG; Start 10/25/16 at 09:00 Ascorbic Acid (Vitamin C) 500 mg DAILY PO Last administered on 11/11/16 09:22; Admin Dose 500 MG; Start 10/25/16 at 09:00 Lactobacillus Acidophilus/ Rhamnosus (Culturelle) 1 cap BID PO Last administered on 11/11/16 09:22; Admin Dose 1 CAP; Start 10/26/16 at 09:00 Mineral Oil (Fleet Mineral Oil Enema) 133 ml BID [place] Last administered on 09:00; Admin Dose 133 ML; Start 10/29/16 at 21:00 Sodium Hypochlorite (Dakin'S (06/12 Strength)) 1 applic AM IRR Last administered on 11/11/16:; Admin Dose 1 APPLIC; Start 11/01/16 at 09:00 Docusate Sodium (Colace Liquid Cup) 300 mg DAILY PO Last administered on 09:26; Admin Dose 300 MG; Start 11/02/16 at 14:00 Mineral Oil (Mineral Oil) 30 ml BID PO Last administered on 11/11/16 09:21; Admin Dose 30 ML; Start 11/03/16 at 21:00 Metoclopramide HCl (Reglan) 10 mg BID IV Last administered on 11/11/16 09:21; Admin Dose 10 MG; Start 11/03/16 at 21:00 Nystatin (Nystatin Powder) 1 applic BID TOP Last administered on 11/11/16 09:23 ; Admin Dose 1 APPLIC; Start 11/07/16 at 13:00 Collagenase (Santyl) 1 applic QHS TOP Last administered on 11/10/16 21:42; Admin Dose 1 APPLIC; Start 11/07/16 at 21:00 Acyclovir (Zovirax) 800 mg TID PO Last administered on 11/11/16 09:22; Admin Dose 800 MG; Start 11/08/16 at 21:00; Stop 11/16/16 at 20:59 Multivitamins (Thera-Plus) 5 ml DAILY GTB Last administered on 11/11/16 09:22; Admin Dose 5 ML; Start 11/10/16 at 09:00 Ferrous Sulfate (Feosol Liquid Cup) 300 mg BID PO Last administered on 09:22; Admin Dose 300 MG; Start 11/09/16 at 21:00 SAKINA BEACH MD Nov 11, 2016 20:31
[2016-11-11] MEDS: traZODone 50 MG TAB PO SCH (21:38)
[2016-11-11] MEDS: COLLAGENASE 30 GM TUBE TOP SCH (21:41)
[2016-11-12 06:56] LABS: CALCIUM 9.2 mg/dl (8.4-10.2); CREATININE 0.62 mg/dl (0.44-1.00); POTASSIUM 4.5 mmol/L (3.5-5.1)
--- NOTE | 2016-11-12 07:11 | PN ---
DATE: 11/11/2016 SUBJECTIVE: No new complaints. OBJECTIVE: GENERAL: Patient is awake, alert, semi-sitting position. VITAL SIGNS: Temperature 98.3, heart rate 82, respirations 18, blood pressure 103/67, saturation 96% room air. LABORATORY DATA: WBC 8100 with 86% neutrophils, hemoglobin 10.5, hematocrit 33.3. Sodium 147, potassium 4.1, normal potassium, BUN, creatinine normal. He has had 1 bowel movement since last night. Abdomen is soft. ASSESSMENT AND PLAN: The patient with urinary tract infection and sacrococcygeal decubitus ulcers secondary to paraplegia, was admitted and treated for urinary tract infection and necrotic sacrococcygeal wound. Patient has very poor intake. There has been a lot of discussion between us and the patient's family. Eventually today they accepted to have a percutaneous G-tube insertion and that is going to be done per report . after that we are going to give bowel prep and will proceed with placement of a diverting colostomy to prevent further soiling of the sacrococcygeal wound with stool.. Dictated By: SCOOBY DRUMMOND/CHRISTIAN Conf#: [id number] DID#: [id number] MTDD
[2016-11-12 07:46] VITALS: BP 103/64; RESP 18
[2016-11-12] MEDS: ASCORBIC ACID 500 MG TAB PO SCH (08:55)
[2016-11-12] MEDS: ACYCLOVIR 800 MG TAB PO SCH ×3 (08:55→22:19)
[2016-11-12] MEDS: SERTRALINE 100 MG TAB PO SCH (08:55)
[2016-11-12] MEDS: LACTOBACILLUS RHAMNOSUS CAP PO SCH ×2 (08:55→22:19)
[2016-11-12] MEDS: DOCUSATE SODIUM 10 MG/ML (10ML CUP) PO SCH (08:56)
[2016-11-12] MEDS: MULTIVITAMINS 5 ML CUP GTB SCH ×2 (08:56→09:00)
[2016-11-12] MEDS: FERROUS SULFATE 60 MG/ML 5ML CUP PO SCH ×2 (08:56→22:19)
[2016-11-12] MEDS: METOCLOPRAMIDE 10 MG INJ IV SCH ×2 (08:56→22:19)
[2016-11-12] MEDS: ZINC SULFATE 220 MG CAP PO SCH (08:56)
[2016-11-12] MEDS: MINERAL OIL 30ML CUP PO SCH ×2 (08:56→22:19)
[2016-11-12] MEDS: ENOXAPARIN 30 MG/0.3 ML SYG SC SCH (09:10)
[2016-11-12] MEDS: NYSTATIN 30 GM POWDER BTL TOP SCH ×2 (10:47→22:20)
[2016-11-12] MEDS: SODIUM HYPOCHLORITE 0.125% 473 ML BTL IRR SCH (10:47)
[2016-11-12] MEDS: MINERAL OIL 133 ML ENEMA PR SCH ×2 (10:47→21:00)
--- NOTE | 2016-11-12 16:25 | CONS ---
Date/Time of Note Date/Time of Note DATE: 11/12/16 TIME: 16:22 Assessment/Plan Assessment/Plan Chief Complaint/Hosp Course - s/p early sepsis due to sacral decub infection - mild leukocytosis and tachycardia resolved - Sacral decubitus ulcer with polymicrobial infection; wound Cx grew E. Coli, Proteus, CoNS, and Leuconostoc; ESR 30; Sacral x-ray no e/o OM. Pt completed an empiric 2 week course of IV vanc and pip/tazo - UTI due to lactobacillus - Bacteremia due to CoNS - Hereditary spastic paraplegia - Depression - Normocytic anemia - Dysphagia - Feeder with decreased appetite; calorie count completed with avg 961 kcal/day and 26g protein/day - family declines G tube - stool impaction - on laxatives - zoster recommendations: - repeat henriquez-cultures if temp >100.4F - monitor Pt off systemic antibiotics (Pt completed 2 week course of vancomycin and pip/tazo on 11/04/2016) - management explained to Pt's mother Problems: Consultation Date/Type/Reason Admit Date/Time October 21, 2016 at 18:19 Initial Consult Date 10/23/16 Type of Consultation: Infectious Disease 24 HR Interval Summary Free Text/Dictation d/w nursing Exam/Review of Systems Vital Signs Vitals Vital Signs Date Time Temp Pulse Resp B/P Pulse Ox O2 Delivery O2 Flow Rate FiO2 11/12/16 07:46 97.5 75 18 103/64 97 Intake and Output 11/11/16 11/11/16 11/12/16 14:59 22:59 06:59 Intake Total 490 ml 1260 ml 600 ml Output Total 1000 ml 600 ml Balance 490 ml 260 ml 0 ml Exam Constitutional: alert, oriented, well developed Psych: nl mood/affect, no complaints Eyes: EOMI, PERRL, nl conjunctiva, nl lids, nl sclera Neck: non-tender, supple Respiratory: clear to auscultation, normal air movement Cardiovascular: nl pulses, regular rate and rhythm Gastrointestinal: nl liver, spleen, non-tender, soft Extremities: other (rash crusted/ healing, confined to axilla.) Results Result Diagram: 11/11/16 0505 11/12/16 0616 Results 24 hrs Laboratory Tests Test 11/12/16 06:16 Sodium Level 143 Potassium Level 4.5 Chloride Level 107 Carbon Dioxide Level 25 Anion Gap 16 Blood Urea Nitrogen 11 Creatinine 0.62 Glucose Level 94 Calcium Level 9.2 Medications Medications Current Medications Acetaminophen (Tylenol Tab) 500 mg Q4H PRN PO PAIN AND OR ELEVATED TEMP; Start 10/21/16 at 22:00 Morphine Sulfate (morphine) 2 mg Q4H PRN IV PAIN LEVEL 4-7 Last administered on 11/04/16 04:41; Admin Dose 2 MG; Start 10/21/16 at 22:00 Enoxaparin Sodium (Lovenox) 30 mg DAILY SC Last administered on 11/12/16 09:10 ; Admin Dose 30 MG; Start 10/22/16 at 09:00 Ondansetron HCl (Zofran Inj) 4 mg Q4H PRN IV NAUSEA AND/OR VOMITING Last administered on 11/09/16 13:49; Admin Dose 4 MG; Start 10/21/16 at 22:00 [facility] This patient webb... PRN PRN XX WOUND CARE; Start 10/22/16 at 01:30 Sertraline HCl (Zoloft) 100 mg DAILY PO Last administered on 11/12/16 08:55; Admin Dose 100 MG; Start 10/23/16 at 09:00 Trazodone HCl (Desyrel) 75 mg QHS PO Last administered on 11/11/16 21:38; Admin Dose 75 MG; Start 10/22/16 at 21:00 Baclofen 10 mg 10 mg TID PRN PO SPASM; Start 10/22/16 at 16:30 Potassium Chloride/Dextrose/ Sod Cl (D5-1/2ns + KCl 20 Meq) 1,000 ml @ 70 mls/ hr [id number] IV Last administered on 11/11/16 23:00; Admin Dose 70 MLS/HR; Start 10/23/16 at 17:00 Zinc Sulfate (Zinc Sulfate) 220 mg DAILY PO Last administered on 11/12/16 08:56 ; Admin Dose 220 MG; Start 10/25/16 at 09:00 Ascorbic Acid (Vitamin C) 500 mg DAILY PO Last administered on 11/12/16 08:55; Admin Dose 500 MG; Start 10/25/16 at 09:00 Lactobacillus Acidophilus/ Rhamnosus (Culturelle) 1 cap BID PO Last administered on 11/12/16 08:55; Admin Dose 1 CAP; Start 10/26/16 at 09:00 Mineral Oil (Fleet Mineral Oil Enema) 133 ml BID [place] Last administered on 10:47; Admin Dose 133 ML; Start 10/29/16 at 21:00 Sodium Hypochlorite (Dakin'S (1/4 Strength)) 1 applic AM IRR Last administered on 11/12/16 10:47; Admin Dose 1 APPLIC; Start 11/01/16 at 09:00 Docusate Sodium (Colace Liquid Cup) 300 mg DAILY PO Last administered on 08:56; Admin Dose 300 MG; Start 11/02/16 at 14:00 Mineral Oil (Mineral Oil) 30 ml BID PO Last administered on 11/12/16 08:56; Admin Dose 30 ML; Start 11/03/16 at 21:00 Metoclopramide HCl (Reglan) 10 mg BID IV Last administered on 11/12/16 08:56; Admin Dose 10 MG; Start 11/03/16 at 21:00 Nystatin (Nystatin Powder) 1 applic BID TOP Last administered on 11/12/16 10:47 ; Admin Dose 1 APPLIC; Start 11/07/16 at 13:00 Collagenase (Santyl) 1 applic QHS TOP Last administered on 11/11/16 21:41; Admin Dose 1 APPLIC; Start 11/07/16 at 21:00 Acyclovir (Zovirax) 800 mg TID PO Last administered on 11/12/16 16:03; Admin Dose 800 MG; Start 11/08/16 at 21:00; Stop 11/16/16 at 20:59 Multivitamins (Thera-Plus) 5 ml DAILY GTB Last administered on 11/11/16 09:22; Admin Dose 5 ML; Start 11/10/16 at 09:00 Ferrous Sulfate (Feosol Liquid Cup) 300 mg BID PO Last administered on 08:56; Admin Dose 300 MG; Start 11/09/16 at 21:00 ROHAN CHENG MD Nov 12, 2016 16:25
--- NOTE | 2016-11-12 18:14 | PN ---
DATE: 11/12/2016 SUBJECTIVE: No new complaints. OBJECTIVE: GENERAL: Awake, alert, not much of verbal communication. Actually, the patient has difficulty talk ing and speaking, but her eyes are open and follows commands. VITAL SIGNS: Temperature 97.5, heart rate 75, respirations 18, blood pressure 103/64, saturation 97 % on room air. ABDOMEN: Soft. LABORATORY DATA: Sodium, potassium, BUN, creatinine within normal limits. WBC was not done today. The patient has had 4 small bowel movements today. ASSESSMENT: The patient with degenerative spastic hereditary paraplegia with bedsores, sacrococcyg eal infected, necrotic. Was admitted for management, was found to have urinary tract infection. U rinary tract infection has been treated with antibiotics for 2 weeks. Stopped the antibiotics now. We have been trying to also clear her colon from severely impacted stool in the rectum and descendi ng colon. We have been successful to some extent. The patient's calorie and protein intake is not adequate, so recommendation has been to put PEG eventually, and the family has agreed. I assume th at tomorrow, Friday, she is going to have it done but apparently nobody has signed the consent ye t. PLAN: After the patient receives PEG, G-tube feeding, then we will start to clean and clear the bow el completely and after complete bowel prep, we are going to proceed with diverting colostomy for th is patient next week, hopefully. Dictated By: SCOOBY LAL MD PS/NTS Conf#: [id number] DID#: [id number]
[2016-11-12] MEDS: D5W-0.45 NACL + KCL 20 MEQ 1,000 ML IV SCH ×2 (18:34→23:12)
--- NOTE | 2016-11-12 18:58 | PN ---
Date/Time of Note Date/Time of Note DATE: 11/12/16 TIME: 18:57 Assessment/Plan VTE Prophylaxis VTE Prophylaxis Intervention: SCD's Lines/Catheters IV Catheter Type (from Nrs): Saline Lock Urinary Cath still in place: Yes Reason Cath still needed: urinary retention Assessment/Plan Chief Complaint/Hosp Course No acute events overnight, PEG procedure is deferred Assessment and plan: - Sacral decubitus. Continue current wound care. Dr. Murphy is following patient in general surgery consultation. Plan for diverting colostomy. - Hereditary spastic paraplegia. Continue to assist patient with activities of daily living. - Urinary tract infection. Dr. Memo garcía is following in infection disease consultation. Completed the course of antibiotics for UTI and wound infection. - Bilateral malleolus wound, continue current wound care. - Depression, continue Zoloft - Dysphagia, continue dysphagia diet, nutritional supplements and vitamins. Dr. Underwood is following in gastroenterology consultation. - Protein calorie malnutrition is evidence of prealbumin 13 Further recommendations based on clinical course. Plan of care discussed with Dr. Gibbs. Problems: Exam/Review of Systems Vital Signs Vitals Vital Signs Date Time Temp Pulse Resp B/P Pulse Ox O2 Delivery O2 Flow Rate FiO2 11/12/16 07:46 97.5 75 18 103/64 97 Intake and Output 11/11/16 11/11/16 11/12/16 15:00 23:00 07:00 Intake Total 490 ml 1260 ml 600 ml Output Total 1000 ml 600 ml Balance 490 ml 260 ml 0 ml Exam Constitutional: alert, oriented Head: atraumatic, normocephalic Neck: non-tender, supple Respiratory: clear to auscultation, normal air movement Cardiovascular: nl pulses Gastrointestinal: non-tender, soft Genitourinary - Female: other (Eaton catheter) Musculoskeletal: muscle weakness, other (Contracted) Extremities: normal pulses Neurological: nl mental status Skin: other (Sacral decubitus) Results Result Diagram: 11/11/16 0505 11/12/16 0616 Results 24 hrs Laboratory Tests Test 11/12/16 06:16 Sodium Level 143 Potassium Level 4.5 Chloride Level 107 Carbon Dioxide Level 25 Anion Gap 16 Blood Urea Nitrogen 11 Creatinine 0.62 Glucose Level 94 Calcium Level 9.2 Medications Medications Current Medications Acetaminophen (Tylenol Tab) 500 mg Q4H PRN PO PAIN AND OR ELEVATED TEMP; Start 10/21/16 at 22:00 Morphine Sulfate (morphine) 2 mg Q4H PRN IV PAIN LEVEL 4-7 Last administered on 11/04/16 04:41; Admin Dose 2 MG; Start 10/21/16 at 22:00 Enoxaparin Sodium (Lovenox) 30 mg DAILY SC Last administered on 11/12/16 09:10 ; Admin Dose 30 MG; Start 10/22/16 at 09:00 Ondansetron HCl (Zofran Inj) 4 mg Q4H PRN IV NAUSEA AND/OR VOMITING Last administered on 11/09/16 13:49; Admin Dose 4 MG; Start 10/21/16 at 22:00 Miscellaneous Information ([facility]) This patient webb... PRN PRN XX WOUND CARE; Start 10/22/16 at 01:30 Sertraline HCl (Zoloft) 100 mg DAILY PO Last administered on 11/12/16 08:55; Admin Dose 100 MG; Start 10/23/16 at 09:00 Trazodone HCl (Desyrel) 75 mg QHS PO Last administered on 11/11/16 21:38; Admin Dose 75 MG; Start 10/22/16 at 21:00 Baclofen 10 mg 10 mg TID PRN PO SPASM; Start 10/22/16 at 16:30 Potassium Chloride/Dextrose/ Sod Cl (D5-1/2ns + KCl 20 Meq) 1,000 ml @ 70 mls/ hr [id number] IV Last administered on 11/12/16 18:34; Admin Dose 70 MLS/HR; Start 10/23/16 at 17:00 Zinc Sulfate (Zinc Sulfate) 220 mg DAILY PO Last administered on 11/12/16 08:56 ; Admin Dose 220 MG; Start 10/25/16 at 09:00 Ascorbic Acid (Vitamin C) 500 mg DAILY PO Last administered on 11/12/16 08:55; Admin Dose 500 MG; Start 10/25/16 at 09:00 Lactobacillus Acidophilus/ Rhamnosus (Culturelle) 1 cap BID PO Last administered on 11/12/16 08:55; Admin Dose 1 CAP; Start 10/26/16 at 09:00 Mineral Oil (Fleet Mineral Oil Enema) 133 ml BID [place] Last administered on 10:47; Admin Dose 133 ML; Start 10/29/16 at 21:00 Sodium Hypochlorite (Dakin'S (1/4 Strength)) 1 applic AM IRR Last administered on 11/12/16 10:47; Admin Dose 1 APPLIC; Start 11/01/16 at 09:00 Docusate Sodium (Colace Liquid Cup) 300 mg DAILY PO Last administered on 08:56; Admin Dose 300 MG; Start 11/02/16 at 14:00 Mineral Oil (Mineral Oil) 30 ml BID PO Last administered on 11/12/16 08:56; Admin Dose 30 ML; Start 11/03/16 at 21:00 Metoclopramide HCl (Reglan) 10 mg BID IV Last administered on 11/12/16 08:56; Admin Dose 10 MG; Start 11/03/16 at 21:00 Nystatin (Nystatin Powder) 1 applic BID TOP Last administered on 11/12/16 10:47 ; Admin Dose 1 APPLIC; Start 11/07/16 at 13:00 Collagenase (Santyl) 1 applic QHS TOP Last administered on 11/11/16 21:41; Admin Dose 1 APPLIC; Start 11/07/16 at 21:00 Acyclovir (Zovirax) 800 mg TID PO Last administered on 11/12/16 16:03; Admin Dose 800 MG; Start 11/08/16 at 21:00; Stop 11/16/16 at 20:59 Multivitamins (Thera-Plus) 5 ml DAILY GTB Last administered on 11/11/16 09:22; Admin Dose 5 ML; Start 11/10/16 at 09:00 Ferrous Sulfate (Feosol Liquid Cup) 300 mg BID PO Last administered on 08:56; Admin Dose 300 MG; Start 11/09/16 at 21:00 LEI YEBOAH Nov 12, 2016 18:58
[2016-11-12 19:55] VITALS: BP 118/67; RESP 18
[2016-11-12] MEDS: traZODone 50 MG TAB PO SCH (22:19)
[2016-11-12] MEDS: COLLAGENASE 30 GM TUBE TOP SCH (22:21)
--- NOTE | 2016-11-12 22:36 | CONS ---
Date/Time of Note Date/Time of Note DATE: 11/12/16 TIME: 22:35 Assessment/Plan Assessment/Plan Additional Assessment/Plan Additional Assessment/Plan IMPRESSION: 1. Sacral decubitus. 2. Hereditary spastic paraplegia. 3. Depression. 4. Dysphagia. 5. Malnutrition. 6. Urinary tract infection. Plan PEG on Friday,discussed with family and wants to defer PEG had face to face discussion with mother Consultation Date/Type/Reason Admit Date/Time October 21, 2016 at 18:19 Initial Consult Date 10/23/16 Type of Consultation: Infectious Disease 24 HR Interval Summary Constitutional: improved Exam/Review of Systems Vital Signs Vitals Vital Signs Date Time Temp Pulse Resp B/P Pulse Ox O2 Delivery O2 Flow Rate FiO2 11/12/16 19:55 98.3 106 18 118/67 97 Intake and Output 11/11/16 11/11/16 11/12/16 15:00 23:00 07:00 Intake Total 490 ml 1260 ml 600 ml Output Total 1000 ml 600 ml Balance 490 ml 260 ml 0 ml Exam Constitutional: alert, oriented, well developed Psych: nl mood/affect, no complaints Head: atraumatic, normocephalic Eyes: EOMI, PERRL, nl conjunctiva, nl lids, nl sclera ENMT: nl external ears & nose, nl lips & teeth, nl nasal mucosa & septum Neck: non-tender, supple Respiratory: clear to auscultation, normal air movement Cardiovascular: nl pulses, regular rate and rhythm Gastrointestinal: nl liver, spleen, non-tender, soft Musculoskeletal: nl extremities to inspection, nl gait and stance Extremities: normal pulses Neurological: INFORMATION DIRECTOR II-XII intact, nl mental status, nl speech, nl strength Skin: nl turgor, No rash or lesions Lymph: nl lymph nodes Results Result Diagram: 11/11/16 0505 11/12/16 0616 Results 24 hrs Laboratory Tests Test 11/12/16 06:16 Sodium Level 143 Potassium Level 4.5 Chloride Level 107 Carbon Dioxide Level 25 Anion Gap 16 Blood Urea Nitrogen 11 Creatinine 0.62 Glucose Level 94 Calcium Level 9.2 Medications Medications Current Medications Acetaminophen (Tylenol Tab) 500 mg Q4H PRN PO PAIN AND OR ELEVATED TEMP; Start 10/21/16 at 22:00 Morphine Sulfate (morphine) 2 mg Q4H PRN IV PAIN LEVEL 4-7 Last administered on 11/04/16 04:41; Admin Dose 2 MG; Start 10/21/16 at 22:00 Enoxaparin Sodium (Lovenox) 30 mg DAILY SC Last administered on 11/12/16 09:10 ; Admin Dose 30 MG; Start 10/22/16 at 09:00 Ondansetron HCl (Zofran Inj) 4 mg Q4H PRN IV NAUSEA AND/OR VOMITING Last administered on 11/09/16 13:49; Admin Dose 4 MG; Start 10/21/16 at 22:00 Miscellaneous Information (Pending Santyl Order For Wound Care) This patient webb... PRN PRN XX WOUND CARE; Start 10/22/16 at 01:30 Sertraline HCl (Zoloft) 100 mg DAILY PO Last administered on 11/12/16 08:55; Admin Dose 100 MG; Start 10/23/16 at 09:00 Trazodone HCl (Desyrel) 75 mg QHS PO Last administered on 11/12/16 22:19; Admin Dose 75 MG; Start 10/22/16 at 21:00 Baclofen 10 mg 10 mg TID PRN PO SPASM; Start 10/22/16 at 16:30 Potassium Chloride/Dextrose/ Sod Cl (D5-1/2ns + KCl 20 Meq) 1,000 ml @ 70 mls/ hr [id number] IV Last administered on 11/12/16 18:34; Admin Dose 70 MLS/HR; Start 10/23/16 at 17:00 Zinc Sulfate (Zinc Sulfate) 220 mg DAILY PO Last administered on 11/12/16 08:56 ; Admin Dose 220 MG; Start 10/25/16 at 09:00 Ascorbic Acid (Vitamin C) 500 mg DAILY PO Last administered on 11/12/16 08:55; Admin Dose 500 MG; Start 10/25/16 at 09:00 Lactobacillus Acidophilus/ Rhamnosus (Culturelle) 1 cap BID PO Last administered on 11/12/16 22:19; Admin Dose 1 CAP; Start 10/26/16 at 09:00 Mineral Oil (Fleet Mineral Oil Enema) 133 ml BID [place] Last administered on 21:00; Admin Dose 133 ML; Start 10/29/16 at 21:00 Sodium Hypochlorite (Dakin'S (1/4 Strength)) 1 applic AM IRR Last administered on 11/12/16 10:47; Admin Dose 1 APPLIC; Start 11/01/16 at 09:00 Docusate Sodium (Colace Liquid Cup) 300 mg DAILY PO Last administered on 08:56; Admin Dose 300 MG; Start 11/02/16 at 14:00 Mineral Oil (Mineral Oil) 30 ml BID PO Last administered on 11/12/16 22:19; Admin Dose 30 ML; Start 11/03/16 at 21:00 Metoclopramide HCl (Reglan) 10 mg BID IV Last administered on 11/12/16 22:19; Admin Dose 10 MG; Start 11/03/16 at 21:00 Nystatin (Nystatin Powder) 1 applic BID TOP Last administered on 11/12/16 22:20 ; Admin Dose 1 APPLIC; Start 11/07/16 at 13:00 Collagenase (Santyl) 1 applic QHS TOP Last administered on 11/12/16 22:21; Admin Dose 1 APPLIC; Start 11/07/16 at 21:00 Acyclovir (Zovirax) 800 mg TID PO Last administered on 11/12/16 22:19; Admin Dose 800 MG; Start 11/08/16 at 21:00; Stop 11/16/16 at 20:59 Multivitamins (Thera-Plus) 5 ml DAILY GTB Last administered on 11/11/16 09:22; Admin Dose 5 ML; Start 11/10/16 at 09:00 Ferrous Sulfate (Feosol Liquid Cup) 300 mg BID PO Last administered on 22:19; Admin Dose 300 MG; Start 11/09/16 at 21:00 SAKINA BEACH MD Nov 12, 2016 22:36
[2016-11-13 07:28] VITALS: BP 98/58; RESP 16
[2016-11-13 07:45] LABS: ADD SCAN DIFF NO
[2016-11-13 07:50] LABS: BASOPHIL # 0.1 10^3/ul (0.0-0.1); EOSINOPHILS # 0.4 10^3/ul (0.0-0.5); EOSINOPHILS % 4.7 % (0.0-7.0); HEMATOCRIT 34.5 % (37.0-47.0); HEMOGLOBIN 11.4 g/dl (12.0-16.0); LYMPHOCYTES # 2.1 10^3/ul (0.8-2.9); LYMPHOCYTES % 26.4 % (15.0-51.0); MEAN CORPUSCULAR HEMOGLOBIN 29.3 pg (29.0-33.0); MEAN CORPUSCULAR VOLUME 88.7 fl (82.0-101.0); MEAN PLATELET VOLUME 11.5 fl (7.4-10.4); MONOCYTE # 0.7 10^3/ul (0.3-0.9); MONOCYTES % 8.6 % (0.0-11.0); NEUTROPHIL # 4.6 10^3/ul (1.6-7.5); NEUTROPHILS % 58.2 % (39.0-77.0); PLATELET COUNT 313 10^3/UL (140-415); RED BLOOD COUNT 3.89 10^6/ul (4.20-5.40); RED CELL DISTRIBUTION WIDTH 12.7 % (11.5-14.5); WHITE BLOOD COUNT 7.9 10^3/ul (4.8-10.8)
[2016-11-13 08:20] LABS: CREATININE 0.64 mg/dl (0.44-1.00); POTASSIUM 4.2 mmol/L (3.5-5.1)
[2016-11-13] MEDS: ZINC SULFATE 220 MG CAP PO SCH (08:48)
[2016-11-13] MEDS: METOCLOPRAMIDE 10 MG INJ IV SCH ×2 (08:48→21:28)
[2016-11-13] MEDS: MINERAL OIL 30ML CUP PO SCH (08:48)
[2016-11-13] MEDS: MULTIVITAMINS 5 ML CUP GTB SCH (08:48)
[2016-11-13] MEDS: NYSTATIN 30 GM POWDER BTL TOP SCH ×2 (08:48→21:29)
[2016-11-13] MEDS: LACTOBACILLUS RHAMNOSUS CAP PO SCH ×2 (08:48→21:28)
[2016-11-13] MEDS: FERROUS SULFATE 60 MG/ML 5ML CUP PO SCH ×2 (08:48→21:28)
[2016-11-13] MEDS: ASCORBIC ACID 500 MG TAB PO SCH (08:48)
[2016-11-13] MEDS: DOCUSATE SODIUM 10 MG/ML (10ML CUP) PO SCH (08:48)
[2016-11-13] MEDS: ACYCLOVIR 800 MG TAB PO SCH ×3 (08:48→22:53)
[2016-11-13] MEDS: SERTRALINE 100 MG TAB PO SCH (08:48)
[2016-11-13] MEDS: ENOXAPARIN 30 MG/0.3 ML SYG SC SCH (08:58)
[2016-11-13] MEDS: D5W-0.45 NACL + KCL 20 MEQ 1,000 ML IV SCH (09:57)
[2016-11-13] MEDS: SODIUM HYPOCHLORITE 0.125% 473 ML BTL IRR SCH (11:12)
[2016-11-13] MEDS: MINERAL OIL 133 ML ENEMA PR SCH ×2 (11:12→21:00)
--- NOTE | 2016-11-13 13:59 | PN ---
DATE: 11/13/2016 SUBJECTIVE: No new complaints. OBJECTIVE: GENERAL: Awake, alert, does not appear in acute distress. VITAL SIGNS: Temperature 97.4, heart rate 86, respirations 16, blood pressure 98/58, saturation 93% on room air. ABDOMEN: Soft. LABORATORY DATA: WBC 7.9, hemoglobin 11.4. BUN, creatinine, sodium and potassium are within normal limits. Apparently, the patient has had 4 bowel movements, documented in the charting system. PLAN: The doctors are waiting for the patient's family to sign for the consent for placement of per cutaneous G-tube and following that, to proceed with diverting colostomy for protection of the wound and enhancement of the wound healing in the sacrococcygeal area. Meanwhile, local dressing with Da kin solution every 12 hours and Santyl ointment every 12 hours for the sacrococcygeal wound. Dictated By: SCOOBY LAL MD PS/NTS Conf#: [id number] DID#: [id number]
--- NOTE | 2016-11-13 17:11 | PN ---
Date/Time of Note Date/Time of Note DATE: 11/13/16 TIME: 17:09 Assessment/Plan VTE Prophylaxis VTE Prophylaxis Intervention: SCD's Lines/Catheters IV C[facility]ter Type (from [facility]): Peripheral IV Urinary Cath still in place: Yes Reason Cath still needed: urinary retention Assessment/Plan Chief Complaint/Hosp Course Patient remains stable awake alert, discussed with Dr. Underwood patient's mother refused G-tube placement at this time. Assessment and plan: - Sacral decubitus. Continue current wound care. Dr. Murphy is following patient in general surgery consultation. - Hereditary spastic paraplegia. Continue to assist patient with activities of daily living. - Urinary tract infection. Dr. Memo garcía is following in infection disease consultation. Completed the course of antibiotics for UTI and wound infection. - Bilateral malleolus wound, continue current wound care. - Depression, continue Zoloft - Dysphagia, continue dysphagia diet, nutritional supplements and vitamins. Dr. Underwood is following in gastroenterology consultation. - Protein calorie malnutrition is evidence of prealbumin 13 Further recommendations based on clinical course. Plan of care discussed with Dr. Gibbs. Problems: Exam/Review of Systems Vital Signs Vitals Vital Signs Date Time Temp Pulse Resp B/P Pulse Ox O2 Delivery O2 Flow Rate FiO2 11/13/16 07:28 97.4 86 16 98/58 93 Intake and Output 11/12/16 11/12/16 11/13/16 15:00 23:00 07:00 Intake Total 1220 ml 1280 ml Output Total 1100 ml 1000 ml Balance 120 ml 280 ml Exam Constitutional: alert, oriented Head: atraumatic, normocephalic Neck: non-tender, supple Respiratory: clear to auscultation, normal air movement Cardiovascular: nl pulses Gastrointestinal: non-tender, soft Genitourinary - Female: other (Eaton catheter) Musculoskeletal: muscle weakness, other (Contracted) Extremities: normal pulses Neurological: nl mental status Skin: other (Sacral decubitus) Results Result Diagram: 11/13/1670211/13/16702 Results 24 hrs Laboratory Tests Test 11/13/16 07:03 White Blood Count 7.9 Red Blood Count 3.89 L Hemoglobin 11.4 L Hematocrit 34.5 L Mean Corpuscular Volume 88.7 Mean Corpuscular Hemoglobin 29.3 Mean Corpuscular Hemoglobin Concent 33.0 Red Cell Distribution Width 12.7 Platelet Count 313 Mean Platelet Volume 11.5 H Neutrophils % 58.2 Lymphocytes % 26.4 Monocytes % 8.6 Eosinophils % 4.7 Basophils % 1.0 Nucleated Red Blood Cells % 0.0 Neutrophils # 4.6 Lymphocytes # 2.1 Monocytes # 0.7 Eosinophils # 0.4 Basophils # 0.1 Nucleated Red Blood Cells # 0.0 Sodium Level 145 H Potassium Level 4.2 Chloride Level 108 Carbon Dioxide Level 25 Anion Gap 16 Blood Urea Nitrogen 11 Creatinine 0.64 Glucose Level 100 Calcium Level 10.0 Medications Medications Current Medications Acetaminophen (Tylenol Tab) 500 mg Q4H PRN PO PAIN AND OR ELEVATED TEMP; Start 10/21/16 at 22:00 Morphine Sulfate (morphine) 2 mg Q4H PRN IV PAIN LEVEL 4-7 Last administered on 11/04/16 04:41; Admin Dose 2 MG; Start 10/21/16 at 22:00 Enoxaparin Sodium (Lovenox) 30 mg DAILY SC Last administered on 11/13/16 08:58 ; Admin Dose 30 MG; Start 10/22/16 at 09:00 Ondansetron HCl (Zofran Inj) 4 mg Q4H PRN IV NAUSEA AND/OR VOMITING Last administered on 11/09/16 13:49; Admin Dose 4 MG; Start 10/21/16 at 22:00 Miscellaneous Information (Pending [facility] Order For Wound Care) This patient webb... PRN PRN XX WOUND CARE; Start 10/22/16 at 01:30 Sertraline HCl (Zoloft) 100 mg DAILY PO Last administered on 11/13/16 08:48; Admin Dose 100 MG; Start 10/23/16 at 09:00 Trazodone HCl (Desyrel) 75 mg QHS PO Last administered on 11/12/16 22:19; Admin Dose 75 MG; Start 10/22/16 at 21:00 Baclofen 10 mg 10 mg TID PRN PO SPASM; Start 10/22/16 at 16:30 Potassium Chloride/Dextrose/ Sod Cl (D5-1/2ns + KCl 20 Meq) 1,000 ml @ 70 mls/ hr [id number] IV Last administered on 11/13/16 09:57; Admin Dose 70 MLS/HR; Start 10/23/16 at 17:00 Zinc Sulfate (Zinc Sulfate) 220 mg DAILY PO Last administered on 11/13/16 08:48 ; Admin Dose 220 MG; Start 10/25/16 at 09:00 Ascorbic Acid (Vitamin C) 500 mg DAILY PO Last administered on 11/13/16 08:48; Admin Dose 500 MG; Start 10/25/16 at 09:00 Lactobacillus Acidophilus/ Rhamnosus (Culturelle) 1 cap BID PO Last administered on 11/13/16 08:48; Admin Dose 1 CAP; Start 10/26/16 at 09:00 Mineral Oil (Fleet Mineral Oil Enema) 133 ml BID [place] Last administered on 11:12; Admin Dose 133 ML; Start 10/29/16 at 21:00 Sodium Hypochlorite (Dakin'S (1/4 Strength)) 1 applic AM IRR Last administered on 11/13/16 11:12; Admin Dose 1 APPLIC; Start 11/01/16 at 09:00 Docusate Sodium (Colace Liquid Cup) 300 mg DAILY PO Last administered on 08:48; Admin Dose 300 MG; Start 11/02/16 at 14:00 Mineral Oil (Mineral Oil) 30 ml BID PO Last administered on 11/13/16 08:48; Admin Dose 30 ML; Start 11/03/16 at 21:00 Metoclopramide HCl (Reglan) 10 mg BID IV Last administered on 11/13/16 08:48; Admin Dose 10 MG; Start 11/03/16 at 21:00 Nystatin (Nystatin Powder) 1 applic BID TOP Last administered on 11/13/16 08:48 ; Admin Dose 1 APPLIC; Start 11/07/16 at 13:00 Collagenase (Santyl) 1 applic QHS TOP Last administered on 11/12/16 22:21; Admin Dose 1 APPLIC; Start 11/07/16 at 21:00 Acyclovir (Zovirax) 800 mg TID PO Last administered on 11/13/16 08:48; Admin Dose 800 MG; Start 11/08/16 at 21:00; Stop 11/16/16 at 20:59 Multivitamins (Thera-Plus) 5 ml DAILY GTB Last administered on 11/13/16 08:48; Admin Dose 5 ML; Start 11/10/16 at 09:00 Ferrous Sulfate (Feosol Liquid Cup) 300 mg BID PO Last administered on t 08:48; Admin Dose 300 MG; Start 11/09/16 at 21:00 LEI YEBOAH Nov 13, 2016 17:11
--- NOTE | 2016-11-13 17:17 | CONS ---
Date/Time of Note Date/Time of Note DATE: 11/13/16 TIME: 16:58 Consult Date/Type/Reason Admit Date/Time October 21, 2016 at 18:19 Initial Consult Date 10/23/16 Type of Consultation: Infectious Disease Subjective Patient is nonverbal & nonresponsive to commands Objective Vital Signs Date Time Temp Pulse Resp B/P Pulse Ox O2 Delivery O2 Flow Rate FiO2 11/13/16 07:28 97.4 86 16 98/58 93 Intake and Output 11/12/16 11/12/16 11/13/16 15:00 23:00 07:00 Intake Total 1220 ml 1280 ml Output Total 1100 ml 1000 ml Balance 120 ml 280 ml Exam Constitutional: frail female lying in bed in no acute distress Psych: flat affect Eyes: EOMI, nl conjunctiva Neck: supple Respiratory: clear to auscultation, normal air movement Cardiovascular: palpable pulses, regular rate and rhythm, no edema Gastrointestinal: nl liver, spleen, non-tender, soft Extremities: multiple decubitus ulcers and DTI (please see nurses notes for details) Neurology: awake and nonverbal, unable to follow commands Results/Medications Result Diagram: 11/13/16 0703 11/13/16 0703 Results 24 hrs Laboratory Tests Test 11/13/16 07:03 White Blood Count 7.9 Red Blood Count 3.89 L Hemoglobin 11.4 L Hematocrit 34.5 L Mean Corpuscular Volume 88.7 Mean Corpuscular Hemoglobin 29.3 Mean Corpuscular Hemoglobin Concent 33.0 Red Cell Distribution Width 12.7 Platelet Count 313 Mean Platelet Volume 11.5 H Neutrophils % 58.2 Lymphocytes % 26.4 Monocytes % 8.6 Eosinophils % 4.7 Basophils % 1.0 Nucleated Red Blood Cells % 0.0 Neutrophils # 4.6 Lymphocytes # 2.1 Monocytes # 0.7 Eosinophils # 0.4 Basophils # 0.1 Nucleated Red Blood Cells # 0.0 Sodium Level 145 H Potassium Level 4.2 Chloride Level 108 Carbon Dioxide Level 25 Anion Gap 16 Blood Urea Nitrogen 11 Creatinine 0.64 Glucose Level 100 Calcium Level 10.0 Medications Current Medications Acetaminophen (Tylenol Tab) 500 mg Q4H PRN PO PAIN AND OR ELEVATED TEMP; Start 10/21/16 at 22:00 Morphine Sulfate (morphine) 2 mg Q4H PRN IV PAIN LEVEL 4-7 Last administered on 11/04/16 04:41; Admin Dose 2 MG; Start 10/21/16 at 22:00 Enoxaparin Sodium (Lovenox) 30 mg DAILY SC Last administered on 11/13/16 08:58 ; Admin Dose 30 MG; Start 10/22/16 at 09:00 Ondansetron HCl (Zofran Inj) 4 mg Q4H PRN IV NAUSEA AND/OR VOMITING Last administered on 11/09/16 13:49; Admin Dose 4 MG; Start 10/21/16 at 22:00 Miscellaneous Information (Pending Santyl Order For Wound Care) This patient webb... PRN PRN XX WOUND CARE; Start 10/22/16 at 01:30 Sertraline HCl (Zoloft) 100 mg DAILY PO Last administered on 11/13/16 08:48; Admin Dose 100 MG; Start 10/23/16 at 09:00 Trazodone HCl (Desyrel) 75 mg QHS PO Last administered on 11/12/16 22:19; Admin Dose 75 MG; Start 10/22/16 at 21:00 Baclofen 10 mg 10 mg TID PRN PO SPASM; Start 10/22/16 at 16:30 Potassium Chloride/Dextrose/ Sod Cl (D5-1/2ns + KCl 20 Meq) 1,000 ml @ 70 mls/ hr [id number] IV Last administered on 11/13/16 09:57; Admin Dose 70 MLS/HR; Start 10/23/16 at 17:00 Zinc Sulfate (Zinc Sulfate) 220 mg DAILY PO Last administered on 11/13/16 08:48 ; Admin Dose 220 MG; Start 10/25/16 at 09:00 Ascorbic Acid (Vitamin C) 500 mg DAILY PO Last administered on 11/13/16 08:48; Admin Dose 500 MG; Start 10/25/16 at 09:00 Lactobacillus Acidophilus/ Rhamnosus (Culturelle) 1 cap BID PO Last administered on 11/13/16 08:48; Admin Dose 1 CAP; Start 10/26/16 at 09:00 Mineral Oil (Fleet Mineral Oil Enema) 133 ml BID [place] Last administered on 11:12; Admin Dose 133 ML; Start 10/29/16 at 21:00 Sodium Hypochlorite (Dakin'S (1/4 Strength)) 1 applic AM IRR Last administered on 11/13/16 11:12; Admin Dose 1 APPLIC; Start 11/01/16 at 09:00 Docusate Sodium (Colace Liquid Cup) 300 mg DAILY PO Last administered on 08:48; Admin Dose 300 MG; Start 11/02/16 at 14:00 Mineral Oil (Mineral Oil) 30 ml BID PO Last administered on 11/13/16 08:48; Admin Dose 30 ML; Start 11/03/16 at 21:00 Metoclopramide HCl (Reglan) 10 mg BID IV Last administered on 11/13/16 08:48; Admin Dose 10 MG; Start 11/03/16 at 21:00 Nystatin (Nystatin Powder) 1 applic BID TOP Last administered on 11/13/16 08:48 ; Admin Dose 1 APPLIC; Start 11/07/16 at 13:00 Collagenase (Santyl) 1 applic QHS TOP Last administered on 11/12/16 22:21; Admin Dose 1 APPLIC; Start 11/07/16 at 21:00 Acyclovir (Zovirax) 800 mg TID PO Last administered on 11/13/16 08:48; Admin Dose 800 MG; Start 11/08/16 at 21:00; Stop 11/16/16 at 20:59 Multivitamins (Thera-Plus) 5 ml DAILY GTB Last administered on 11/13/16 08:48; Admin Dose 5 ML; Start 11/10/16 at 09:00 Ferrous Sulfate (Feosol Liquid Cup) 300 mg BID PO Last administered on 08:48; Admin Dose 300 MG; Start 11/09/16 at 21:00 Assessment/Plan Chief Complaint/Hosp Course - s/p early sepsis due to sacral decub infection - mild leukocytosis and tachycardia resolved - Sacral decubitus ulcer with polymicrobial infection; wound Cx grew E. Coli, Proteus, CoNS, and Leuconostoc; ESR 30; Sacral x-ray no e/o OM. Pt completed an empiric 2 week course of IV vanc and pip/tazo - UTI due to lactobacillus - Bacteremia due to CoNS - Hereditary spastic paraplegia - Depression - Normocytic anemia - Dysphagia - Feeder with decreased appetite; calorie count completed with avg 961 kcal/day and 26g protein/day - family declines G tube - stool impaction - on laxatives - zoster - Awaiting parent to signing consent for Percutaneous G-tube placement then proceed with diverting colostomy to enhance sacral wound healing and protection recommendations: - repeat henriquez-cultures if temp >100.4F - monitor Pt off systemic antibiotics (Pt completed 2 week course of vancomycin and pip/tazo on 11/04/2016) Care and management discussed with BRENDA Leon and Dr. Hampton Problems: JOMAR GARNICA Nov 13, 2016 17:09
[2016-11-13 20:00] VITALS: BP 112/74; RESP 18
--- NOTE | 2016-11-13 20:36 | CONS ---
Date/Time of Note Date/Time of Note DATE: 11/13/16 TIME: 20:31 Assessment/Plan Assessment/Plan Additional Assessment/Plan IMPRESSION: 1. Sacral decubitus. 2. Hereditary spastic paraplegia. 3. Depression. 4. Dysphagia. 5. Malnutrition. 6. Urinary tract infection. Plan PEG on Friday,discussed with family and wants to defer PEG had face to face discussion with mother PEG once consent is signed Consultation Date/Type/Reason Admit Date/Time October 21, 2016 at 18:19 Initial Consult Date 10/23/16 Type of Consultation: Infectious Disease 24 HR Interval Summary Constitutional: no complaints Exam/Review of Systems Vital Signs Vitals Vital Signs Date Time Temp Pulse Resp B/P Pulse Ox O2 Delivery O2 Flow Rate FiO2 11/13/16 07:28 97.4 86 16 98/58 93 Intake and Output 11/12/16 11/12/16 11/13/16 15:00 23:00 07:00 Intake Total 1220 ml 1280 ml Output Total 1100 ml 1000 ml Balance 120 ml 280 ml Exam Constitutional: alert, oriented, well developed Psych: nl mood/affect, no complaints Head: atraumatic, normocephalic Eyes: EOMI, PERRL, nl conjunctiva, nl lids, nl sclera ENMT: nl external ears & nose, nl lips & teeth, nl nasal mucosa & septum Neck: non-tender, supple Respiratory: clear to auscultation, normal air movement Cardiovascular: nl pulses, regular rate and rhythm Gastrointestinal: nl liver, spleen, non-tender, soft Musculoskeletal: nl extremities to inspection, nl gait and stance Extremities: normal pulses Neurological: [employer] II-XII intact, nl mental status, nl speech, nl strength Skin: nl turgor, No rash or lesions Lymph: nl lymph nodes Results Result Diagram: 11/13/16 0703 11/13/16 0703 Results 24 hrs Laboratory Tests Test 11/13/16 07:03 White Blood Count 7.9 Red Blood Count 3.89 L Hemoglobin 11.4 L Hematocrit 34.5 L Mean Corpuscular Volume 88.7 Mean Corpuscular Hemoglobin 29.3 Mean Corpuscular Hemoglobin Concent 33.0 Red Cell Distribution Width 12.7 Platelet Count 313 Mean Platelet Volume 11.5 H Neutrophils % 58.2 Lymphocytes % 26.4 Monocytes % 8.6 Eosinophils % 4.7 Basophils % 1.0 Nucleated Red Blood Cells % 0.0 Neutrophils # 4.6 Lymphocytes # 2.1 Monocytes # 0.7 Eosinophils # 0.4 Basophils # 0.1 Nucleated Red Blood Cells # 0.0 Sodium Level 145 H Potassium Level 4.2 Chloride Level 108 Carbon Dioxide Level 25 Anion Gap 16 Blood Urea Nitrogen 11 Creatinine 0.64 Glucose Level 100 Calcium Level 10.0 Medications Medications Current Medications Acetaminophen (Tylenol Tab) 500 mg Q4H PRN PO PAIN AND OR ELEVATED TEMP; Start 10/21/16 at 22:00 Morphine Sulfate (morphine) 2 mg Q4H PRN IV PAIN LEVEL 4-7 Last administered on 11/04/16 04:41; Admin Dose 2 MG; Start 10/21/16 at 22:00 Enoxaparin Sodium (Lovenox) 30 mg DAILY SC Last administered on 11/13/16 08:58 ; Admin Dose 30 MG; Start 10/22/16 at 09:00 Ondansetron HCl (Zofran Inj) 4 mg Q4H PRN IV NAUSEA AND/OR VOMITING Last administered on 11/09/16 13:49; Admin Dose 4 MG; Start 10/21/16 at 22:00 Miscellaneous Information (Pending Santyl Order For Wound Care) This patient webb... PRN PRN XX WOUND CARE; Start 10/22/16 at 01:30 Sertraline HCl (Zoloft) 100 mg DAILY PO Last administered on 11/13/16 08:48; Admin Dose 100 MG; Start 10/23/16 at 09:00 Trazodone HCl (Desyrel) 75 mg QHS PO Last administered on 11/12/16 22:19; Admin Dose 75 MG; Start 10/22/16 at 21:00 Baclofen 10 mg 10 mg TID PRN PO SPASM; Start 10/22/16 at 16:30 Potassium Chloride/Dextrose/ Sod Cl (D5-1/2ns + KCl 20 Meq) 1,000 ml @ 70 mls/ hr [id number] IV Last administered on 11/13/16 09:57; Admin Dose 70 MLS/HR; Start 10/23/16 at 17:00 Zinc Sulfate (Zinc Sulfate) 220 mg DAILY PO Last administered on 11/13/16 08:48 ; Admin Dose 220 MG; Start 10/25/16 at 09:00 Ascorbic Acid (Vitamin C) 500 mg DAILY PO Last administered on 11/13/16 08:48; Admin Dose 500 MG; Start 10/25/16 at 09:00 Lactobacillus Acidophilus/ Rhamnosus (Culturelle) 1 cap BID PO Last administered on 11/13/16 08:48; Admin Dose 1 CAP; Start 10/26/16 at 09:00 Mineral Oil (Fleet Mineral Oil Enema) 133 ml BID [place] Last administered on 11:12; Admin Dose 133 ML; Start 10/29/16 at 21:00 Sodium Hypochlorite (Dakin'S (1/4 Strength)) 1 applic AM IRR Last administered on 11/13/16 11:12; Admin Dose 1 APPLIC; Start 11/01/16 at 09:00 Docusate Sodium (Colace Liquid Cup) 300 mg DAILY PO Last administered on 08:48; Admin Dose 300 MG; Start 11/02/16 at 14:00 Metoclopramide HCl (Reglan) 10 mg BID IV Last administered on 11/13/16 08:48; Admin Dose 10 MG; Start 11/03/16 at 21:00 Nystatin (Nystatin Powder) 1 applic BID TOP Last administered on 11/13/16 08:48 ; Admin Dose 1 APPLIC; Start 11/07/16 at 13:00 Collagenase (Santyl) 1 applic QHS TOP Last administered on 11/12/16 22:21; Admin Dose 1 APPLIC; Start 11/07/16 at 21:00 Acyclovir (Zovirax) 800 mg TID PO Last administered on 11/13/16 13:00; Admin Dose 800 MG; Start 11/08/16 at 21:00; Stop 11/16/16 at 20:59 Multivitamins (Thera-Plus) 5 ml DAILY GTB Last administered on 11/13/16 08:48; Admin Dose 5 ML; Start 11/10/16 at 09:00 Ferrous Sulfate (Feosol Liquid Cup) 300 mg BID PO Last administered on 08:48; Admin Dose 300 MG; Start 11/09/16 at 21:00 SAKINA BEACH MD Nov 13, 2016 20:36
[2016-11-13] MEDS: traZODone 50 MG TAB PO SCH (21:28)
[2016-11-13] MEDS: COLLAGENASE 30 GM TUBE TOP SCH (21:30)
[2016-11-14] MEDS: D5W-0.45 NACL + KCL 20 MEQ 1,000 ML IV SCH ×2 (03:48→09:02)
[2016-11-14 07:29] VITALS: BP 113/70; RESP 18
[2016-11-14 07:29] LABS: ADD SCAN DIFF NO
[2016-11-14 07:33] LABS: BASOPHIL # 0.1 10^3/ul (0.0-0.1); EOSINOPHILS # 0.5 10^3/ul (0.0-0.5); EOSINOPHILS % 5.7 % (0.0-7.0); HEMATOCRIT 34.2 % (37.0-47.0); HEMOGLOBIN 10.9 g/dl (12.0-16.0); LYMPHOCYTES % 24.2 % (15.0-51.0); MEAN CORPUSCULAR HEMOGLOBIN 28.9 pg (29.0-33.0); MEAN CORPUSCULAR HGB CONC 31.9 g/dl (32.0-37.0); MEAN CORPUSCULAR VOLUME 90.7 fl (82.0-101.0); MEAN PLATELET VOLUME 11.2 fl (7.4-10.4); MONOCYTE # 0.7 10^3/ul (0.3-0.9); MONOCYTES % 8.3 % (0.0-11.0); NEUTROPHIL # 4.9 10^3/ul (1.6-7.5); NEUTROPHILS % 59.2 % (39.0-77.0); PLATELET COUNT 288 10^3/UL (140-415); RED BLOOD COUNT 3.77 10^6/ul (4.20-5.40); RED CELL DISTRIBUTION WIDTH 12.8 % (11.5-14.5); WHITE BLOOD COUNT 8.3 10^3/ul (4.8-10.8)
[2016-11-14 07:49] LABS: CALCIUM 9.9 mg/dl (8.4-10.2); CREATININE 0.67 mg/dl (0.44-1.00); POTASSIUM 4.2 mmol/L (3.5-5.1)
[2016-11-14] MEDS: MINERAL OIL 133 ML ENEMA PR SCH ×2 (09:00→21:40)
[2016-11-14] MEDS: SODIUM HYPOCHLORITE 0.125% 473 ML BTL IRR SCH (09:03)
[2016-11-14] MEDS: NYSTATIN 30 GM POWDER BTL TOP SCH ×2 (09:04→21:36)
[2016-11-14] MEDS: METOCLOPRAMIDE 10 MG INJ IV SCH ×2 (10:24→21:40)
[2016-11-14] MEDS: ENOXAPARIN 30 MG/0.3 ML SYG SC SCH (10:36)
[2016-11-14] MEDS: ZINC SULFATE 220 MG CAP PO SCH (12:41)
[2016-11-14] MEDS: ACYCLOVIR 800 MG TAB PO SCH ×3 (12:41→21:36)
[2016-11-14] MEDS: ASCORBIC ACID 500 MG TAB PO SCH (12:41)
[2016-11-14] MEDS: LACTOBACILLUS RHAMNOSUS CAP PO SCH ×2 (12:41→21:35)
[2016-11-14] MEDS: SERTRALINE 100 MG TAB PO SCH (12:41)
[2016-11-14] MEDS: FERROUS SULFATE 60 MG/ML 5ML CUP PO SCH ×2 (12:42→21:35)
[2016-11-14] MEDS: DOCUSATE SODIUM 10 MG/ML (10ML CUP) PO SCH (12:42)
[2016-11-14] MEDS: MULTIVITAMINS 5 ML CUP GTB SCH (12:42)
--- NOTE | 2016-11-14 15:00 | PN ---
DATE: 11/14/2016 SUBJECTIVE: No new events, no complaint. OBJECTIVE: GENERAL: The patient is somewhat sitting in bed, smiling a little bit. VITAL SIGNS: Temperature 97.8, heart rate 79, respirations 18, blood pressure 110/70, saturation 96% on room air. ABDOMEN: Soft. SKIN: Sacrococcygeal wound granulating gradually. Being locally treated with Santyl and also Dakin solution. LABORATORY DATA: WBC 8300 with 69% segmented, hemoglobin 10.9, hematocrit 33. BUN, creatinine, sodium and potassium within normal limits. Per documentation on the chart, the patient has had 2 small bowel movements today. ASSESSMENT AND PLAN: Apparently the plan is for the GI colleague to put percutaneous gastrostomy tube and the family apparently have agreed with that and they signed the consent ____. After that, we will clean the bowels of the remaining stool in the colon and rectum and then proceed with placement of diverting colostomy for the patient. Dictated By: SCOOBY DRUMMOND/CHRISTIAN Conf#: [id number] DID#: [id number] LITTLE
--- NOTE | 2016-11-14 16:03 | PN ---
Date/Time of Note Date/Time of Note DATE: 11/14/16 TIME: 16:00 Assessment/Plan VTE Prophylaxis VTE Prophylaxis Intervention: SCD's Lines/Catheters IV [facility]ter [facility] (from [facility]): Peripheral IV Urinary Cath still in place: Yes Assessment/Plan Assessment/Plan - Sacral decubitus. Continue current wound care. Dr. Murphy is following patient in general surgery consultation. - Hereditary spastic paraplegia. Continue to assist patient with activities of daily living. - Urinary tract infection. Dr. Memo garcía is following in infection disease consultation. Completed the course of antibiotics for UTI and wound infection. - Bilateral malleolus wound, continue current wound care. - Depression, continue Zoloft - Dysphagia, continue dysphagia diet, nutritional supplements and vitamins. Dr. Underwood is following in gastroenterology consultation. - consent is signed by parent - Possible PEG placement tomorrow - Protein calorie malnutrition is evidence of prealbumin 13 Further recommendations based on clinical course. Plan of care discussed with Dr. Gibbs. Subjective 24 Hr Interval Summary Free Text/Dictation awake alert, discussed with Dr. Underwood- patient's parent signed consent for G- tube placement at this time. no new issues reported. dw staff Respiratory: no complaints Cardiovascular: no complaints Exam/Review of Systems Vital Signs Vitals Vital Signs Date Time Temp Pulse Resp B/P Pulse Ox O2 Delivery O2 Flow Rate FiO2 11/14/16 07:29 97.8 79 18 113/70 96 Intake and Output 11/13/16 11/13/16 11/14/16 15:00 23:00 07:00 Intake Total 665 ml 360 ml 980 ml Output Total 1000 ml 500 ml Balance 665 ml -640 ml 480 ml Exam Constitutional: alert Respiratory: clear to auscultation, normal air movement Cardiovascular: nl pulses, regular rate and rhythm Gastrointestinal: non-tender, soft Musculoskeletal: muscle weakness Extremities: normal pulses Neurological: other Skin: other Lymph: nontender Results Result Diagram: 11/14/16 0710 11/14/16 0709 Results 24 hrs Laboratory Tests Test 11/14/16 07:09 11/14/16 07:10 Sodium Level 143 Potassium Level 4.2 Chloride Level 105 Carbon Dioxide Level 26 Anion Gap 16 Blood Urea Nitrogen 11 Creatinine 0.67 Glucose Level 90 Calcium Level 9.9 White Blood Count 8.3 Red Blood Count 3.77 L Hemoglobin 10.9 L Hematocrit 34.2 L Mean Corpuscular Volume 90.7 Mean Corpuscular Hemoglobin 28.9 L Mean Corpuscular Hemoglobin Concent 31.9 L Red Cell Distribution Width 12.8 Platelet Count 288 Mean Platelet Volume 11.2 H Neutrophils % 59.2 Lymphocytes % 24.2 Monocytes % 8.3 Eosinophils % 5.7 Basophils % 1.0 Nucleated Red Blood Cells % 0.0 Neutrophils # 4.9 Lymphocytes # 2.0 Monocytes # 0.7 Eosinophils # 0.5 Basophils # 0.1 Nucleated Red Blood Cells # 0.0 Medications Medications Current Medications Acetaminophen (Tylenol Tab) 500 mg Q4H PRN PO PAIN AND OR ELEVATED TEMP; Start 10/21/16 at 22:00 Morphine Sulfate (morphine) 2 mg Q4H PRN IV PAIN LEVEL 4-7 Last administered on 11/04/16 04:41; Admin Dose 2 MG; Start 10/21/16 at 22:00 Enoxaparin Sodium (Lovenox) 30 mg DAILY SC Last administered on 11/14/16 10:36 ; Admin Dose 30 MG; Start 10/22/16 at 09:00 Ondansetron HCl (Zofran Inj) 4 mg Q4H PRN IV NAUSEA AND/OR VOMITING Last administered on 11/09/16 13:49; Admin Dose 4 MG; Start 10/21/16 at 22:00 Miscellaneous Information (Pending [facility] Order For Wound Care) This patient webb... PRN PRN XX WOUND CARE; Start 10/22/16 at 01:30 Sertraline HCl (Zoloft) 100 mg DAILY PO Last administered on 11/14/16 12:41; Admin Dose 100 MG; Start 10/23/16 at 09:00 Trazodone HCl (Desyrel) 75 mg QHS PO Last administered on 11/13/16 21:28; Admin Dose 75 MG; Start 10/22/16 at 21:00 Baclofen 10 mg 10 mg TID PRN PO SPASM; Start 10/22/16 at 16:30 Potassium Chloride/Dextrose/ Sod Cl (D5-1/2ns + KCl 20 Meq) 1,000 ml @ 70 mls/ hr [id number] IV Last administered on 11/14/16 09:02; Admin Dose 70 MLS/HR; Start 10/23/16 at 17:00 Zinc Sulfate (Zinc Sulfate) 220 mg DAILY PO Last administered on 11/14/16 12:41 ; Admin Dose 220 MG; Start 10/25/16 at 09:00 Ascorbic Acid (Vitamin C) 500 mg DAILY PO Last administered on 11/14/16 12:41; Admin Dose 500 MG; Start 10/25/16 at 09:00 Lactobacillus Acidophilus/ Rhamnosus (Culturelle) 1 cap BID PO Last administered on 11/14/16 12:41; Admin Dose 1 CAP; Start 10/26/16 at 09:00 Mineral Oil (Fleet Mineral Oil Enema) 133 ml BID [place] Last administered on 09:00; Admin Dose 133 ML; Start 10/29/16 at 21:00 Sodium Hypochlorite (Dakin'S (1/4 Strength)) 1 applic AM IRR Last administered on 11/14/16 09:03; Admin Dose 1 APPLIC; Start 11/01/16 at 09:00 Docusate Sodium (Colace Liquid Cup) 300 mg DAILY PO Last administered on 12:42; Admin Dose 300 MG; Start 11/02/16 at 14:00 Metoclopramide HCl (Reglan) 10 mg BID IV Last administered on 11/14/16 10:24; Admin Dose 10 MG; Start 11/03/16 at 21:00 Nystatin (Nystatin Powder) 1 applic BID TOP Last administered on 11/14/16 09:04 ; Admin Dose 1 APPLIC; Start 11/07/16 at 13:00 Collagenase (Santyl) 1 applic QHS TOP Last administered on 11/13/16 21:30; Admin Dose 1 APPLIC; Start 11/07/16 at 21:00 Acyclovir (Zovirax) 800 mg TID PO Last administered on 11/14/16 12:41; Admin Dose 800 MG; Start 11/08/16 at 21:00; Stop 11/16/16 at 20:59 Multivitamins (Thera-Plus) 5 ml DAILY GTB Last administered on 11/14/16 12:42; Admin Dose 5 ML; Start 11/10/16 at 09:00 Ferrous Sulfate (Feosol Liquid Cup) 300 mg BID PO Last administered on 12:42; Admin Dose 300 MG; Start 11/09/16 at 21:00 CATALINA MCCORD Nov 14, 2016 16:03
[2016-11-14 16:18] LABS: INR 1.06; PROTIME 13.8 Sec (12.2-14.2); PT RATIO 1.1
[2016-11-14 16:19] LABS: PARTIAL THROMBOPLASTIN TIME 31.5 Sec (25.0-35.0)
--- NOTE | 2016-11-14 16:34 | CONS ---
Date/Time of Note Date/Time of Note DATE: 11/14/16 TIME: 16:34 Assessment/Plan Assessment/Plan Chief Complaint/Hosp Course - s/p early sepsis due to sacral decub infection - mild leukocytosis and tachycardia resolved - Sacral decubitus ulcer with polymicrobial infection; wound Cx grew E. Coli, Proteus, CoNS, and Leuconostoc; ESR 30; Sacral x-ray no e/o OM. Pt completed an empiric 2 week course of IV vanc and pip/tazo - UTI due to lactobacillus - Bacteremia due to CoNS - Hereditary spastic paraplegia - Depression - Normocytic anemia - Dysphagia - Feeder with decreased appetite; calorie count completed with avg 961 kcal/day and 26g protein/day - family declines G tube - stool impaction - on laxatives - zoster recommendations: - repeat henriquez-cultures if temp >100.4F - monitor Pt off systemic antibiotics (Pt completed 2 week course of vancomycin and pip/tazo on 11/04/2016) - management explained to Pt's mother Problems: Consultation Date/Type/Reason Admit Date/Time October 21, 2016 at 18:19 Initial Consult Date 10/23/16 Type of Consultation: Infectious Disease Exam/Review of Systems Vital Signs Vitals Vital Signs Date Time Temp Pulse Resp B/P Pulse Ox O2 Delivery O2 Flow Rate FiO2 11/14/16 07:29 97.8 79 18 113/70 96 Intake and Output 11/13/16 11/13/16 11/14/16 15:00 23:00 07:00 Intake Total 665 ml 360 ml 980 ml Output Total 1000 ml 500 ml Balance 665 ml -640 ml 480 ml Results Result Diagram: 11/14/16 0710 11/14/16 0709 Results 24 hrs Laboratory Tests Test 11/14/16 07:09 11/14/16 07:10 11/14/16 15:51 Sodium Level 143 Potassium Level 4.2 Chloride Level 105 Carbon Dioxide Level 26 Anion Gap 16 Blood Urea Nitrogen 11 Creatinine 0.67 Glucose Level 90 Calcium Level 9.9 White Blood Count 8.3 Red Blood Count 3.77 L Hemoglobin 10.9 L Hematocrit 34.2 L Mean Corpuscular Volume 90.7 Mean Corpuscular Hemoglobin 28.9 L Mean Corpuscular Hemoglobin Concent 31.9 L Red Cell Distribution Width 12.8 Platelet Count 288 Mean Platelet Volume 11.2 H Neutrophils % 59.2 Lymphocytes % 24.2 Monocytes % 8.3 Eosinophils % 5.7 Basophils % 1.0 Nucleated Red Blood Cells % 0.0 Neutrophils # 4.9 Lymphocytes # 2.0 Monocytes # 0.7 Eosinophils # 0.5 Basophils # 0.1 Nucleated Red Blood Cells # 0.0 Prothrombin Time 13.8 Prothrombin Time Ratio 1.1 INR International Normalized Ratio 1.06 Activated Partial Thromboplast Time 31.5 Medications Medications Current Medications Acetaminophen (Tylenol Tab) 500 mg Q4H PRN PO PAIN AND OR ELEVATED TEMP; Start 10/21/16 at 22:00 Morphine Sulfate (morphine) 2 mg Q4H PRN IV PAIN LEVEL 4-7 Last administered on 11/04/16 04:41; Admin Dose 2 MG; Start 10/21/16 at 22:00 Enoxaparin Sodium (Lovenox) 30 mg DAILY SC Last administered on 11/14/16 10:36 ; Admin Dose 30 MG; Start 10/22/16 at 09:00 Ondansetron HCl (Zofran Inj) 4 mg Q4H PRN IV NAUSEA AND/OR VOMITING Last administered on 11/09/16 13:49; Admin Dose 4 MG; Start 10/21/16 at 22:00 Miscellaneous Information (Pending [facility] Order For Wound Care) This patient webb... PRN PRN XX WOUND CARE; Start 10/22/16 at 01:30 Sertraline HCl (Zoloft) 100 mg DAILY PO Last administered on 11/14/16 12:41; Admin Dose 100 MG; Start 10/23/16 at 09:00 Trazodone HCl (Desyrel) 75 mg QHS PO Last administered on 11/13/16 21:28; Admin Dose 75 MG; Start 10/22/16 at 21:00 Baclofen 10 mg 10 mg TID PRN PO SPASM; Start 10/22/16 at 16:30 Potassium Chloride/Dextrose/ Sod Cl (D5-1/2ns + KCl 20 Meq) 1,000 ml @ 70 mls/ hr [id number] IV Last administered on 11/14/16 09:02; Admin Dose 70 MLS/HR; Start 10/23/16 at 17:00 Zinc Sulfate (Zinc Sulfate) 220 mg DAILY PO Last administered on 11/14/16 12:41 ; Admin Dose 220 MG; Start 10/25/16 at 09:00 Ascorbic Acid (Vitamin C) 500 mg DAILY PO Last administered on 11/14/16 12:41; Admin Dose 500 MG; Start 10/25/16 at 09:00 Lactobacillus Acidophilus/ Rhamnosus (Culturelle) 1 cap BID PO Last administered on 11/14/16 12:41; Admin Dose 1 CAP; Start 10/26/16 at 09:00 Mineral Oil (Fleet Mineral Oil Enema) 133 ml BID [place] Last administered on 09:00; Admin Dose 133 ML; Start 10/29/16 at 21:00 Sodium Hypochlorite (Dakin'S (1/4 Strength)) 1 applic AM IRR Last administered on 11/14/16 09:03; Admin Dose 1 APPLIC; Start 11/01/16 at 09:00 Docusate Sodium (Colace Liquid Cup) 300 mg DAILY PO Last administered on 12:42; Admin Dose 300 MG; Start 11/02/16 at 14:00 Metoclopramide HCl (Reglan) 10 mg BID IV Last administered on 11/14/16 10:24; Admin Dose 10 MG; Start 11/03/16 at 21:00 Nystatin (Nystatin Powder) 1 applic BID TOP Last administered on 11/14/16 09:04 ; Admin Dose 1 APPLIC; Start 11/07/16 at 13:00 Collagenase (Santyl) 1 applic QHS TOP Last administered on 11/13/16 21:30; Admin Dose 1 APPLIC; Start 11/07/16 at 21:00 Acyclovir (Zovirax) 800 mg TID PO Last administered on 11/14/16 12:41; Admin Dose 800 MG; Start 11/08/16 at 21:00; Stop 11/16/16 at 20:59 Multivitamins (Thera-Plus) 5 ml DAILY GTB Last administered on 11/14/16 12:42; Admin Dose 5 ML; Start 11/10/16 at 09:00 Ferrous Sulfate (Feosol Liquid Cup) 300 mg BID PO Last administered on 12:42; Admin Dose 300 MG; Start 11/09/16 at 21:00 ROHAN CHENG MD Nov 14, 2016 16:34
[2016-11-14 20:00] VITALS: BP 115/62; RESP 16
[2016-11-14] MEDS: traZODone 50 MG TAB PO SCH (21:35)
[2016-11-14] MEDS: COLLAGENASE 30 GM TUBE TOP SCH (21:36)
--- NOTE | 2016-11-14 22:27 | CONS ---
Date/Time of Note Date/Time of Note DATE: 11/14/16 TIME: 22:26 Assessment/Plan Assessment/Plan Additional Assessment/Plan Additional Assessment/Plan IMPRESSION: 1. Sacral decubitus. 2. Hereditary spastic paraplegia. 3. Depression. 4. Dysphagia. 5. Malnutrition. 6. Urinary tract infection. Plan PEG on Friday,discussed with family and wants to defer PEG had face to face discussion with mother PEG tomorrow,father has signed consent Consultation Date/Type/Reason Admit Date/Time October 21, 2016 at 18:19 Initial Consult Date 10/23/16 Type of Consultation: Infectious Disease 24 HR Interval Summary Constitutional: no complaints Exam/Review of Systems Vital Signs Vitals Vital Signs Date Time Temp Pulse Resp B/P Pulse Ox O2 Delivery O2 Flow Rate FiO2 11/14/16 20:00 98.1 95 16 115/62 96 Intake and Output 11/13/16 11/13/16 11/14/16 15:00 23:00 07:00 Intake Total 665 ml 360 ml 980 ml Output Total 1000 ml 500 ml Balance 665 ml -640 ml 480 ml Exam Constitutional: alert, oriented, well developed Psych: nl mood/affect, no complaints Head: atraumatic, normocephalic Eyes: EOMI, PERRL, nl conjunctiva, nl lids, nl sclera ENMT: nl external ears & nose, nl lips & teeth, nl nasal mucosa & septum Neck: non-tender, supple Respiratory: clear to auscultation, normal air movement Cardiovascular: nl pulses, regular rate and rhythm Gastrointestinal: nl liver, spleen, non-tender, soft Musculoskeletal: nl extremities to inspection, nl gait and stance Extremities: normal pulses Neurological: [employer] II-XII intact, nl mental status, nl speech, nl strength Skin: nl turgor, No rash or lesions Lymph: nl lymph nodes Results Result Diagram: 11/14/16 0710 11/14/16 0709 Results 24 hrs Laboratory Tests Test 11/14/16 07:09 11/14/16 07:10 11/14/16 15:51 Sodium Level 143 Potassium Level 4.2 Chloride Level 105 Carbon Dioxide Level 26 Anion Gap 16 Blood Urea Nitrogen 11 Creatinine 0.67 Glucose Level 90 Calcium Level 9.9 White Blood Count 8.3 Red Blood Count 3.77 L Hemoglobin 10.9 L Hematocrit 34.2 L Mean Corpuscular Volume 90.7 Mean Corpuscular Hemoglobin 28.9 L Mean Corpuscular Hemoglobin Concent 31.9 L Red Cell Distribution Width 12.8 Platelet Count 288 Mean Platelet Volume 11.2 H Neutrophils % 59.2 Lymphocytes % 24.2 Monocytes % 8.3 Eosinophils % 5.7 Basophils % 1.0 Nucleated Red Blood Cells % 0.0 Neutrophils # 4.9 Lymphocytes # 2.0 Monocytes # 0.7 Eosinophils # 0.5 Basophils # 0.1 Nucleated Red Blood Cells # 0.0 Prothrombin Time 13.8 Prothrombin Time Ratio 1.1 INR International Normalized Ratio 1.06 Activated Partial Thromboplast Time 31.5 Medications Medications Current Medications Acetaminophen (Tylenol Tab) 500 mg Q4H PRN PO PAIN AND OR ELEVATED TEMP; Start 10/21/16 at 22:00 Morphine Sulfate (morphine) 2 mg Q4H PRN IV PAIN LEVEL 4-7 Last administered on 11/04/16 04:41; Admin Dose 2 MG; Start 10/21/16 at 22:00 Enoxaparin Sodium (Lovenox) 30 mg DAILY SC Last administered on 11/14/16 10:36 ; Admin Dose 30 MG; Start 10/22/16 at 09:00 Ondansetron HCl (Zofran Inj) 4 mg Q4H PRN IV NAUSEA AND/OR VOMITING Last administered on 11/09/16 13:49; Admin Dose 4 MG; Start 10/21/16 at 22:00 Miscellaneous Information (Pending Santyl Order For Wound Care) This patient webb... PRN PRN XX WOUND CARE; Start 10/22/16 at 01:30 Sertraline HCl (Zoloft) 100 mg DAILY PO Last administered on 11/14/16 12:41; Admin Dose 100 MG; Start 10/23/16 at 09:00 Trazodone HCl (Desyrel) 75 mg QHS PO Last administered on 11/14/16 21:35; Admin Dose 75 MG; Start 10/22/16 at 21:00 Baclofen 10 mg 10 mg TID PRN PO SPASM; Start 10/22/16 at 16:30 Potassium Chloride/Dextrose/ Sod Cl (D5-1/2ns + KCl 20 Meq) 1,000 ml @ 70 mls/ hr [id number] IV Last administered on 11/14/16 09:02; Admin Dose 70 MLS/HR; Start 10/23/16 at 17:00 Zinc Sulfate (Zinc Sulfate) 220 mg DAILY PO Last administered on 11/14/16 12:41 ; Admin Dose 220 MG; Start 10/25/16 at 09:00 Ascorbic Acid (Vitamin C) 500 mg DAILY PO Last administered on 11/14/16 12:41; Admin Dose 500 MG; Start 10/25/16 at 09:00 Lactobacillus Acidophilus/ Rhamnosus (Culturelle) 1 cap BID PO Last administered on 11/14/16 21:35; Admin Dose 1 CAP; Start 10/26/16 at 09:00 Mineral Oil (Fleet Mineral Oil Enema) 133 ml BID [place] Last administered on 21:40; Admin Dose 133 ML; Start 10/29/16 at 21:00 Sodium Hypochlorite (Dakin'S (1/4 Strength)) 1 applic AM IRR Last administered on 11/14/16 09:03; Admin Dose 1 APPLIC; Start 11/01/16 at 09:00 Docusate Sodium (Colace Liquid Cup) 300 mg DAILY PO Last administered on 12:42; Admin Dose 300 MG; Start 11/02/16 at 14:00 Metoclopramide HCl (Reglan) 10 mg BID IV Last administered on 11/14/16 21:40; Admin Dose 10 MG; Start 11/03/16 at 21:00 Nystatin (Nystatin Powder) 1 applic BID TOP Last administered on 11/14/16 21:36 ; Admin Dose 1 APPLIC; Start 11/07/16 at 13:00 Collagenase (Santyl) 1 applic QHS TOP Last administered on 11/14/16 21:36; Admin Dose 1 APPLIC; Start 11/07/16 at 21:00 Acyclovir (Zovirax) 800 mg TID PO Last administered on 11/14/16 21:36; Admin Dose 800 MG; Start 11/08/16 at 21:00; Stop 11/16/16 at 20:59 Multivitamins (Thera-Plus) 5 ml DAILY GTB Last administered on 11/14/16 12:42; Admin Dose 5 ML; Start 11/10/16 at 09:00 Ferrous Sulfate (Feosol Liquid Cup) 300 mg BID PO Last administered on t 21:35; Admin Dose 300 MG; Start 11/09/16 at 21:00 SAKINA BEACH MD Nov 14, 2016 22:27
[2016-11-15] VITALS (9 sets, daily range): BP systolic 105–121; BP diastolic 66–80; PULSE 82–92; RESP 18–22
[2016-11-15] MEDS: D5W-0.45 NACL + KCL 20 MEQ 1,000 ML IV SCH ×2 (00:42→21:05)
[2016-11-15 06:12] LABS: ADD SCAN DIFF NO
[2016-11-15 06:15] LABS: BASOPHIL # 0.1 10^3/ul (0.0-0.1); BASOPHILS % 1.1 % (0.0-2.0); EOSINOPHILS # 0.5 10^3/ul (0.0-0.5); EOSINOPHILS % 6.3 % (0.0-7.0); HEMOGLOBIN 11.1 g/dl (12.0-16.0); LYMPHOCYTES # 2.2 10^3/ul (0.8-2.9); LYMPHOCYTES % 27.1 % (15.0-51.0); MEAN CORPUSCULAR HEMOGLOBIN 29.2 pg (29.0-33.0); MEAN CORPUSCULAR HGB CONC 32.6 g/dl (32.0-37.0); MEAN CORPUSCULAR VOLUME 89.5 fl (82.0-101.0); MEAN PLATELET VOLUME 11.5 fl (7.4-10.4); MONOCYTE # 0.7 10^3/ul (0.3-0.9); MONOCYTES % 8.3 % (0.0-11.0); NEUTROPHIL # 4.6 10^3/ul (1.6-7.5); NEUTROPHILS % 55.9 % (39.0-77.0); PLATELET COUNT 286 10^3/UL (140-415); WHITE BLOOD COUNT 8.2 10^3/ul (4.8-10.8)
[2016-11-15 06:43] LABS: ALBUMIN 4.2 g/dl (3.3-4.9); ALBUMIN/GLOBULIN RATIO 1.1; BILIRUBIN,INDIRECT 0.2 mg/dl (0-1.1); BILIRUBIN,TOTAL 0.2 mg/dl (0.2-1.3); CALCIUM 9.8 mg/dl (8.4-10.2); CREATININE 0.64 mg/dl (0.44-1.00); POTASSIUM 4.1 mmol/L (3.5-5.1)
[2016-11-15] MEDS: ASCORBIC ACID 500 MG TAB PO SCH (08:56)
[2016-11-15] MEDS: ACYCLOVIR 800 MG TAB PO SCH ×3 (08:56→21:05)
[2016-11-15] MEDS: DOCUSATE SODIUM 10 MG/ML (10ML CUP) PO SCH (08:56)
[2016-11-15] MEDS: MULTIVITAMINS 5 ML CUP GTB SCH (08:56)
[2016-11-15] MEDS: SERTRALINE 100 MG TAB PO SCH (08:56)
[2016-11-15] MEDS: FERROUS SULFATE 60 MG/ML 5ML CUP PO SCH ×2 (08:56→21:05)
[2016-11-15] MEDS: ZINC SULFATE 220 MG CAP PO SCH (08:56)
[2016-11-15] MEDS: LACTOBACILLUS RHAMNOSUS CAP PO SCH ×2 (08:57→21:05)
[2016-11-15] MEDS: ENOXAPARIN 30 MG/0.3 ML SYG SC SCH (08:57)
[2016-11-15] MEDS: MINERAL OIL 133 ML ENEMA PR SCH ×2 (09:00→21:00)
[2016-11-15] MEDS: NYSTATIN 30 GM POWDER BTL TOP SCH ×2 (09:14→21:28)
[2016-11-15] MEDS: METOCLOPRAMIDE 10 MG INJ IV SCH ×2 (09:14→21:05)
[2016-11-15] MEDS: SODIUM HYPOCHLORITE 0.125% 473 ML BTL IRR SCH (09:14)
--- NOTE | 2016-11-15 12:11 | CONS ---
Date/Time of Note Date/Time of Note DATE: 11/15/16 TIME: 12:07 Assessment/Plan Assessment/Plan Chief Complaint/Hosp Course - S/p early sepsis due to sacral decub infection - mild leukocytosis and tachycardia resolving - Sacral decubitus ulcer with polymicrobial infection; wound cx grew E. Coli, Proteus, CoNS, and Leuconostoc; ESR 30; Sacral x-ray no e/o OM; treated with 2 weeks of Vancomycin and Zosyn - UTI due to lactobacillus - Bacteremia due to CoNS - Hereditary spastic paraplegia - Depression - Normocytic anemia - Dysphagia - Feeder with decreased appetite; calorie count completed with avg 961 kcal/day and 26g protein/day - family now agreeable to G tube placement - Stool impaction - on laxatives - Zoster Recommendations: - Rivera culture if temp >100.4 F - Complete course of acyclovir (11/08/2016-) as ordered by PMD Management d/w Pt's mother, BRENDA Ludwig, and Dr. Hampton Problems: Consultation Date/Type/Reason Admit Date/Time October 21, 2016 at 18:19 Initial Consult Date 10/23/16 Type of Consultation: Infectious Disease 24 HR Interval Summary Free Text/Dictation NPO for G-tube placement today; no acute issues; family also agreeable to diverting colostomy (not yet scheduled) per d/w nursing staff. Unable to perform ROS d/t pt's condition. Subjective hx not possible: pt non-verbal Exam/Review of Systems Vital Signs Vitals Vital Signs Date Time Temp Pulse Resp B/P Pulse Ox O2 Delivery O2 Flow Rate FiO2 11/15/16 07:28 98.0 74 18 105/66 97 Intake and Output 11/14/16 11/14/16 11/15/16 15:00 23:00 07:00 Intake Total 280 ml 1060 ml 890 ml Output Total 1000 ml 700 ml Balance 280 ml 60 ml 190 ml Exam Constitutional: alert, frail, thin, in NAD Head: atraumatic, normocephalic Eyes: nl sclera Neck: other (unable to assess) Respiratory: clear to auscultation (anteriorly) Cardiovascular: nl pulses, regular rate and rhythm Gastrointestinal: bowel sounds (present), non-tender, soft Musculoskeletal: muscle weakness Extremities: other (contracted with fine tremors noted on fingers) Neurological: other (+ tracking); quadriplegic Skin: other (Wounds including sacral decub- see nurse notes and photos in chart for details) Results Result Diagram: 11/15/16 0550 11/15/16 0550 Results 24 hrs Laboratory Tests Test 11/14/16 15:51 11/15/16 05:50 Prothrombin Time 13.8 Prothrombin Time Ratio 1.1 INR International Normalized Ratio 1.06 Activated Partial Thromboplast Time 31.5 White Blood Count 8.2 Red Blood Count 3.80 L Hemoglobin 11.1 L Hematocrit 34.0 L Mean Corpuscular Volume 89.5 Mean Corpuscular Hemoglobin 29.2 Mean Corpuscular Hemoglobin Concent 32.6 Red Cell Distribution Width 13.0 Platelet Count 286 Mean Platelet Volume 11.5 H Neutrophils % 55.9 Lymphocytes % 27.1 Monocytes % 8.3 Eosinophils % 6.3 Basophils % 1.1 Nucleated Red Blood Cells % 0.0 Neutrophils # 4.6 Lymphocytes # 2.2 Monocytes # 0.7 Eosinophils # 0.5 Basophils # 0.1 Nucleated Red Blood Cells # 0.0 Sodium Level 144 Potassium Level 4.1 Chloride Level 107 Carbon Dioxide Level 25 Anion Gap 16 Blood Urea Nitrogen 10 Creatinine 0.64 Glucose Level 106 Calcium Level 9.8 Total Bilirubin 0.2 Direct Bilirubin 0.00 Indirect Bilirubin 0.2 Aspartate Amino Transf (AST/SGOT) 23 Alanine Aminotransferase (ALT/SGPT) 40 Alkaline Phosphatase 115 Total Protein 8.0 Albumin 4.2 Globulin 3.80 H Albumin/Globulin Ratio 1.10 Medications Medications Current Medications Acetaminophen (Tylenol Tab) 500 mg Q4H PRN PO PAIN AND OR ELEVATED TEMP; Start 10/21/16 at 22:00 Morphine Sulfate (morphine) 2 mg Q4H PRN IV PAIN LEVEL 4-7 Last administered on 11/04/16 04:41; Admin Dose 2 MG; Start 10/21/16 at 22:00 Enoxaparin Sodium (Lovenox) 30 mg DAILY SC Last administered on 11/14/16 10:36 ; Admin Dose 30 MG; Start 10/22/16 at 09:00 Ondansetron HCl (Zofran Inj) 4 mg Q4H PRN IV NAUSEA AND/OR VOMITING Last administered on 11/09/16 13:49; Admin Dose 4 MG; Start 10/21/16 at 22:00 Miscellaneous Information (Pending Santyl Order For Wound Care) This patient webb... PRN PRN XX WOUND CARE; Start 10/22/16 at 01:30 Sertraline HCl (Zoloft) 100 mg DAILY PO Last administered on 11/14/16 12:41; Admin Dose 100 MG; Start 10/23/16 at 09:00 Trazodone HCl (Desyrel) 75 mg QHS PO Last administered on 11/14/16 21:35; Admin Dose 75 MG; Start 10/22/16 at 21:00 Baclofen 10 mg 10 mg TID PRN PO SPASM; Start 10/22/16 at 16:30 Potassium Chloride/Dextrose/ Sod Cl (D5-1/2ns + KCl 20 Meq) 1,000 ml @ 70 mls/ hr [id number] IV Last administered on 11/15/16 00:42; Admin Dose 70 MLS/HR; Start 10/23/16 at 17:00 Zinc Sulfate (Zinc Sulfate) 220 mg DAILY PO Last administered on 11/14/16 12:41 ; Admin Dose 220 MG; Start 10/25/16 at 09:00 Ascorbic Acid (Vitamin C) 500 mg DAILY PO Last administered on 11/14/16 12:41; Admin Dose 500 MG; Start 10/25/16 at 09:00 Lactobacillus Acidophilus/ Rhamnosus (Culturelle) 1 cap BID PO Last administered on 11/14/16 21:35; Admin Dose 1 CAP; Start 10/26/16 at 09:00 Mineral Oil (Fleet Mineral Oil Enema) 133 ml BID DC Last administered on 21:40; Admin Dose 133 ML; Start 10/29/16 at 21:00 Sodium Hypochlorite (Dakin'S (1/4 Strength)) 1 applic AM IRR Last administered on 11/15/16 09:14; Admin Dose 1 APPLIC; Start 11/01/16 at 09:00 Docusate Sodium (Colace Liquid Cup) 300 mg DAILY PO Last administered on 12:42; Admin Dose 300 MG; Start 11/02/16 at 14:00 Metoclopramide HCl (Reglan) 10 mg BID IV Last administered on 11/15/16 09:14; Admin Dose 10 MG; Start 11/03/16 at 21:00 Nystatin (Nystatin Powder) 1 applic BID TOP Last administered on 11/15/16 09:14 ; Admin Dose 1 APPLIC; Start 11/07/16 at 13:00 Collagenase (Santyl) 1 applic QHS TOP Last administered on 11/14/16 21:36; Admin Dose 1 APPLIC; Start 11/07/16 at 21:00 Acyclovir (Zovirax) 800 mg TID PO Last administered on 11/14/16 21:36; Admin Dose 800 MG; Start 11/08/16 at 21:00; Stop 11/16/16 at 20:59 Multivitamins (Thera-Plus) 5 ml DAILY GTB Last administered on 11/14/16 12:42; Admin Dose 5 ML; Start 11/10/16 at 09:00 Ferrous Sulfate (Feosol Liquid Cup) 300 mg BID PO Last administered on 21:35; Admin Dose 300 MG; Start 11/09/16 at 21:00 BUFFY JAIME NP Nov 15, 2016 12:11
--- NOTE | 2016-11-15 14:39 | PN ---
DATE: 11/14/2016 SUBJECTIVE: No new complaint, no new events so far here today. OBJECTIVE: GENERAL: The patient is awake, alert. VITAL SIGNS: Temperature 98, heart rate 74, respirations 18, blood pressure 105/66, saturation 97% on room air. ABDOMEN: Soft. The patient has had 1 bowel movement since last night. LABORATORY DATA: Sodium, potassium, BUN, creatinine within normal limits. WBC 8200, hemoglobin 11. 1, hematocrit 34. Coagulation normal. ASSESSMENT: The patient has problem eating, and it is difficult to feed her through the mouth. Th e decision has been made to proceed with placement of a gastrostomy tube. PLAN: The patient is scheduled for placement of PEG today afternoon. We will see the patient after that tomorrow and make plans for possible placement of colostomy next week. Dictated By: SCOOBY LAL MD PS/CHRISTIAN Conf#: [id number] DID#: [id number]
[2016-11-15] MEDS ORDERED: PHENYLephrine (100 MCG/ML) 5ML SYG ONE (15:34)
[2016-11-15] MEDS ORDERED: PROPOFOL 20 ML ONE (15:34)
[2016-11-15] MEDS ORDERED: FENTAnyl 50 MCG/ML VIAL ONE (15:34)
[2016-11-15] MEDS ORDERED: EPHEDrine SULFATE 50 MG/5 ML SYG ONE (15:34)
[2016-11-15] MEDS ORDERED: CEFAZOLIN 1 GM/50 ML (PMX) 50 ML IVPB ONE (15:52)
[2016-11-15] MEDS ORDERED: EPHEDrine SULFATE 50 MG/5 ML SYG IV PRN (16:00)
[2016-11-15] MEDS ORDERED: FENTAnyl 50 MCG/ML VIAL IV PRN ×2 (16:00)
[2016-11-15] MEDS ORDERED: ONDANSETRON 4 MG INJ IV PRN (16:00)
[2016-11-15] MEDS ORDERED: LABETALOL HCL 20MG INJ IV PRN (16:00)
--- NOTE | 2016-11-15 17:00 | GILP ---
DATE OF PROCEDURE: PROCEDURE: Esophagogastroduodenoscopy. INDICATION: A 36-year-old female undergoing this procedure for replacement of G-tube for long-term enteral nutrition. The risk of the procedure, related and unrelated complications, anesthetic risk s, alternatives were thoroughly discussed with both the mother and father and informed consent was o btained. DESCRIPTION OF PROCEDURE: The patient was brought to the GI lab, placed in the supine position, was given Ancef. After optimal sedation, scope was passed with much ease into the esophagus, advanced further down into stomach and duodenum. There was no evidence of obstruction. By transillumination and digital palpation technique, appropriate site was chosen on anterior abdominal wall. Site was sterilized with chlorhexidine solution. However, the transillumination and digital palpation was ve ry close to the xiphisternal joint and also in the ribs area. Since there was a very small an d there was a high risk for complication, decided not to proceed with the procedure. The patient webb d a large hiatal hernia and most of the transillumination was positive only in the xiphisternal and ribs area. So the scope was removed. IMPRESSION: The hiatal hernia precluded placement of a G-tube. PLAN: This G-tube should be placed radiologically under CT guidance, making sure that no other orga n is coming in between. Dictated By: SAKINA GILL/CHRISTIAN Conf#: [id number] DID#: [id number] CC: ROBERTO CARLOS SHERMAN MD; SAKINA BEACH MD;*[facility]*
--- NOTE | 2016-11-15 17:02 | PN ---
Date/Time of Note Date/Time of Note DATE: 11/15/16 TIME: 17:01 Assessment/Plan VTE Prophylaxis VTE Prophylaxis Intervention: SCD's Lines/Catheters IV [facility] Saline Lock Urinary Cath still in place: Yes Reason Cath still needed: urinary retention Assessment/Plan Chief Complaint/Hosp Course P patient looks comfortable, pending G-tube placement today Assessment and plan: - Sacral decubitus. Continue current wound care. Dr. Murphy is following patient in general surgery consultation. - Hereditary spastic paraplegia. Continue to assist patient with activities of daily living. - Urinary tract infection. Dr. Memo garcía is following in infection disease consultation. Completed the course of antibiotics for UTI and wound infection. - Bilateral malleolus wound, continue current wound care. - Depression, continue Zoloft - Dysphagia, continue dysphagia diet, nutritional supplements and vitamins. Dr. Underwood is following in gastroenterology consultation. - Protein calorie malnutrition is evidence of prealbumin level of 13. Further recommendations based on clinical course. Plan of care discussed with Dr. Gibbs. Problems: Exam/Review of Systems Vital Signs Vitals Vital Signs Date Time Temp Pulse Resp B/P Pulse Ox O2 Delivery O2 Flow Rate FiO2 11/15/16 16:53 90 21 119/77 96 Room Air 11/15/16 16:48 98.1 Intake and Output 11/14/16 11/14/16 11/15/16 15:00 23:00 07:00 Intake Total 280 ml 1060 ml 890 ml Output Total 1000 ml 700 ml Balance 280 ml 60 ml 190 ml Exam Constitutional: alert, oriented Head: atraumatic, normocephalic Neck: non-tender, supple Respiratory: clear to auscultation, normal air movement Cardiovascular: nl pulses Gastrointestinal: non-tender, soft Genitourinary - Female: other (Eaton catheter) Musculoskeletal: muscle weakness, other (Contracted) Extremities: normal pulses Neurological: nl mental status Skin: other (Sacral decubitus) Results Result Diagram: 11/15/16 0550 11/15/16 0550 Results 24 hrs Laboratory Tests Test 11/15/16 05:50 White Blood Count 8.2 Red Blood Count 3.80 L Hemoglobin 11.1 L Hematocrit 34.0 L Mean Corpuscular Volume 89.5 Mean Corpuscular Hemoglobin 29.2 Mean Corpuscular Hemoglobin Concent 32.6 Red Cell Distribution Width 13.0 Platelet Count 286 Mean Platelet Volume 11.5 H Neutrophils % 55.9 Lymphocytes % 27.1 Monocytes % 8.3 Eosinophils % 6.3 Basophils % 1.1 Nucleated Red Blood Cells % 0.0 Neutrophils # 4.6 Lymphocytes # 2.2 Monocytes # 0.7 Eosinophils # 0.5 Basophils # 0.1 Nucleated Red Blood Cells # 0.0 Sodium Level 144 Potassium Level 4.1 Chloride Level 107 Carbon Dioxide Level 25 Anion Gap 16 Blood Urea Nitrogen 10 Creatinine 0.64 Glucose Level 106 Calcium Level 9.8 Total Bilirubin 0.2 Direct Bilirubin 0.00 Indirect Bilirubin 0.2 Aspartate Amino Transf (AST/SGOT) 23 Alanine Aminotransferase (ALT/SGPT) 40 Alkaline Phosphatase 115 Total Protein 8.0 Albumin 4.2 Globulin 3.80 H Albumin/Globulin Ratio 1.10 Medications Medications Current Medications Acetaminophen (Tylenol Tab) 500 mg Q4H PRN PO PAIN AND OR ELEVATED TEMP; Start 10/21/16 at 22:00 Morphine Sulfate (morphine) 2 mg Q4H PRN IV PAIN LEVEL 4-7 Last administered on 11/04/16 04:41; Admin Dose 2 MG; Start 10/21/16 at 22:00 Enoxaparin Sodium (Lovenox) 30 mg DAILY SC Last administered on 11/14/16 10:36 ; Admin Dose 30 MG; Start 10/22/16 at 09:00 Ondansetron HCl (Zofran Inj) 4 mg Q4H PRN IV NAUSEA AND/OR VOMITING Last administered on 11/09/16 13:49; Admin Dose 4 MG; Start 10/21/16 at 22:00 Miscellaneous Information (Pending Santyl Order For Wound Care) This patient webb... PRN PRN XX WOUND CARE; Start 10/22/16 at 01:30 Sertraline HCl (Zoloft) 100 mg DAILY PO Last administered on 11/14/16 12:41; Admin Dose 100 MG; Start 10/23/16 at 09:00 Trazodone HCl (Desyrel) 75 mg QHS PO Last administered on 11/14/16 21:35; Admin Dose 75 MG; Start 10/22/16 at 21:00 Baclofen 10 mg 10 mg TID PRN PO SPASM; Start 10/22/16 at 16:30 Potassium Chloride/Dextrose/ Sod Cl (D5-1/2ns + KCl 20 Meq) 1,000 ml @ 70 mls/ hr [id number] IV Last administered on 11/15/16 00:42; Admin Dose 70 MLS/HR; Start 10/23/16 at 17:00 Zinc Sulfate (Zinc Sulfate) 220 mg DAILY PO Last administered on 11/14/16 12:41 ; Admin Dose 220 MG; Start 10/25/16 at 09:00 Ascorbic Acid (Vitamin C) 500 mg DAILY PO Last administered on 11/14/16 12:41; Admin Dose 500 MG; Start 10/25/16 at 09:00 Lactobacillus Acidophilus/ Rhamnosus (Culturelle) 1 cap BID PO Last administered on 11/14/16 21:35; Admin Dose 1 CAP; Start 10/26/16 at 09:00 Mineral Oil (Fleet Mineral Oil Enema) 133 ml BID MT Last administered on 21:40; Admin Dose 133 ML; Start 10/29/16 at 21:00 Sodium Hypochlorite (Dakin'S (1/4 Strength)) 1 applic AM IRR Last administered on 11/15/16 09:14; Admin Dose 1 APPLIC; Start 11/01/16 at 09:00 Docusate Sodium (Colace Liquid Cup) 300 mg DAILY PO Last administered on 12:42; Admin Dose 300 MG; Start 11/02/16 at 14:00 Metoclopramide HCl (Reglan) 10 mg BID IV Last administered on 11/15/16 09:14; Admin Dose 10 MG; Start 11/03/16 at 21:00 Nystatin (Nystatin Powder) 1 applic BID TOP Last administered on 11/15/16 09:14 ; Admin Dose 1 APPLIC; Start 11/07/16 at 13:00 Collagenase (Santyl) 1 applic QHS TOP Last administered on 11/14/16 21:36; Admin Dose 1 APPLIC; Start 11/07/16 at 21:00 Acyclovir (Zovirax) 800 mg TID PO Last administered on 11/14/16 21:36; Admin Dose 800 MG; Start 11/08/16 at 21:00; Stop 11/16/16 at 20:59 Multivitamins (Thera-Plus) 5 ml DAILY GTB Last administered on 11/14/16 12:42; Admin Dose 5 ML; Start 11/10/16 at 09:00 Ferrous Sulfate (Feosol Liquid Cup) 300 mg BID PO Last administered on 21:35; Admin Dose 300 MG; Start 11/09/16 at 21:00 LEI YEBOAH Nov 15, 2016 17:02
[2016-11-15 18:01] LABS: ADD SCAN DIFF NO
[2016-11-15 18:02] LABS: BASOPHIL # 0.1 10^3/ul (0.0-0.1); BASOPHILS % 0.9 % (0.0-2.0); EOSINOPHILS # 0.4 10^3/ul (0.0-0.5); EOSINOPHILS % 5.4 % (0.0-7.0); HEMATOCRIT 33.3 % (37.0-47.0); HEMOGLOBIN 10.8 g/dl (12.0-16.0); LYMPHOCYTES # 2.4 10^3/ul (0.8-2.9); LYMPHOCYTES % 29.7 % (15.0-51.0); MEAN CORPUSCULAR HGB CONC 32.4 g/dl (32.0-37.0); MEAN CORPUSCULAR VOLUME 89.5 fl (82.0-101.0); MEAN PLATELET VOLUME 10.7 fl (7.4-10.4); MONOCYTE # 0.7 10^3/ul (0.3-0.9); MONOCYTES % 8.2 % (0.0-11.0); NEUTROPHIL # 4.3 10^3/ul (1.6-7.5); PLATELET COUNT 284 10^3/UL (140-415); RED BLOOD COUNT 3.72 10^6/ul (4.20-5.40); RED CELL DISTRIBUTION WIDTH 12.8 % (11.5-14.5); WHITE BLOOD COUNT 7.9 10^3/ul (4.8-10.8)
[2016-11-15] MEDS: traZODone 50 MG TAB PO SCH (21:05)
[2016-11-15] MEDS: COLLAGENASE 30 GM TUBE TOP SCH (21:28)
[2016-11-16] MEDS: MINERAL OIL 133 ML ENEMA PR SCH ×2 (01:35→22:04)
[2016-11-16 06:06] LABS: ADD SCAN DIFF NO
[2016-11-16 06:26] LABS: BASOPHIL # 0.1 10^3/ul (0.0-0.1); BASOPHILS % 0.6 % (0.0-2.0); EOSINOPHILS # 0.5 10^3/ul (0.0-0.5); HEMATOCRIT 33.4 % (37.0-47.0); HEMOGLOBIN 10.6 g/dl (12.0-16.0); LYMPHOCYTES # 2.7 10^3/ul (0.8-2.9); LYMPHOCYTES % 27.1 % (15.0-51.0); MEAN CORPUSCULAR HEMOGLOBIN 28.6 pg (29.0-33.0); MEAN CORPUSCULAR HGB CONC 31.7 g/dl (32.0-37.0); MEAN PLATELET VOLUME 11.8 fl (7.4-10.4); MONOCYTE # 0.8 10^3/ul (0.3-0.9); MONOCYTES % 8.1 % (0.0-11.0); NEUTROPHIL # 5.7 10^3/ul (1.6-7.5); NEUTROPHILS % 58.1 % (39.0-77.0); PLATELET COUNT 277 10^3/UL (140-415); RED BLOOD COUNT 3.71 10^6/ul (4.20-5.40); RED CELL DISTRIBUTION WIDTH 13.2 % (11.5-14.5); WHITE BLOOD COUNT 9.8 10^3/ul (4.8-10.8)
[2016-11-16 07:22] LABS: CALCIUM 9.7 mg/dl (8.4-10.2); CREATININE 0.64 mg/dl (0.44-1.00); POTASSIUM 4.1 mmol/L (3.5-5.1)
[2016-11-16 07:44] VITALS: BP 98/59; RESP 18
[2016-11-16] MEDS: FERROUS SULFATE 60 MG/ML 5ML CUP PO SCH ×2 (09:28→20:20)
[2016-11-16] MEDS: MULTIVITAMINS 5 ML CUP GTB SCH (09:28)
[2016-11-16] MEDS: DOCUSATE SODIUM 10 MG/ML (10ML CUP) PO SCH (09:28)
[2016-11-16] MEDS: ACYCLOVIR 800 MG TAB PO SCH ×3 (09:29→20:36)
[2016-11-16] MEDS: ZINC SULFATE 220 MG CAP PO SCH (09:29)
[2016-11-16] MEDS: NYSTATIN 30 GM POWDER BTL TOP SCH ×2 (09:29→20:20)
[2016-11-16] MEDS: SERTRALINE 100 MG TAB PO SCH (09:29)
[2016-11-16] MEDS: LACTOBACILLUS RHAMNOSUS CAP PO SCH ×2 (09:29→20:20)
[2016-11-16] MEDS: ASCORBIC ACID 500 MG TAB PO SCH (09:29)
[2016-11-16] MEDS: METOCLOPRAMIDE 10 MG INJ IV SCH ×2 (09:29→20:20)
[2016-11-16] MEDS: SODIUM HYPOCHLORITE 0.125% 473 ML BTL IRR SCH (09:30)
[2016-11-16] MEDS: ENOXAPARIN 30 MG/0.3 ML SYG SC SCH (09:30)
--- NOTE | 2016-11-16 11:28 | PN ---
Date/Time of Note Date/Time of Note DATE: 11/16/16 TIME: 11:27 Assessment/Plan VTE Prophylaxis VTE Prophylaxis Intervention: other Lines/Catheters [facility] Peripheral IV Urinary Cath still in place: Yes Reason Cath still needed: skin wounds contaminated by urine Assessment/Plan Chief Complaint/Hosp Course - Sacral decubitus. Continue current wound care. Dr. Murphy is following patient in general surgery consultation. - Hereditary spastic paraplegia. Continue to assist patient with activities of daily living. - Urinary tract infection. Dr. Memo garcía is following in infection disease consultation. Continue antibiotics per ID. - Bilateral malleolus wound, continue current wound care. - Depression, continue Zoloft - Dysphagia, continue dysphagia diet, nutritional supplements and vitamins, continue calorie count. Problems: Subjective 24 Hr Interval Summary Free Text/Dictation Patient is awake but is not verbally responsive Exam/Review of Systems Vital Signs Vitals Vital Signs Date Time Temp Pulse Resp B/P Pulse Ox O2 Delivery O2 Flow Rate FiO2 11/16/16 07:44 98.9 18 98/59 97 11/15/16 19:50 70 11/15/16 17:08 Room Air Intake and Output 11/15/16 11/15/16 11/16/16 15:00 23:00 07:00 Intake Total 650 ml 860 ml Output Total 900 ml 1160 ml Balance -250 ml -300 ml Exam Constitutional: well developed Head: atraumatic, normocephalic Neck: supple Respiratory: clear to auscultation Cardiovascular: regular rate and rhythm Gastrointestinal: non-tender, soft Extremities: normal pulses Results Result Diagram: 11/16/16 0540 11/16/16 0540 Results 24 hrs Laboratory Tests Test 11/15/16 17:55 11/16/16 05:40 White Blood Count 7.9 9.8 # Red Blood Count 3.72 L 3.71 L Hemoglobin 10.8 L 10.6 L Hematocrit 33.3 L 33.4 L Mean Corpuscular Volume 89.5 90.0 Mean Corpuscular Hemoglobin 29.0 28.6 L Mean Corpuscular Hemoglobin Concent 32.4 31.7 L Red Cell Distribution Width 12.8 13.2 Platelet Count 284 277 Mean Platelet Volume 10.7 H 11.8 H Neutrophils % 54.0 58.1 Lymphocytes % 29.7 27.1 Monocytes % 8.2 8.1 Eosinophils % 5.4 5.0 Basophils % 0.9 0.6 Nucleated Red Blood Cells % 0.0 0.0 Neutrophils # 4.3 5.7 Lymphocytes # 2.4 2.7 Monocytes # 0.7 0.8 Eosinophils # 0.4 0.5 Basophils # 0.1 0.1 Nucleated Red Blood Cells # 0.0 0.0 Sodium Level 144 Potassium Level 4.1 Chloride Level 107 Carbon Dioxide Level 25 Anion Gap 16 Blood Urea Nitrogen 9 Creatinine 0.64 Glucose Level 90 Calcium Level 9.7 Medications Medications Current Medications Acetaminophen (Tylenol Tab) 500 mg Q4H PRN PO PAIN AND OR ELEVATED TEMP; Start 10/21/16 at 22:00 Morphine Sulfate (morphine) 2 mg Q4H PRN IV PAIN LEVEL 4-7 Last administered on 11/04/16 04:41; Admin Dose 2 MG; Start 10/21/16 at 22:00 Enoxaparin Sodium (Lovenox) 30 mg DAILY SC Last administered on 11/16/16 09:30 ; Admin Dose 30 MG; Start 10/22/16 at 09:00 Ondansetron HCl (Zofran Inj) 4 mg Q4H PRN IV NAUSEA AND/OR VOMITING Last administered on 11/09/16 13:49; Admin Dose 4 MG; Start 10/21/16 at 22:00 Miscellaneous Information (Pending [facility] Order For Wound Care) This patient webb... PRN PRN XX WOUND CARE; Start 10/22/16 at 01:30 Sertraline HCl (Zoloft) 100 mg DAILY PO Last administered on 11/16/16 09:29; Admin Dose 100 MG; Start 10/23/16 at 09:00 Trazodone HCl (Desyrel) 75 mg QHS PO Last administered on 11/15/16 21:05; Admin Dose 75 MG; Start 10/22/16 at 21:00 Baclofen 10 mg 10 mg TID PRN PO SPASM; Start 10/22/16 at 16:30 Potassium Chloride/Dextrose/ Sod Cl (D5-1/2ns + KCl 20 Meq) 1,000 ml @ 70 mls/ hr [id number] IV Last administered on 11/15/16 21:05; Admin Dose 70 MLS/HR; Start 10/23/16 at 17:00 Zinc Sulfate (Zinc Sulfate) 220 mg DAILY PO Last administered on 11/16/16 09: 29; Admin Dose 220 MG; Start 10/25/16 at 09:00 Ascorbic Acid (Vitamin C) 500 mg DAILY PO Last administered on 11/16/16 09:29 ; Admin Dose 500 MG; Start 10/25/16 at 09:00 Lactobacillus Acidophilus/ Rhamnosus (Culturelle) 1 cap BID PO Last administered on 11/16/16 09:29; Admin Dose 1 CAP; Start 10/26/16 at 09:00 Mineral Oil (Fleet Mineral Oil Enema) 133 ml BID MI Last administered on 01:35; Admin Dose 133 ML; Start 10/29/16 at 21:00 Sodium Hypochlorite (Dakin'S (1/4 Strength)) 1 applic AM IRR Last administered on 11/16/16 09:30; Admin Dose 1 APPLIC; Start 11/01/16 at 09:00 Docusate Sodium (Colace Liquid Cup) 300 mg DAILY PO Last administered on 09:28; Admin Dose 300 MG; Start 11/02/16 at 14:00 Metoclopramide HCl (Reglan) 10 mg BID IV Last administered on 11/16/16 09:29; Admin Dose 10 MG; Start 11/03/16 at 21:00 Nystatin (Nystatin Powder) 1 applic BID TOP Last administered on 11/16/16 09: 29; Admin Dose 1 APPLIC; Start 11/07/16 at 13:00 Collagenase (Santyl) 1 applic QHS TOP Last administered on 11/15/16 21:28; Admin Dose 1 APPLIC; Start 11/07/16 at 21:00 Acyclovir (Zovirax) 800 mg TID PO Last administered on 11/16/16 09:29; Admin Dose 800 MG; Start 11/08/16 at 21:00; Stop 11/16/16 at 20:59 Multivitamins (Thera-Plus) 5 ml DAILY GTB Last administered on 11/16/16 09:28 ; Admin Dose 5 ML; Start 11/10/16 at 09:00 Ferrous Sulfate (Feosol Liquid Cup) 300 mg BID PO Last administered on 09:28; Admin Dose 300 MG; Start 11/09/16 at 21:00 ALYSSA CENTENO Nov 16, 2016 11:28
[2016-11-16] MEDS: D5W-0.45 NACL + KCL 20 MEQ 1,000 ML IV SCH (13:08)
--- NOTE | 2016-11-16 14:32 | PN ---
DATE: 11/16/2016 SUBJECTIVE: No new complaint. OBJECTIVE: VITAL SIGNS: Temperature 98.9, heart rate 70, respirations 18, blood pressure 98/59, saturation 97% room air. LABORATORY DATA: WBC 9800 with 58% segmented, hemoglobin 10.6, hematocrit 33.4. BUN and creatinine , sodium and potassium are within normal limits. Abdomen is soft. She has had 2 bowel movements since yesterday. ASSESSMENT AND PLAN: A patient with ____ progressive spastic paraplegia presented with urinary trac t infection and necrotic sacrococcygeal wound. She was treated and patient has difficulty eating an d per dietitian, has some malnutrition calorie and protein intake, so decision was made and suggesti on was made to proceed with placement of a PEG for feeding purposes and following that, to proceed w ith placement of a diverting colostomy for the purpose of letting the sacrococcygeal wound to heal. Yesterday, Dr. Underwood apparently tried to put in a PEG but per his note, apparently, the patient webb d a large hiatal hernia and technically it was not possible to put percutaneous endoscopic gastrost dane tube, and he has suggested that the best way is it to place it in the radiology department by th e invasive radiologist to put under the guidance of a CT scan. I will discuss with Dr. Underwood and I will discuss with Dr. Gibbs and see what they are planning to do. From a surgical point of view , at this time we can continue local treatment for this sacrococcygeal wound with Dakin and Santyl a nd also continue giving the patient laxatives and also some enemas to clean her colon and rectum fro m the stool. Dictated By: SCOOBY DRUMMOND/CHRISTIAN Conf#: [id number] DID#: [id number]
--- NOTE | 2016-11-16 15:16 | CONS ---
Date/Time of Note Date/Time of Note DATE: 11/16/16 TIME: 15:15 Assessment/Plan Assessment/Plan Additional Assessment/Plan Additional Assessment/Plan IMPRESSION: 1. Sacral decubitus. 2. Hereditary spastic paraplegia. 3. Depression. 4. Dysphagia. 5. Malnutrition. 6. Urinary tract infection. Plan Radiologically or laparoscopically placement of G-tube. Discussed with the mother and also with Dr. Murphy Consultation Date/Type/Reason Admit Date/Time October 21, 2016 at 18:19 Initial Consult Date 10/23/16 Type of Consultation: Infectious Disease 24 HR Interval Summary Constitutional: no complaints Exam/Review of Systems Vital Signs Vitals Vital Signs Date Time Temp Pulse Resp B/P Pulse Ox O2 Delivery O2 Flow Rate FiO2 11/16/16 07:44 98.9 18 98/59 97 11/15/16 19:50 70 11/15/16 17:08 Room Air Intake and Output 11/15/16 11/15/16 11/16/16 15:00 23:00 07:00 Intake Total 650 ml 860 ml Output Total 900 ml 1160 ml Balance -250 ml -300 ml Exam Constitutional: alert, oriented, well developed Psych: nl mood/affect, no complaints Head: atraumatic, normocephalic Eyes: EOMI, PERRL, nl conjunctiva, nl lids, nl sclera ENMT: nl external ears & nose, nl lips & teeth, nl nasal mucosa & septum Neck: non-tender, supple Respiratory: clear to auscultation, normal air movement Cardiovascular: nl pulses, regular rate and rhythm Gastrointestinal: nl liver, spleen, non-tender, soft Musculoskeletal: nl extremities to inspection, nl gait and stance Extremities: normal pulses 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, nl mental status, nl speech, nl strength Skin: nl turgor, No rash or lesions Lymph: nl lymph nodes Results Result Diagram: 11/16/16 0540 11/16/16 0540 Results 24 hrs Laboratory Tests Test 11/15/16 17:55 11/16/16 05:40 White Blood Count 7.9 9.8 # Red Blood Count 3.72 L 3.71 L Hemoglobin 10.8 L 10.6 L Hematocrit 33.3 L 33.4 L Mean Corpuscular Volume 89.5 90.0 Mean Corpuscular Hemoglobin 29.0 28.6 L Mean Corpuscular Hemoglobin Concent 32.4 31.7 L Red Cell Distribution Width 12.8 13.2 Platelet Count 284 277 Mean Platelet Volume 10.7 H 11.8 H Neutrophils % 54.0 58.1 Lymphocytes % 29.7 27.1 Monocytes % 8.2 8.1 Eosinophils % 5.4 5.0 Basophils % 0.9 0.6 Nucleated Red Blood Cells % 0.0 0.0 Neutrophils # 4.3 5.7 Lymphocytes # 2.4 2.7 Monocytes # 0.7 0.8 Eosinophils # 0.4 0.5 Basophils # 0.1 0.1 Nucleated Red Blood Cells # 0.0 0.0 Sodium Level 144 Potassium Level 4.1 Chloride Level 107 Carbon Dioxide Level 25 Anion Gap 16 Blood Urea Nitrogen 9 Creatinine 0.64 Glucose Level 90 Calcium Level 9.7 Medications Medications Current Medications Acetaminophen (Tylenol Tab) 500 mg Q4H PRN PO PAIN AND OR ELEVATED TEMP; Start 10/21/16 at 22:00 Morphine Sulfate (morphine) 2 mg Q4H PRN IV PAIN LEVEL 4-7 Last administered on 11/04/16 04:41; Admin Dose 2 MG; Start 10/21/16 at 22:00 Enoxaparin Sodium (Lovenox) 30 mg DAILY SC Last administered on 11/16/16 09:30 ; Admin Dose 30 MG; Start 10/22/16 at 09:00 Ondansetron HCl (Zofran Inj) 4 mg Q4H PRN IV NAUSEA AND/OR VOMITING Last administered on 11/09/16 13:49; Admin Dose 4 MG; Start 10/21/16 at 22:00 Miscellaneous Information (Pending Santyl Order For Wound Care) This patient webb... PRN PRN XX WOUND CARE; Start 10/22/16 at 01:30 Sertraline HCl (Zoloft) 100 mg DAILY PO Last administered on 11/16/16 09:29; Admin Dose 100 MG; Start 10/23/16 at 09:00 Trazodone HCl (Desyrel) 75 mg QHS PO Last administered on 11/15/16 21:05; Admin Dose 75 MG; Start 10/22/16 at 21:00 Baclofen 10 mg 10 mg TID PRN PO SPASM; Start 10/22/16 at 16:30 Potassium Chloride/Dextrose/ Sod Cl (D5-1/2ns + KCl 20 Meq) 1,000 ml @ 70 mls/ hr [id number] IV Last administered on 11/16/16 13:08; Admin Dose 70 MLS/HR; Start 10/23/16 at 17:00 Zinc Sulfate (Zinc Sulfate) 220 mg DAILY PO Last administered on 11/16/16 09: 29; Admin Dose 220 MG; Start 10/25/16 at 09:00 Ascorbic Acid (Vitamin C) 500 mg DAILY PO Last administered on 11/16/16 09:29 ; Admin Dose 500 MG; Start 10/25/16 at 09:00 Lactobacillus Acidophilus/ Rhamnosus (Culturelle) 1 cap BID PO Last administered on 11/16/16 09:29; Admin Dose 1 CAP; Start 10/26/16 at 09:00 Mineral Oil (Fleet Mineral Oil Enema) 133 ml BID [place] Last administered on 01:35; Admin Dose 133 ML; Start 10/29/16 at 21:00 Sodium Hypochlorite (Dakin'S (1/4 Strength)) 1 applic AM IRR Last administered on 11/16/16 09:30; Admin Dose 1 APPLIC; Start 11/01/16 at 09:00 Docusate Sodium (Colace Liquid Cup) 300 mg DAILY PO Last administered on 09:28; Admin Dose 300 MG; Start 11/02/16 at 14:00 Metoclopramide HCl (Reglan) 10 mg BID IV Last administered on 11/16/16 09:29; Admin Dose 10 MG; Start 11/03/16 at 21:00 Nystatin (Nystatin Powder) 1 applic BID TOP Last administered on 11/16/16 09: 29; Admin Dose 1 APPLIC; Start 11/07/16 at 13:00 Collagenase (Santyl) 1 applic QHS TOP Last administered on 11/15/16 21:28; Admin Dose 1 APPLIC; Start 11/07/16 at 21:00 Acyclovir (Zovirax) 800 mg TID PO Last administered on 11/16/16 09:29; Admin Dose 800 MG; Start 11/08/16 at 21:00; Stop 11/16/16 at 20:59 Multivitamins (Thera-Plus) 5 ml DAILY GTB Last administered on 11/16/16 09:28 ; Admin Dose 5 ML; Start 11/10/16 at 09:00 Ferrous Sulfate (Feosol Liquid Cup) 300 mg BID PO Last administered on 09:28; Admin Dose 300 MG; Start 11/09/16 at 21:00 SAKINA BEACH MD Nov 16, 2016 15:16
--- NOTE | 2016-11-16 18:56 | CONS ---
Date/Time of Note Date/Time of Note DATE: 11/16/16 TIME: 18:53 Assessment/Plan Assessment/Plan Chief Complaint/Hosp Course - S/p early sepsis due to sacral decub infection - mild leukocytosis and tachycardia resolving - Sacral decubitus ulcer with polymicrobial infection; wound cx grew E. 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, 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 Problems: Consultation Date/Type/Reason Admit Date/Time October 21, 2016 at 18:19 Initial Consult Date 10/23/16 Type of Consultation: Infectious Disease 24 HR Interval Summary Subjective hx not possible: pt non-verbal Exam/Review of Systems Vital Signs Vitals Vital Signs Date Time Temp Pulse Resp B/P Pulse Ox O2 Delivery O2 Flow Rate FiO2 11/16/16 07:44 98.9 18 98/59 97 11/15/16 19:50 70 11/15/16 17:08 Room Air Intake and Output 11/15/16 11/15/16 11/16/16 15:00 23:00 07:00 Intake Total 650 ml 860 ml Output Total 900 ml 1160 ml Balance -250 ml -300 ml Exam Constitutional: non-verbal Psych: other (smiling) Head: atraumatic, normocephalic Eyes: nl conjunctiva, nl lids ENMT: other (cannot open her mouth for exam) Respiratory: diminished breath sounds Cardiovascular: nl pulses, regular rate and rhythm Gastrointestinal: non-tender, soft Extremities: No edema Neurological: other (non-verbal, paraplegic (baseline)) Skin: nl turgor, rash or lesions (decubitus wounds) Results Result Diagram: 11/16/16 0540 11/16/16 0540 Results 24 hrs Laboratory Tests Test 11/16/16 05:40 White Blood Count 9.8 # Red Blood Count 3.71 L Hemoglobin 10.6 L Hematocrit 33.4 L Mean Corpuscular Volume 90.0 Mean Corpuscular Hemoglobin 28.6 L Mean Corpuscular Hemoglobin Concent 31.7 L Red Cell Distribution Width 13.2 Platelet Count 277 Mean Platelet Volume 11.8 H Neutrophils % 58.1 Lymphocytes % 27.1 Monocytes % 8.1 Eosinophils % 5.0 Basophils % 0.6 Nucleated Red Blood Cells % 0.0 Neutrophils # 5.7 Lymphocytes # 2.7 Monocytes # 0.8 Eosinophils # 0.5 Basophils # 0.1 Nucleated Red Blood Cells # 0.0 Sodium Level 144 Potassium Level 4.1 Chloride Level 107 Carbon Dioxide Level 25 Anion Gap 16 Blood Urea Nitrogen 9 Creatinine 0.64 Glucose Level 90 Calcium Level 9.7 Medications Medications Current Medications Acetaminophen (Tylenol Tab) 500 mg Q4H PRN PO PAIN AND OR ELEVATED TEMP; Start 10/21/16 at 22:00 Morphine Sulfate (morphine) 2 mg Q4H PRN IV PAIN LEVEL 4-7 Last administered on 11/04/16 04:41; Admin Dose 2 MG; Start 10/21/16 at 22:00 Enoxaparin Sodium (Lovenox) 30 mg DAILY SC Last administered on 11/16/16 09:30 ; Admin Dose 30 MG; Start 10/22/16 at 09:00 Ondansetron HCl (Zofran Inj) 4 mg Q4H PRN IV NAUSEA AND/OR VOMITING Last administered on 11/09/16 13:49; Admin Dose 4 MG; Start 10/21/16 at 22:00 Miscellaneous Information (Pending Santyl Order For Wound Care) This patient webb... PRN PRN XX WOUND CARE; Start 10/22/16 at 01:30 Sertraline HCl (Zoloft) 100 mg DAILY PO Last administered on 11/16/16 09:29; Admin Dose 100 MG; Start 10/23/16 at 09:00 Trazodone HCl (Desyrel) 75 mg QHS PO Last administered on 11/15/16 21:05; Admin Dose 75 MG; Start 10/22/16 at 21:00 Baclofen 10 mg 10 mg TID PRN PO SPASM; Start 10/22/16 at 16:30 Potassium Chloride/Dextrose/ Sod Cl (D5-1/2ns + KCl 20 Meq) 1,000 ml @ 70 mls/ hr [id number] IV Last administered on 11/16/16 13:08; Admin Dose 70 MLS/HR; Start 10/23/16 at 17:00 Zinc Sulfate (Zinc Sulfate) 220 mg DAILY PO Last administered on 11/16/16 09: 29; Admin Dose 220 MG; Start 10/25/16 at 09:00 Ascorbic Acid (Vitamin C) 500 mg DAILY PO Last administered on 11/16/16 09:29 ; Admin Dose 500 MG; Start 10/25/16 at 09:00 Lactobacillus Acidophilus/ Rhamnosus (Culturelle) 1 cap BID PO Last administered on 11/16/16 09:29; Admin Dose 1 CAP; Start 10/26/16 at 09:00 Mineral Oil (Fleet Mineral Oil Enema) 133 ml BID [place] Last administered on 01:35; Admin Dose 133 ML; Start 10/29/16 at 21:00 Sodium Hypochlorite (Dakin'S (1/4 Strength)) 1 applic AM IRR Last administered on 11/16/16 09:30; Admin Dose 1 APPLIC; Start 11/01/16 at 09:00 Docusate Sodium (Colace Liquid Cup) 300 mg DAILY PO Last administered on 09:28; Admin Dose 300 MG; Start 11/02/16 at 14:00 Metoclopramide HCl (Reglan) 10 mg BID IV Last administered on 11/16/16 09:29; Admin Dose 10 MG; Start 11/03/16 at 21:00 Nystatin (Nystatin Powder) 1 applic BID TOP Last administered on 11/16/16 09: 29; Admin Dose 1 APPLIC; Start 11/07/16 at 13:00 Collagenase (Santyl) 1 applic QHS TOP Last administered on 11/15/16 21:28; Admin Dose 1 APPLIC; Start 11/07/16 at 21:00 Acyclovir (Zovirax) 800 mg TID PO Last administered on 11/16/16 15:58; Admin Dose 800 MG; Start 11/08/16 at 21:00; Stop 11/16/16 at 20:59 Multivitamins (Thera-Plus) 5 ml DAILY GTB Last administered on 11/16/16 09:28 ; Admin Dose 5 ML; Start 11/10/16 at 09:00 Ferrous Sulfate (Feosol Liquid Cup) 300 mg BID PO Last administered on 09:28; Admin Dose 300 MG; Start 11/09/16 at 21:00 ELYSIA LAGUNAS M.D. Nov 16, 2016 18:55
[2016-11-16 20:08] VITALS: BP 108/62; RESP 16
[2016-11-16] MEDS: COLLAGENASE 30 GM TUBE TOP SCH (20:20)
[2016-11-16] MEDS: traZODone 50 MG TAB PO SCH (20:21)
[2016-11-17] MEDS: D5W-0.45 NACL + KCL 20 MEQ 1,000 ML IV SCH ×2 (02:03→17:17)
[2016-11-17 07:40] VITALS: BP 107/64; RESP 20
[2016-11-17] MEDS: DOCUSATE SODIUM 10 MG/ML (10ML CUP) PO SCH (09:23)
[2016-11-17] MEDS: MULTIVITAMINS 5 ML CUP GTB SCH (09:23)
[2016-11-17] MEDS: FERROUS SULFATE 60 MG/ML 5ML CUP PO SCH ×2 (09:23→21:15)
[2016-11-17] MEDS: ASCORBIC ACID 500 MG TAB PO SCH (09:23)
[2016-11-17] MEDS: SERTRALINE 100 MG TAB PO SCH (09:23)
[2016-11-17] MEDS: LACTOBACILLUS RHAMNOSUS CAP PO SCH ×2 (09:23→21:15)
[2016-11-17] MEDS: ZINC SULFATE 220 MG CAP PO SCH (09:23)
[2016-11-17] MEDS: METOCLOPRAMIDE 10 MG INJ IV SCH ×2 (09:23→21:15)
[2016-11-17] MEDS: NYSTATIN 30 GM POWDER BTL TOP SCH ×2 (09:24→21:16)
[2016-11-17] MEDS: SODIUM HYPOCHLORITE 0.125% 473 ML BTL IRR SCH (09:24)
[2016-11-17] MEDS: MINERAL OIL 133 ML ENEMA PR SCH ×2 (09:27→21:00)
[2016-11-17] MEDS: ENOXAPARIN 30 MG/0.3 ML SYG SC SCH (09:48)
--- NOTE | 2016-11-17 11:00 | PN ---
Date/Time of Note Date/Time of Note DATE: 11/17/16 TIME: 11:00 Assessment/Plan VTE Prophylaxis VTE Prophylaxis Intervention: other Lines/Catheters IV Catheter Type (from Nrsg): Peripheral IV Urinary Cath still in place: Yes Reason Cath still needed: skin wounds contaminated by urine Assessment/Plan Chief Complaint/Hosp Course - Sacral decubitus. Continue current wound care. Dr. Murphy is following patient in general surgery consultation. - Hereditary spastic paraplegia. Continue to assist patient with activities of daily living. - Urinary tract infection. Dr. Memo garcía is following in infection disease consultation. Continue antibiotics per ID. - Bilateral malleolus wound, continue current wound care. - Depression, continue Zoloft - Dysphagia, continue dysphagia diet, nutritional supplements and vitamins, continue calorie count. Problems: Subjective 24 Hr Interval Summary Free Text/Dictation Patient has no complaints Exam/Review of Systems Vital Signs Vitals Vital Signs Date Time Temp Pulse Resp B/P Pulse Ox O2 Delivery O2 Flow Rate FiO2 11/17/16 07:40 98.1 74 20 107/64 97 11/15/16 17:08 Room Air Intake and Output 11/16/16 11/16/16 11/17/16 15:00 23:00 07:00 Intake Total 440 ml 1440 ml 760 ml Output Total 1800 ml Balance 440 ml -360 ml 760 ml Exam Constitutional: well developed Head: atraumatic, normocephalic Neck: supple Respiratory: clear to auscultation Cardiovascular: regular rate and rhythm Gastrointestinal: non-tender, soft Extremities: normal pulses Results Result Diagram: 11/16/16 0540 11/16/16 0540 Medications Medications Current Medications Acetaminophen (Tylenol Tab) 500 mg Q4H PRN PO PAIN AND OR ELEVATED TEMP; Start 10/21/16 at 22:00 Morphine Sulfate (morphine) 2 mg Q4H PRN IV PAIN LEVEL 4-7 Last administered on 11/04/16 04:41; Admin Dose 2 MG; Start 10/21/16 at 22:00 Enoxaparin Sodium (Lovenox) 30 mg DAILY SC Last administered on 11/17/16 09:48 ; Admin Dose 30 MG; Start 10/22/16 at 09:00 Ondansetron HCl (Zofran Inj) 4 mg Q4H PRN IV NAUSEA AND/OR VOMITING Last administered on 11/09/16 13:49; Admin Dose 4 MG; Start 10/21/16 at 22:00 Miscellaneous Information (Pending Santyl Order For Wound Care) This patient webb... PRN PRN XX WOUND CARE; Start 10/22/16 at 01:30 Sertraline HCl (Zoloft) 100 mg DAILY PO Last administered on 11/17/16 09:23; Admin Dose 100 MG; Start 10/23/16 at 09:00 Trazodone HCl (Desyrel) 75 mg QHS PO Last administered on 11/16/16 20:21; Admin Dose 75 MG; Start 10/22/16 at 21:00 Baclofen 10 mg 10 mg TID PRN PO SPASM; Start 10/22/16 at 16:30 Potassium Chloride/Dextrose/ Sod Cl (D5-1/2ns + KCl 20 Meq) 1,000 ml @ 70 mls/ hr [id number] IV Last administered on 11/17/16 02:03; Admin Dose 70 MLS/HR; Start 10/23/16 at 17:00 Zinc Sulfate (Zinc Sulfate) 220 mg DAILY PO Last administered on 11/17/16 09: 23; Admin Dose 220 MG; Start 10/25/16 at 09:00 Ascorbic Acid (Vitamin C) 500 mg DAILY PO Last administered on 11/17/16 09:23 ; Admin Dose 500 MG; Start 10/25/16 at 09:00 Lactobacillus Acidophilus/ Rhamnosus (Culturelle) 1 cap BID PO Last administered on 11/17/16 09:23; Admin Dose 1 CAP; Start 10/26/16 at 09:00 Mineral Oil (Fleet Mineral Oil Enema) 133 ml BID [place] Last administered on 09:27; Admin Dose 133 ML; Start 10/29/16 at 21:00 Sodium Hypochlorite (Dakin'S (1/4 Strength)) 1 applic AM IRR Last administered on 11/17/16 09:24; Admin Dose 1 APPLIC; Start 11/01/16 at 09:00 Docusate Sodium (Colace Liquid Cup) 300 mg DAILY PO Last administered on 09:23; Admin Dose 300 MG; Start 11/02/16 at 14:00 Metoclopramide HCl (Reglan) 10 mg BID IV Last administered on 11/17/16 09:23; Admin Dose 10 MG; Start 11/03/16 at 21:00 Nystatin (Nystatin Powder) 1 applic BID TOP Last administered on 11/17/16 09: 24; Admin Dose 1 APPLIC; Start 11/07/16 at 13:00 Collagenase (Santyl) 1 applic QHS TOP Last administered on 11/16/16 20:20; Admin Dose 1 APPLIC; Start 11/07/16 at 21:00 Multivitamins (Thera-Plus) 5 ml DAILY GTB Last administered on 11/17/16 09:23 ; Admin Dose 5 ML; Start 11/10/16 at 09:00 Ferrous Sulfate (Feosol Liquid Cup) 300 mg BID PO Last administered on 09:23; Admin Dose 300 MG; Start 11/09/16 at 21:00 ALYSSA CENTENO Nov 17, 2016 11:00
--- NOTE | 2016-11-17 15:01 | PN ---
DATE: 11/17/2016 SUBJECTIVE: No new complaint. Semi-sitting position. Just now the family has finished feeding the patient through mouth. They think that the patient is taking enough. OBJECTIVE: GENERAL: Awake, alert. VITAL SIGNS: Temperature 98.1, heart rate 74, respirations 20, blood pressure 107/64, saturation 97% on room air. ABDOMEN: Soft. The patient has had 1 movement since last night. Yesterday, she had 2 bowel movements. LABORATORIES: From yesterday, normal. WBC is 9800. No new labs from today. INR was according to the documented in the chart. PLAN: Awaiting consultation with invasive radiology to see if they can put a gastrostomy tube percutaneously under CT guidance per Dr. Underwood. Continue other medical problems, including care of the sacrococcygeal wound per previous orders, namely changing the dressing with Dakin solution q.12h., and q.12 h. with santyl ointment.alternatively. Dictated By: SCOOBY DRUMMOND/CHRISTIAN Conf#: [id number] DID#: [id number] MTDD
[2016-11-17 19:12] VITALS: BP 111/69; RESP 18
--- NOTE | 2016-11-17 19:19 | CONS ---
Date/Time of Note Date/Time of Note DATE: 11/17/16 TIME: 19:17 Assessment/Plan Assessment/Plan Additional Assessment/Plan Additional Assessment/Plan IMPRESSION: 1. Sacral decubitus. 2. Hereditary spastic paraplegia. 3. Depression. 4. Dysphagia. 5. Malnutrition. 6. Urinary tract infection. Plan continue PO feeding family now doesn't want PEG tube Consultation Date/Type/Reason Admit Date/Time October 21, 2016 at 18:19 Initial Consult Date 10/23/16 Type of Consultation: Infectious Disease 24 HR Interval Summary Constitutional: no complaints Exam/Review of Systems Vital Signs Vitals Vital Signs Date Time Temp Pulse Resp B/P Pulse Ox O2 Delivery O2 Flow Rate FiO2 11/17/16 19:12 98.3 86 18 111/69 96 11/15/16 17:08 Room Air Intake and Output 11/16/16 11/16/16 11/17/16 15:00 23:00 07:00 Intake Total 440 ml 1440 ml 760 ml Output Total 1800 ml Balance 440 ml -360 ml 760 ml Exam Constitutional: alert, oriented, well developed Psych: nl mood/affect, no complaints Head: atraumatic, normocephalic Eyes: EOMI, PERRL, nl conjunctiva, nl lids, nl sclera ENMT: nl external ears & nose, nl lips & teeth, nl nasal mucosa & septum Neck: non-tender, supple Respiratory: clear to auscultation, normal air movement Cardiovascular: nl pulses, regular rate and rhythm Gastrointestinal: nl liver, spleen, non-tender, soft Musculoskeletal: nl extremities to inspection, nl gait and stance Extremities: normal pulses 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, nl mental status, nl speech, nl strength Skin: nl turgor, No rash or lesions Lymph: nl lymph nodes Results Result Diagram: 11/16/1640 11/16/16 0540 Medications Medications Current Medications Acetaminophen (Tylenol Tab) 500 mg Q4H PRN PO PAIN AND OR ELEVATED TEMP; Start 10/21/16 at 22:00 Morphine Sulfate (morphine) 2 mg Q4H PRN IV PAIN LEVEL 4-7 Last administered on 11/04/16 04:41; Admin Dose 2 MG; Start 10/21/16 at 22:00 Enoxaparin Sodium (Lovenox) 30 mg DAILY SC Last administered on 11/17/16 09:48 ; Admin Dose 30 MG; Start 10/22/16 at 09:00 Ondansetron HCl (Zofran Inj) 4 mg Q4H PRN IV NAUSEA AND/OR VOMITING Last administered on 11/09/16 13:49; Admin Dose 4 MG; Start 10/21/16 at 22:00 Miscellaneous Information (Pending Santyl Order For Wound Care) This patient webb... PRN PRN XX WOUND CARE; Start 10/22/16 at 01:30 Sertraline HCl (Zoloft) 100 mg DAILY PO Last administered on 11/17/16 09:23; Admin Dose 100 MG; Start 10/23/16 at 09:00 Trazodone HCl (Desyrel) 75 mg QHS PO Last administered on 11/16/16 20:21; Admin Dose 75 MG; Start 10/22/16 at 21:00 Baclofen 10 mg 10 mg TID PRN PO SPASM; Start 10/22/16 at 16:30 Potassium Chloride/Dextrose/ Sod Cl (D5-1/2ns + KCl 20 Meq) 1,000 ml @ 70 mls/ hr [id number] IV Last administered on 11/17/16 17:17; Admin Dose 70 MLS/HR; Start 10/23/16 at 17:00 Zinc Sulfate (Zinc Sulfate) 220 mg DAILY PO Last administered on 11/17/16 09: 23; Admin Dose 220 MG; Start 10/25/16 at 09:00 Ascorbic Acid (Vitamin C) 500 mg DAILY PO Last administered on 11/17/16 09:23 ; Admin Dose 500 MG; Start 10/25/16 at 09:00 Lactobacillus Acidophilus/ Rhamnosus (Culturelle) 1 cap BID PO Last administered on 11/17/16 09:23; Admin Dose 1 CAP; Start 10/26/16 at 09:00 Mineral Oil (Fleet Mineral Oil Enema) 133 ml BID [place] Last administered on 09:27; Admin Dose 133 ML; Start 10/29/16 at 21:00 Sodium Hypochlorite (Dakin'S (1/4 Strength)) 1 applic AM IRR Last administered on 11/17/16 09:24; Admin Dose 1 APPLIC; Start 11/01/16 at 09:00 Docusate Sodium (Colace Liquid Cup) 300 mg DAILY PO Last administered on 09:23; Admin Dose 300 MG; Start 11/02/16 at 14:00 Metoclopramide HCl (Reglan) 10 mg BID IV Last administered on 11/17/16 09:23; Admin Dose 10 MG; Start 11/03/16 at 21:00 Nystatin (Nystatin Powder) 1 applic BID TOP Last administered on 11/17/16 09: 24; Admin Dose 1 APPLIC; Start 11/07/16 at 13:00 Collagenase (Santyl) 1 applic QHS TOP Last administered on 11/16/16 20:20; Admin Dose 1 APPLIC; Start 11/07/16 at 21:00 Multivitamins (Thera-Plus) 5 ml DAILY GTB Last administered on 11/17/16 09:23 ; Admin Dose 5 ML; Start 11/10/16 at 09:00 Ferrous Sulfate (Feosol Liquid Cup) 300 mg BID PO Last administered on 09:23; Admin Dose 300 MG; Start 11/09/16 at 21:00 SAKINA BEACH MD Nov 17, 2016 19:19
--- NOTE | 2016-11-17 19:21 | CONS ---
Date/Time of Note Date/Time of Note DATE: 11/17/16 TIME: 19:14 Assessment/Plan Assessment/Plan Chief Complaint/Hosp Course - S/p early sepsis due to sacral decub infection - mild leukocytosis and tachycardia resolved - Sacral decubitus ulcer with polymicrobial infection; wound cx grew E. Coli, Proteus, CoNS, and Leuconostoc; ESR 30; Sacral x-ray no e/o OM; treated with 2 weeks of Vancomycin and Zosyn - UTI due to lactobacillus - Bacteremia due to CoNS - Hereditary spastic paraplegia - Depression - Normocytic anemia - Dysphagia - Feeder with decreased appetite; calorie count completed with avg 961 kcal/day and 26g protein/day - family now agreeable to G tube placement - Stool impaction - on laxatives - Zoster - treated with acyclovir (-11/16/16) - Hiatal hernia recommendations: - Rivera culture if temp >100.4 F - Monitor off abx Management d/w BRENDA Yepez and Dr. Simon Problems: Consultation Date/Type/Reason Admit Date/Time October 21, 2016 at 18:19 Initial Consult Date 10/23/16 Type of Consultation: Infectious Disease 24 HR Interval Summary Free Text/Dictation Radiologically or laparoscopically placement of G-tube recommended by GI. No acute events per d/w nursing staff. Responded slowly "Happy Friday to you" after I greeted her. ROS limited as pt speaks few words. Exam/Review of Systems Vital Signs Vitals Vital Signs Date Time Temp Pulse Resp B/P Pulse Ox O2 Delivery O2 Flow Rate FiO2 11/17/16 07:40 98.1 74 20 107/64 97 11/15/16 17:08 Room Air Intake and Output 11/16/16 11/16/16 11/17/16 15:00 23:00 07:00 Intake Total 440 ml 1440 ml 760 ml Output Total 1800 ml Balance 440 ml -360 ml 760 ml Exam Constitutional: alert, frail, thin, in NAD Head: atraumatic, normocephalic Eyes: nl sclera Neck: other (unable to assess) Respiratory: clear to auscultation (anteriorly) Cardiovascular: nl pulses, regular rate and rhythm Gastrointestinal: bowel sounds (present), non-tender, soft Musculoskeletal: muscle weakness Extremities: other (contracted with fine tremors noted on fingers) Neurological: other (+ tracking); quadriplegic; speaks few words softly and slowly Skin: other (Wounds including sacral decub- see nurse notes and photos in chart for details) Results Result Diagram: 11/16/1640 11/16/16 0540 Medications Medications Current Medications Acetaminophen (Tylenol Tab) 500 mg Q4H PRN PO PAIN AND OR ELEVATED TEMP; Start 10/21/16 at 22:00 Morphine Sulfate (morphine) 2 mg Q4H PRN IV PAIN LEVEL 4-7 Last administered on 11/04/16 04:41; Admin Dose 2 MG; Start 10/21/16 at 22:00 Enoxaparin Sodium (Lovenox) 30 mg DAILY SC Last administered on 11/17/16 09:48 ; Admin Dose 30 MG; Start 10/22/16 at 09:00 Ondansetron HCl (Zofran Inj) 4 mg Q4H PRN IV NAUSEA AND/OR VOMITING Last administered on 11/09/16 13:49; Admin Dose 4 MG; Start 10/21/16 at 22:00 Miscellaneous Information (Pending [facility] Order For Wound Care) This patient webb... PRN PRN XX WOUND CARE; Start 10/22/16 at 01:30 Sertraline HCl (Zoloft) 100 mg DAILY PO Last administered on 11/17/16 09:23; Admin Dose 100 MG; Start 10/23/16 at 09:00 Trazodone HCl (Desyrel) 75 mg QHS PO Last administered on 11/16/16 20:21; Admin Dose 75 MG; Start 10/22/16 at 21:00 Baclofen 10 mg 10 mg TID PRN PO SPASM; Start 10/22/16 at 16:30 Potassium Chloride/Dextrose/ Sod Cl (D5-1/2ns + KCl 20 Meq) 1,000 ml @ 70 mls/ hr [id number] IV Last administered on 11/17/16 17:17; Admin Dose 70 MLS/HR; Start 10/23/16 at 17:00 Zinc Sulfate (Zinc Sulfate) 220 mg DAILY PO Last administered on 11/17/16 09: 23; Admin Dose 220 MG; Start 10/25/16 at 09:00 Ascorbic Acid (Vitamin C) 500 mg DAILY PO Last administered on 11/17/16 09:23 ; Admin Dose 500 MG; Start 10/25/16 at 09:00 Lactobacillus Acidophilus/ Rhamnosus (Culturelle) 1 cap BID PO Last administered on 11/17/16 09:23; Admin Dose 1 CAP; Start 10/26/16 at 09:00 Mineral Oil (Fleet Mineral Oil Enema) 133 ml BID MT Last administered on 09:27; Admin Dose 133 ML; Start 10/29/16 at 21:00 Sodium Hypochlorite (Dakin'S (1/4 Strength)) 1 applic AM IRR Last administered on 11/17/16 09:24; Admin Dose 1 APPLIC; Start 11/01/16 at 09:00 Docusate Sodium (Colace Liquid Cup) 300 mg DAILY PO Last administered on 09:23; Admin Dose 300 MG; Start 11/02/16 at 14:00 Metoclopramide HCl (Reglan) 10 mg BID IV Last administered on 11/17/16 09:23; Admin Dose 10 MG; Start 11/03/16 at 21:00 Nystatin (Nystatin Powder) 1 applic BID TOP Last administered on 11/17/16 09: 24; Admin Dose 1 APPLIC; Start 11/07/16 at 13:00 Collagenase (Santyl) 1 applic QHS TOP Last administered on 11/16/16 20:20; Admin Dose 1 APPLIC; Start 11/07/16 at 21:00 Multivitamins (Thera-Plus) 5 ml DAILY GTB Last administered on 11/17/16 09:23 ; Admin Dose 5 ML; Start 11/10/16 at 09:00 Ferrous Sulfate (Feosol Liquid Cup) 300 mg BID PO Last administered on 09:23; Admin Dose 300 MG; Start 11/09/16 at 21:00 BUFFY JAIME NP Nov 17, 2016 19:21
[2016-11-17] MEDS: traZODone 50 MG TAB PO SCH (21:15)
[2016-11-17] MEDS: COLLAGENASE 30 GM TUBE TOP SCH (21:17)
[2016-11-18] MEDS: D5W-0.45 NACL + KCL 20 MEQ 1,000 ML IV SCH ×4 (06:50→22:12)
[2016-11-18 07:46] VITALS: BP 114/64; RESP 18
[2016-11-18] MEDS: SERTRALINE 100 MG TAB PO SCH (08:46)
[2016-11-18] MEDS: ASCORBIC ACID 500 MG TAB PO SCH (08:46)
[2016-11-18] MEDS: LACTOBACILLUS RHAMNOSUS CAP PO SCH ×2 (08:46→21:10)
[2016-11-18] MEDS: FERROUS SULFATE 60 MG/ML 5ML CUP PO SCH ×2 (08:46→21:10)
[2016-11-18] MEDS: DOCUSATE SODIUM 10 MG/ML (10ML CUP) PO SCH (08:46)
[2016-11-18] MEDS: METOCLOPRAMIDE 10 MG INJ IV SCH ×2 (08:46→21:10)
[2016-11-18] MEDS: MINERAL OIL 133 ML ENEMA PR SCH ×2 (08:46→21:11)
[2016-11-18] MEDS: MULTIVITAMINS 5 ML CUP GTB SCH (08:46)
[2016-11-18] MEDS: ZINC SULFATE 220 MG CAP PO SCH (08:47)
[2016-11-18] MEDS: SODIUM HYPOCHLORITE 0.125% 473 ML BTL IRR SCH (08:48)
[2016-11-18] MEDS: NYSTATIN 30 GM POWDER BTL TOP SCH ×2 (08:48→21:10)
[2016-11-18] MEDS: ENOXAPARIN 30 MG/0.3 ML SYG SC SCH (08:53)
--- NOTE | 2016-11-18 12:55 | PN ---
DATE: 11/18/2016 SUBJECTIVE: No response, though patient is awake and alert. Some member of the family is trying to feed her through her mouth. OBJECTIVE: VITAL SIGNS: Temperature 98.7, heart rate 87, respiration 18, blood pressure 114/64, saturation 96% on room air. HEENT: No labs for today. GASTROINTESTINAL: Per nursing report, last night, the patient has had a moderate amount of bowel movement. It should be mentioned that she is getting Fleet enemas every 12 hours. ABDOMEN: Soft. BACK: Sacrococcygeal wound. IMAGING: We got a KUB today to evaluate the presence of more stool in the rectum or not, but unfortunately the result is not back and the picture is not in the computer yet up to this time. ASSESSMENT: There still is a small area, about 1 cm x 1.5 cm, slightly covered with slough. Otherwise, granulation tissue is forming on all other places. Per report, the family has not accepted the suggestion of the GI colleague to place a gastric feeding tube under CT scan guidance by the radiologist. So we will wait to see what happens and if the family agrees then request placement by invasive radiologist, if possible. Meanwhile, continue current care. Dictated By: SCOOBY DRUMMOND/CHRISTIAN Conf#: [id number] DID#: [id number] MTDD
--- NOTE | 2016-11-18 13:14 | RADRPT ---
PROCEDURE: XR Abdomen. CLINICAL INDICATION: fecal impaction TECHNIQUE: AP abdomen x-ray. COMPARISON: None. FINDINGS: No mechanical bowel obstruction is identified. No abnormal intra-abdominal calcification is present . There is a mild dextrocurvature of the upper lumbar spine. There is a catheter in the midline of the lower pelvis. The osseus structures are unremarkable. There is some fecal material in the rectal ampulla and scatt ered fecal material in the ascending and descending colon. There are air-filled small bowel loops i n the central abdomen. IMPRESSION: 1. There is moderate fecal material in the rectal ampulla. 2. A catheter is identified projecting across the base of the urinary bladder. RPTAT:AAJJ Physician Jose Date Time Electronically viewed and signed by Physician Jose on 11/18/2016 13:13 NEO/
--- NOTE | 2016-11-18 14:10 | PN ---
Date/Time of Note Date/Time of Note DATE: 11/18/16 TIME: 14:08 Assessment/Plan VTE Prophylaxis VTE Prophylaxis Intervention: SCD's Lines/Catheters IV Catheter Type (from Nrs): Peripheral IV Urinary Cath still in place: Yes Reason Cath still needed: urinary retention Assessment/Plan Chief Complaint/Hosp Course Patient is able to eat most of the food when fed by family, discussed with Dr. Underwood, patient's family refusing G-tube placement placed by interventional radiology. Assessment and plan: - Sacral decubitus. Continue current wound care. Dr. Murphy is following patient in general surgery consultation. - Hereditary spastic paraplegia. Continue to assist patient with activities of daily living. - Bilateral malleolus wound, continue current wound care. - Depression, continue Zoloft - Dysphagia, continue dysphagia diet, nutritional supplements and vitamins. Dr. Underwood is following in gastroenterology consultation. - Protein calorie malnutrition is evidence of prealbumin level of 13. - Status post UTI, completed the course of antibiotic. Further recommendations based on clinical course. Plan of care discussed with Dr. Gibbs. Problems: Exam/Review of Systems Vital Signs Vitals Vital Signs Date Time Temp Pulse Resp B/P Pulse Ox O2 Delivery O2 Flow Rate FiO2 11/18/16 07:46 98.7 87 18 114/64 96 11/15/16 17:08 Room Air Intake and Output 11/17/16 11/17/16 11/18/16 15:00 23:00 07:00 Intake Total 240 ml 1350 ml 870 ml Output Total 1260 ml 1000 ml 1300 ml Balance -1020 ml 350 ml -430 ml Exam Constitutional: alert, oriented Head: atraumatic, normocephalic Neck: non-tender, supple Respiratory: clear to auscultation, normal air movement Cardiovascular: nl pulses Gastrointestinal: non-tender, soft Genitourinary - Female: other (Eaton catheter) Musculoskeletal: muscle weakness, other (Contracted) Extremities: normal pulses Neurological: nl mental status Skin: other (Sacral decubitus) Results Result Diagram: 11/16/16 0540 11/16/16 0540 Medications Medications Current Medications Acetaminophen (Tylenol Tab) 500 mg Q4H PRN PO PAIN AND OR ELEVATED TEMP; Start 10/21/16 at 22:00 Morphine Sulfate (morphine) 2 mg Q4H PRN IV PAIN LEVEL 4-7 Last administered on 11/04/16 04:41; Admin Dose 2 MG; Start 10/21/16 at 22:00 Enoxaparin Sodium (Lovenox) 30 mg DAILY SC Last administered on 11/18/16 08:53 ; Admin Dose 30 MG; Start 10/22/16 at 09:00 Ondansetron HCl (Zofran Inj) 4 mg Q4H PRN IV NAUSEA AND/OR VOMITING Last administered on 11/09/16 13:49; Admin Dose 4 MG; Start 10/21/16 at 22:00 Miscellaneous Information (Pending Santyl Order For Wound Care) This patient webb... PRN PRN XX WOUND CARE; Start 10/22/16 at 01:30 Sertraline HCl (Zoloft) 100 mg DAILY PO Last administered on 11/18/16 08:46; Admin Dose 100 MG; Start 10/23/16 at 09:00 Trazodone HCl (Desyrel) 75 mg QHS PO Last administered on 11/17/16 21:15; Admin Dose 75 MG; Start 10/22/16 at 21:00 Baclofen 10 mg 10 mg TID PRN PO SPASM; Start 10/22/16 at 16:30 Potassium Chloride/Dextrose/ Sod Cl (D5-1/2ns + KCl 20 Meq) 1,000 ml @ 70 mls/ hr [id number] IV Last administered on 11/18/16 06:50; Admin Dose 70 MLS/HR; Start 10/23/16 at 17:00 Zinc Sulfate (Zinc Sulfate) 220 mg DAILY PO Last administered on 11/18/16 08: 47; Admin Dose 220 MG; Start 10/25/16 at 09:00 Ascorbic Acid (Vitamin C) 500 mg DAILY PO Last administered on 11/18/16 08:46 ; Admin Dose 500 MG; Start 10/25/16 at 09:00 Lactobacillus Acidophilus/ Rhamnosus (Culturelle) 1 cap BID PO Last administered on 11/18/16 08:46; Admin Dose 1 CAP; Start 10/26/16 at 09:00 Mineral Oil (Fleet Mineral Oil Enema) 133 ml BID [place] Last administered on 08:46; Admin Dose 133 ML; Start 10/29/16 at 21:00 Sodium Hypochlorite (Dakin'S (1/4 Strength)) 1 applic AM IRR Last administered on 11/18/16 08:48; Admin Dose 1 APPLIC; Start 11/01/16 at 09:00 Docusate Sodium (Colace Liquid Cup) 300 mg DAILY PO Last administered on 08:46; Admin Dose 300 MG; Start 11/02/16 at 14:00 Metoclopramide HCl (Reglan) 10 mg BID IV Last administered on 11/18/16 08:46; Admin Dose 10 MG; Start 11/03/16 at 21:00 Nystatin (Nystatin Powder) 1 applic BID TOP Last administered on 11/18/16 08: 48; Admin Dose 1 APPLIC; Start 11/07/16 at 13:00 Collagenase (Santyl) 1 applic QHS TOP Last administered on 11/17/16 21:17; Admin Dose 1 APPLIC; Start 11/07/16 at 21:00 Multivitamins (Thera-Plus) 5 ml DAILY GTB Last administered on 11/18/16 08:46 ; Admin Dose 5 ML; Start 11/10/16 at 09:00 Ferrous Sulfate (Feosol Liquid Cup) 300 mg BID PO Last administered on 08:46; Admin Dose 300 MG; Start 11/09/16 at 21:00 LEI YEBOAH Nov 18, 2016 14:10
--- NOTE | 2016-11-18 15:18 | CONS ---
Date/Time of Note Date/Time of Note DATE: 11/18/16 TIME: 15:18 Assessment/Plan Assessment/Plan Additional Assessment/Plan Assessment/Plan Assessment/Plan Additional Assessment/Plan Additional Assessment/Plan IMPRESSION: 1. Sacral decubitus. 2. Hereditary spastic paraplegia. 3. Depression. 4. Dysphagia. 5. Malnutrition. 6. Urinary tract infection. Plan continue PO feeding family now doesn't want PEG tube Consultation Date/Type/Reason Admit Date/Time October 21, 2016 at 18:19 Initial Consult Date 10/23/16 Type of Consultation: Infectious Disease 24 HR Interval Summary Constitutional: improved Exam/Review of Systems Vital Signs Vitals Vital Signs Date Time Temp Pulse Resp B/P Pulse Ox O2 Delivery O2 Flow Rate FiO2 11/18/16 07:46 98.7 87 18 114/64 96 11/15/16 17:08 Room Air Intake and Output 11/17/16 11/17/16 11/18/16 14:59 22:59 06:59 Intake Total 240 ml 1350 ml 870 ml Output Total 1260 ml 1000 ml 1300 ml Balance -1020 ml 350 ml -430 ml Exam Constitutional: alert, oriented, well developed Psych: nl mood/affect, no complaints Head: atraumatic, normocephalic Eyes: EOMI, PERRL, nl conjunctiva, nl lids, nl sclera ENMT: nl external ears & nose, nl lips & teeth, nl nasal mucosa & septum Neck: non-tender, supple Respiratory: clear to auscultation, normal air movement Cardiovascular: nl pulses, regular rate and rhythm Gastrointestinal: nl liver, spleen, non-tender, soft Musculoskeletal: nl extremities to inspection, nl gait and stance Extremities: normal pulses Neurological: [employer] II-XII intact, nl mental status, nl speech, nl strength Skin: nl turgor, No rash or lesions Lymph: nl lymph nodes Results Result Diagram: 11/16/1640 11/16/16539 Medications Medications Current Medications Acetaminophen (Tylenol Tab) 500 mg Q4H PRN PO PAIN AND OR ELEVATED TEMP; Start 10/21/16 at 22:00 Morphine Sulfate (morphine) 2 mg Q4H PRN IV PAIN LEVEL 4-7 Last administered on 11/04/16t 04:41; Admin Dose 2 MG; Start 10/21/16 at 22:00 Enoxaparin Sodium (Lovenox) 30 mg DAILY SC Last administered on 11/18/16 08:53 ; Admin Dose 30 MG; Start 10/22/16 at 09:00 Ondansetron HCl (Zofran Inj) 4 mg Q4H PRN IV NAUSEA AND/OR VOMITING Last administered on 11/09/16 13:49; Admin Dose 4 MG; Start 10/21/16 at 22:00 Miscellaneous Information (Pending Santyl Order For Wound Care) This patient webb... PRN PRN XX WOUND CARE; Start 10/22/16 at 01:30 Sertraline HCl (Zoloft) 100 mg DAILY PO Last administered on 11/18/16 08:46; Admin Dose 100 MG; Start 10/23/16 at 09:00 Trazodone HCl (Desyrel) 75 mg QHS PO Last administered on 11/17/16 21:15; Admin Dose 75 MG; Start 10/22/16 at 21:00 Baclofen 10 mg 10 mg TID PRN PO SPASM; Start 10/22/16 at 16:30 Potassium Chloride/Dextrose/ Sod Cl (D5-1/2ns + KCl 20 Meq) 1,000 ml @ 70 mls/ hr [id number] IV Last administered on 11/18/16 06:50; Admin Dose 70 MLS/HR; Start 10/23/16 at 17:00 Zinc Sulfate (Zinc Sulfate) 220 mg DAILY PO Last administered on 11/18/16 08: 47; Admin Dose 220 MG; Start 10/25/16 at 09:00 Ascorbic Acid (Vitamin C) 500 mg DAILY PO Last administered on 11/18/16 08:46 ; Admin Dose 500 MG; Start 10/25/16 at 09:00 Lactobacillus Acidophilus/ Rhamnosus (Culturelle) 1 cap BID PO Last administered on 11/18/16 08:46; Admin Dose 1 CAP; Start 10/26/16 at 09:00 Mineral Oil (Fleet Mineral Oil Enema) 133 ml BID [place] Last administered on 08:46; Admin Dose 133 ML; Start 10/29/16 at 21:00 Sodium Hypochlorite (Dakin'S (1/4 Strength)) 1 applic AM IRR Last administered on 11/18/16 08:48; Admin Dose 1 APPLIC; Start 11/01/16 at 09:00 Docusate Sodium (Colace Liquid Cup) 300 mg DAILY PO Last administered on 08:46; Admin Dose 300 MG; Start 11/02/16 at 14:00 Metoclopramide HCl (Reglan) 10 mg BID IV Last administered on 11/18/16 08:46; Admin Dose 10 MG; Start 11/03/16 at 21:00 Nystatin (Nystatin Powder) 1 applic BID TOP Last administered on 11/18/16 08: 48; Admin Dose 1 APPLIC; Start 11/07/16 at 13:00 Collagenase (Santyl) 1 applic QHS TOP Last administered on 11/17/16 21:17; Admin Dose 1 APPLIC; Start 11/07/16 at 21:00 Multivitamins (Thera-Plus) 5 ml DAILY GTB Last administered on 11/18/16 08:46 ; Admin Dose 5 ML; Start 11/10/16 at 09:00 Ferrous Sulfate (Feosol Liquid Cup) 300 mg BID PO Last administered on 08:46; Admin Dose 300 MG; Start 11/09/16 at 21:00 SAKINA BEACH MD Nov 18, 2016 15:18
[2016-11-18 19:31] VITALS: BP 123/69; RESP 18
--- NOTE | 2016-11-18 19:42 | CONS ---
Date/Time of Note Date/Time of Note DATE: 11/18/16 TIME: 19:42 Assessment/Plan Assessment/Plan Chief Complaint/Hosp Course - S/p early sepsis due to sacral decub infection - mild leukocytosis and tachycardia resolved - Sacral decubitus ulcer with polymicrobial infection; wound cx grew E. Coli, Proteus, CoNS, and Leuconostoc; ESR 30; Sacral x-ray no e/o OM; treated with 2 weeks of Vancomycin and Zosyn - UTI due to lactobacillus - Bacteremia due to CoNS - Hereditary spastic paraplegia - Depression - Normocytic anemia - Dysphagia - Feeder with decreased appetite; calorie count completed with avg 961 kcal/day and 26g protein/day - Stool impaction - on laxatives - Zoster - treated with acyclovir (-11/16/16) - Hiatal hernia recommendations: - Rivera culture if temp >100.4 F - Monitor off abx Management d/w Dr. Hampton Problems: Consultation Date/Type/Reason Admit Date/Time October 21, 2016 at 18:19 Initial Consult Date 10/23/16 Type of Consultation: Infectious Disease 24 HR Interval Summary Free Text/Dictation Radiologically or laparoscopically placement of G-tube recommended by GI however family now does not want PEG. Unable to perform ROS due to pt's condition. Exam/Review of Systems Vital Signs Vitals Vital Signs Date Time Temp Pulse Resp B/P Pulse Ox O2 Delivery O2 Flow Rate FiO2 11/18/16 19:31 97.9 107 18 123/69 96 11/15/16 17:08 Room Air Intake and Output 11/17/16 11/17/16 11/18/16 15:00 23:00 07:00 Intake Total 240 ml 1350 ml 1030 ml Output Total 1260 ml 1000 ml 1300 ml Balance -1020 ml 350 ml -270 ml Exam Constitutional: alert, frail, thin, in NAD Head: atraumatic, normocephalic Eyes: nl sclera Neck: other (unable to assess) Respiratory: clear to auscultation (anteriorly) Cardiovascular: nl pulses, regular rate and rhythm Gastrointestinal: bowel sounds (present), non-tender, soft Musculoskeletal: muscle weakness Extremities: other (contracted with fine tremors noted on fingers) Neurological: other (+ tracking); quadriplegic; speaks rarely few words Skin: other (Wounds including sacral decub- see nurse notes and photos in chart for details) Results Result Diagram: 11/16/1640 11/16/16 0540 Medications Medications Current Medications Acetaminophen (Tylenol Tab) 500 mg Q4H PRN PO PAIN AND OR ELEVATED TEMP; Start 10/21/16 at 22:00 Morphine Sulfate (morphine) 2 mg Q4H PRN IV PAIN LEVEL 4-7 Last administered on 11/04/16 04:41; Admin Dose 2 MG; Start 10/21/16 at 22:00 Enoxaparin Sodium (Lovenox) 30 mg DAILY SC Last administered on 11/18/16 08:53 ; Admin Dose 30 MG; Start 10/22/16 at 09:00 Ondansetron HCl (Zofran Inj) 4 mg Q4H PRN IV NAUSEA AND/OR VOMITING Last administered on 11/09/16 13:49; Admin Dose 4 MG; Start 10/21/16 at 22:00 Miscellaneous Information ([facility]) This patient webb... PRN PRN XX WOUND CARE; Start 10/22/16 at 01:30 Sertraline HCl (Zoloft) 100 mg DAILY PO Last administered on 11/18/16 08:46; Admin Dose 100 MG; Start 10/23/16 at 09:00 Trazodone HCl (Desyrel) 75 mg QHS PO Last administered on 11/17/16 21:15; Admin Dose 75 MG; Start 10/22/16 at 21:00 Baclofen 10 mg 10 mg TID PRN PO SPASM; Start 10/22/16 at 16:30 Potassium Chloride/Dextrose/ Sod Cl (D5-1/2ns + KCl 20 Meq) 1,000 ml @ 70 mls/ hr [id number] IV Last administered on 11/18/16 06:50; Admin Dose 70 MLS/HR; Start 10/23/16 at 17:00 Zinc Sulfate (Zinc Sulfate) 220 mg DAILY PO Last administered on 11/18/16 08: 47; Admin Dose 220 MG; Start 10/25/16 at 09:00 Ascorbic Acid (Vitamin C) 500 mg DAILY PO Last administered on 11/18/16 08:46 ; Admin Dose 500 MG; Start 10/25/16 at 09:00 Lactobacillus Acidophilus/ Rhamnosus (Culturelle) 1 cap BID PO Last administered on 11/18/16 08:46; Admin Dose 1 CAP; Start 10/26/16 at 09:00 Mineral Oil (Fleet Mineral Oil Enema) 133 ml BID [place] Last administered on 08:46; Admin Dose 133 ML; Start 10/29/16 at 21:00 Sodium Hypochlorite (Dakin'S (1/4 Strength)) 1 applic AM IRR Last administered on 11/18/16 08:48; Admin Dose 1 APPLIC; Start 11/01/16 at 09:00 Docusate Sodium (Colace Liquid Cup) 300 mg DAILY PO Last administered on 08:46; Admin Dose 300 MG; Start 11/02/16 at 14:00 Metoclopramide HCl (Reglan) 10 mg BID IV Last administered on 11/18/16 08:46; Admin Dose 10 MG; Start 11/03/16 at 21:00 Nystatin (Nystatin Powder) 1 applic BID TOP Last administered on 11/18/16 08: 48; Admin Dose 1 APPLIC; Start 11/07/16 at 13:00 Collagenase (Santyl) 1 applic QHS TOP Last administered on 11/17/16 21:17; Admin Dose 1 APPLIC; Start 11/07/16 at 21:00 Multivitamins (Thera-Plus) 5 ml DAILY GTB Last administered on 11/18/16 08:46 ; Admin Dose 5 ML; Start 11/10/16 at 09:00 Ferrous Sulfate (Feosol Liquid Cup) 300 mg BID PO Last administered on 08:46; Admin Dose 300 MG; Start 11/09/16 at 21:00 BUFFY JAIME NP Nov 18, 2016 19:42
[2016-11-18] MEDS: traZODone 50 MG TAB PO SCH (21:10)
[2016-11-18] MEDS: COLLAGENASE 30 GM TUBE TOP SCH (21:11)
[2016-11-18 22:00] VITALS: PULSE 87
[2016-11-19 05:49] LABS: ADD SCAN DIFF NO
[2016-11-19 05:51] LABS: BASOPHIL # 0.1 10^3/ul (0.0-0.1); BASOPHILS % 1.1 % (0.0-2.0); EOSINOPHILS # 0.5 10^3/ul (0.0-0.5); HEMATOCRIT 36.1 % (37.0-47.0); HEMOGLOBIN 11.7 g/dl (12.0-16.0); LYMPHOCYTES # 2.2 10^3/ul (0.8-2.9); LYMPHOCYTES % 29.7 % (15.0-51.0); MEAN CORPUSCULAR HEMOGLOBIN 29.1 pg (29.0-33.0); MEAN CORPUSCULAR HGB CONC 32.4 g/dl (32.0-37.0); MEAN CORPUSCULAR VOLUME 89.8 fl (82.0-101.0); MEAN PLATELET VOLUME 11.4 fl (7.4-10.4); MONOCYTE # 0.7 10^3/ul (0.3-0.9); MONOCYTES % 9.1 % (0.0-11.0); PLATELET COUNT 264 10^3/UL (140-415); RED BLOOD COUNT 4.02 10^6/ul (4.20-5.40); RED CELL DISTRIBUTION WIDTH 13.2 % (11.5-14.5); WHITE BLOOD COUNT 7.5 10^3/ul (4.8-10.8)
[2016-11-19 06:53] LABS: CREATININE 0.58 mg/dl (0.44-1.00); POTASSIUM 4.5 mmol/L (3.5-5.1)
[2016-11-19 07:22] VITALS: BP 122/69; RESP 20
[2016-11-19] MEDS: MINERAL OIL 133 ML ENEMA PR SCH ×3 (09:00→21:09)
[2016-11-19] MEDS: ASCORBIC ACID 500 MG TAB PO SCH (09:39)
[2016-11-19] MEDS: ZINC SULFATE 220 MG CAP PO SCH (09:39)
[2016-11-19] MEDS: METOCLOPRAMIDE 10 MG INJ IV SCH ×2 (09:39→21:09)
[2016-11-19] MEDS: DOCUSATE SODIUM 10 MG/ML (10ML CUP) PO SCH (09:39)
[2016-11-19] MEDS: MULTIVITAMINS 5 ML CUP GTB SCH (09:39)
[2016-11-19] MEDS: FERROUS SULFATE 60 MG/ML 5ML CUP PO SCH ×2 (09:40→21:08)
[2016-11-19] MEDS: SERTRALINE 100 MG TAB PO SCH (09:40)
[2016-11-19] MEDS: SODIUM HYPOCHLORITE 0.125% 473 ML BTL IRR SCH (09:41)
[2016-11-19] MEDS: NYSTATIN 30 GM POWDER BTL TOP SCH ×2 (09:42→21:09)
[2016-11-19] MEDS: ENOXAPARIN 30 MG/0.3 ML SYG SC SCH (09:42)
[2016-11-19] MEDS: LACTOBACILLUS RHAMNOSUS CAP PO SCH ×2 (12:05→21:08)
[2016-11-19] MEDS: D5W-0.45 NACL + KCL 20 MEQ 1,000 ML IV SCH (12:06)
--- NOTE | 2016-11-19 16:25 | PN ---
DATE: 11/19/2016 SUBJECTIVE: No new complaints. OBJECTIVE: VITAL SIGNS: Temperature 98.4, heart rate 78, respirations 20, blood pressure 122/69, saturation 97 % on room air. HEENT: WBC 7500 with 53% segmented, hemoglobin 11.7, hematocrit 36.1. BUN, creatinine, sodium and potassium within normal limits. ABDOMEN: Soft. The patient has not had any bowel movement today or yesterday. The KUB was taken today in the morning shows still some fecal impaction in the level of the ampulla of the rectum but it is less than last time. Apparently according to the nurses, the family of the patient has rejected placement of the G-tube under radiology guidance and also they have rejected pl acement of colostomy, so I assume everybody is waiting to find a placement for this patient. Contin ued treatment of the sacrococcygeal wound with Dakin solution wet to dry for 12 hours and then exter nal application of Santyl ointment. Dictated By: SCOOBY DRUMMOND/CHRISTIAN Conf#: [id number] DID#: [id number]
--- NOTE | 2016-11-19 16:56 | PN ---
Date/Time of Note Date/Time of Note DATE: 11/19/16 TIME: 16:52 Assessment/Plan VTE Prophylaxis VTE Prophylaxis Intervention: SCD's Lines/Catheters IV Catheter Type (from Nrs): Peripheral IV Urinary Cath still in place: Yes Reason Cath still needed: urinary retention Assessment/Plan Chief Complaint/Hosp Course Patient remains hemodynamically stable, Dr. Gibbs met with family, patient's mother does not want to proceed with a with a G-tube placement and colostomy, understand all the risk and complications and patient's condition. Anticipate to discharge to custodial facility tomorrow. Assessment and plan: - Sacral decubitus. Continue current wound care. Dr. Murphy is following patient in general surgery consultation. - Hereditary spastic paraplegia. Continue to assist patient with activities of daily living. - Bilateral malleolus wound, continue current wound care. - Depression, continue Zoloft - Dysphagia, continue dysphagia diet, nutritional supplements and vitamins. Dr. Underwood is following in gastroenterology consultation. - Protein calorie malnutrition is evidence of prealbumin level of 13. - Status post UTI, completed the course of antibiotic. Further recommendations based on clinical course. Plan of care discussed with Dr. Gibbs. Problems: Exam/Review of Systems Vital Signs Vitals Vital Signs Date Time Temp Pulse Resp B/P Pulse Ox O2 Delivery O2 Flow Rate FiO2 11/19/16 07:22 98.4 78 20 122/69 97 11/15/16 17:08 Room Air Intake and Output 11/18/16 11/18/16 11/19/16 15:00 23:00 07:00 Intake Total 1780 ml 590 ml Output Total 1000 ml 850 ml Balance 780 ml -260 ml Exam Constitutional: alert, oriented Head: atraumatic, normocephalic Neck: non-tender, supple Respiratory: clear to auscultation, normal air movement Cardiovascular: nl pulses Gastrointestinal: non-tender, soft Genitourinary - Female: other (Eaton catheter) Musculoskeletal: muscle weakness, other (Contracted) Extremities: normal pulses Neurological: nl mental status Skin: other (Sacral decubitus) Results Result Diagram: 11/19/16 0519 11/19/16 0519 Results 24 hrs Laboratory Tests Test 11/19/16 05:19 White Blood Count 7.5 # Red Blood Count 4.02 L Hemoglobin 11.7 L Hematocrit 36.1 L Mean Corpuscular Volume 89.8 Mean Corpuscular Hemoglobin 29.1 Mean Corpuscular Hemoglobin Concent 32.4 Red Cell Distribution Width 13.2 Platelet Count 264 Mean Platelet Volume 11.4 H Neutrophils % 53.0 Lymphocytes % 29.7 Monocytes % 9.1 Eosinophils % 6.0 Basophils % 1.1 Nucleated Red Blood Cells % 0.0 Neutrophils # 4.0 Lymphocytes # 2.2 Monocytes # 0.7 Eosinophils # 0.5 Basophils # 0.1 Nucleated Red Blood Cells # 0.0 Sodium Level 144 Potassium Level 4.5 Chloride Level 106 Carbon Dioxide Level 26 Anion Gap 17 H Blood Urea Nitrogen 8 Creatinine 0.58 Glucose Level 99 Calcium Level 10.0 Medications Medications Current Medications Acetaminophen (Tylenol Tab) 500 mg Q4H PRN PO PAIN AND OR ELEVATED TEMP Last administered on 11/19/16 06:32; Admin Dose 500 MG; Start 10/21/16 at 22:00 Morphine Sulfate (morphine) 2 mg Q4H PRN IV PAIN LEVEL 4-7 Last administered on 11/04/16 04:41; Admin Dose 2 MG; Start 10/21/16 at 22:00 Enoxaparin Sodium (Lovenox) 30 mg DAILY SC Last administered on 11/19/16 09:42 ; Admin Dose 30 MG; Start 10/22/16 at 09:00 Ondansetron HCl (Zofran Inj) 4 mg Q4H PRN IV NAUSEA AND/OR VOMITING Last administered on 11/09/16 13:49; Admin Dose 4 MG; Start 10/21/16 at 22:00 Miscellaneous Information (Pending [facility] Order For Wound Care) This patient webb... PRN PRN XX WOUND CARE; Start 10/22/16 at 01:30 Sertraline HCl (Zoloft) 100 mg DAILY PO Last administered on 11/19/16 09:40; Admin Dose 100 MG; Start 10/23/16 at 09:00 Trazodone HCl (Desyrel) 75 mg QHS PO Last administered on 11/18/16 21:10; Admin Dose 75 MG; Start 10/22/16 at 21:00 Baclofen 10 mg 10 mg TID PRN PO SPASM; Start 10/22/16 at 16:30 Potassium Chloride/Dextrose/ Sod Cl (D5-1/2ns + KCl 20 Meq) 1,000 ml @ 70 mls/ hr [id number] IV Last administered on 11/19/16 12:06; Admin Dose 70 MLS/HR; Start 10/23/16 at 17:00 Zinc Sulfate (Zinc Sulfate) 220 mg DAILY PO Last administered on 11/19/16 09: 39; Admin Dose 220 MG; Start 10/25/16 at 09:00 Ascorbic Acid (Vitamin C) 500 mg DAILY PO Last administered on 11/19/16 09:39 ; Admin Dose 500 MG; Start 10/25/16 at 09:00 Lactobacillus Acidophilus/ Rhamnosus (Culturelle) 1 cap BID PO Last administered on 11/19/16 12:05; Admin Dose 1 CAP; Start 10/26/16 at 09:00 Mineral Oil (Fleet Mineral Oil Enema) 133 ml BID IN Last administered on 21:11; Admin Dose 133 ML; Start 10/29/16 at 21:00 Sodium Hypochlorite (Dakin'S (1/4 Strength)) 1 applic AM IRR Last administered on 11/19/16 09:41; Admin Dose 1 APPLIC; Start 11/01/16 at 09:00 Docusate Sodium (Colace Liquid Cup) 300 mg DAILY PO Last administered on 09:39; Admin Dose 300 MG; Start 11/02/16 at 14:00 Metoclopramide HCl (Reglan) 10 mg BID IV Last administered on 11/19/16 09:39; Admin Dose 10 MG; Start 11/03/16 at 21:00 Nystatin (Nystatin Powder) 1 applic BID TOP Last administered on 11/19/16 09: 42; Admin Dose 1 APPLIC; Start 11/07/16 at 13:00 Collagenase (Santyl) 1 applic QHS TOP Last administered on 11/18/16 21:11; Admin Dose 1 APPLIC; Start 11/07/16 at 21:00 Multivitamins (Thera-Plus) 5 ml DAILY GTB Last administered on 11/19/16 09:39 ; Admin Dose 5 ML; Start 11/10/16 at 09:00 Ferrous Sulfate (Feosol Liquid Cup) 300 mg BID PO Last administered on 09:40; Admin Dose 300 MG; Start 11/09/16 at 21:00 LEI YEBOAH Nov 19, 2016 16:55
--- NOTE | 2016-11-19 17:35 | CONS ---
Date/Time of Note Date/Time of Note DATE: 11/19/16 TIME: 17:34 Assessment/Plan Assessment/Plan Chief Complaint/Hosp Course - S/p early sepsis due to sacral decub infection - mild leukocytosis and tachycardia resolved - Sacral decubitus ulcer with polymicrobial infection; wound cx grew E. Coli, Proteus, CoNS, and Leuconostoc; ESR 30; Sacral x-ray no e/o OM; treated with 2 weeks of Vancomycin and Zosyn - UTI due to lactobacillus - Bacteremia due to CoNS - Hereditary spastic paraplegia - Depression - Normocytic anemia - Dysphagia - Feeder with decreased appetite; calorie count completed with avg 961 kcal/day and 26g protein/day - Stool impaction - on laxatives - Zoster - treated with acyclovir (-11/16/16) - Hiatal hernia recommendations: - Rivera culture if temp >100.4 F - Monitor off abx Problems: Consultation Date/Type/Reason Admit Date/Time October 21, 2016 at 18:19 Initial Consult Date 10/23/16 Type of Consultation: Infectious Disease Exam/Review of Systems Vital Signs Vitals Vital Signs Date Time Temp Pulse Resp B/P Pulse Ox O2 Delivery O2 Flow Rate FiO2 11/19/16 07:22 98.4 78 20 122/69 97 11/15/16 17:08 Room Air Intake and Output 11/18/16 11/18/16 11/19/16 15:00 23:00 07:00 Intake Total 1780 ml 590 ml Output Total 1000 ml 850 ml Balance 780 ml -260 ml Results Result Diagram: 11/19/16 0519 11/19/16 0519 Results 24 hrs Laboratory Tests Test 11/19/16 05:19 White Blood Count 7.5 # Red Blood Count 4.02 L Hemoglobin 11.7 L Hematocrit 36.1 L Mean Corpuscular Volume 89.8 Mean Corpuscular Hemoglobin 29.1 Mean Corpuscular Hemoglobin Concent 32.4 Red Cell Distribution Width 13.2 Platelet Count 264 Mean Platelet Volume 11.4 H Neutrophils % 53.0 Lymphocytes % 29.7 Monocytes % 9.1 Eosinophils % 6.0 Basophils % 1.1 Nucleated Red Blood Cells % 0.0 Neutrophils # 4.0 Lymphocytes # 2.2 Monocytes # 0.7 Eosinophils # 0.5 Basophils # 0.1 Nucleated Red Blood Cells # 0.0 Sodium Level 144 Potassium Level 4.5 Chloride Level 106 Carbon Dioxide Level 26 Anion Gap 17 H Blood Urea Nitrogen 8 Creatinine 0.58 Glucose Level 99 Calcium Level 10.0 Medications Medications Current Medications Acetaminophen (Tylenol Tab) 500 mg Q4H PRN PO PAIN AND OR ELEVATED TEMP Last administered on 11/19/16 06:32; Admin Dose 500 MG; Start 10/21/16 at 22:00 Morphine Sulfate (morphine) 2 mg Q4H PRN IV PAIN LEVEL 4-7 Last administered on 11/04/16 04:41; Admin Dose 2 MG; Start 10/21/16 at 22:00 Enoxaparin Sodium (Lovenox) 30 mg DAILY SC Last administered on 11/19/16 09:42 ; Admin Dose 30 MG; Start 10/22/16 at 09:00 Ondansetron HCl (Zofran Inj) 4 mg Q4H PRN IV NAUSEA AND/OR VOMITING Last administered on 11/09/16 13:49; Admin Dose 4 MG; Start 10/21/16 at 22:00 Miscellaneous Information (Pending [facility] Order For Wound Care) This patient webb... PRN PRN XX WOUND CARE; Start 10/22/16 at 01:30 Sertraline HCl (Zoloft) 100 mg DAILY PO Last administered on 11/19/16 09:40; Admin Dose 100 MG; Start 10/23/16 at 09:00 Trazodone HCl (Desyrel) 75 mg QHS PO Last administered on 11/18/16 21:10; Admin Dose 75 MG; Start 10/22/16 at 21:00 Baclofen 10 mg 10 mg TID PRN PO SPASM; Start 10/22/16 at 16:30 Potassium Chloride/Dextrose/ Sod Cl (D5-1/2ns + KCl 20 Meq) 1,000 ml @ 70 mls/ hr [id number] IV Last administered on 11/19/16 12:06; Admin Dose 70 MLS/HR; Start 10/23/16 at 17:00 Zinc Sulfate (Zinc Sulfate) 220 mg DAILY PO Last administered on 11/19/16 09: 39; Admin Dose 220 MG; Start 10/25/16 at 09:00 Ascorbic Acid (Vitamin C) 500 mg DAILY PO Last administered on 11/19/16 09:39 ; Admin Dose 500 MG; Start 10/25/16 at 09:00 Lactobacillus Acidophilus/ Rhamnosus (Culturelle) 1 cap BID PO Last administered on 11/19/16 12:05; Admin Dose 1 CAP; Start 10/26/16 at 09:00 Mineral Oil (Fleet Mineral Oil Enema) 133 ml BID IA Last administered on 21:11; Admin Dose 133 ML; Start 10/29/16 at 21:00 Sodium Hypochlorite (Dakin'S (1/4 Strength)) 1 applic AM IRR Last administered on 11/19/16 09:41; Admin Dose 1 APPLIC; Start 11/01/16 at 09:00 Docusate Sodium (Colace Liquid Cup) 300 mg DAILY PO Last administered on 09:39; Admin Dose 300 MG; Start 11/02/16 at 14:00 Metoclopramide HCl (Reglan) 10 mg BID IV Last administered on 11/19/16 09:39; Admin Dose 10 MG; Start 11/03/16 at 21:00 Nystatin (Nystatin Powder) 1 applic BID TOP Last administered on 11/19/16 09: 42; Admin Dose 1 APPLIC; Start 11/07/16 at 13:00 Collagenase (Santyl) 1 applic QHS TOP Last administered on 11/18/16 21:11; Admin Dose 1 APPLIC; Start 11/07/16 at 21:00 Multivitamins (Thera-Plus) 5 ml DAILY GTB Last administered on 11/19/16 09:39 ; Admin Dose 5 ML; Start 11/10/16 at 09:00 Ferrous Sulfate (Feosol Liquid Cup) 300 mg BID PO Last administered on 09:40; Admin Dose 300 MG; Start 11/09/16 at 21:00 ROHAN CHENG MD Nov 19, 2016 17:35
--- NOTE | 2016-11-19 17:38 | PN ---
DATE: 11/19/2016 ADDENDUM The patient's family called me again and they would like to reverse the DNR order and they would lik e the patient to be FULL CODE, however, they do not want G-tube or colostomy. They are requesting t he patient be placed in a nursing home facility. sales development manager has been informed about discharge planning. Dictated By: ROBERTO CARLOS LORA/CHRISTIAN Conf#: [id number] DID#: [id number]
--- NOTE | 2016-11-19 19:07 | CONS ---
Date/Time of Note Date/Time of Note DATE: 11/19/16 TIME: 19:05 Assessment/Plan Assessment/Plan Additional Assessment/Plan Assessment/Plan Additional Assessment/Plan Additional Assessment/Plan IMPRESSION: 1. Sacral decubitus. 2. Hereditary spastic paraplegia. 3. Depression. 4. Dysphagia. 5. Malnutrition. 6. Urinary tract infection. Plan continue PO feeding family now doesn't want PEG tube Patient is now full code Consultation Date/Type/Reason Admit Date/Time October 21, 2016 at 18:19 Initial Consult Date 10/23/16 Type of Consultation: Infectious Disease 24 HR Interval Summary Free Text/Dictation As per the staff patient is eating 60-70% but able to take nutritional supplement Exam/Review of Systems Vital Signs Vitals Vital Signs Date Time Temp Pulse Resp B/P Pulse Ox O2 Delivery O2 Flow Rate FiO2 11/19/16 07:22 98.4 78 20 122/69 97 11/15/16 17:08 Room Air Intake and Output 11/18/16 11/18/16 11/19/16 15:00 23:00 07:00 Intake Total 1780 ml 590 ml Output Total 1000 ml 850 ml Balance 780 ml -260 ml Exam Constitutional: alert, oriented, well developed Psych: nl mood/affect, no complaints Head: atraumatic, normocephalic Eyes: EOMI, PERRL, nl conjunctiva, nl lids, nl sclera ENMT: nl external ears & nose, nl lips & teeth, nl nasal mucosa & septum Neck: non-tender, supple Respiratory: clear to auscultation, normal air movement Cardiovascular: nl pulses, regular rate and rhythm Gastrointestinal: nl liver, spleen, non-tender, soft Musculoskeletal: nl extremities to inspection, nl gait and stance Extremities: normal pulses Neurological: CLIENT SUPPORT COORDINATOR II-XII intact, nl mental status, nl speech, nl strength Skin: nl turgor, No rash or lesions Lymph: nl lymph nodes Results Result Diagram: 11/19/1651811/19/16518 Results 24 hrs Laboratory Tests Test 11/19/16 05:19 White Blood Count 7.5 # Red Blood Count 4.02 L Hemoglobin 11.7 L Hematocrit 36.1 L Mean Corpuscular Volume 89.8 Mean Corpuscular Hemoglobin 29.1 Mean Corpuscular Hemoglobin Concent 32.4 Red Cell Distribution Width 13.2 Platelet Count 264 Mean Platelet Volume 11.4 H Neutrophils % 53.0 Lymphocytes % 29.7 Monocytes % 9.1 Eosinophils % 6.0 Basophils % 1.1 Nucleated Red Blood Cells % 0.0 Neutrophils # 4.0 Lymphocytes # 2.2 Monocytes # 0.7 Eosinophils # 0.5 Basophils # 0.1 Nucleated Red Blood Cells # 0.0 Sodium Level 144 Potassium Level 4.5 Chloride Level 106 Carbon Dioxide Level 26 Anion Gap 17 H Blood Urea Nitrogen 8 Creatinine 0.58 Glucose Level 99 Calcium Level 10.0 Medications Medications Current Medications Acetaminophen (Tylenol Tab) 500 mg Q4H PRN PO PAIN AND OR ELEVATED TEMP Last administered on 11/19/16 06:32; Admin Dose 500 MG; Start 10/21/16 at 22:00 Morphine Sulfate (morphine) 2 mg Q4H PRN IV PAIN LEVEL 4-7 Last administered on 11/04/16 04:41; Admin Dose 2 MG; Start 10/21/16 at 22:00 Enoxaparin Sodium (Lovenox) 30 mg DAILY SC Last administered on 11/19/16 09:42 ; Admin Dose 30 MG; Start 10/22/16 at 09:00 Ondansetron HCl (Zofran Inj) 4 mg Q4H PRN IV NAUSEA AND/OR VOMITING Last administered on 11/09/16 13:49; Admin Dose 4 MG; Start 10/21/16 at 22:00 Miscellaneous Information (Pending [facility] Order For Wound Care) This patient webb... PRN PRN XX WOUND CARE; Start 10/22/16 at 01:30 Sertraline HCl (Zoloft) 100 mg DAILY PO Last administered on 11/19/16 09:40; Admin Dose 100 MG; Start 10/23/16 at 09:00 Trazodone HCl (Desyrel) 75 mg QHS PO Last administered on 11/18/16 21:10; Admin Dose 75 MG; Start 10/22/16 at 21:00 Baclofen 10 mg 10 mg TID PRN PO SPASM; Start 10/22/16 at 16:30 Potassium Chloride/Dextrose/ Sod Cl (D5-1/2ns + KCl 20 Meq) 1,000 ml @ 70 mls/ hr [id number] IV Last administered on 11/19/16 12:06; Admin Dose 70 MLS/HR; Start 10/23/16 at 17:00 Zinc Sulfate (Zinc Sulfate) 220 mg DAILY PO Last administered on 11/19/16 09: 39; Admin Dose 220 MG; Start 10/25/16 at 09:00 Ascorbic Acid (Vitamin C) 500 mg DAILY PO Last administered on 11/19/16 09:39 ; Admin Dose 500 MG; Start 10/25/16 at 09:00 Lactobacillus Acidophilus/ Rhamnosus (Culturelle) 1 cap BID PO Last administered on 11/19/16 12:05; Admin Dose 1 CAP; Start 10/26/16 at 09:00 Mineral Oil (Fleet Mineral Oil Enema) 133 ml BID NV Last administered on 21:11; Admin Dose 133 ML; Start 10/29/16 at 21:00 Sodium Hypochlorite (Dakin'S (1/4 Strength)) 1 applic AM IRR Last administered on 11/19/16 09:41; Admin Dose 1 APPLIC; Start 11/01/16 at 09:00 Docusate Sodium (Colace Liquid Cup) 300 mg DAILY PO Last administered on 09:39; Admin Dose 300 MG; Start 11/02/16 at 14:00 Metoclopramide HCl (Reglan) 10 mg BID IV Last administered on 11/19/16 09:39; Admin Dose 10 MG; Start 11/03/16 at 21:00 Nystatin (Nystatin Powder) 1 applic BID TOP Last administered on 11/19/16 09: 42; Admin Dose 1 APPLIC; Start 11/07/16 at 13:00 Collagenase (Santyl) 1 applic QHS TOP Last administered on 11/18/16 21:11; Admin Dose 1 APPLIC; Start 11/07/16 at 21:00 Multivitamins (Thera-Plus) 5 ml DAILY GTB Last administered on 11/19/16 09:39 ; Admin Dose 5 ML; Start 11/10/16 at 09:00 Ferrous Sulfate (Feosol Liquid Cup) 300 mg BID PO Last administered on 09:40; Admin Dose 300 MG; Start 11/09/16 at 21:00 SAKINA BEACH MD Nov 19, 2016 19:07
[2016-11-19 19:40] VITALS: BP 119/67; RESP 18
[2016-11-19] MEDS: traZODone 50 MG TAB PO SCH (21:09)
[2016-11-19] MEDS: COLLAGENASE 30 GM TUBE TOP SCH (21:09)
[2016-11-20] MEDS: D5W-0.45 NACL + KCL 20 MEQ 1,000 ML IV SCH (03:08)
--- NOTE | 2016-11-20 07:00 | PN ---
DATE: 11/19/2016 ADDENDUM: I spoke with the patient's mother, Ms. Lissy Miller. The patient was adopted by her when she was a small child, and she is the decision maker for the patient. The patient's overall condition has bee n declining for the past several years, and she is requesting that the patient be made DNR. She als o does not want her to undergo any surgical procedure including G-tube and colostomy, and she is req uesting that the patient be sent to assisted facility for further care. Plan of care discussed with group social worker as well as supervisor case loading. Dictated By: ROBERTO CARLOS LORA/CHRISTIAN Conf#: [id number] DID#: [id number]
[2016-11-20 07:56] VITALS: BP 107/69; RESP 16
[2016-11-20] MEDS: MINERAL OIL 133 ML ENEMA PR SCH (09:00)
[2016-11-20] MEDS: DOCUSATE SODIUM 10 MG/ML (10ML CUP) PO SCH (09:00)
[2016-11-20] MEDS: ASCORBIC ACID 500 MG TAB PO SCH (09:22)
[2016-11-20] MEDS: SERTRALINE 100 MG TAB PO SCH (09:22)
[2016-11-20] MEDS: LACTOBACILLUS RHAMNOSUS CAP PO SCH (09:22)
[2016-11-20] MEDS: METOCLOPRAMIDE 10 MG INJ IV SCH (09:22)
[2016-11-20] MEDS: ZINC SULFATE 220 MG CAP PO SCH (09:22)
[2016-11-20] MEDS: FERROUS SULFATE 60 MG/ML 5ML CUP PO SCH (09:22)
[2016-11-20] MEDS: MULTIVITAMINS 5 ML CUP GTB SCH (09:22)
[2016-11-20] MEDS: NYSTATIN 30 GM POWDER BTL TOP SCH (09:23)
[2016-11-20] MEDS: SODIUM HYPOCHLORITE 0.125% 473 ML BTL IRR SCH (09:33)
[2016-11-20] MEDS: ENOXAPARIN 30 MG/0.3 ML SYG SC SCH (09:37)
--- NOTE | 2016-11-20 11:19 | CONS ---
Date/Time of Note Date/Time of Note DATE: 11/20/16 TIME: 10:55 Consult Date/Type/Reason Admit Date/Time October 21, 2016 at 18:19 Initial Consult Date 10/23/16 Type of Consultation: INFECTIOUS DISEASE Subjective nonverbal, unable to communicate Objective Vital Signs Date Time Temp Pulse Resp B/P Pulse Ox O2 Delivery O2 Flow Rate FiO2 11/20/16 07:56 98.0 75 16 107/69 97 Intake and Output 11/19/16 11/19/16 11/20/16 15:00 23:00 07:00 Intake Total 650 ml 1610 ml 910 ml Output Total 1300 ml 800 ml Balance 650 ml 310 ml 110 ml Exam Constitutional: awake, frail, does not appear to be in any acute distress Head: atraumatic, normocephalic Eyes: normal sclera Respiratory: anterior chest clear to auscultation Cardiovascular: regular rate and rhythm, palpable pulses Gastrointestinal: soft, non-tender, non-distended, +bowel sounds Musculoskeletal: muscle weakness Extremities: contracted hands and bilateral foot drop Neurological: non-verbal, able to track, quadriplegic Skin: left malleolus and sacral decubitus ulcers (please see nurses notes for detailed documentation) Results/Medications Result Diagram: 11/19/1651811/19/16518 Medications Current Medications Acetaminophen (Tylenol Tab) 500 mg Q4H PRN PO PAIN AND OR ELEVATED TEMP Last administered on 11/19/16 06:32; Admin Dose 500 MG; Start 10/21/16 at 22:00 Morphine Sulfate (morphine) 2 mg Q4H PRN IV PAIN LEVEL 4-7 Last administered on 11/04/16 04:41; Admin Dose 2 MG; Start 10/21/16 at 22:00 Enoxaparin Sodium (Lovenox) 30 mg DAILY SC Last administered on 11/20/16 09:37 ; Admin Dose 30 MG; Start 10/22/16 at 09:00 Ondansetron HCl (Zofran Inj) 4 mg Q4H PRN IV NAUSEA AND/OR VOMITING Last administered on 11/09/16 13:49; Admin Dose 4 MG; Start 10/21/16 at 22:00 Miscellaneous Information (Pending Santyl Order For Wound Care) This patient webb... PRN PRN XX WOUND CARE; Start 10/22/16 at 01:30 Sertraline HCl (Zoloft) 100 mg DAILY PO Last administered on 11/20/16 09:22; Admin Dose 100 MG; Start 10/23/16 at 09:00 Trazodone HCl (Desyrel) 75 mg QHS PO Last administered on 11/19/16 21:09; Admin Dose 75 MG; Start 10/22/16 at 21:00 Baclofen 10 mg 10 mg TID PRN PO SPASM; Start 10/22/16 at 16:30 Potassium Chloride/Dextrose/ Sod Cl (D5-1/2ns + KCl 20 Meq) 1,000 ml @ 70 mls/ hr [id number] IV Last administered on 11/20/16 03:08; Admin Dose 70 MLS/HR; Start 10/23/16 at 17:00 Zinc Sulfate (Zinc Sulfate) 220 mg DAILY PO Last administered on 11/20/16 09: 22; Admin Dose 220 MG; Start 10/25/16 at 09:00 Ascorbic Acid (Vitamin C) 500 mg DAILY PO Last administered on 11/20/16 09:22 ; Admin Dose 500 MG; Start 10/25/16 at 09:00 Lactobacillus Acidophilus/ Rhamnosus (Culturelle) 1 cap BID PO Last administered on 11/20/16 09:22; Admin Dose 1 CAP; Start 10/26/16 at 09:00 Mineral Oil (Fleet Mineral Oil Enema) 133 ml BID RI Last administered on 21:11; Admin Dose 133 ML; Start 10/29/16 at 21:00 Sodium Hypochlorite (Dakin'S (1/4 Strength)) 1 applic AM IRR Last administered on 11/20/16 09:33; Admin Dose 1 APPLIC; Start 11/01/16 at 09:00 Docusate Sodium (Colace Liquid Cup) 300 mg DAILY PO Last administered on 09:39; Admin Dose 300 MG; Start 11/02/16 at 14:00 Metoclopramide HCl (Reglan) 10 mg BID IV Last administered on 11/20/16 09:22; Admin Dose 10 MG; Start 11/03/16 at 21:00 Nystatin (Nystatin Powder) 1 applic BID TOP Last administered on 11/20/16 09: 23; Admin Dose 1 APPLIC; Start 11/07/16 at 13:00 Collagenase (Santyl) 1 applic QHS TOP Last administered on 11/19/16 21:09; Admin Dose 1 APPLIC; Start 11/07/16 at 21:00 Multivitamins (Thera-Plus) 5 ml DAILY GTB Last administered on 11/20/16 09:22 ; Admin Dose 5 ML; Start 11/10/16 at 09:00 Ferrous Sulfate (Feosol Liquid Cup) 300 mg BID PO Last administered on 09:22; Admin Dose 300 MG; Start 11/09/16 at 21:00 Assessment/Plan Chief Complaint/Hosp Course - S/p early sepsis due to sacral decub infection - mild leukocytosis and tachycardia resolved - Sacral decubitus ulcer with polymicrobial infection; wound cx grew E. Coli, Proteus, CoNS, and Leuconostoc; ESR 30; Sacral x-ray no e/o OM; treated with 2 weeks of Vancomycin and Zosyn - UTI due to lactobacillus - Bacteremia due to CoNS - Hereditary spastic paraplegia - Depression - Normocytic anemia - Dysphagia - Feeder with decreased appetite; calorie count completed with avg 961 kcal/day and 26g protein/day - Stool impaction - on laxatives - Zoster - treated with acyclovir (11/08/16- 11/16/16) - Hiatal hernia recommendations: - Rivera culture if temp >100.4 F - Monitor off abx Care and management discussed with BRENDA Bell and DR. Hampton Problems: Additional Assessment/Plan Mother declined GT and Colostomy placement, requesting SNF placement per DR. Lockwood's noted dated 11/19/16 JOMAR GARNICA Nov 20, 2016 11:05
--- NOTE | 2016-11-20 12:19 | PN ---
DATE: 11/20/2016 SUBJECTIVE: No new complaint, no new events. OBJECTIVE: GENERAL: The patient is awake, alert. One finding is that the patient opens her mouth very nicely today, almost completely open. VITAL SIGNS: Temperature 98, heart rate 75, respirations 16, blood pressure 107/69, saturation 97% on room air. ABDOMEN: Soft: LABORATORY DATA: There is no blood work available for today. According to the chart charted by the nurses, the patient has had 3 bowel movements since yesterday. ASSESSMENT: Decubitus ulcer is healing gradually, being treated q.12h. with local application of D francia solution wet-to-dry and also Santyl ointment. Bowel function is gradually resuming itself and the patient is getting less stool in the rectum. PLAN: Continue current care. We will follow. Dictated By: SCOOBY LAL MD PS/CHRISTIAN Conf#: [id number] DID#: [id number]
--- NOTE | 2016-11-20 13:48 | DS ---
DATE OF ADMISSION: 10/21/2016 DATE OF DISCHARGE: 11/20/2016 FINAL DIAGNOSES: 1. Sacral decubitus. 2. 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 3. Depression. 4. Dysphagia. 5. Protein calorie malnutrition. 6. Status post urinary tract infection. BRIEF HISTORY: The patient is an unfortunate 36-year-old female with a hereditary spastic paraplegi a. According to the patient's mother, the patient's condition has been declining. The patient has been bedridden for several years. The patient was sent from [facility] due to necrot ic sacral pressure ulcer for further evaluation and management. The patient was evaluated by Dr. Sa infante, general surgery consultation, and continued on wound care. The patient was also evaluated by Dr. Hampton in infectious disease consultation. The patient had a poor intake and had a calorie coun t, and also evaluation by speech therapist. The patient was started on dysphagia diet. Multiple me eting were held with Dr. Sherman and patient's mother, Lissy Miller, who adopted the patient as a c hild, and regarding possible G-tube placement and a diverting colostomy. Since the patient had a ma rginal p.o. intake and protein calorie malnutrition as evidenced a prealbumin of 13, the patient was evaluated by Dr. Underwood in gastroenterology consultation and was taken to EGD for possible G-tube p lacement; however, that was not possible to put the G-tube due to hiatal hernia with recommendation the G-tube be placed by interventional radiology; however, the patient's mother changed her mind, an d after multiple meetings with Dr. Sherman, decided the patient not to proceed with G-tube and colo stomy, and the patient was also treated for urinary tract infection and was given antibiotics for sa cral wound infection. The patient's condition stabilized, and the patient was going to be discharge d to senior care facility for further care and management. CONDITION ON DISCHARGE: Hemodynamically stable. ACTIVITY: As the patient tolerates. DIET: Dysphagia diet, pureed diet with thickened liquids. DISCHARGE MEDICATIONS: 1. Tylenol p.r.n. 2. Vitamin C. 3. Baclofen. 4. Santyl ointment daily at bedtime. 5. Colace. 6. Lovenox. 8. Ferrous sulfate. 9. Culturelle. 10. Mineral oil. 11. Enema p.r.n. for constipation. 12. Multivitamins. 13. Nystatin powder. 14. Zoloft. 15. Dakin's solution to sacral wound every morning. 16. Trazodone. 17. Zinc sulfate. Interdisciplinary plan of care was established for this patient. Plan of care was discussed with Dr Meena Sherman. Dictated By: LEI YEBOAH WOOD VENEER TAPER for ROBERTO CARLOS SHERMAN MD SR/NTS Conf#: [id number] DID#: [id number]
== END 2016-11-20 16:07 | DRG 871 ==
LOC: E/R 16:37 → PP2 18:19 → TEL 22:31 → MS2 10-25 06:36
PROVIDERS: ADMIT Internal Medicine; ATTEND Internal Medicine
PROC: 0DH68UZ Insertion of Feeding Device into Stomach, Via Natural or Artificial Opening Endoscopic (ICD-10-PCS; principal; 2016-10-21)
DX: A41.9 Sepsis, unspecified organism (principal); L89.154 Pressure ulcer of sacral region, stage 4; G82.50 Quadriplegia, unspecified; E46 Unspecified protein-calorie malnutrition; G11.4 Hereditary spastic paraplegia; Z68.1 Body mass index [BMI] 19.9 or less, adult; N39.0 Urinary tract infection, site not specified; R13.10 Dysphagia, unspecified; S91.001A Unspecified open wound, right ankle, initial encounter; S91.002A Unspecified open wound, left ankle, initial encounter; S90.822A Blister (nonthermal), left foot, initial encounter; S90.821A Blister (nonthermal), right foot, initial encounter; G47.00 Insomnia, unspecified; K44.9 Diaphragmatic hernia without obstruction or gangrene; B96.20 Unspecified Escherichia coli [E. coli] as the cause of diseases classified elsewhere; D64.9 Anemia, unspecified; E86.0 Dehydration; F32.9 Major depressive disorder, single episode, unspecified; X58.XXXA Exposure to other specified factors, initial encounter; E87.6 Hypokalemia; F50.89 Other specified eating disorder; Z66 Do not resuscitate; Z86.19 Personal history of other infectious and parasitic diseases
CPT/HCPCS: 36415; 71010; 72220; 74000; 80048; 80053; 80202; 81001; 81003; 82565; 83605; 83690; 84134; 84145; 84443; 84484; 84520; 85025; 85610; 85651; 85730; 86703; 87040; 87070; 87081; 87086; 92526; 92610; 93005; 96374; 96375; 97110; 97162; 97530; J0690; J1650; J2270; J2370; J2405; J2543; J2765; J3010; J3370; J3480; J7030; P9612